=== PATIENT | male | born 1945 | race African-American/Black ===

== ENCOUNTER → 2016-09-11 | Outpatient (CLI) | payer MEDICARE ==
--- NOTE | 2016-09-11 10:04 | RADIOLOGY REPORT (SQ) ---
EXAM DESCRIPTION: CT ABD/PELVIS WITH IV ORAL COMPLETED DATE/TIME: 09/11/2016 9:39 am REASON FOR STUDY: ANEMIA AND ABDOMEN PAIN D64.9 ANEMIA, UNSPECIFIED R10.9 UNSPECIFIED ABDOMINAL PA IN COMPARISON: None. TECHNIQUE: CT scan of the abdomen and pelvis performed using helical scanning technique with dynamic intravenous contrast injection. No oral contrast. Images reviewed with lung, soft tissue, and bone windows. Reconstructed coronal and sagittal MPR images reviewed. Delayed images for evaluation of the urinary system also acquired. All images stored on PACS. All CT scanners at this facility use dose modulation, iterative reconstruction, and/or weight based d osing when appropriate to reduce radiation dose to as low as reasonably achievable (ALARA). [facility]: Dose Right [facility]: CareDose [facility]: Dose Right [facility]: Teradose 4D [facility]: [employer] CONTRAST TYPE AND DOSE: contrast/concentration: Isovue 370.00 mg/ml; Total Contrast Delivered: 79.0 ml; Total Saline Delivered: 68.0 ml RENAL FUNCTION: BUN 19 creatinine 1.04 RADIATION DOSE: Up-to-date CT equipment and radiation dose reduction techniques were employed. CTDIv ol: 5.9 - 8.1 mGy. DLP: 744 mGy-cm.. LIMITATIONS: None. FINDINGS: LOWER CHEST: No significant findings. No nodules or infiltrates. LIVER: Normal size. No masses or dilated ducts. SPLEEN: Normal size. No focal lesions. PANCREAS: No masses. No significant calcifications. No adjacent inflammation or peripancreatic fluid collections. Pancreatic duct not dilated. GALLBLADDER: No identified stones by CT criteria. No inflammatory changes to suggest cholecystitis. ADRENAL GLANDS: No significant masses or asymmetry. RIGHT KIDNEY AND URETER: No solid masses. No significant calcifications. No hydronephrosis or hyd roureter. LEFT KIDNEY AND URETER: No solid masses. Multiple her renal cysts are noted throughout the kidney th e largest which is seen in the upper pole measuring approximately 6.2 cm in greatest dimension. No s ignificant calcifications. No hydronephrosis or hydroureter. AORTA AND VESSELS: No aneurysm. No dissection. Diffuse calcific atheromatous disease involving the a lino and iliac vessels is noted. Renal arteries, SMA, celiac without stenosis. RETROPERITONEUM: No retroperitoneal adenopathy, hemorrhage or masses. BOWEL AND PERITONEAL CAVITY: No masses or inflammatory changes. No free fluid or peritoneal masses. APPENDIX: Normal. PELVIS: Mild prostatomegaly. There is thickening in the bladder wall which could be secondary to und erdistention of the bladder versus sequela of BPH. Underlying mass lesion within the bladder cannot be excluded on this study. No mass lesions identified within the pelvis. No adenopathy. ABDOMINAL WALL: No masses. No hernias. BONES: No significant or acute findings. Multilevel degenerative changes of the lumbar spine noted. OTHER: No other significant finding. IMPRESSION: 1. No acute abnormality identified in the abdomen and pelvis on this study. 2. Mild prostatomegaly. There is some thickening of the bladder wall which may be secondary to unde rdistention the bladder versus thickening of the muscle secondary to bladder outlet obstruction. Und erlying mass lesion this area cannot be excluded on this study due to incomplete opacification of the bladder. TECHNICAL DOCUMENTATION: JOB ID: [id number] Quality ID # [id number]: Final reports with documentation of one or more dose reduction techniques (e.g., Au tomated exposure control, adjustment of the mA and/or kV according to patient size, use of iterative reconstruction technique) 2010 [employer]- All Rights Reserved
== END ==
LOC: RAD 08:52
PROVIDERS: ATTEND Family Medicine
DX: R10.9 Unspecified abdominal pain (principal); D64.9 Anemia, unspecified
CPT/HCPCS: 74177

== ENCOUNTER 2016-09-18 07:56 | Day surgery (SDC) | payer MEDICARE ==
[~2016-09-18 07:56] MED LIST: DIPHENHYDRAMINE HCL 50 MG/ML VIAL ONE; EPINEPHRINE INJ 1 MG/10 ML DISP.SYRIN ONE; FENTANYL CITRATE INJ/PF 100 MCG/2 ML AMPUL ONE; FLUMAZENIL INJ 0.5 MG/5 ML VIAL IV ONE; GLUCAGON,HUMAN RECOMB 1 MG INJ ONE; MIDAZOLAM 2 MG/2 ML INJ ONE; NALOXONE HCL INJ/PF 0.4 MG/1 ML SDV ONE; ONDANSETRON HCL INJ/PF 4 MG/2 ML SDV ONE
[2016-09-18] MEDS: MIDAZOLAM 2 MG/2 ML INJ ONE ×2 (08:26→08:42)
--- NOTE | 2016-09-18 09:40 | Operative Report ---
Operative Report DATE OF SURGERY: 09/18/16 Operative Report: The risks, benefits and alternatives of the procedure including risks of bleeding, perforation requiring surgery are explained to the patient detail and informed consent was obtained. The patient was taken back to the endoscopy suite and placed in the left, lateral decubital position. Timeout was called. Conscious sedation medications were provided. A rectal examination was done which did not reveal any masses, tears or fissures. An Olympus video scope was inserted into the patient's rectum. The scope was then gradually advanced all the way to the cecum. The cecum was identified by the usual anatomical landmarks including the ileocecal valve as well as the appendiceal office. Patient has a redundant, tortuous colon. Prep is not as good. Photodocumentation is obtained. The scope was then sequentially pulled back via the rest segments of the colon including the ascending colon, hepatic flexure, transverse colon, splenic flexure, descending colon and finally to the rectosigmoid portions of the colon. Retroflexion maneuvers performed. The risks benefits and alternatives of the procedure explained to the patient in detail and informed consent is obtained. A GIF Olympus video scope was inserted into the patient's mouth and hypopharynx, the esophagus is identified intubated and insufflated, the scope was then advanced through the esophagus stomach and duodenum ,retroflexion maneuver is done, the esophagus stomach and first and second portions of the duodenum examined PREOPERATIVE DIAGNOSIS: Iron deficiency anemia rule out GI bleeding POSTOPERATIVE DIAGNOSIS: Small polyp in the sigmoid colon removed via biopsy forceps. Hiatal hernia. Gastritis status post biopsy rule out Helicobacter pylori. No masses AVMs diverticulosis noted , internal hemorrhoids OPERATION: Colonoscopy with biopsy. EGD with biopsy SURGEON: HERMES ROCKWELL ANESTHESIA: Moderate Sedation - 3 mg Versed, 25 mcg of fentanyl. Conscious sedation monitoring time 30 minutes. TISSUE REMOVED OR ALTERED: As noted above. COMPLICATIONS: None. ESTIMATED BLOOD LOSS: None. INTRAOPERATIVE FINDINGS: As described above. PROCEDURE: Patient tolerated procedure well. No immediate postprocedure complications are noted. Patient discharged in good condition. Discharge date 09/18/2016. Discharge diet: Regular. Discharge activity: Regular. 2-3 week follow-up to discuss findings. Patient is instructed to call the office or proceed to the emergency room should there be any further problems or questions. We will wait on pathology. Surveillance colonoscopy in 5 years.
[2016-09-18 10:14] VITALS: BP 173/62
== END 2016-09-18 10:20 | disposition home or self-care (01) ==
LOC: END 07:56
PROVIDERS: ATTEND Internal Medicine Gastroenterology
PROC: 0DB68ZX Excision of Stomach, Via Natural or Artificial Opening Endoscopic, Diagnostic (ICD-10-PCS; principal; 2016-09-18 08:30)
PROC: 0DBN8ZX Excision of Sigmoid Colon, Via Natural or Artificial Opening Endoscopic, Diagnostic (ICD-10-PCS; 2016-09-18 08:30)
DX: K44.9 Diaphragmatic hernia without obstruction or gangrene (principal); K29.70 Gastritis, unspecified, without bleeding; K63.5 Polyp of colon; K64.8 Other hemorrhoids; D50.0 Iron deficiency anemia secondary to blood loss (chronic); Z79.82 Long term (current) use of aspirin; Z79.84 Long term (current) use of oral hypoglycemic drugs; Z79.4 Long term (current) use of insulin; Z79.899 Other long term (current) drug therapy
CPT/HCPCS: 43239; 45380; 82962; 88342 ×2; 88305 ×2; J2250; J3010; J0171; J1200; J1610; J2310; J2405; J3490

== ENCOUNTER → 2016-10-29 | Outpatient (CLI) | payer MEDICARE ==
--- NOTE | 2016-10-29 14:41 | RADIOLOGY REPORT (SQ) ---
EXAM DESCRIPTION: VENOUS UNILATERAL LOWER COMPLETED DATE/TIME: 10/29/2016 2:31 pm REASON FOR STUDY: RLE M79.661 M79.661 PAIN IN RIGHT LOWER LEG COMPARISON: None. TECHNIQUE: Dynamic and static howard scale and color images acquired of the right leg venous system. S elected spectral images acquired with additional compression and augmentation maneuvers. The contrala teral common femoral vein and saphenofemoral junction were also imaged. Images stored on PACS. LIMITATIONS: None. FINDINGS: COMMON FEMORAL: Normal phasicity, compression and augmentation. No visualized echogenic ma terial on howard scale. No defects on color images. FEMORAL: Normal compression and augmentation. No visualized echogenic material on howard scale. No defe cts on color images. POPLITEAL: Normal compression, augmentation. No visualized echogenic material on howard scale. No defec ts on color images. CALF VESSELS: Normal compression, augmentation. No visualized echogenic material on howard scale. No de fects on color images. GSV and SSV: Normal compression, augmentation. No visualized echogenic material on howard scale. No def ects on color images. ANY DEEP VENOUS INSUFFICIENCY: Not evaluated. ANY EVIDENCE OF POPLITEAL CYST: No. OTHER: No other significant finding. CONTRALATERAL COMMON FEMORAL VEIN AND SAPHENOFEMORAL JUNCTION: Normal phasicity, compression and augmentation. No visualized echogenic material on hoawrd scale. No de fects on color images. IMPRESSION: NO EVIDENCE DVT OR SVT IN THE RIGHT LEG. COMMENT: Preliminary report was called by the technologist to the referring clinician's office at th e time of patient visit. TECHNICAL DOCUMENTATION: JOB ID: [id number] [employer]- All Rights Reserved
== END ==
LOC: SP 13:42
PROVIDERS: ATTEND Family Medicine
DX: M79.661 Pain in right lower leg (principal)
CPT/HCPCS: 93971

== ENCOUNTER → 2016-10-30 | Outpatient (CLI) | payer MEDICARE ==
--- NOTE | 2016-10-30 11:41 | RADIOLOGY REPORT (SQ) ---
EXAM DESCRIPTION: ANKLE RIGHT COMPLETE COMPLETED DATE/TIME: 10/30/2016 11:11 am REASON FOR STUDY: PAIN IN RIGHT LOWER LEG M79.661 PAIN IN RIGHT LOWER LEG COMPARISON: None. NUMBER OF VIEWS: Three views. TECHNIQUE: AP, lateral, and oblique radiographic images acquired of the right ankle. LIMITATIONS: None. FINDINGS: MINERALIZATION: Normal. BONES: No acute fracture or dislocation. No worrisome bone lesions. JOINTS: No effusions. SOFT TISSUES: Mild soft tissue swelling more prominent laterally. OTHER: No other significant finding. IMPRESSION: Soft tissue swelling with no fracture. TECHNICAL DOCUMENTATION: JOB ID: [id number] [employer]- All Rights Reserved
--- NOTE | 2016-10-30 11:45 | RADIOLOGY REPORT (SQ) ---
EXAM DESCRIPTION: FOOT RIGHT COMPLETE COMPLETED DATE/TIME: 10/30/2016 11:11 am REASON FOR STUDY: PAIN IN RIGHT LOWER LEG M79.661 PAIN IN RIGHT LOWER LEG COMPARISON: None. NUMBER OF VIEWS: Three views. TECHNIQUE: AP, lateral and oblique radiographic images acquired of the right foot. LIMITATIONS: None. FINDINGS: MINERALIZATION: Normal. BONES: No acute fracture or dislocation. No worrisome bone lesions. Hallux valgus deformity. Mild degenerative changes noted in the midfoot. JOINTS: No effusions. SOFT TISSUES: No soft tissue swelling. No foreign body. OTHER: No other significant finding. IMPRESSION: No acute fracture dislocation identified. Mild degenerate changes noted in the midfoot. Hallux valgus deformity of the 1st MTP TECHNICAL DOCUMENTATION: JOB ID: [id number] [employer]- All Rights Reserved
== END ==
LOC: OD 10:42
PROVIDERS: ATTEND Physician Assistant
DX: M79.661 Pain in right lower leg (principal)

== ENCOUNTER → 2018-02-18 | Outpatient (CLI) | payer MEDICARE ==
[2018-02-18 10:33] LABS: ANION GAP 10 (5-19); BLOOD UREA NITROGEN 32 mg/dL (7-20); CALCIUM 10.1 mg/dL (8.4-10.2); CARBON DIOXIDE 30 mmol/L (22-30); CHLORIDE 105 mmol/L (98-107); GLUCOSE 56 mg/dL (75-110); POTASSIUM 4.7 mmol/L (3.6-5.0); SODIUM 144.8 mmol/L (137-145)
== END ==
LOC: OD 08:56
PROVIDERS: ATTEND Family Medicine
DX: E87.5 Hyperkalemia (principal)
CPT/HCPCS: 36415; 80048

== ENCOUNTER → 2018-05-20 | Outpatient (CLI) | payer MEDICARE ==
--- NOTE | 2018-05-20 12:44 | RADIOLOGY REPORT (SQ) ---
EXAM DESCRIPTION: U/S RETROPERITON (RENAL/AORTA) COMPLETED DATE/TIME: 05/20/2018 12:27 pm REASON FOR STUDY: ACUTE KIDNEY FAILURE (N17.9), ABN KIDNEY FUNCTION (N28.9) N17.9 ACUTE KIDNEY FAIL URE, UNSPECIFIED COMPARISON: None. TECHNIQUE: Dynamic and static grayscale images acquired of the kidneys and bladder and recorded on P ACS. Additional selected color Doppler and spectral images recorded. LIMITATIONS: None. FINDINGS: RIGHT KIDNEY: Normal size, 9.6 cm. Normal echogenicity. No solid or suspicious masses. No hydronephrosis. No calcifications. LEFT KIDNEY: Normal size, 9.2 cm. Normal echogenicity. No solid or suspicious masses. There are 2 c ysts. The larger measures 5.4 cm. No hydronephrosis. No calcifications. BLADDER: No obvious mass. The bladder is incompletely filled. Ureteral jets are not seen. OTHER FINDINGS: No other significant finding. IMPRESSION: Left renal cysts. No acute findings. TECHNICAL DOCUMENTATION: JOB ID: [id number] [employer]- All Rights Reserved Reading location - IP/workstation name: [email or web address]
== END ==
LOC: RAD 11:19
PROVIDERS: ATTEND Physician Assistant
DX: N28.9 Disorder of kidney and ureter, unspecified (principal); R94.4 Abnormal results of kidney function studies
CPT/HCPCS: 76770

== ENCOUNTER 2018-07-04 13:05 | Inpatient (IN) | payer MEDICARE ==
--- NOTE | 2018-07-04 13:32 | ER Document Report ---
ED Medical Screen (RME) - General Chief Complaint: Altered Mental Status Stated Complaint: WEAKNESS Time Seen by Provider: 07/04/18 13:27 Primary Care Provider: SHREYA ONEAL PA [Primary Care Provider] - Follow up as needed TRAVEL OUTSIDE OF THE [place] 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 His last known normal was just after the eye surgery. He has been eating and drinking, but does have a decreased p.o. intake. Denies FERNANDES, fever, neck pain, URI, CP, SOB, Abd pain, or rash. I have treated and performed a rapid initial assessment of this patient. A comprehensive ED assessment and evaluation of the patient, analysis of test results and completion of medical decision making process will be conducted by additional ED providers. PHYSICAL EXAMINATION: GENERAL: Well-appearing, well-nourished and in no acute distress. A&Ox4. Answers questions appropriately. HEAD: Atraumatic, normocephalic. Non-tender. NECK: Normal range of motion, supple without lymphadenopathy. No rigidity/meningismus. No midline tenderness. LUNGS: Breath sounds clear to auscultation bilaterally and equal. No wheezes rales or rhonchi. HEART: Regular rate and rhythm without murmurs, rubs, gallops. ABDOMEN: Soft, nontender, nondistended abdomen. No guarding, no rebound. Normal bowel sounds present. No CVA tenderness bilaterally. Musculoskeletal: L>R sided weakness noted. Extremities: No cyanosis, clubbing, or edema b/l. Peripheral pulses 2+. Capillary refill less than 2 seconds. NEUROLOGICAL: Unable to test eyes. Pt does cannot lift left leg against gravity. He can lift his left arm. Finger to nose left arm difficulty. GCS 15. Slight droop to left lip, unknown if normal per family at this time. PSYCH: Normal mood, normal affect. SKIN: Warm, Dry, normal turgor, no rashes or lesions noted. - Related Data Allergies/Adverse Reactions: No Known Allergies Allergy (Verified 07/04/18 13:07) Past Medical History - Past Medical History Cardiac Medical History: Reports: Hx Coronary Artery Disease, Hx Hypertension Denies: Hx Heart Attack Pulmonary Medical History: Denies: Hx Asthma, Hx Bronchitis, Hx COPD, Hx Pneumonia Neurological Medical History: Reports: Hx Cerebrovascular Accident - X3, STATES NO DEFICITS. Denies: Hx Seizures Musculoskeltal Medical History: Reports Hx Arthritis - Immunizations Hx Diphtheria, Pertussis, Tetanus Vaccination: No Physical Exam - Vital signs Vitals: Temp Pulse Resp BP Pulse Ox 98.4 F 53 L 16 147/43 H 99 07/04/18 13:13 07/04/18 13:13 07/04/18 13:13 07/04/18 13:13 07/04/18 13:13 Course - Vital Signs Vital signs: Temp Pulse Resp BP Pulse Ox 98.4 F 53 L 16 151/55 H 99 07/04/18 13:13 07/04/18 13:13 07/04/18 13:13 07/04/18 13:16 07/04/18 13:13 Doctor's Discharge - Discharge Referrals: SHREYA ONEAL PA [Primary Care Provider] - Follow up as needed
--- NOTE | 2018-07-04 13:55 | RADIOLOGY REPORT (SQ) ---
EXAM DESCRIPTION: CHEST SINGLE VIEW COMPLETED DATE/TIME: 07/04/2018 1:42 pm REASON FOR STUDY: weakness COMPARISON: None. EXAM PARAMETERS: NUMBER OF VIEWS: One view. TECHNIQUE: Single frontal radiographic view of the chest acquired. RADIATION DOSE: NA LIMITATIONS: None. FINDINGS: LUNGS AND PLEURA: No opacities, masses or pneumothorax. No pleural effusion. MEDIASTINUM AND HILAR STRUCTURES: No masses. Contour normal. HEART AND VASCULAR STRUCTURES: Heart normal in size. Normal vasculature. Calcifications of the thor acic aorta. BONES: No acute findings. HARDWARE: None in the chest. OTHER: No other significant finding. IMPRESSION: NO ACUTE RADIOGRAPHIC FINDING IN THE CHEST. TECHNICAL DOCUMENTATION: JOB ID: [id number] [employer]- All Rights Reserved Reading location - IP/workstation name: [email or web address]
--- NOTE | 2018-07-04 14:00 | RADIOLOGY REPORT (SQ) ---
EXAM DESCRIPTION: CT HEAD WITHOUT COMPLETED DATE/TIME: 07/04/2018 1:50 pm REASON FOR STUDY: Left weakness, h/o CVA COMPARISON: None. TECHNIQUE: Axial images acquired through the brain without intravenous contrast. Images reviewed wi th bone, brain and subdural windows. Additional sagittal and coronal reconstructions were generated. Images stored on PACS. All CT scanners at this facility use dose modulation, iterative reconstruction, and/or weight based d osing when appropriate to reduce radiation dose to as low as reasonably achievable (ALARA). [facility]: Dose Right [facility]: CareDose [facility]: Dose Right [facility]: Teradose 4D [facility]: [employer] RADIATION DOSE: CT Rad equipment meets quality standard of care and radiation dose reduction techniq ues were employed. CTDIvol: 53.2 mGy. DLP: 1070 mGy-cm.mGy. LIMITATIONS: None. FINDINGS: VENTRICLES: Prominent. CEREBRUM: No masses. No hemorrhage. No midline shift. Areas of low density in the white matter mos t likely due to chronic micro-vascular ischemic change. No evidence for acute infarction. CEREBELLUM: No masses. No hemorrhage. No alteration of density. No evidence for acute infarction. EXTRAAXIAL SPACES: Age-related involutional change. No fluid collections. No masses. ORBITS AND GLOBE: No intra- or extraconal masses. Normal contour of globe without masses. CALVARIUM: No fracture. PARANASAL SINUSES: No fluid or mucosal thickening. SOFT TISSUES: No mass or hematoma. OTHER: No other significant finding. IMPRESSION: CHRONIC CHANGES OF ATROPHY AND MICROVASCULAR ISCHEMIA. NO ACUTE PROCESS. EVIDENCE OF ACUTE STROKE: NO. TECHNICAL DOCUMENTATION: JOB ID: [id number] Quality ID # [id number]: Final reports with documentation of one or more dose reduction techniques (e.g., Au tomated exposure control, adjustment of the mA and/or kV according to patient size, use of iterative reconstruction technique) 2010 [employer]- All Rights Reserved Reading location - IP/workstation name: [email or web address]
[2018-07-04 14:51] LABS: ABSOLUTE BASOPHILS # (AUTO) 0.1 10^3/uL (0.0-0.2); ABSOLUTE EOSINOPHILS # (AUTO) 0.1 10^3/uL (0.0-0.6); ABSOLUTE LYMPHOCYTES (AUTO) 1.3 10^3/uL (0.5-4.7); ABSOLUTE MONOCYTES (AUTO) 0.5 10^3/uL (0.1-1.4); ABSOLUTE NEUT (AUTO) 4.3 10^3/uL (1.7-8.2); EOSINOPHILS % (AUTO) 0.9 % (0-6); HEMATOCRIT 33.8 % (37.9-51.0); HEMOGLOBIN 11.4 g/dL (13.5-17.0); LYMPHOCYTES % (AUTO) 20.7 % (13-45); MEAN CORPUSCULAR HEMOGLOBIN 27.8 pg (27.0-33.4); MEAN CORPUSCULAR HGB CONC 33.6 g/dL (32.0-36.0); MEAN CORPUSCULAR VOLUME 83 fl (80-97); MONOCYTES % (AUTO) 8.7 % (3-13); PLATELET COUNT 262 10^3/uL (150-450); RED BLOOD COUNT 4.08 10^6/uL (4.35-5.55); RED CELL DISTRIBUTION WIDTH 14.4 % (11.5-14.0); SEGMENTED NEUTROPHILS % (AUTO) 68.7 % (42-78); TOTAL CELLS COUNTED % (AUTO) 100 %; WHITE BLOOD COUNT 6.2 10^3/uL (4.0-10.5)
[2018-07-04 15:29] LABS: ALANINE AMINOTRANSFERASE 21 U/L (21-72); ALBUMIN 4.3 g/dL (3.5-5.0); ALKALINE PHOSPHATASE 88 U/L (38-126); ANION GAP 6 (5-19); ASPARTATE AMINO TRANSFERASE 21 U/L (17-59); BILIRUBIN,DIRECT 0.3 mg/dL (0.0-0.4); BILIRUBIN,TOTAL 0.8 mg/dL (0.2-1.3); BLOOD UREA NITROGEN 33 mg/dL (7-20); CALCIUM 10.7 mg/dL (8.4-10.2); CARBON DIOXIDE 31 mmol/L (22-30); CHLORIDE 104 mmol/L (98-107); GLUCOSE 210 mg/dL (75-110); SODIUM 141.4 mmol/L (137-145); TOTAL PROTEIN 7.4 g/dL (6.3-8.2)
--- NOTE | 2018-07-04 16:02 | EKG REPORT ---
SEVERITY:- BORDERLINE ECG - LOW ATRIAL RHYTHM BORDERLINE T ABNORMALITIES, INFERIOR LEADS BORDERLINE ST ELEVATION, ANTERIOR LEADS : Confirmed by: Junior Martins MD 04-Jul-2018 16:01:57
--- NOTE | 2018-07-04 17:25 | ER Document Report ---
Entered by BERT MONROY SCRIBE 07/04/18 1423 Acting as scribe for:ADAN MANZO MD ED General - General Chief Complaint: Altered Mental Status Stated Complaint: WEAKNESS Time Seen by Provider: 07/04/18 13:27 Primary Care Provider: SHREYA ONEAL PA [PHYSICIAN TRAIN DISPATCHER] - Follow up as needed Mode of Arrival: Ambulatory Information source: Patient Notes: Patient is a 73 year old male with HTN, type 2 diabetes and a history of CVA x3 (left sided deficits) presents to the emergency department accompanied by family complaining of left sided weakness onset 2 days ago. Family at bedside states the patient was on his way to [facility] to have left corneal surgery when they noticed he began to have LLE weakness after the 2.5 hour car ride. They state the patient would have difficulty moving his left leg and would frequently fall to the left. Family reports the patient appeared normal the day before the car ride and the morning before. They state the patient proceeded with the surgery and his symptoms have persisted. Patient states he feels weak all over which he also noticed after the car ride. Patient's PCP is Dr. Tomlinson. The patient is not a TPA candidate. The onset of the patient's symptoms were greater than 48 hours ago. He did have corneal surgery 2 days ago. TRAVEL OUTSIDE OF THE [place] IN LAST 30 DAYS: No - Related Data Allergies/Adverse Reactions: No Known Allergies Allergy (Verified 07/04/18 13:07) Past Medical History - General Information source: Patient - Social History Smoking Status: Never Smoker Cigarette use (# per day): No Chew tobacco use (# tins/day): No Smoking Education Provided: No Frequency of alcohol use: None Drug Abuse: None Family History: Reviewed & Not Pertinent Patient has suicidal ideation: No Patient has homicidal ideation: No - Past Medical History Cardiac Medical History: Reports: Hx Coronary Artery Disease, Hx Hypertension Neurological Medical History: Reports: Hx Cerebrovascular Accident - X3, STATES NO DEFICITS Endocrine Medical History: Reports: Hx Diabetes Mellitus Type 2 Musculoskeletal Medical History: Reports Hx Arthritis Past Surgical History: Reports: Hx Genitourinary Surgery - Prostate - Immunizations Hx Diphtheria, Pertussis, Tetanus Vaccination: No Review of Systems - Review of Systems Constitutional: No symptoms reported EENT: No symptoms reported Cardiovascular: No symptoms reported Respiratory: No symptoms reported Gastrointestinal: No symptoms reported Genitourinary: No symptoms reported Male Genitourinary: No symptoms reported Musculoskeletal: See HPI Skin: No symptoms reported Hematologic/Lymphatic: No symptoms reported Neurological/Psychological: See HPI, Weakness -: Yes All other systems reviewed and negative Physical Exam - Vital signs Vitals: Temp Pulse Resp BP Pulse Ox 98.4 F 53 L 16 147/43 H 99 07/04/18 13:13 07/04/18 13:13 07/04/18 13:13 07/04/18 13:13 07/04/18 13:13 - Notes Notes: GENERAL: Alert, interacts well. No acute distress. HEAD: Normocephalic, atraumatic. No facial weakness. EYES:Right pupil equal, round, and reactive to light. Extraocular movements intact. Left eye is covered by a metal perforated patch, consistent with recent surgical history. ENT: Oral mucosa moist, tongue midline. NECK: Full range of motion. Supple. Trachea midline. Loud flow murmurs in both c arotids, L>R. LUNGS: Clear to auscultation bilaterally, no wheezes, rales, or rhonchi. No respiratory distress. HEART: Systolic murmur. No gallops or rubs. ABDOMEN: Soft, non-tender. Non-distended. Bowel sounds present in all 4 quadrants. No guarding, rigidity, or rebound. EXTREMITIES: Moves all 4 extremities spontaneously. Able to lift BUE for several seconds, normal motor function and strength. Able to lift RLE for several seconds. Able to LLE although unable to keep leg in the air for a prolonged period of time. No edema. NEUROLOGICAL: Alert and oriented x3. Normal speech. PSYCH: Normal affect, normal mood. SKIN: Warm, dry, normal turgor. No rashes or lesions noted. Course - Re-evaluation Re-evalutation: 07/04/18 15:56 The patient has a worsening in his chronic left lower extremity weakness that started just over [address] scan does not show an acute process. I had considered MRI, but he has a recent inflation valve for a prostate instrument implanted in his right thigh. The family did not bring the card with them. They are going to go home and retrieve the card and take pictures of it and then send it to a granddaughter who is remaining here at the hospital. - Vital Signs Vital signs: Temp Pulse Resp BP Pulse Ox 98.4 F 53 L 24 H 172/68 H 98 07/04/18 13:13 07/04/18 14:54 07/04/18 16:01 07/04/18 16:01 07/04/18 16:01 - Laboratory Result Diagrams: 07/04/18 14:20 07/04/18 14:20 Laboratory results interpreted by me: 07/04/18 07/04/18 14:20 14:20 RBC 4.08 L Hgb 11.4 L Hct 33.8 L RDW 14.4 H Carbon Dioxide 31 H BUN 33 H Creatinine 1.56 H Est GFR ( Amer) 53 L Est GFR (Non-Af Amer) 44 L Glucose 210 H Calcium 10.7 H - Diagnostic Test Radiology reviewed: Image reviewed, Reports reviewed - CT scan of the head shows chronic atrophy with microvascular ischemic changes. Nothing acute. Chest x-ray does not show any acute process. - EKG Interpretation by Me EKG shows normal: Sinus rhythm, [place], Intervals, QRS Complexes. abnormal: ST-T Waves - Borderline inferior T abnormalities, borderline anterior ST elevation Rate: Normal - 57 Rhythm: NSR - Consults Dr. Hdez Time consulted: 17:08 Consulted provider: will see as inpatient - [facility]MCU Discharge - Discharge Clinical Impression: Left leg weakness CVA (cerebral vascular accident) Qualifiers: CVA mechanism: unspecified Qualified Code(s): I63.9 - Cerebral infarction, unspecified Condition: Stable Disposition: ADMITTED INPATIENT Admitting Provider: Davi Hdez covering Unit Admitted: IMCU Referrals: SHREYA ONEAL PA [PHYSICIAN TRAIN DISPATCHER] - Follow up as needed Scribe Attestation: 07/04/18 15:46 I personally performed the services described in the documentation, reviewed and edited the documentation which was dictated to the scribe in my presence, and it accurately records my words and actions. I personally performed the services described in the documentation, reviewed and edited the documentation which was dictated to the scribe in my presence, and it accurately records my words and actions.
--- NOTE | 2018-07-04 19:29 | RADIOLOGY REPORT (SQ) ---
EXAM DESCRIPTION: MRI HEAD WITHOUT COMPLETED DATE/TIME: 07/04/2018 7:08 pm REASON FOR STUDY: New left lower extremity weakness COMPARISON: CT of brain 07/04/2018 TECHNIQUE: Multiplanar imaging includes non-contrasted T1, T2, FLAIR, and Diffusion with ADC map seq uences. Images stored on PACS. LIMITATIONS: None. FINDINGS: ANATOMY: No anomalies. Normal vascular flow voids. Pituitary fossa normal. CSF SPACES: Normal in size and contour. No hemorrhage. CEREBRUM: Increased T2 signal present in the right centrum semiovale as well as adjacent to the supe rior aspect of the corpus callosum extending into the right yepez radiata. Also, a few high-signal intensity lesions scattered throughout the white matter on FLAIR imaging with distribution suggesting chronic micro-vascular ischemic change. Sulci and gyri normal in size and contour. No evidence of hemorrhage, mass or extraaxial fluid collection. POSTERIOR FOSSA: No signal alteration. No hemorrhage. No edema, masses or mass effect. Internal guillermina tory canals, cerebello-pontine angles, mastoids normal. DIFFUSION: There is restricted diffusion present in the right centrum semi of bowel extending superio rly into the yepez radiata and anteromedially towards the corpus callosum. ORBITS: No masses. Globes normal. PARANASAL SINUSES: No fluid levels. Mucosa normal. OTHER: No other significant finding. IMPRESSION: 1. Acute to subacute infarction in the right centrum semiovale extending into the yepez radiata. 2. Findings consistent with chronic small vessel ischemic changes well. EVIDENCE OF ACUTE STROKE: YES. COMMENT: Pertinent findings on the imaging study reported as a CRITICAL RESULT to ADAN MANZO MD at19:22 on 07/04/2018. Category of Critical Result: 1 TECHNICAL DOCUMENTATION: JOB ID: [id number] [employer]- All Rights Reserved Reading location - IP/workstation name: [email or web address]
[2018-07-04] MEDS ORDERED: GLUCAGON,HUMAN RECOMB 1 MG INJ SUBCUT PRN (20:40)
[2018-07-04] MEDS ORDERED: DEXTROSE 50%-WATER 25 GM/50 ML DISP.SYRIN IV PRN ×4 (20:40→20:44)
[2018-07-04] MEDS ORDERED: DEXTROSE 40% GEL 15 GM TUBE PO PRN ×4 (20:40→20:44)
[2018-07-04] MEDS ORDERED: GLUCAGON,HUMAN RECOMB 1 MG INJ IM PRN (20:44)
--- NOTE | 2018-07-04 20:46 | PDOC H&P ---
History of Present Illness Admission Date/PCP: 07/04/18 17:40 EMILY BAXTER MD History of Present Illness: JYOTI POLLOCK is a 73 year old male, he has a history of hypertension, type 2 diabetes mellitus history of CVA he came to the emergency room for evaluation of left-sided weakness started 2 days ago. Family stated that patient was on his way to [facility] to have left corneal surgery when they noticed he has left sided weakness he had the surgery despite having left- sided weakness. Family stated that patient appeared normal the day before the car ride and the procedure. CAT scan of the head was done without contrast there was no acute change on the CAT scan subsequent MRI head was done, it demonstrated acute infarction in the right centrum semiovale extending into the yepez radiata Past Medical History Cardiac Medical History: Reports: Coronary Artery Disease, Hypertension Endocrine Medical History: Reports: Diabetes Mellitus Type 2 Musculoskeltal Medical History: Reports: Arthritis Hematology: Reports: Anemia Social History Smoking Status: Never Smoker - Advance Directive Resuscitation Status: Full Code Family History Family History: Reviewed & Not Pertinent Parental Family History Reviewed: Yes Children Family History Reviewed: Yes Sibling(s) Family History Reviewed.: Yes Medication/Allergy Home Medications: Aspirin [Aspirin EC] 81 mg PO BID 09/17/16 Atorvastatin Calcium [Lipitor 20 mg Tablet] 20 mg PO QHS 09/17/16 Insulin Glargine,Hum.rec.anlog [Lantus] 25 unit SQ BID 09/17/16 Lisinopril 20 mg PO DAILY 09/17/16 Prednisolone Acetate [Pred Forte] 5 ml BTH_EYE QHS 09/17/16 Amlodipine Besylate [Norvasc 5 mg Tablet] 1 tab PO BID 07/05/18 Bacitracin [Bacitracin Oph Oint 3.5 gm] 1 applic LFT_EYE QHS 07/05/18 Besifloxacin HCl [Besivance 0.6% Oph Susp 5 ml] 1 drop LFT_EYE QID 07/05/18 Bimatoprost [Lumigan 0.01% Oph Soln 2.5 ml/Bottle] 1 drop LFT_EYE QHS 07/05/18 Brimonidine Tartrate/Timolol [Combigan 0.2%-0.5% Eye Drops] 1 drop BTH_EYE QAM 07/05/18 Carboxymethylcellulos/Glycerin [Refresh Repair 0.5-0.9% Drop] 1 drop BTH_EYE QID 07/05/18 Cholecalciferol (Vitamin D3) [Vitamin D3 1000 Unit Tablet] 1 tab PO DAILY 07/05/18 Difluprednate [Durezol] 2 drp LFT_EYE BID 07/05/18 Ferrous Sulfate [Albafort] 1 tab PO DAILY 07/05/18 Loteprednol Etabonate [Lotemax] 1 drop LFT_EYE BID 07/05/18 Magnesium 1 tab PO DAILY 07/05/18 Netarsudil Mesylate [Rhopressa] 1 drop BTH_EYE ASDIR PRN 07/05/18 Allergies/Adverse Reactions: No Known Allergies Allergy (Verified 07/04/18 13:07) Review of Systems Constitutional: ABSENT: chills, fever(s), headache(s), weight gain, weight loss Eyes: ABSENT: visual disturbances Ears: ABSENT: hearing changes Cardiovascular: ABSENT: chest pain, dyspnea on exertion, edema, orthropnea, palpitations Respiratory: ABSENT: cough, hemoptysis Gastrointestinal: ABSENT: abdominal pain, constipation, diarrhea, hematemesis, hematochezia, nausea, vomiting Genitourinary: ABSENT: dysuria, hematuria Musculoskeletal: ABSENT: joint swelling Integumentary: ABSENT: rash, wounds Neurological: PRESENT: focal weakness, frequent falls Psychiatric: ABSENT: anxiety, depression, homidical ideation, suicidal ideation Endocrine: ABSENT: cold intolerance, heat intolerance, menstrual abnormalities, polydipsia, polyuria Hematologic/Lymphatic: ABSENT: easy bleeding, easy bruising, lymphadenopathy Physical Exam Vital Signs: Temp Pulse Resp BP Pulse Ox 98.4 F 53 L 14 171/66 H 98 07/04/18 13:13 07/04/18 14:54 07/04/18 18:01 07/04/18 18:01 07/04/18 18:01 Intake & Output 07/03/18 07/04/18 07/05/18 06:59 06:59 06:59 Weight 65 kg General appearance: PRESENT: no acute distress Head exam: PRESENT: atraumatic Eye exam: PRESENT: other - There is a shield on the left eye Ear exam: PRESENT: normal external ear exam Neck exam: PRESENT: full ROM Respiratory exam: PRESENT: clear to auscultation francesca Cardiovascular exam: PRESENT: RRR, +S1, +S2 GI/Abdominal exam: PRESENT: normal bowel sounds, soft Rectal exam: PRESENT: deferred Neurological exam: PRESENT: alert, motor sensory deficit - The muscle power in the left lower extremity is 2/5, the muscle power in the right lower extremity is 5/5 muscle power in the left upper extremity is 2/5 Psychiatric exam: PRESENT: appropriate affect, normal mood Skin exam: PRESENT: dry, intact, warm Results Laboratory Results: 07/04/18 14:20 07/04/18 14:20 07/04/18 07/04/18 14:20 14:20 WBC 6.2 RBC 4.08 L Hgb 11.4 L Hct 33.8 L MCV 83 MCH 27.8 MCHC 33.6 RDW 14.4 H Plt Count 262 Seg Neutrophils % 68.7 Lymphocytes % 20.7 Monocytes % 8.7 Eosinophils % 0.9 Basophils % 1.0 Absolute Neutrophils 4.3 Absolute Lymphocytes 1.3 Absolute Monocytes 0.5 Absolute Eosinophils 0.1 Absolute Basophils 0.1 Sodium 141.4 Potassium 5.0 Chloride 104 Carbon Dioxide 31 H Anion Gap 6 BUN 33 H Creatinine 1.56 H Est GFR ( Amer) 53 L Est GFR (Non-Af Amer) 44 L Glucose 210 H Calcium 10.7 H Total Bilirubin 0.8 AST 21 ALT 21 Alkaline Phosphatase 88 Total Protein 7.4 Albumin 4.3 07/04/18 14:20 Troponin I < 0.012 Impressions: Chest X-Ray 07/04/18 13:27 IMPRESSION: NO ACUTE RADIOGRAPHIC FINDING IN THE CHEST. Head CT 07/04/18 13:27 IMPRESSION: CHRONIC CHANGES OF ATROPHY AND MICROVASCULAR ISCHEMIA. NO ACUTE PROCESS. EVIDENCE OF ACUTE STROKE: NO. Head MRI 07/04/18 17:52 IMPRESSION: 1. Acute to subacute infarction in the right centrum semiovale ext ending into the yepez radiata. 2. Findings consistent with chronic small vessel ischemic changes well. EVIDENCE OF ACUTE STROKE: YES. Assessment & Plan - Diagnosis (1) Cerebral infarction Qualifiers: Cerebral infarction mechanism: embolism Precerebral and cerebral artery: anterior cerebral artery Laterality of affected vessel: right Qualified Code(s): I63.421 - Cerebral infarction due to embolism of right anterior cerebral artery Is this a current diagnosis for this admission?: Yes Plan: Patient is admitted for management according to the stroke protocol, the carotid Doppler did not demonstrate any significant hemodynamic stenosis suggesting that the intracranial cerebral vessels are involved in the etiology of the stroke (2) Hemiparesis of right dominant side Qualifiers: Hemiparesis etiology: late effect of cerebrovascular disease Cerebrovascular disease type: cerebral infarction Qualified Code(s): I69.351 - Hemiplegia and hemiparesis following cerebral infarction affecting right dominant side Is this a current diagnosis for this admission?: Yes (3) Essential (primary) hypertension Is this a current diagnosis for this admission?: Yes Plan: The blood pressure is elevated, there is no indication for pharmacotherapy of hypertension in the setting of acute ischemic stroke unless the blood pressure is more than 220/120
[2018-07-04] MEDS: INSULIN LISPRO 100 UNIT/ML 3 ML VIAL SUBCUT SCH (22:49)
[2018-07-04] MEDS: ATORVASTATIN CALCIUM 80 MG TABLET PO SCH (22:52)
[2018-07-04 23:16] LABS: INTERNATIONAL RATION (INR) 0.98; PARTIAL THROMBOPLASTIN TIME 34.2 SEC (23.5-35.8); PROTHROMBIN TIME 13.4 SEC (11.4-15.4)
[2018-07-05 03:38] LABS: ABSOLUTE BASOPHILS # (AUTO) 0.1 10^3/uL (0.0-0.2); ABSOLUTE EOSINOPHILS # (AUTO) 0.1 10^3/uL (0.0-0.6); ABSOLUTE LYMPHOCYTES (AUTO) 1.8 10^3/uL (0.5-4.7); ABSOLUTE MONOCYTES (AUTO) 0.6 10^3/uL (0.1-1.4); ABSOLUTE NEUT (AUTO) 3.7 10^3/uL (1.7-8.2); BASOPHILS % (AUTO) 1.5 % (0-2); EOSINOPHILS % (AUTO) 1.2 % (0-6); HEMATOCRIT 34.2 % (37.9-51.0); HEMOGLOBIN 11.4 g/dL (13.5-17.0); LYMPHOCYTES % (AUTO) 28.3 % (13-45); MEAN CORPUSCULAR HEMOGLOBIN 27.4 pg (27.0-33.4); MEAN CORPUSCULAR HGB CONC 33.3 g/dL (32.0-36.0); MEAN CORPUSCULAR VOLUME 83 fl (80-97); MONOCYTES % (AUTO) 9.6 % (3-13); PLATELET COUNT 217 10^3/uL (150-450); RED BLOOD COUNT 4.15 10^6/uL (4.35-5.55); SEGMENTED NEUTROPHILS % (AUTO) 59.4 % (42-78); TOTAL CELLS COUNTED % (AUTO) 100 %; WHITE BLOOD COUNT 6.2 10^3/uL (4.0-10.5)
[2018-07-05 04:00] LABS: ALANINE AMINOTRANSFERASE 15 U/L (21-72); ALBUMIN 3.9 g/dL (3.5-5.0); ALKALINE PHOSPHATASE 85 U/L (38-126); ANION GAP 7 (5-19); ASPARTATE AMINO TRANSFERASE 21 U/L (17-59); BILIRUBIN,DIRECT 0.3 mg/dL (0.0-0.4); BILIRUBIN,TOTAL 0.6 mg/dL (0.2-1.3); BLOOD UREA NITROGEN 30 mg/dL (7-20); CALCIUM 10.1 mg/dL (8.4-10.2); CARBON DIOXIDE 26 mmol/L (22-30); CHLORIDE 107 mmol/L (98-107); CHOLESTEROL 197.75 mg/dL (0-200); GLUCOSE 246 mg/dL (75-110); POTASSIUM 4.1 mmol/L (3.6-5.0); SODIUM 140.2 mmol/L (137-145); TRIGLYCERIDES 175 mg/dL (<150)
[2018-07-05 04:11] LABS: DIRECT LDL 74 mg/dL (<100)
--- NOTE | 2018-07-05 09:44 | EKG REPORT ---
SEVERITY:- ABNORMAL ECG - SINUS RHYTHM MULTIPLE ATRIAL PREMATURE COMPLEXES PROBABLE LEFT ATRIAL ABNORMALITY BORDERLINE T ABNORMALITIES, DIFFUSE LEADS MINIMAL ST ELEVATION, ANTERIOR LEADS : Confirmed by: Junior Martins MD 05-Jul-2018 09:44:03
[2018-07-05] MEDS: INSULIN LISPRO 100 UNIT/ML 3 ML VIAL SUBCUT SCH ×4 (09:56→22:29)
[2018-07-05] MEDS ORDERED: ASPIRIN 81 MG TABLET, ENT COATED PO SCH (10:00)
--- NOTE | 2018-07-05 10:34 | RADIOLOGY REPORT (SQ) ---
EXAM DESCRIPTION: CAROTID DOPPLER COMPLETED DATE/TIME: 07/05/2018 9:56 am REASON FOR STUDY: CVA COMPARISON: None. TECHNIQUE: Grayscale ultrasound, Doppler velocity and spectra, and color Doppler images acquired of the extra-cranial carotid and vertebral arteries. Images stored on PACS. LIMITATIONS: None. FINDINGS: RIGHT CAROTID CCA Velocities: Within normal limits. ICA Velocities Peak systolic 0.69 m/s. End diastolic 0.24 m/s. Proximal ICA/CCA peak systolic ratio 1.0. Spectra normal. No significant plaque. LEFT CAROTID CCA Velocities: Within normal limits. ICA Velocities Peak systolic 0.75 m/s. End diastolic 0.29 m/s. Proximal ICA/CCA peak systolic ratio 0.8. Spectra normal. No significant plaque. VERTEBRAL ARTERIES: Antegrade flow. Normal waveforms. SUBCLAVIAN ARTERIES: Not imaged. OTHER: No other significant finding. IMPRESSION: NO HEMODYNAMICALLY SIGNIFICANT STENOSIS. COMMENT: Quality ID #[id number]: Velocity criteria are extrapolated from the diameter data as defined by t he Society of Radiologists in Ultrasound Consensus Conference. Radiology 2003: 229; 340-346. TECHNICAL DOCUMENTATION: JOB ID: [id number] [employer]- All Rights Reserved Reading location - IP/workstation name: [email or web address]
[2018-07-05] MEDS ORDERED: GLYCERIN BTH_EYE SCH (11:15)
[2018-07-05] MEDS ORDERED: DIFLUPREDNATE LFT_EYE SCH (11:15)
[2018-07-05] MEDS ORDERED: CARBOXYMETHYLCELLULOSE BTH_EYE SCH (11:15)
[2018-07-05] MEDS ORDERED: (PENDING PHARMACY ID) (Loteprednol Etabonate [Lotemax] 1 DROP) LFT_EYE SCH (11:15)
[2018-07-05] MEDS ORDERED: [UNRECOGNIZED DRUG - OTHER] BTH_EYE SCH (11:15)
[2018-07-05] MEDS ORDERED: MAGNESIUM PO SCH (11:15)
--- NOTE | 2018-07-05 11:37 | PDOC PROGRESS REPORT ---
Subjective Progress Note for:: 07/05/18 Subjective:: Patient seen by the bedside, family in the room Reason For Visit: ACUTE ISCHEMIC STROKE Physical Exam Vital Signs: Temp Pulse Resp BP Pulse Ox 97.4 F 47 L 16 174/64 H 100 07/05/18 07:04 07/05/18 07:04 07/05/18 07:04 07/05/18 07:04 07/05/18 07:04 Intake & Output 07/04/18 07/05/18 07/06/18 06:59 06:59 06:59 Weight 62.9 kg General appearance: PRESENT: no acute distress Head exam: PRESENT: atraumatic, normocephalic Eye exam: PRESENT: PERRLA Ear exam: PRESENT: normal external ear exam Mouth exam: PRESENT: moist, tongue midline Neck exam: PRESENT: full ROM Respiratory exam: PRESENT: clear to auscultation francesca Cardiovascular exam: PRESENT: RRR, +S1, +S2 Vascular exam: PRESENT: normal capillary refill GI/Abdominal exam: PRESENT: normal bowel sounds, soft Rectal exam: PRESENT: deferred Neurological exam: PRESENT: alert, motor sensory deficit - Left-sided weakness Psychiatric exam: PRESENT: appropriate affect, normal mood Skin exam: PRESENT: dry, intact, warm Results Laboratory Results: 07/05/18 03:28 07/05/18 03:28 07/04/18 07/04/18 07/05/18 14:20 14:20 03:28 WBC 6.2 6.2 RBC 4.08 L 4.15 L Hgb 11.4 L 11.4 L Hct 33.8 L 34.2 L MCV 83 83 MCH 27.8 27.4 MCHC 33.6 33.3 RDW 14.4 H 14.0 Plt Count 262 217 Seg Neutrophils % 68.7 59.4 Lymphocytes % 20.7 28.3 Monocytes % 8.7 9.6 Eosinophils % 0.9 1.2 Basophils % 1.0 1.5 Absolute Neutrophils 4.3 3.7 Absolute Lymphocytes 1.3 1.8 Absolute Monocytes 0.5 0.6 Absolute Eosinophils 0.1 0.1 Absolute Basophils 0.1 0.1 Sodium 141.4 Potassium 5.0 Chloride 104 Carbon Dioxide 31 H Anion Gap 6 BUN 33 H Creatinine 1.56 H Est GFR ( Amer) 53 L Est GFR (Non-Af Amer) 44 L Glucose 210 H Calcium 10.7 H Total Bilirubin 0.8 AST 21 ALT 21 Alkaline Phosphatase 88 Total Protein 7.4 Albumin 4.3 Triglycerides Cholesterol LDL Cholesterol Direct VLDL Cholesterol HDL Cholesterol 07/05/18 03:28 WBC RBC Hgb Hct MCV MCH MCHC RDW Plt Count Seg Neutrophils % Lymphocytes % Monocytes % Eosinophils % Basophils % Absolute Neutrophils Absolute Lymphocytes Absolute Monocytes Absolute Eosinophils Absolute Basophils Sodium 140.2 Potassium 4.1 Chloride 107 Carbon Dioxide 26 Anion Gap 7 BUN 30 H Creatinine 1.35 H Est GFR ( Amer) > 60 Est GFR (Non-Af Amer) 52 L Glucose 246 H Calcium 10.1 Total Bilirubin 0.6 AST 21 ALT 15 L Alkaline Phosphatase 85 Total Protein 7.0 Albumin 3.9 Triglycerides 175 H Cholesterol 197.75 LDL Cholesterol Direct 74 VLDL Cholesterol 35.0 H HDL Cholesterol 85 07/04/18 07/04/18 07/04/18 14:20 21:22 21:22 Creatine Kinase 83 CK-MB (CK-2) 0.31 Troponin I < 0.012 07/04/18 07/05/18 07/05/18 21:22 03:28 10:02 Creatine Kinase CK-MB (CK-2) Troponin I 0.018 < 0.012 < 0.012 Impressions: Chest X-Ray 07/04/18 13:27 IMPRESSION: NO ACUTE RADIOGRAPHIC FINDING IN THE CHEST. Head CT 07/04/18 13:27 IMPRESSION: CHRONIC CHANGES OF ATROPHY AND MICROVASCULAR ISCHEMIA. NO ACUTE PROCESS. EVIDENCE OF ACUTE STROKE: NO. Head MRI 07/04/18 17:52 IMPRESSION: 1. Acute to subacute infarction in the right centrum semiovale extending into the yepez radiata. 2. Findings consistent with chronic small vessel ischemic changes well. EVIDENCE OF ACUTE STROKE: YES. Carotid Doppler Study 07/05/18 00:00 IMPRESSION: NO HEMODYNAMICALLY SIGNIFICANT STENOSIS. Assessment & Plan - Diagnosis (1) Cerebral infarction Qualifiers: Cerebral infarction mechanism: embolism Precerebral and cerebral artery: anterior cerebral artery Laterality of affected vessel: right Qualified Code(s): I63.421 - Cerebral infarction due to embolism of right anterior cerebral artery Is this a current diagnosis for this admission?: Yes Plan: Continue aspirin, atorvastatin (2) Hemiparesis of right dominant side Qualifiers: Hemiparesis etiology: late effect of cerebrovascular disease Cerebrovascular disease type: cerebral infarction Qualified Code(s): I69.351 - Hemiplegia and hemiparesis following cerebral infarction affecting right dominant side Is this a current diagnosis for this admission?: Yes Plan: PT ,OT (3) Essential (primary) hypertension Is this a current diagnosis for this admission?: Yes Plan: The blood pressure is elevated, there is no indication for pharmacotherapy of hypertension in the setting of acute ischemic stroke unless the blood pressure is more than 220/120
[2018-07-05] MEDS: ENOXAPARIN SODIUM INJ 40 MG/0.4 ML DISP.SYRIN SUBCUT SCH (13:33)
[2018-07-05] MEDS: ATORVASTATIN CALCIUM 80 MG TABLET PO SCH (22:29)
[2018-07-05 23:41] LABS: APPEARANCE,URINE CLEAR; BILIRUBIN,URINE NEGATIVE (NEGATIVE); COLOR,URINE YELLOW; GLUCOSE, URINE >=500 mg/dL (NEGATIVE); KETONES,URINE NEGATIVE (NEGATIVE); LEUKOCYTE ESTERASE,URINE NEGATIVE (NEGATIVE); NITRITE,URINE NEGATIVE (NEGATIVE); PROTEIN,URINE 100 mg/dL (NEGATIVE); URINE SPECIFIC GRAVITY 1.022
[2018-07-06] MEDS ORDERED: INSULIN GLARGINE,HUM.REC.ANLOG 1,000 UNIT/10 ML VIAL (PYX) SUBCUT PRN (02:31)
[2018-07-06] MEDS: BESIFLOXACIN HCL 0.6% OPH SUSP 5 ML BOTTLE OU SCH ×5 (02:44→22:56)
[2018-07-06] MEDS: CHOLECALCIFEROL (D3) 1,000 UNIT TABLET PO SCH ×2 (02:44→10:27)
[2018-07-06] MEDS: INSULIN GLARGINE,HUM.REC.ANLOG 1,000 UNIT/10 ML VIAL SUBCUT SCH ×3 (02:44→17:23)
[2018-07-06] MEDS ORDERED: INSULIN GLARGINE,HUM.REC.ANLOG 1,000 UNIT/10 ML VIAL SUBCUT ONE (02:45)
[2018-07-06] MEDS ORDERED: BIMATOPROST 0.01% OPH SOLN 2.5 ML/BOTTLE OU ONE (02:45)
[2018-07-06 05:55] LABS: ABSOLUTE BASOPHILS # (AUTO) 0.1 10^3/uL (0.0-0.2); ABSOLUTE EOSINOPHILS # (AUTO) 0.1 10^3/uL (0.0-0.6); ABSOLUTE LYMPHOCYTES (AUTO) 1.5 10^3/uL (0.5-4.7); ABSOLUTE MONOCYTES (AUTO) 0.7 10^3/uL (0.1-1.4); ABSOLUTE NEUT (AUTO) 4.2 10^3/uL (1.7-8.2); HEMATOCRIT 33.1 % (37.9-51.0); LYMPHOCYTES % (AUTO) 23.4 % (13-45); MEAN CORPUSCULAR HEMOGLOBIN 27.2 pg (27.0-33.4); MEAN CORPUSCULAR HGB CONC 33.2 g/dL (32.0-36.0); MEAN CORPUSCULAR VOLUME 82 fl (80-97); MONOCYTES % (AUTO) 10.2 % (3-13); PLATELET COUNT 212 10^3/uL (150-450); RED BLOOD COUNT 4.04 10^6/uL (4.35-5.55); SEGMENTED NEUTROPHILS % (AUTO) 64.4 % (42-78); TOTAL CELLS COUNTED % (AUTO) 100 %; WHITE BLOOD COUNT 6.5 10^3/uL (4.0-10.5)
[2018-07-06 06:10] LABS: ALANINE AMINOTRANSFERASE 20 U/L (21-72); ALBUMIN 3.8 g/dL (3.5-5.0); ALKALINE PHOSPHATASE 79 U/L (38-126); ANION GAP 9 (5-19); ASPARTATE AMINO TRANSFERASE 19 U/L (17-59); BILIRUBIN,DIRECT 0.3 mg/dL (0.0-0.4); BILIRUBIN,TOTAL 0.6 mg/dL (0.2-1.3); BLOOD UREA NITROGEN 26 mg/dL (7-20); CALCIUM 9.5 mg/dL (8.4-10.2); CARBON DIOXIDE 26 mmol/L (22-30); CHLORIDE 103 mmol/L (98-107); GLUCOSE 231 mg/dL (75-110); SODIUM 138.3 mmol/L (137-145); TOTAL PROTEIN 6.7 g/dL (6.3-8.2)
[2018-07-06] MEDS: INSULIN LISPRO 100 UNIT/ML 3 ML VIAL SUBCUT SCH ×4 (07:52→22:55)
[2018-07-06] MEDS ORDERED: AMLODIPINE BESYLATE 5 MG TABLET PO SCH (10:00)
[2018-07-06] MEDS: AMLODIPINE BESYLATE 2.5 MG TABLET PO SCH ×2 (10:26→22:55)
[2018-07-06] MEDS: ENOXAPARIN SODIUM INJ 40 MG/0.4 ML DISP.SYRIN SUBCUT SCH (10:27)
[2018-07-06] MEDS: MAGNESIUM OXIDE 400 MG TABLET PO SCH (10:27)
[2018-07-06] MEDS: ASPIRIN 81 MG TABLET, ENT COATED PO SCH ×2 (10:27→17:23)
--- NOTE | 2018-07-06 12:47 | PDOC PROGRESS REPORT ---
Subjective Progress Note for:: 07/06/18 Subjective:: Patient was admitting in the hospital for the left-sided weakness and MRIs confirm the stroke Patient also have a left eye surgery was done at [facility] Patient put in the CVA protocol Patient's carotid Doppler was negative Patient is denied any chest pain to than any shortness of breath Patient able to move the left upper extremities but have a little bit difficult time for the left lower extremities Reason For Visit: ACUTE ISCHEMIC STROKE Physical Exam Vital Signs: Temp Pulse Resp BP Pulse Ox 98.2 F 105 H 18 176/53 H 97 07/06/18 10:56 07/06/18 10:56 07/06/18 10:56 07/06/18 10:56 07/06/18 10:56 Intake & Output 07/05/18 07/06/18 07/07/18 06:59 06:59 06:59 Intake Total 399 Output Total 125 Balance 274 Weight 62.9 kg 61.9 kg General appearance: PRESENT: no acute distress, well-developed, well-nourished Head exam: PRESENT: atraumatic, normocephalic Eye exam: PRESENT: conjunctiva pink, EOMI, PERRLA. ABSENT: scleral icterus Ear exam: PRESENT: normal external ear exam Mouth exam: PRESENT: moist, tongue midline Neck exam: PRESENT: full ROM. ABSENT: carotid bruit, JVD, lymphadenopathy, thyromegaly Respiratory exam: PRESENT: clear to auscultation francesca Cardiovascular exam: PRESENT: RRR. ABSENT: diastolic murmur, rubs, systolic murmur Vascular exam: PRESENT: normal capillary refill GI/Abdominal exam: PRESENT: normal bowel sounds, soft. ABSENT: distended, guard ing, mass, organolmegaly, rebound, tenderness Rectal exam: PRESENT: deferred Neurological exam: PRESENT: alert, awake, oriented to person, oriented to place, oriented to time, oriented to situation. ABSENT: motor sensory deficit Additional comments: Upper extremity on the left side the strength is 4 x 5 lower extremity strength is 3 x 5 Psychiatric exam: PRESENT: appropriate affect, normal mood. ABSENT: homicidal ideation, suicidal ideation Skin exam: PRESENT: dry, intact, warm. ABSENT: cyanosis, rash Results Laboratory Results: 07/06/18 05:00 07/06/18 05:00 07/05/18 07/06/18 07/06/18 23:15 05:00 05:00 WBC 6.5 RBC 4.04 L Hgb 11.0 L Hct 33.1 L MCV 82 MCH 27.2 MCHC 33.2 RDW 14.0 Plt Count 212 Seg Neutrophils % 64.4 Lymphocytes % 23.4 Monocytes % 10.2 Eosinophils % 1.0 Basophils % 1.0 Absolute Neutrophils 4.2 Absolute Lymphocytes 1.5 Absolute Monocytes 0.7 Absolute Eosinophils 0.1 Absolute Basophils 0.1 Sodium 138.3 Potassium 4.0 Chloride 103 Carbon Dioxide 26 Anion Gap 9 BUN 26 H Creatinine 1.28 H Est GFR ( Amer) > 60 Est GFR (Non-Af Amer) 55 L Glucose 231 H Calcium 9.5 Total Bilirubin 0.6 AST 19 ALT 20 L Alkaline Phosphatase 79 Total Protein 6.7 Albumin 3.8 Urine Color YELLOW Urine Appearance CLEAR Urine pH 5.0 Ur Specific [place] 1.022 Urine Protein 100 H Urine Glucose (UA) >=500 H Urine Ketones NEGATIVE Urine Blood NEGATIVE Urine Nitrite NEGATIVE Ur Leukocyte Esterase NEGATIVE Urine WBC (Auto) 1 Urine RBC (Auto) 1 07/04/18 07/04/18 07/04/18 14:20 21:22 21:22 Creatine Kinase 83 CK-MB (CK-2) 0.31 Troponin I < 0.012 07/04/18 07/05/18 07/05/18 21:22 03:28 10:02 Creatine Kinase CK-MB (CK-2) Troponin I 0.018 < 0.012 < 0.012 Impressions: Chest X-Ray 07/04/18 13:27 IMPRESSION: NO ACUTE RADIOGRAPHIC FINDING IN THE CHEST. Head CT 07/04/18 13:27 IMPRESSION: CHRONIC CHANGES OF ATROPHY AND MICROVASCULAR ISCHEMIA. NO ACUTE PROCESS. EVIDENCE OF ACUTE STROKE: NO. Head MRI 07/04/18 17:52 IMPRESSION: 1. Acute to subacute infarction in the right centrum semiovale extending into the eypez radiata. 2. Findings consistent with chronic small vessel ischemic changes well. EVIDENCE OF ACUTE STROKE: YES. Carotid Doppler Study 07/05/18 00:00 IMPRESSION: NO HEMODYNAMICALLY SIGNIFICANT STENOSIS. Assessment & Plan - Diagnosis (1) Cerebral infarction Qualifiers: Cerebral infarction mechanism: embolism Precerebral and cerebral artery: anterior cerebral artery Laterality of affected vessel: right Qualified Co de(s): I63.421 - Cerebral infarction due to embolism of right anterior cerebral artery Is this a current diagnosis for this admission?: Yes Plan: Continue aspirin and statin (2) Essential (primary) hypertension Is this a current diagnosis for this admission?: Yes Plan: Will add the Norvasc 2.5 mg twice a day and slowly increase for the next 24 hours 5 mg twice a day keep a blood pressure is 160 range (3) Hemiparesis of right dominant side Qualifiers: Hemiparesis etiology: late effect of cerebrovascular disease Cerebrovascular disease type: cerebral infarction Qualified Code(s): I69.351 - Hemiplegia and hemiparesis following cerebral infarction affecting right dominant side Is this a current diagnosis for this admission?: Yes Plan: Physical therapy (4) Weakness of left lower extremity Is this a current diagnosis for this admission?: Yes Plan: Probably discharged to the rehab facility (5) Type 2 diabetes mellitus Qualifiers: Diabetes mellitus mcc insulin use: with intermodal dispatcher use Diabetes mellitus complication status: with unspecified complications Qualified Code(s): E11.8 - Type 2 diabetes mellitus with unspecified complications; Z79.4 - salvage determiner (current) use of insulin Is this a current diagnosis for this admission?: Yes Plan: Continue insulin sliding scale (6) Hyperlipidemia Qualifiers: Hyperlipidemia type: unspecified Qualified Code(s): E78.5 - Hyperlipidemia, unspecified Is this a current diagnosis for this admission?: Yes Plan: Continues statin - Time Time Spent with patient: 15-24 minutes Medications reviewed and adjusted accordingly: Yes Anticipated discharge: SNF, Acute Rehab Within: Other - Plan Summary Plan Summary: Will adjust the blood pressure medications Continues PT OT
--- NOTE | 2018-07-06 21:05 | XCELERA REPORT ---
[address] [address] Transthoracic Echocardiogram Report Name: JYOTI POLLOCK Age: 73 yrs Gender: Male : 1945 Patient Status: Inpatient Patient Location: [address] [place], [place] [address] Study Date: 07/06/2018 09:47 AM Height: 65 in Weight: 138 lb BSA: 1.7 m2 Procedure: A two-dimensional transthoracic echocardiogram with color flow Doppler was performed. Study Quality: Fair. Reason For Study: CVA History: CVA. Ordering Physician: DINORA SEO Performed By: Jeanette Flaherty Interpretation Summary There is no obvious cardiac source of embolus noted on this transthoracic echocardiogram. Follow-up with a [facility] is suggested if cardiac source is still suspected. CVA The left ventricle is normal in size. There is normal left ventricular wall thickness. The left ventricular ejection fraction is within normal limits. LV EF is 60% to 65% Doppler measurements suggest impaired left ventricular relaxation, which is associated with grade I/IV or mild diastolic dysfunction The left ventricular wall motion is normal. There is no thrombus. There is no ventricular septal defect visualized. The right ventricle is normal in size and function. The right atrium is normal. The left atrial size is normal. No ASD or PFO seen. There is no evidence of mitral valve prolapse. There is no vegetation seen on the mitral valve. There is no mitral valve stenosis. There is a trace amount of mitral regurgitation There is no aortic valvular vegetation. There is mild aortic stenosis There is a peak gradient of 16 mm of Hg. No hemodynamically significant valvular aortic stenosis. There is no LVOT obstruction. There is a trace to mild amount of aortic regurgitation There is no tricuspid stenosis. There is a mild amount of tricuspid regurgitation There is mild pulmonary hypertension by echo RVSP is 33 to 38 mm of Hg , with RA mean of 5 to 10. There is no pulmonic valvular stenosis. There is no pulmonic valvular regurgitation. The aortic root is normal size. The inferior vena cava appeared normal and decreased > 50% with respiration (RAP 5-10 mmHg) There is no pericardial effusion. There is no obvious cardiac source of embolus noted on this transthoracic echocardiogram. Follow-up with a [facility] is suggested if cardiac source is still suspected MMode/2D Measurements & Calculations IVSd: 0.78 cm LVIDd: 4.7 cm FS: 28.6 % Ao root diam: 2.9 cm LVIDs: 3.4 cm EDV(Teich): LVPWd: 0.89 cm 102.9 ml Ao root area: ESV(Teich): 46.2 ml6.8 cm2 EF(Teich): 55.1 % EDV(MOD-sp4): SV(MOD-sp4): 90.5 ml 34.4 ml ESV(MOD-sp4): 56.1 ml EF(MOD-sp4): 38.0 % Doppler Measurements & Calculations MV E max layla: MV dec slope: Ao V2 max: AI max layla: 60.1 cm/sec 198.1 cm/sec 314.9 cm/sec MV A max layla: 236.1 cm/sec2 Ao max PG: AI max P.7 mmHg 77.1 cm/sec MV dec time: 15.7 mmHg AI dec slope: MV E/A: 0.78 0.25 sec 194.5 cm/sec2 AI P1/2t: 474.3 msec LV V1 max PG: PA V2 max: TR max layla: 5.7 mmHg 90.9 cm/sec 266.7 cm/sec LV V1 max: PA max P.3 mmHg TR max P.9 cm/sec 28.4 mmHg Left Ventricle The left ventricle is normal in size. There is normal left ventricular wall thickness. The left ventricular ejection fraction is within normal limits. LV EF is 60% to 65%. Doppler measurements suggest impaired left ventricular relaxation, which is associated with grade I/IV or mild diastolic dysfunction. The left ventricular wall motion is normal. There is no thrombus. There is no ventricular septal defect visualized. Right Ventricle The right ventricle is normal in size and function. Atria The right atrium is normal. The left atrial size is normal. No ASD or PFO seen. Mitral Valve There is no evidence of mitral valve prolapse. There is no vegetation seen on the mitral valve. There is no mitral valve stenosis. There is a trace amount of mitral regurgitation. Aortic Valve There is no aortic valvular vegetation. There is mild aortic stenosis. There is a peak gradient of 16 mm of Hg. No hemodynamically significant valvular aortic stenosis. There is no LVOT obstruction. There is a trace to mild amount of aortic regurgitation. Tricuspid Valve There is no tricuspid stenosis. There is a mild amount of tricuspid regurgitation. There is mild pulmonary hypertension by echo. RVSP is 33 to 38 mm of Hg , with RA mean of 5 to 10. Pulmonic Valve There is no pulmonic valvular stenosis. There is no pulmonic valvular regurgitation. Great Vessels The aortic root is normal size. The inferior vena cava appeared normal and decreased > 50% with respiration (RAP 5-10 mmHg). Effusions There is no pericardial effusion. : DINORA SEO > Pat Hayward
[2018-07-06] MEDS: ATORVASTATIN CALCIUM 80 MG TABLET PO SCH (22:55)
[2018-07-06] MEDS: PREDNISOLONE ACETATE 1% OPH SUSP 5 ML OD SCH (22:57)
[2018-07-06] MEDS: BIMATOPROST 0.01% OPH SOLN 2.5 ML/BOTTLE OU SCH (22:57)
[2018-07-07 05:47] LABS: ABSOLUTE BASOPHILS # (AUTO) 0.1 10^3/uL (0.0-0.2); ABSOLUTE EOSINOPHILS # (AUTO) 0.1 10^3/uL (0.0-0.6); ABSOLUTE LYMPHOCYTES (AUTO) 1.6 10^3/uL (0.5-4.7); ABSOLUTE MONOCYTES (AUTO) 0.7 10^3/uL (0.1-1.4); ABSOLUTE NEUT (AUTO) 4.6 10^3/uL (1.7-8.2); BASOPHILS % (AUTO) 0.7 % (0-2); EOSINOPHILS % (AUTO) 1.6 % (0-6); HEMATOCRIT 33.4 % (37.9-51.0); HEMOGLOBIN 11.1 g/dL (13.5-17.0); LYMPHOCYTES % (AUTO) 22.3 % (13-45); MEAN CORPUSCULAR HEMOGLOBIN 27.2 pg (27.0-33.4); MEAN CORPUSCULAR HGB CONC 33.2 g/dL (32.0-36.0); MEAN CORPUSCULAR VOLUME 82 fl (80-97); MONOCYTES % (AUTO) 10.6 % (3-13); PLATELET COUNT 223 10^3/uL (150-450); RED BLOOD COUNT 4.06 10^6/uL (4.35-5.55); RED CELL DISTRIBUTION WIDTH 14.2 % (11.5-14.0); SEGMENTED NEUTROPHILS % (AUTO) 64.8 % (42-78); TOTAL CELLS COUNTED % (AUTO) 100 %; WHITE BLOOD COUNT 7.1 10^3/uL (4.0-10.5)
[2018-07-07 06:17] LABS: ALANINE AMINOTRANSFERASE 18 U/L (21-72); ALBUMIN 3.6 g/dL (3.5-5.0); ALKALINE PHOSPHATASE 77 U/L (38-126); ANION GAP 7 (5-19); ASPARTATE AMINO TRANSFERASE 18 U/L (17-59); BILIRUBIN,DIRECT 0.2 mg/dL (0.0-0.4); BILIRUBIN,TOTAL 0.5 mg/dL (0.2-1.3); BLOOD UREA NITROGEN 26 mg/dL (7-20); CALCIUM 9.9 mg/dL (8.4-10.2); CARBON DIOXIDE 28 mmol/L (22-30); CHLORIDE 104 mmol/L (98-107); GLUCOSE 80 mg/dL (75-110); POTASSIUM 4.1 mmol/L (3.6-5.0); SODIUM 139.1 mmol/L (137-145); TOTAL PROTEIN 6.6 g/dL (6.3-8.2)
--- NOTE | 2018-07-07 09:03 | PDOC PROGRESS REPORT ---
Subjective Progress Note for:: 07/07/18 Subjective:: Doing well denied any chest pain to than any shortness of the breath Discussed with the daughter on the bedside regarding the patient's current conditions Patient still have a difficult to lift the left lower extremity Patient left eye status post surgery currently waiting for the medical record and waiting for the local education and training coordinator to evaluate Reason For Visit: ACUTE ISCHEMIC STROKE Physical Exam Vital Signs: Temp Pulse Resp BP Pulse Ox 97.3 F 55 L 20 172/60 H 96 07/07/18 03:42 07/07/18 03:42 07/07/18 03:42 07/07/18 03:42 07/07/18 03:42 Intake & Output 07/06/18 07/07/18 07/08/18 06:59 06:59 06:59 Intake Total 399 1573 Output Total 125 Balance 274 1573 Weight 61.9 kg 63 kg General appearance: PRESENT: no acute distress, well-developed, well-nourished Head exam: PRESENT: atraumatic, normocephalic Eye exam: PRESENT: conjunctiva pink, EOMI, PERRLA. ABSENT: scleral icterus Ear exam: PRESENT: normal external ear exam Mouth exam: PRESENT: moist, tongue midline Neck exam: PRESENT: full ROM. ABSENT: carotid bruit, JVD, lymphadenopathy, thyromegaly Cardiovascular exam: PRESENT: RRR. ABSENT: diastolic murmur, rubs, systolic murmur Pulses: PRESENT: normal dorsalis pedis pul, +2 pedal pulses bilateral Vascular exam: PRESENT: normal capillary refill GI/Abdominal exam: PRESENT: normal bowel sounds, soft. ABSENT: distended, guarding, mass, organolmegaly, rebound, tenderness Rectal exam: PRESENT: deferred Neurological exam: PRESENT: alert, awake, oriented to person, oriented to place, oriented to time, oriented to situation. ABSENT: motor sensory deficit Additional comments: Left lower extremity strength is 3 x 5 patient still with difficult to lift Psychiatric exam: PRESENT: appropriate affect, normal mood. ABSENT: homicidal ideation, suicidal ideation Skin exam: PRESENT: dry, intact, warm. ABSENT: cyanosis, rash Results Laboratory Results: 07/07/18 04:21 07/07/18 04:21 07/07/18 07/07/18 04:21 04:21 WBC 7.1 RBC 4.06 L Hgb 11.1 L Hct 33.4 L MCV 82 MCH 27.2 MCHC 33.2 RDW 14.2 H Plt Count 223 Seg Neutrophils % 64.8 Lymphocytes % 22.3 Monocytes % 10.6 Eosinophils % 1.6 Basophils % 0.7 Absolute Neutrophils 4.6 Absolute Lymphocytes 1.6 Absolute Monocytes 0.7 Absolute Eosinophils 0.1 Absolute Basophils 0.1 Sodium 139.1 Potassium 4.1 Chloride 104 Carbon Dioxide 28 Anion Gap 7 BUN 26 H Creatinine 1.28 H Est GFR ( Amer) > 60 Est GFR (Non-Af Amer) 55 L Glucose 80 Calcium 9.9 Total Bilirubin 0.5 AST 18 ALT 18 L Alkaline Phosphatase 77 Total Protein 6.6 Albumin 3.6 07/04/18 07/04/18 07/04/18 14:20 21:22 21:22 Creatine Kinase 83 CK-MB (CK-2) 0.31 Troponin I < 0.012 07/04/18 07/05/18 07/05/18 21:22 03:28 10:02 Creatine Kinase CK-MB (CK-2) Troponin I 0.018 < 0.012 < 0.012 Impressions: Chest X-Ray 07/04/18 13:27 IMPRESSION: NO ACUTE RADIOGRAPHIC FINDING IN THE CHEST. Head CT 07/04/18 13:27 IMPRESSION: CHRONIC CHANGES OF ATROPHY AND MICROVASCULAR ISCHEMIA. NO ACUTE PROCESS. EVIDENCE OF ACUTE STROKE: NO. Head MRI 07/04/18 17:52 IMPRESSION: 1. Acute to subacute infarction in the right centrum semiovale extending into the yepez radiata. 2. Findings consistent with chronic small vessel ischemic changes well. EVIDENCE OF ACUTE STROKE: YES. Carotid Doppler Study 07/05/18 00:00 IMPRESSION: NO HEMODYNAMICALLY SIGNIFICANT STENOSIS. Assessment & Plan - Diagnosis (1) Cerebral infarction Qualifiers: Cerebral infarction mechanism: embolism Precerebral and cerebral artery: anterior cerebral artery Laterality of affected vessel: right Qualified Code(s): I63.421 - Cerebral infarction due to embolism of right anterior cerebral artery Is this a current diagnosis for this admission?: Yes Plan: Continue aspirin and statin (2) Essential (primary) hypertension Is this a current diagnosis for this admission?: Yes Plan: Will add the Norvasc 2.5 mg twice a day and slowly increase for the next 24 hours 5 mg twice a day keep a blood pressure is 160 range (3) Hemiparesis of right dominant side Qualifiers: Hemiparesis etiology: late effect of cerebrovascular disease Cerebrov ascular disease type: cerebral infarction Qualified Code(s): I69.351 - Hemiplegia and hemiparesis following cerebral infarction affecting right dominant side Is this a current diagnosis for this admission?: Yes Plan: Physical therapy (4) Weakness of left lower extremity Is this a current diagnosis for this admission?: Yes Plan: Probably discharged to the rehab facility (5) Type 2 diabetes mellitus 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: with nursing home use Diabetes mellitus complication status: with unspecified complications Qualified Code(s): E11.8 - Type 2 diabetes mellitus with unspecified complications; Z79.4 - long term care phlebotomist (current) use of insulin Is this a current diagnosis for this admission?: Yes Plan: Continue insulin sliding scale (6) Hyperlipidemia Qualifiers: Hyperlipidemia type: unspecified Qualified Code(s): E78.5 - Hyperlipidemia, unspecified Is this a current diagnosis for this admission?: Yes Plan: Continues statin - Time Time Spent with patient: 25-34 minutes Medications reviewed and adjusted accordingly: Yes Anticipated discharge: SNF Within: Other - Plan Summary Plan Summary: Continues to aspirin Adjust the blood pressure medications Continues to PT OT Plan to discharge the nursing facilities
[2018-07-07] MEDS: INSULIN LISPRO 100 UNIT/ML 3 ML VIAL SUBCUT SCH ×4 (09:09→21:36)
[2018-07-07] MEDS: INSULIN GLARGINE,HUM.REC.ANLOG 1,000 UNIT/10 ML VIAL SUBCUT SCH (09:19)
[2018-07-07] MEDS: ENOXAPARIN SODIUM INJ 40 MG/0.4 ML DISP.SYRIN SUBCUT SCH (09:19)
[2018-07-07] MEDS: ASPIRIN 81 MG TABLET, ENT COATED PO SCH ×2 (09:20→17:56)
[2018-07-07] MEDS: CHOLECALCIFEROL (D3) 1,000 UNIT TABLET PO SCH (09:20)
[2018-07-07] MEDS: BESIFLOXACIN HCL 0.6% OPH SUSP 5 ML BOTTLE OU SCH ×4 (09:20→21:30)
[2018-07-07] MEDS: AMLODIPINE BESYLATE 5 MG TABLET PO SCH ×2 (09:20→21:29)
[2018-07-07] MEDS: MAGNESIUM OXIDE 400 MG TABLET PO SCH (09:20)
[2018-07-07] MEDS ORDERED: AMLODIPINE BESYLATE 2.5 MG TABLET PO SCH (10:00)
[2018-07-07] MEDS ORDERED: INSULIN GLARGINE,HUM.REC.ANLOG 1,000 UNIT/10 ML VIAL (PYX) SUBCUT ONE (17:49)
[2018-07-07] MEDS ORDERED: INSULIN GLARGINE,HUM.REC.ANLOG 1,000 UNIT/10 ML VIAL SUBCUT SCH ×2 (18:00→22:00)
[2018-07-07] MEDS: POLYETHYLENE GLYCOL 3350 POWDER 17 GM/1 PACKET PO SCH (21:29)
[2018-07-07] MEDS: ATORVASTATIN CALCIUM 80 MG TABLET PO SCH (21:29)
[2018-07-07] MEDS: DOCUSATE SODIUM 100 MG CAPSULE PO SCH (21:29)
[2018-07-07] MEDS: PREDNISOLONE ACETATE 1% OPH SUSP 5 ML OD SCH (21:30)
[2018-07-07] MEDS: BIMATOPROST 0.01% OPH SOLN 2.5 ML/BOTTLE OU SCH (21:30)
[2018-07-08] MEDS: INSULIN LISPRO 100 UNIT/ML 3 ML VIAL SUBCUT SCH ×4 (07:53→21:41)
[2018-07-08] MEDS: CHOLECALCIFEROL (D3) 1,000 UNIT TABLET PO SCH (09:46)
[2018-07-08] MEDS: AMLODIPINE BESYLATE 5 MG TABLET PO SCH ×2 (09:47→21:27)
[2018-07-08] MEDS: MAGNESIUM OXIDE 400 MG TABLET PO SCH (09:47)
[2018-07-08] MEDS: POLYETHYLENE GLYCOL 3350 POWDER 17 GM/1 PACKET PO SCH (09:47)
[2018-07-08] MEDS: DOCUSATE SODIUM 100 MG CAPSULE PO SCH ×2 (09:47→17:15)
[2018-07-08] MEDS: ENOXAPARIN SODIUM INJ 40 MG/0.4 ML DISP.SYRIN SUBCUT SCH (09:47)
[2018-07-08] MEDS: BESIFLOXACIN HCL 0.6% OPH SUSP 5 ML BOTTLE OU SCH ×4 (09:50→21:24)
[2018-07-08] MEDS ORDERED: LISINOPRIL 5 MG TABLET PO SCH (10:00)
--- NOTE | 2018-07-08 10:03 | PDOC PROGRESS REPORT ---
Subjective Progress Note for:: 07/08/18 Subjective:: Patient is currently doing fair Still weakness in the left lower extremities Patient denied any chest pain to than any shortness of the breath No headache Patient's still poor mobility Patient still does not have any bowel movement Denied any abdominal pain Reason For Visit: ACUTE ISCHEMIC STROKE Physical Exam Vital Signs: Temp Pulse Resp BP Pulse Ox 99.4 F 60 16 167/60 H 97 07/08/18 07:19 07/08/18 07:19 07/08/18 07:19 07/08/18 07:19 07/08/18 07:19 Intake & Output 07/07/18 07/08/18 07/09/18 06:59 06:59 06:59 Intake Total 1573 1550 Balance 1573 1550 Weight 63 kg 63.9 kg General appearance: PRESENT: no acute distress, well-developed, well-nourished Head exam: PRESENT: atraumatic, normocephalic Eye exam: PRESENT: conjunctiva pink, EOMI, PERRLA. ABSENT: scleral icterus Ear exam: PRESENT: normal external ear exam Mouth exam: PRESENT: moist, tongue midline Neck exam: PRESENT: full ROM. ABSENT: carotid bruit, JVD, lymphadenopathy, thyromegaly Respiratory exam: PRESENT: clear to auscultation francesca Cardiovascular exam: PRESENT: RRR. ABSENT: diastolic murmur, rubs, systolic murmur Vascular exam: PRESENT: normal capillary refill GI/Abdominal exam: PRESENT: normal bowel sounds, soft. ABSENT: distended, guarding, mass, organolmegaly, rebound, tenderness Rectal exam: PRESENT: deferred Extremities exam: ABSENT: pedal edema Neurological exam: PRESENT: alert, awake, oriented to person, oriented to place, oriented to time, oriented to situation. ABSENT: motor sensory deficit Additional comments: Patients move all the upper and lower extremity except the left lower ex tremities patients have a very limited range of the motions Psychiatric exam: PRESENT: appropriate affect, normal mood. ABSENT: homicidal ideation, suicidal ideation Skin exam: PRESENT: dry, intact, warm. ABSENT: cyanosis, rash Results Laboratory Results: 07/07/18 04:21 07/07/18 04:21 07/04/18 07/04/18 07/04/18 14:20 21:22 21:22 Creatine Kinase 83 CK-MB (CK-2) 0.31 Troponin I < 0.012 07/04/18 07/05/18 07/05/18 21:22 03:28 10:02 Creatine Kinase CK-MB (CK-2) Troponin I 0.018 < 0.012 < 0.012 Impressions: Chest X-Ray 07/04/18 13:27 IMPRESSION: NO ACUTE RADIOGRAPHIC FINDING IN THE CHEST. Head MRI 07/04/18 17:52 IMPRESSION: 1. Acute to subacute infarction in the right centrum semiovale extending into the yepez radiata. 2. Findings consistent with chronic small vessel ischemic changes well. EVIDENCE OF ACUTE STROKE: YES. Carotid Doppler Study 07/05/18 00:00 IMPRESSION: NO HEMODYNAMICALLY SIGNIFICANT STENOSIS. Assessment & Plan - Diagnosis (1) Cerebral infarction Qualifiers: Cerebral infarction mechanism: embolism Precerebral and cerebral artery: anterior cerebral artery Laterality of affected vessel: right Qualified Code(s): I63.421 - Cerebral infarction due to embolism of right anterior c erebral artery Is this a current diagnosis for this admission?: Yes Plan: Will get the CT of the head Continues to aspirin at the Plavix (2) Essential (primary) hypertension Is this a current diagnosis for this admission?: Yes Plan: Slowly increase the more blood pressure medications to keep the slowly blood pressures down we will add the lisinopril 5 mg twice a day (3) Hemiparesis of right dominant side Qualifiers: Hemiparesis etiology: late effect of cerebrovascular disease Cerebrovascular disease type: cerebral infarction Qualified Code(s): I69.351 - Hemiplegia and hemiparesis following cerebral infarction affecting right dominant side Is this a current diagnosis for this admission?: Yes Plan: Physical therapy (4) Weakness of left lower extremity Is this a current diagnosis for this admission?: Yes Plan: Probably discharged to the rehab facility (5) Type 2 diabetes mellitus Qualifiers: Diabetes mellitus [facility]cf insulin use: with terminal superintendent use Diabetes mellitus complication status: with unspecified complications Qualified Code(s): E11.8 - Type 2 diabetes mellitus with unspecified complications; Z79.4 - emt intermediate (current) use of insulin Is this a current diagnosis for this admission?: Yes Plan: Will adjust the insulin (6) Hyperlipidemia Qualifiers: Hyperlipidemia type: unspecified Qualified Code(s): E78.5 - Hyperlipidemia, unspecified Is this a current diagnosis for this admission?: Yes Plan: Continues statin - Time Time Spent with patient: 25-34 minutes Medications reviewed and adjusted accordingly: Yes Anticipated discharge: SNF Within: Other - Plan Summary Plan Summary: Discussed with the family at the bedside with the patient and the multiple comorbidity Will continues aspirin at the Plavix Continue statin Tight control of the blood sugars and blood pressure slowly tight control Hopefully patient's discharge if he remains stable to the nursing facilities Use the MiraLAX and Colace
--- NOTE | 2018-07-08 10:03 | RADIOLOGY REPORT (SQ) ---
EXAM DESCRIPTION: CT HEAD WITHOUT COMPLETED DATE/TIME: 07/08/2018 9:34 am REASON FOR STUDY: CVA possible expansion COMPARISON: CT brain, 07/04/2018, MR brain, 07/04/2018 TECHNIQUE: Axial images acquired through the brain without intravenous contrast. Images reviewed wi th bone, brain and subdural windows. Additional sagittal and coronal reconstructions were generated. Images stored on PACS. All CT scanners at this facility use dose modulation, iterative reconstruction, and/or weight based d osing when appropriate to reduce radiation dose to as low as reasonably achievable (ALARA). [facility]: Dose Right [facility]: CareDose [facility]: Dose Right [facility]: Teradose 4D [facility]: Smart [employer] RADIATION DOSE: CT Rad equipment meets quality standard of care and radiation dose reduction techniq ues were employed. CTDIvol: 48.6 mGy. DLP: 929 mGy-cm. mGy. LIMITATIONS: None. FINDINGS: VENTRICLES: Normal size and contour. CEREBRUM: No masses. No hemorrhage. No midline shift. Hypodensity of the right yepez radiata and centrum semiovale in keeping with evolving infarction seen on prior MR. No new hypodensity. CEREBELLUM: No masses. No hemorrhage. No alteration of density. No evidence for acute infarction. EXTRAAXIAL SPACES: No fluid collections. No masses. ORBITS AND GLOBE: No intra- or extraconal masses. Normal contour of globe without masses. CALVARIUM: No fracture. PARANASAL SINUSES: No fluid or mucosal thickening. SOFT TISSUES: No mass or hematoma. OTHER: No other significant finding. IMPRESSION: Hypodensity of the right yepez radiata and centrum semiovale in keeping with evolving i nfarction seen on prior MR. No evidence of hemorrhagic conversion or new infarction. EVIDENCE OF ACUTE STROKE: NO. COMMENT: Quality ID # [id number]: Final reports with documentation of one or more dose reduction techniques (e.g., Automated exposure control, adjustment of the mA and/or kV according to patient size, use of iterative reconstruction technique) TECHNICAL DOCUMENTATION: JOB ID: [id number] [employer]- All Rights Reserved Reading location - IP/workstation name: [email or web address]
[2018-07-08] MEDS: ASPIRIN 325 MG TABLET PO SCH (11:08)
[2018-07-08] MEDS: INSULIN GLARGINE,HUM.REC.ANLOG 1,000 UNIT/10 ML VIAL SUBCUT SCH ×2 (12:03→21:42)
[2018-07-08] MEDS: ATORVASTATIN CALCIUM 80 MG TABLET PO SCH (21:26)
[2018-07-08] MEDS: LISINOPRIL 5 MG TABLET PO SCH (21:27)
[2018-07-08] MEDS: BIMATOPROST 0.01% OPH SOLN 2.5 ML/BOTTLE OU SCH (21:30)
[2018-07-08] MEDS: PREDNISOLONE ACETATE 1% OPH SUSP 5 ML OD SCH (21:32)
[2018-07-09 05:36] LABS: ABSOLUTE LYMPHOCYTES (AUTO) 0.7 10^3/uL (0.5-4.7); ABSOLUTE NEUT (AUTO) 8.7 10^3/uL (1.7-8.2); BASOPHILS % (AUTO) 0.4 % (0-2); HEMATOCRIT 32.3 % (37.9-51.0); HEMOGLOBIN 10.7 g/dL (13.5-17.0); LYMPHOCYTES % (AUTO) 7.1 % (13-45); MEAN CORPUSCULAR HEMOGLOBIN 27.4 pg (27.0-33.4); MEAN CORPUSCULAR HGB CONC 33.3 g/dL (32.0-36.0); MEAN CORPUSCULAR VOLUME 82 fl (80-97); MONOCYTES % (AUTO) 9.7 % (3-13); PLATELET COUNT 227 10^3/uL (150-450); RED BLOOD COUNT 3.92 10^6/uL (4.35-5.55); RED CELL DISTRIBUTION WIDTH 14.1 % (11.5-14.0); SEGMENTED NEUTROPHILS % (AUTO) 82.8 % (42-78); TOTAL CELLS COUNTED % (AUTO) 100 %; WHITE BLOOD COUNT 10.5 10^3/uL (4.0-10.5)
[2018-07-09 05:57] LABS: ANION GAP 10 (5-19); BLOOD UREA NITROGEN 32 mg/dL (7-20); CALCIUM 9.9 mg/dL (8.4-10.2); CARBON DIOXIDE 28 mmol/L (22-30); CHLORIDE 101 mmol/L (98-107); GLUCOSE 201 mg/dL (75-110); POTASSIUM 4.7 mmol/L (3.6-5.0); SODIUM 139.1 mmol/L (137-145)
[2018-07-09] MEDS: INSULIN LISPRO 100 UNIT/ML 3 ML VIAL SUBCUT SCH ×3 (08:19→17:01)
[2018-07-09] MEDS: LISINOPRIL 5 MG TABLET PO SCH (10:57)
[2018-07-09] MEDS: DOCUSATE SODIUM 100 MG CAPSULE PO SCH ×2 (10:57→17:06)
[2018-07-09] MEDS: AMLODIPINE BESYLATE 5 MG TABLET PO SCH ×2 (10:57→22:25)
[2018-07-09] MEDS: POLYETHYLENE GLYCOL 3350 POWDER 17 GM/1 PACKET PO SCH (10:58)
[2018-07-09] MEDS: ASPIRIN 325 MG TABLET PO SCH (10:58)
[2018-07-09] MEDS: ENOXAPARIN SODIUM INJ 40 MG/0.4 ML DISP.SYRIN SUBCUT SCH (10:58)
[2018-07-09] MEDS: BESIFLOXACIN HCL 0.6% OPH SUSP 5 ML BOTTLE OU SCH ×4 (10:58→22:24)
[2018-07-09] MEDS: MAGNESIUM OXIDE 400 MG TABLET PO SCH (10:58)
[2018-07-09] MEDS: CHOLECALCIFEROL (D3) 1,000 UNIT TABLET PO SCH (10:58)
[2018-07-09] MEDS: INSULIN GLARGINE,HUM.REC.ANLOG 1,000 UNIT/10 ML VIAL SUBCUT SCH ×2 (11:02→22:23)
--- NOTE | 2018-07-09 14:48 | PDOC PROGRESS REPORT ---
Subjective Progress Note for:: 07/09/18 Subjective:: Patient is still feeling weak Patient is denied any chest pain to than any shortness of the breath Patient had a positive bowel movement Patient's yesterday CT of the head was negative for any acute another stroke Patient blood pressure still high Patient's kidney function is getting more worse today Reason For Visit: ACUTE ISCHEMIC STROKE Physical Exam Vital Signs: Temp Pulse Resp BP Pulse Ox 98.2 F 67 14 187/55 H 96 07/09/18 11:06 07/09/18 11:06 07/09/18 11:06 07/09/18 11:06 07/09/18 11:06 Intake & Output 07/08/18 07/09/18 07/10/18 06:59 06:59 06:59 Intake Total 1550 1272 Balance 1550 1272 Weight 63.9 kg 62.8 kg General appearance: PRESENT: no acute distress, well-developed, well-nourished Head exam: PRESENT: atraumatic, normocephalic Eye exam: PRESENT: conjunctiva pink, EOMI, PERRLA. ABSENT: scleral icterus Ear exam: PRESENT: normal external ear exam Mouth exam: PRESENT: moist, tongue midline Neck exam: PRESENT: full ROM. ABSENT: carotid bruit, JVD, lymphadenopathy, thyromegaly Respiratory exam: PRESENT: clear to auscultation francesca Cardiovascular exam: PRESENT: RRR. ABSENT: diastolic murmur, rubs, systolic mu rmur Vascular exam: PRESENT: normal capillary refill GI/Abdominal exam: PRESENT: normal bowel sounds, soft. ABSENT: distended, guarding, mass, organolmegaly, rebound, tenderness Rectal exam: PRESENT: deferred Extremities exam: ABSENT: pedal edema Neurological exam: PRESENT: alert, awake, oriented to person, oriented to place, oriented to time, oriented to situation, reflexes normal, CN II-XII grossly intact. ABSENT: motor sensory deficit Additional comments: Left lower extremity weakness is still present Psychiatric exam: PRESENT: appropriate affect, normal mood. ABSENT: homicidal ideation, suicidal ideation Skin exam: PRESENT: dry, intact, warm. ABSENT: cyanosis, rash Results Laboratory Results: 07/09/18 04:17 07/09/18 04:17 07/09/18 07/09/18 04:17 04:17 WBC 10.5 RBC 3.92 L Hgb 10.7 L Hct 32.3 L MCV 82 MCH 27.4 MCHC 33.3 RDW 14.1 H Plt Count 227 Seg Neutrophils % 82.8 H Lymphocytes % 7.1 L Monocytes % 9.7 Eosinophils % 0.0 Basophils % 0.4 Absolute Neutrophils 8.7 H Absolute Lymphocytes 0.7 Absolute Monocytes 1.0 Absolute Eosinophils 0.0 Absolute Basophils 0.0 Sodium 139.1 Potassium 4.7 Chloride 101 Carbon Dioxide 28 Anion Gap 10 BUN 32 H Creatinine 1.45 H Est GFR ( Amer) 58 L Est GFR (Non-Af Amer) 48 L Glucose 201 H Calcium 9.9 07/04/18 07/04/18 07/04/18 14:20 21:22 21:22 Creatine Kinase 83 CK-MB (CK-2) 0.31 Troponin I < 0.012 07/04/18 07/05/18 07/05/18 21:22 03:28 10:02 Creatine Kinase CK-MB (CK-2) Troponin I 0.018 < 0.012 < 0.012 Impressions: Chest X-Ray 07/04/18 13:27 IMPRESSION: NO ACUTE RADIOGRAPHIC FINDING IN THE CHEST. Head MRI 07/04/18 17:52 IMPRESSION: 1. Acute to subacute infarction in the right centrum semiovale extending into the yepez radiata. 2. Findings consistent with chronic small vessel ischemic changes well. EVIDENCE OF ACUTE STROKE: YES. Carotid Doppler Study 07/05/18 00:00 IMPRESSION: NO HEMODYNAMICALLY SIGNIFICANT STENOSIS. Head CT 07/08/18 00:00 IMPRESSION: Hypodensity of the right yepez radiata and centrum semiovale in keeping with evolving infarction seen on prior MR. No evidence of hemorrhagic conversion or new infarction. EVIDENCE OF ACUTE STROKE: NO. Assessment & Plan - Diagnosis (1) Cerebral infarction Qualifiers: Cerebral infarction mechanism: embolism Precerebral and cerebral artery: anterior cerebral artery Laterality of affected vessel: right Qualified Code(s): I63.421 - Cerebral infarction due to embolism of right anterior cerebral artery Is this a current diagnosis for this admission?: Yes Plan: Will get the CT of the head Continues to aspirin at the Plavix (2) Essential (primary) hypertension Is this a current diagnosis for this admission?: Yes Plan: Hydralazine 10 mg p.o. daily q8 (3) Hemiparesis of right dominant side Qualifiers: Hemiparesis etiology: late effect of cerebrovascular disease Cerebrovascular disease type: cerebral infarction Qualified Code(s): I69.351 - Hemiplegia and hemiparesis following cerebral infarction affecting right dominant side Is this a current diagnosis for this admission?: Yes Plan: Physical therapy (4) Weakness of left lower extremity Is this a current diagnosis for this admission?: Yes Plan: Probably discharged to the rehab facility (5) Type 2 diabetes mellitus Qualifiers: Diabetes mellitus assisted insulin use: with oil heaterman use Diabetes mellitus complication status: with unspecified complications Qualified Code(s): E11.8 - Type 2 diabetes mellitus with unspecified complications; Z79.4 - intermediate manager (current) use of insulin Is this a current diagnosis for this admission?: Yes Plan: Will adjust the insulin (6) Hyperlipidemia Qualifiers: Hyperlipidemia type: unspecified Qualified Code(s): E78.5 - Hyperlipidemia, unspecified Is this a current diagnosis for this admission?: Yes Plan: Continues statin (7) Chronic kidney disease Qualifiers: Chronic kidney disease stage: stage 3 (moderate) Qualified Code(s): N18.3 - Chronic kidney disease, stage 3 (moderate) Is this a current diagnosis for this admission?: Yes Plan: Consult nephrology Check a UA - Time Time Spent with patient: 15-24 minutes Medications reviewed and adjusted accordingly: Yes Anticipated discharge: SNF Within: Other - Plan Summary Plan Summary: Adjust the blood pressure medications Discussed with Dr. Gross who will reevaluate the patient's blood pressure medications and check the kidneys functions Discussed with the patient's family on the bedside will continues to monitor the patient in the hospital
[2018-07-09] MEDS: HYDRALAZINE HCL 10 MG TABLET PO SCH ×2 (14:54→22:24)
[2018-07-09] MEDS ORDERED: DEXTROSE 5%-NORMAL SALINE 1,000 ML IV PRN (16:57)
[2018-07-09] MEDS: CLONIDINE HCL 0.1 MG TABLET PO SCH ×2 (17:01→22:24)
--- NOTE | 2018-07-09 17:04 | PDOC CONSULTATION ---
Consultation Consult Date: 07/09/18 Consult reason:: Severe hypertension, CKD stage III. History of Present Illness Admission Date/PCP: 07/04/18 17:40 EMILY BAXTER MD History of Present Illness: JYOTI POLLOCK is a 73 year old male with a history of type 2 diabetes mellitus, Hypertension, CKD stage III, history of CVA presented to the emergency room for evaluation of left-sided weakness.Patient is looking quite moribund and slumped on his left arm which is resting on the table by the bedside. His sister is besides the patient supporting and trying to prevent him from falling and trying to talk to him but he is very slow in his response. The history was mainly given by the sister at the bedside. Apparently the patient had a corneal transplant according to the sister last Friday at [facility]. As he was about to get into the car to go the hospital, he experienced a rather subacute onset of weakness of the left side, but the patient's bundled him into the car and took him to the hospital as he had been scheduled to have a corneal surgery. Apparently they told the about the history of his new onset weakness but the patient was put into a wheelchair and taken into the OR apparently and he underwent the surgery and was then discharged home. At home he was having difficulty in getting around as he was unable to use his left half of the body from from weakness. Finally the patient's brought him to the ER on Friday and was admitted after evaluations in the ER revealed that she had left-sided paresis. Patient is able to talk even though he is slow in his response. He talks appropriately. He denies any severe complaints of any headaches or seizures. No apparent history of any chest pain, palpitations shortness of breath. Initial evaluations in the ER included a CT of the brain which was inconclusive followed by an MRI which showed acute stroke involving t he right cerebrum with extension into the yepez radiated. Blood pressure has been high since admission. Labs and medications were reviewed.Discussions were done with the treating nurse. Patient apparently able to swallow medications. However he seems to be coughing many tries to drink liquids. Past Medical History Cardiac Medical History: Reports: Coronary Artery Disease, Hypertension-primary Denies: Myocardial Infarction Pulmonary Medical History: Denies: Asthma, Bronchitis, Chronic Obstructive Pulmonary Disease (COPD), Pneumonia Neurological Medical History: Denies: Seizures Endocrine Medical History: Reports: Diabetes Mellitus Type 2 Renal/ Medical History: Reports: Chronic Kidney Disease Stage III Musculoskeltal Medical History: Reports: Arthritis Social History Smoking Status: Never Smoker Cigarettes Packs Per Day: 2 Number of Years Smokin Last Time Smoked: 10 year ago Frequency of Alcohol Use: None Hx Recreational Drug Use: No - Advance Directive Resuscitation Status: Full Code Family History Parental Family History Reviewed: No Children Family History Reviewed: No Sibling(s) Family History Reviewed.: No Medication/Allergy Home Medications: Aspirin [Aspirin EC] 81 mg PO BID 09/17/16 Atorvastatin Calcium [Lipitor 20 mg Tablet] 20 mg PO QHS 09/17/16 Insulin Glargine,Hum.rec.anlog [Lantus] 25 unit SQ BID 09/17/16 Lisinopril 20 mg PO DAILY 09/17/16 Prednisolone Acetate [Pred Forte] 5 ml OD QHS 09/17/16 Amlodipine Besylate [Norvasc 5 mg Tablet] 1 tab PO BID 07/05/18 Bacitracin [Bacitracin Oph Oint 3.5 gm] 1 applic LFT_EYE QHS 07/05/18 Besifloxacin HCl [Besivance 0.6% Oph Susp 5 ml] 1 drop LFT_EYE QID 07/05/18 Bimatoprost [Lumigan 0.01% Oph Soln 2.5 ml/Bottle] 1 drop LFT_EYE QHS 07/05/18 Brimonidine Tartrate/Timolol [Combigan 0.2%-0.5% Eye Drops] 1 drop OD QAM 07/05/18 Carboxymethylcellulos/Glycerin [Refresh Repair 0.5-0.9% Drop] 1 drop BTH_EYE QID 07/05/18 Cholecalciferol (Vitamin D3) [Vitamin D3 1000 Unit Tablet] 1 tab PO DAILY 07/05 Difluprednate [Durezol] 2 drp LFT_EYE BID 07/05/18 Ferrous Sulfate [Albafort] 1 tab PO DAILY 07/05/18 Loteprednol Etabonate [Lotemax] 1 drop LFT_EYE BID 07/05/18 Magnesium 1 tab PO DAILY 07/05/18 Netarsudil Mesylate [Rhopressa] 1 drop OD ASDIR PRN 07/05/18 Allergies/Adverse Reactions: No Known Allergies Allergy (Verified 07/04/18 13:07) Review of Systems Constitutional: PRESENT: anorexia, fatigue, weakness. ABSENT: chills, fever(s), headache(s), night sweats Nose, Mouth, and Throat: ABSENT: sore throat Cardiovascular: ABSENT: chest pain, dyspnea on exertion, edema, orthropnea, palpitations Respiratory: ABSENT: cough, dyspnea, hemoptysis Gastrointestinal: PRESENT: nausea. ABSENT: abdominal pain, bloating, diarrhea, dysphagia, heartburn, hematemesis, hematochezia, vomiting Genitourinary: ABSENT: dysuria, hematuria Musculoskeletal: ABSENT: deformity, joint swelling Integumentary: ABSENT: lesions, pruritus, rash Neurological: PRESENT: focal weakness - Of the left half of the body. ABSENT: abnormal movements, abnormal speech, confusion, convulsions Endocrine: ABSENT: heat intolerance Hematologic/Lymphatic: ABSENT: easy bleeding, easy bruising, lymphadenopathy Physical Exam Vital Signs: Temp Pulse Resp BP Pulse Ox 98.2 F 67 14 187/55 H 96 07/09/18 11:06 07/09/18 11:06 07/09/18 11:06 07/09/18 11:06 07/09/18 11:06 Intake & Output 07/08/18 07/09/18 07/10/18 06:59 06:59 06:59 Intake Total 1550 1272 Balance 1550 1272 Weight 63.9 kg 62.8 kg General appearance: PRESENT: disheveled Exam: Looks very weak/moribund with an obvious left weakness of the body. Eye exam: PRESENT: conjunctiva pink, EOMI, PERRLA. ABSENT: scleral icterus Ear exam: PRESENT: normal external ear exam Mouth exam: PRESENT: neck supple. ABSENT: moist Neck exam: ABSENT: lymphadenopathy, meningismus, tenderness, thyromegaly, tracheal deviation Respiratory exam: PRESENT: clear to auscultation francesca, symmetrical. ABSENT: crackles Cardiovascular exam: PRESENT: +S1, +S2, systolic murmur GI/Abdominal exam: PRESENT: normal bowel sounds, soft. ABSENT: organomegaly, tenderness Extremities exam: ABSENT: pedal edema Neurological exam: PRESENT: altered, awake, oriented to person, motor sensory deficit. ABSENT: oriented to place, oriented to time Psychiatric exam: PRESENT: flat affect Skin exam: ABSENT: cyanosis, erythema, mottled, rash Results Laboratory Results: 07/09/18 04:17 07/09/18 04:17 07/09/18 07/09/18 04:17 04:17 WBC 10.5 RBC 3.92 L Hgb 10.7 L Hct 32.3 L MCV 82 MCH 27.4 MCHC 33.3 RDW 14.1 H Plt Count 227 Seg Neutrophils % 82.8 H Lymphocytes % 7.1 L Monocytes % 9.7 Eosinophils % 0.0 Basophils % 0.4 Absolute Neutrophils 8.7 H Absolute Lymphocytes 0.7 Absolute Monocytes 1.0 Absolute Eosinophils 0.0 Absolute Basophils 0.0 Sodium 139.1 Potassium 4.7 Chloride 101 Carbon Dioxide 28 Anion Gap 10 BUN 32 H Creatinine 1.45 H Est GFR ( Amer) 58 L Est GFR (Non-Af Amer) 48 L Glucose 201 H Calcium 9.9 07/04/18 07/04/18 07/04/18 14:20 21:22 21:22 Creatine Kinase 83 CK-MB (CK-2) 0.31 Troponin I < 0.012 07/04/18 07/05/18 07/05/18 21:22 03:28 10:02 Creatine Kinase CK-MB (CK-2) Troponin I 0.018 < 0.012 < 0.012 Impressions: Chest X-Ray 07/04/18 13:27 IMPRESSION: NO ACUTE RADIOGRAPHIC FINDING IN THE CHEST. Head MRI 07/04/18 17:52 IMPRESSION: 1. Acute to subacute infarction in the right centrum semiovale extending into the yepez radiata. 2. Findings consistent with chronic small vessel ischemic changes well. EVIDENCE OF ACUTE STROKE: YES. Carotid Doppler Study 07/05/18 00:00 IMPRESSION: NO HEMODYNAMICALLY SIGNIFICANT STENOSIS. Head CT 07/08/18 00:00 IMPRESSION: Hypodensity of the right yepez radiata and centrum semiovale in keeping with evolving infarction seen on prior MR. No evidence of hemorrhagic conversion or new infarction. EVIDENCE OF ACUTE STROKE: NO. Assessment & Plan - Diagnosis (1) Cerebrovascular accident (CVA) Qualifiers: CVA mechanism: unspecified Qualified Code(s): I63.9 - Cerebral infarction, unspecified Plan: He has acute onset of left hemiparesis. Hypertension is commensurate to his s troke and I would not treat his blood pressure extremely tightly for obvious reasons. Stroke treatment as per Dr. Baxter. (2) Chronic kidney disease Qualifiers: Chronic kidney disease stage: stage 3 (moderate) Qualified Code(s): N18.3 - Chronic kidney disease, stage 3 (moderate) Is this a current diagnosis for this admission?: Yes Plan: Current his sister he has chronic kidney disease. He obviously has proteinuria. He has a long-standing history of complicated diabetes and hypertension.We will continue to monitor presuming that this is his baseline renal functions. We will try to obtain his previous renal numbers as he was previously in [place] prior to him moving over here.Clinically patient looks dehydrated especially as I doubt he is able to intake much given his present status. Will order gentle hydration.Also ordered a renal ultrasound besides the Dopplers. (3) Essential (primary) hypertension Is this a current diagnosis for this admission?: Yes Plan: Presently uncontrolled in the face of acute CVA. Would keep the systolic blood pressure around 180 systolic. Have added clonidine to his current regimen. Monitor.Also get a renal Dopplers. (4) Type 2 diabetes mellitus Qualifiers: Diabetes mellitus terminal operations supervisor insulin use: with terminal operations supervisor use Diabetes mellitus complication status: with unspecified complications Qualified Code(s): E11.8 - Type 2 diabetes mellitus with unspecified complications; Z79.4 - [facility] (current) use of insulin Is this a current diagnosis for this admission?: Yes Plan: Obviously this needs to be kept under tight control. Unsure of his previous current diabetic control given the fact that he was in [place] all these years.
--- NOTE | 2018-07-09 21:37 | RADIOLOGY REPORT (SQ) ---
EXAM DESCRIPTION: XR CHEST 1 VIEW COMPLETED DATE/TME: 07/09/2018 00:00 CLINICAL HISTORY: 73 years, Male, Possible Aspiration COMPARISON: Prior study from 07/07/2018 NUMBER OF VIEWS: One TECHNIQUE: Single frontal view of the chest was obtained portably LIMITATIONS: None. FINDINGS: Cardiac and mediastinal contours are normal in appearance. Lungs are clear. No pleural effusion or pneumothorax. IMPRESSION: No acute disease. copyright 2010 [employer]- All Rights Reserved
[2018-07-09] MEDS: BIMATOPROST 0.01% OPH SOLN 2.5 ML/BOTTLE OU SCH (22:23)
[2018-07-09] MEDS: 1/2 NORMAL SALINE 1,000 ML IV PRN (22:23)
[2018-07-09] MEDS: PREDNISOLONE ACETATE 1% OPH SUSP 5 ML OD SCH (22:23)
[2018-07-09] MEDS: ATORVASTATIN CALCIUM 80 MG TABLET PO SCH (22:24)
[2018-07-10] MEDS: INSULIN LISPRO 100 UNIT/ML 3 ML VIAL SUBCUT SCH ×5 (00:20→23:44)
[2018-07-10] MEDS: CLONIDINE HCL 0.1 MG TABLET PO SCH (05:00)
[2018-07-10] MEDS: HYDRALAZINE HCL 10 MG TABLET PO SCH ×3 (05:00→21:57)
[2018-07-10 05:03] LABS: ABSOLUTE LYMPHOCYTES (AUTO) 1.5 10^3/uL (0.5-4.7); ABSOLUTE MONOCYTES (AUTO) 1.7 10^3/uL (0.1-1.4); ABSOLUTE NEUT (AUTO) 8.8 10^3/uL (1.7-8.2); BASOPHILS % (AUTO) 0.4 % (0-2); HEMATOCRIT 31.1 % (37.9-51.0); HEMOGLOBIN 10.3 g/dL (13.5-17.0); LYMPHOCYTES % (AUTO) 12.3 % (13-45); MEAN CORPUSCULAR VOLUME 82 fl (80-97); PLATELET COUNT 215 10^3/uL (150-450); RED BLOOD COUNT 3.81 10^6/uL (4.35-5.55); SEGMENTED NEUTROPHILS % (AUTO) 73.3 % (42-78); TOTAL CELLS COUNTED % (AUTO) 100 %
[2018-07-10 05:22] LABS: ANION GAP 10 (5-19); BLOOD UREA NITROGEN 48 mg/dL (7-20); CALCIUM 9.8 mg/dL (8.4-10.2); CARBON DIOXIDE 24 mmol/L (22-30); CHLORIDE 103 mmol/L (98-107); GLUCOSE 148 mg/dL (75-110); POTASSIUM 4.6 mmol/L (3.6-5.0); SODIUM 137.2 mmol/L (137-145)
[2018-07-10] MEDS: INSULIN GLARGINE,HUM.REC.ANLOG 1,000 UNIT/10 ML VIAL SUBCUT SCH ×2 (10:02→23:45)
--- NOTE | 2018-07-10 10:20 | RADIOLOGY REPORT (SQ) ---
EXAM DESCRIPTION: DUPLEX ART/ALICIA FLOW COMPLETE COMPLETED DATE/TIME: 07/10/2018 9:22 am REASON FOR STUDY: severe hypertension.doppler renal arteries, DANDRE COMPARISON: None. TECHNIQUE: Realtime and static grayscale images acquired. Selected color Doppler, velocities and spe ctral images recorded. LIMITATIONS: Study limited due to overlying bowel gas. FINDINGS: RIGHT KIDNEY: RENAL ARTERY ORIGIN VELOCITY: 197 cm/sec. Segmental artery not visualized. RENAL VEIN: Not visualized. VELOCITY RATIO: 1.6. Normal waveforms. KIDNEY: Not adequately visualized. LEFT KIDNEY: RENAL ARTERY ORIGIN VELOCITY: 185 cm/sec. Segmental artery not visualized. RENAL VEIN: Not visualized. VELOCITY RATIO: 1.5. Normal waveforms. KIDNEY: Not adequately visualized. Partially visualized is a 6 cm cyst. BLADDER: Normal. OTHER: No other significant finding. IMPRESSION: LIMITED STUDY. NO DOPPLER EVIDENCE OF HEMODYNAMICALLY SIGNIFICANT RENAL ARTERY STENOSIS . COMMENT: NORMAL RENAL ARTERY/AORTA VELOCITY RATIO IS LESS THAN OR EQUAL TO 3.5. TECHNICAL DOCUMENTATION: JOB ID: [id number] [employer]- All Rights Reserved Reading location - IP/workstation name: [email or web address]
[2018-07-10] MEDS: MAGNESIUM OXIDE 400 MG TABLET PO SCH (10:45)
[2018-07-10] MEDS: CHOLECALCIFEROL (D3) 1,000 UNIT TABLET PO SCH (10:46)
[2018-07-10] MEDS: DOCUSATE SODIUM 100 MG CAPSULE PO SCH ×2 (10:46→17:17)
[2018-07-10] MEDS: AMLODIPINE BESYLATE 5 MG TABLET PO SCH ×2 (10:46→21:34)
[2018-07-10] MEDS: CEFEPIME 1 GM/D5W RTU 1 GM/50 ML RTUPB IV SCH ×2 (10:47→21:27)
[2018-07-10] MEDS: ASPIRIN 325 MG TABLET PO SCH (10:48)
[2018-07-10] MEDS: POLYETHYLENE GLYCOL 3350 POWDER 17 GM/1 PACKET PO SCH (10:48)
[2018-07-10] MEDS: BESIFLOXACIN HCL 0.6% OPH SUSP 5 ML BOTTLE OU SCH ×4 (11:01→21:30)
[2018-07-10] MEDS: ENOXAPARIN SODIUM INJ 40 MG/0.4 ML DISP.SYRIN SUBCUT SCH (11:02)
--- NOTE | 2018-07-10 13:02 | RADIOLOGY REPORT (SQ) ---
EXAM DESCRIPTION: MRI HEAD WITHOUT COMPLETED DATE/TIME: 07/10/2018 12:24 pm REASON FOR STUDY: stroke COMPARISON: MR dated 07/04/2018. CT dated 07/08/2018 and 07/04/2018. TECHNIQUE: Multiplanar imaging includes non-contrasted T1, T2, FLAIR, and diffusion with ADC map seq uences. Images stored on PACS. LIMITATIONS: None. FINDINGS: ANATOMY: No anomalies. Normal vascular flow voids. Pituitary fossa normal. CSF SPACES: Atrophy induced prominence of ventricles and CSF spaces. CEREBRUM: High signal intensity lesions scattered throughout the white matter on FLAIR imaging with d istribution suggesting micro-vascular ischemic changes. No evidence of hemorrhage, mass, or extraaxi al fluid collection. POSTERIOR FOSSA: No signal alteration. No hemorrhage. No edema, masses or mass effect. Internal guillermina tory canals, cerebello-pontine angles, mastoids normal. DIFFUSION IMAGING: Again seen is restricted diffusion in the medial superior right frontal lobe adjac ent to the falx. Overall area of involvement has increased in size. ORBITS: No masses. Globes normal. PARANASAL SINUSES: No fluid levels. Mucosa normal. OTHER: No other significant finding. IMPRESSION: THE AREA OF RECENT INFARCT IN THE RIGHT CEREBRAL HEMISPHERE HAS PROGRESSED. OTHER STABL E FINDINGS INCLUDE CHRONIC ATROPHY AND CHRONIC MICRO-VASCULAR ISCHEMIC CHANGES. EVIDENCE OF ACUTE STROKE: YES. RIGHT CRISTHIAN. TECHNICAL DOCUMENTATION: JOB ID: [id number]- All Rights Reserved Reading location - IP/workstation name: [email or web address]
--- NOTE | 2018-07-10 13:07 | RADIOLOGY REPORT (SQ) ---
EXAM DESCRIPTION: MRA HEAD WITHOUT COMPLETED DATE/TIME: 07/10/2018 12:26 pm REASON FOR STUDY: stroke COMPARISON: None. TECHNIQUE: Axial 3-D [id number] acquisition imaging performed through the brain in the area of t he kaw of [place]. Images reformatted using 3-D MIPS. LIMITATIONS: None. FINDINGS: SOURCE IMAGES: No unexpected findings on source images. No large masses. 3-D MIP: No aneurysm. No occlusions. There are several areas of focal stenosis. There is focal monisha nosis of the proximal basilar artery at the bifurcation with the vertebral arteries. There is a foca l stenosis versus short segment occlusion of the proximal left posterior cerebral artery. The right and left cavernous carotid arteries are somewhat tortuous with probable focal stenosis of the proxima l vessels, particularly on the left. OTHER: No other significant finding. IMPRESSION: SEVERAL FOCAL AREAS OF STENOSIS DESCRIBED ABOVE. TECHNICAL DOCUMENTATION: JOB ID: [id number] [employer]- All Rights Reserved Reading location - IP/workstation name: [email or web address]
[2018-07-10 13:25] LABS: ARTERIAL BLOOD BASE EXCESS 4.7 mmol/L; ARTERIAL BLOOD FIO2 21%; ARTERIAL BLOOD H2CO3 1.25 mmol/L (1.05-1.35); ARTERIAL BLOOD HCO3 28.9 mmol/L (20-24); ARTERIAL BLOOD O2 SATURATION 96.3 % (94-98); ARTERIAL BLOOD PCO2 41.6 mmHg (35-45); ARTERIAL BLOOD PH 7.46 (7.35-7.45); ARTERIAL BLOOD PO2 79.6 mmHg (80-100); ARTERIAL BLOOD TOTAL CO2 30.2 mmol/L (23-27)
[2018-07-10] MEDS: 1/2 NORMAL SALINE 1,000 ML IV PRN (16:48)
[2018-07-10] MEDS: ATORVASTATIN CALCIUM 80 MG TABLET PO SCH (21:27)
[2018-07-10] MEDS: BIMATOPROST 0.01% OPH SOLN 2.5 ML/BOTTLE OU SCH (21:31)
[2018-07-10] MEDS: PREDNISOLONE ACETATE 1% OPH SUSP 5 ML OD SCH (21:31)
[2018-07-10] MEDS: HYDRALAZINE HCL INJ/PF 20 MG/1 ML SDV IV PRN (21:59)
[2018-07-11] MEDS: HYDRALAZINE HCL 10 MG TABLET PO SCH (06:22)
[2018-07-11 06:57] LABS: ANION GAP 9 (5-19); BLOOD UREA NITROGEN 41 mg/dL (7-20); CALCIUM 9.5 mg/dL (8.4-10.2); CARBON DIOXIDE 28 mmol/L (22-30); CHLORIDE 100 mmol/L (98-107); GLUCOSE 157 mg/dL (75-110); POTASSIUM 4.6 mmol/L (3.6-5.0); SODIUM 137.3 mmol/L (137-145)
[2018-07-11] MEDS: INSULIN LISPRO 100 UNIT/ML 3 ML VIAL SUBCUT SCH ×4 (07:45→23:53)
[2018-07-11] MEDS: 1/2 NORMAL SALINE 1,000 ML IV PRN (09:57)
[2018-07-11] MEDS: CEFEPIME 1 GM/D5W RTU 1 GM/50 ML RTUPB IV SCH ×2 (09:57→21:18)
[2018-07-11] MEDS: ASPIRIN 325 MG TABLET PO SCH (09:57)
[2018-07-11] MEDS: CLOPIDOGREL BISULFATE 75 MG TABLET PO SCH (09:57)
[2018-07-11] MEDS: POLYETHYLENE GLYCOL 3350 POWDER 17 GM/1 PACKET PO SCH (09:57)
[2018-07-11] MEDS: AMLODIPINE BESYLATE 5 MG TABLET PO SCH ×2 (09:58→21:18)
[2018-07-11] MEDS: DOCUSATE SODIUM 100 MG CAPSULE PO SCH ×2 (09:58→17:31)
[2018-07-11] MEDS: INSULIN GLARGINE,HUM.REC.ANLOG 1,000 UNIT/10 ML VIAL SUBCUT SCH ×2 (09:58→22:17)
[2018-07-11] MEDS: CHOLECALCIFEROL (D3) 1,000 UNIT TABLET PO SCH (09:58)
[2018-07-11] MEDS: BESIFLOXACIN HCL 0.6% OPH SUSP 5 ML BOTTLE OU SCH ×4 (09:58→21:27)
[2018-07-11] MEDS: MAGNESIUM OXIDE 400 MG TABLET PO SCH (09:58)
[2018-07-11] MEDS: ENOXAPARIN SODIUM INJ 40 MG/0.4 ML DISP.SYRIN SUBCUT SCH (09:59)
--- NOTE | 2018-07-11 10:24 | PDOC PROGRESS REPORT ---
Subjective Progress Note for:: 07/11/18 Subjective:: Patient is actually feeling better this morning Patient is more alert awake Patient able to move all 3 extremities except the left lower extremity Patient MRI and MRA suggest the still progressive of the right side of the strokes with the focal stenosis but no occlusion Patient still have a little cough Patient is denied any chest pain to than any shortness of the breath Patient's past the speech therapy Reason For Visit: ACUTE ISCHEMIC STROKE Physical Exam Vital Signs: Temp Pulse Resp BP Pulse Ox 98.3 F 78 18 169/54 H 95 07/11/18 07:18 07/11/18 07:18 07/11/18 07:18 07/11/18 07:18 07/11/18 07:18 Intake & Output 07/10/18 07/11/18 07/12/18 06:59 06:59 06:59 Intake Total 400 1150 1050 Balance 400 1150 1050 Weight 65.4 kg 62.4 kg General appearance: PRESENT: no acute distress, well-developed, well-nourished Head exam: PRESENT: atraumatic, normocephalic Eye exam: PRESENT: conjunctiva pink, EOMI, PERRLA. ABSENT: scleral icterus Ear exam: PRESENT: normal external ear exam Mouth exam: PRESENT: moist, tongue midline Neck exam: PRESENT: full ROM. ABSENT: carotid bruit, JVD, lymphadenopathy, thyromegaly Respiratory exam: PRESENT: clear to auscultation francesca Cardiovascular exam: PRESENT: RRR. ABSENT: diastolic murmur, rubs, systolic murmur Vascular exam: PRESENT: normal capillary refill GI/Abdominal exam: PRESENT: normal bowel sounds, soft. ABSENT: distended, guarding, mass, organolmegaly, rebound, tenderness Rectal exam: PRESENT: deferred Neurological exam: PRESENT: alert, awake, oriented to person, oriented to place, oriented to time, oriented to situation. ABSENT: motor sensory deficit Additional comments: Left lower extremities weakness is present Psychiatric exam: PRESENT: appropriate affect, normal mood. ABSENT: homicidal ideation, suicidal ideation Skin exam: PRESENT: dry, intact, warm. ABSENT: cyanosis, rash Results Laboratory Results: 07/10/18 03:40 07/11/18 05:33 07/10/18 07/11/18 13:14 05:33 Carbonic Acid 1.25 HCO3/H2CO3 Ratio 23:1 ABG pH 7.46 H ABG pCO2 41.6 ABG pO2 79.6 L ABG HCO3 28.9 H ABG O2 Saturation 96.3 ABG Base Excess 4.7 FiO2 21% Sodium 137.3 Potassium 4.6 Chloride 100 Carbon Dioxide 28 Anion Gap 9 BUN 41 H Creatinine 1.33 H Est GFR ( Amer) > 60 Est GFR (Non-Af Amer) 53 L Glucose 157 H Calcium 9.5 07/04/18 07/04/18 07/04/18 14:20 21:22 21:22 Creatine Kinase 83 CK-MB (CK-2) 0.31 Troponin I < 0.012 07/04/18 07/05/18 07/05/18 21:22 03:28 10:02 Creatine Kinase CK-MB (CK-2) Troponin I 0.018 < 0.012 < 0.012 Impressions: Carotid Doppler Study 07/05/18 00:00 IMPRESSION: NO HEMODYNAMICALLY SIGNIFICANT STENOSIS. Head CT 07/08/18 00:00 IMPRESSION: Hypodensity of the right yepez radiata and centrum semiovale in keeping with evolving infarction seen on prior MR. No evidence of hemorrhagic conversion or new infarction. EVIDENCE OF ACUTE STROKE: NO. Chest X-Ray 07/09/18 00:00 IMPRESSION: No acute disease. copyright 2011 [employer]- All Rights Reserved Brain MRI with MRA 07/10/18 00:00 IMPRESSION: SEVERAL FOCAL AREAS OF STENOSIS DESCRIBED ABOVE. Head MRI 07/10/18 00:00 IMPRESSION: THE AREA OF RECENT INFARCT IN THE RIGHT CEREBRAL HEMISPHERE HAS PROGRESSED. OTHER STABLE FINDINGS INCLUDE CHRONIC ATROPHY AND CHRONIC MICRO- VASCULAR ISCHEMIC CHANGES. EVIDENCE OF ACUTE STROKE: YES. RIGHT CRISTHIAN. Renal Artery Duplex 07/10/18 00:00 IMPRESSION: LIMITED STUDY. NO DOPPLER EVIDENCE OF HEMODYNAMICALLY SIGNIFICANT RENAL ARTERY STENOSIS. Assessment & Plan - Diagnosis (1) Cerebral infarction Qualifiers: Cerebral infarction mechanism: embolism Precerebral and cerebral artery: anterior cerebral artery Laterality of affected vessel: right Qualified Code(s): I63.421 - Cerebral infarction due to embolism of right anterior cerebral artery Is this a current diagnosis for this admission?: Yes Plan: Will get the CT of the head Continues to aspirin at the Plavix (2) Essential (primary) hypertension Is this a current diagnosis for this admission?: Yes Plan: Hydralazine 10 mg p.o. daily q8 (3) Hemiparesis of right dominant side Qualifiers: Hemiparesis etiology: late effect of cerebrovascular disease Cerebrovascular disease type: cerebral infarction Qualified Code(s): I69.351 - Hemiplegia and hemiparesis following cerebral infarction affecting right dominant side Is this a current diagnosis for this admission?: Yes Plan: Physical therapy (4) Weakness of left lower extremity Is this a current diagnosis for this admission?: Yes Plan: Probably discharged to the rehab facility (5) Type 2 diabetes mellitus Qualifiers: Diabetes mellitus care home insulin use: with care home use Diabetes mellitus complication status: with unspecified complications Qualified Code(s): E11.8 - Type 2 diabetes mellitus with unspecified complications; Z79.4 - technician terminal and repeater (current) use of insulin Is this a current diagnosis for this admission?: Yes Plan: Will adjust the insulin (6) Hyperlipidemia Qualifiers: Hyperlipidemia type: unspecified Qualified Code(s): E78.5 - Hyperlipidemia, unspecified Is this a current diagnosis for this admission?: Yes Plan: Continues statin (7) Chronic kidney disease Qualifiers: Chronic kidney disease stage: stage 3 (moderate) Qualified Code(s): N18.3 - Chronic kidney disease, stage 3 (moderate) Is this a current diagnosis for this admission?: Yes Plan: Consult nephrology Check a UA - Time Time Spent with patient: 15-24 minutes Medications reviewed and adjusted accordingly: Yes Anticipated discharge: SNF Within: Other - Plan Summary Plan Summary: Continues to aspirin Plavix and statin Continues to IV antibiotic Continues to IV fluid
--- NOTE | 2018-07-11 12:52 | RADIOLOGY REPORT (SQ) ---
EXAM DESCRIPTION: CHEST SINGLE VIEW COMPLETED DATE/TIME: 07/11/2018 12:29 pm REASON FOR STUDY: change to respiratory status COMPARISON: 07/09/2018 NUMBER OF VIEWS: One view. TECHNIQUE: Single frontal radiographic view of the chest acquired. LIMITATIONS: None. FINDINGS: LUNGS AND PLEURA: No opacities, masses or pneumothorax. No pleural effusion. MEDIASTINUM AND HILAR STRUCTURES: No masses. Contour normal. HEART AND VASCULAR STRUCTURES: Heart normal in size. Normal vasculature. BONES: No acute findings. HARDWARE: None in the chest. OTHER: No other significant finding. IMPRESSION: NO SIGNIFICANT RADIOGRAPHIC FINDING IN THE CHEST. TECHNICAL DOCUMENTATION: JOB ID: [id number] [employer]- All Rights Reserved Reading location - IP/workstation name: [email or web address]
[2018-07-11] MEDS: HYDRALAZINE HCL 25 MG TABLET PO SCH ×2 (13:34→21:17)
[2018-07-11] MEDS ORDERED: ONDANSETRON HCL INJ/PF 4 MG/2 ML SDV IV PRN (13:46)
[2018-07-11] MEDS ORDERED: HYDRALAZINE HCL 10 MG TABLET PO SCH (14:00)
[2018-07-11] MEDS: PANTOPRAZOLE SODIUM 40 MG VIAL IV SCH (17:14)
[2018-07-11] MEDS: HYDRALAZINE HCL INJ/PF 20 MG/1 ML SDV IV PRN (17:14)
[2018-07-11] MEDS: ATORVASTATIN CALCIUM 80 MG TABLET PO SCH (21:18)
[2018-07-11] MEDS: GUAIFENESIN 600 MG TABLET.SA PO PRN (21:19)
[2018-07-11] MEDS: PREDNISOLONE ACETATE 1% OPH SUSP 5 ML OD SCH (21:27)
[2018-07-11] MEDS: BIMATOPROST 0.01% OPH SOLN 2.5 ML/BOTTLE OU SCH (21:27)
[2018-07-12] MEDS: 1/2 NORMAL SALINE 1,000 ML IV PRN ×2 (01:20→21:31)
[2018-07-12] MEDS: INSULIN LISPRO 100 UNIT/ML 3 ML VIAL SUBCUT SCH ×4 (06:19→23:54)
[2018-07-12] MEDS: HYDRALAZINE HCL 25 MG TABLET PO SCH (06:21)
[2018-07-12] MEDS: INSULIN GLARGINE,HUM.REC.ANLOG 1,000 UNIT/10 ML VIAL SUBCUT SCH ×2 (09:45→22:19)
[2018-07-12] MEDS: MAGNESIUM OXIDE 400 MG TABLET PO SCH (09:46)
[2018-07-12] MEDS: CLOPIDOGREL BISULFATE 75 MG TABLET PO SCH (09:46)
[2018-07-12] MEDS: CHOLECALCIFEROL (D3) 1,000 UNIT TABLET PO SCH (09:46)
[2018-07-12] MEDS: ENOXAPARIN SODIUM INJ 40 MG/0.4 ML DISP.SYRIN SUBCUT SCH (09:46)
[2018-07-12] MEDS: ASPIRIN 325 MG TABLET PO SCH (09:46)
[2018-07-12] MEDS: AMLODIPINE BESYLATE 5 MG TABLET PO SCH ×2 (09:46→21:40)
[2018-07-12] MEDS: DOCUSATE SODIUM 100 MG CAPSULE PO SCH ×2 (09:46→17:15)
[2018-07-12] MEDS: CEFEPIME 1 GM/D5W RTU 1 GM/50 ML RTUPB IV SCH ×2 (09:47→21:33)
[2018-07-12] MEDS: POLYETHYLENE GLYCOL 3350 POWDER 17 GM/1 PACKET PO SCH (09:47)
--- NOTE | 2018-07-12 10:11 | PDOC PROGRESS REPORT ---
Subjective Progress Note for:: 07/12/18 Subjective:: Patient is feeling much better Patient cough is also improving after giving the Protonix Patient having no fever Patient's denied any chest pain to than any shortness of the breath Reason For Visit: ACUTE ISCHEMIC STROKE Physical Exam Vital Signs: Temp Pulse Resp BP Pulse Ox 98.2 F 90 18 160/45 H 96 07/12/18 07:13 07/12/18 07:13 07/12/18 07:13 07/12/18 07:13 07/12/18 07:13 Intake & Output 07/11/18 07/12/18 07/13/18 06:59 06:59 06:59 Intake Total 1150 2633 Balance 1150 2633 Weight 62.4 kg 61.8 kg General appearance: PRESENT: no acute distress, well-developed, well-nourished Head exam: PRESENT: atraumatic, normocephalic Eye exam: PRESENT: conjunctiva pink, EOMI, PERRLA. ABSENT: scleral icterus Ear exam: PRESENT: normal external ear exam Mouth exam: PRESENT: moist, tongue midline Neck exam: PRESENT: full ROM. ABSENT: carotid bruit, JVD, lymphadenopathy, thyromegaly Respiratory exam: PRESENT: clear to auscultation francesca Cardiovascular exam: PRESENT: RRR. ABSENT: diastolic murmur, rubs, systolic murmur Vascular exam: PRESENT: normal capillary refill GI/Abdominal exam: PRESENT: normal bowel sounds, soft. ABSENT: distended, guarding, mass, organolmegaly, rebound, tenderness Rectal exam: PRESENT: deferred Extremities exam: ABSENT: pedal edema Neurological exam: PRESENT: alert, awake, oriented to person, oriented to place, oriented to time, oriented to situation. ABSENT: motor sensory deficit Additional comments: Left lower extremity still weak but other 3 extremities patient's able to move it Psychiatric exam: PRESENT: appropriate affect, normal mood. ABSENT: homicidal ideation, suicidal ideation Skin exam: PRESENT: dry, intact, warm. ABSENT: cyanosis, rash Results Laboratory Results: 07/10/18 03:40 07/11/18 05:33 07/04/18 07/04/18 07/04/18 14:20 21:22 21:22 Creatine Kinase 83 CK-MB (CK-2) 0.31 Troponin I < 0.012 0407/05/18 07/05/18 21:22 03:28 10:02 Creatine Kinase CK-MB (CK-2) Troponin I 0.018 < 0.012 < 0.012 Impressions: Carotid Doppler Study 07/05/18 00:00 IMPRESSION: NO HEMODYNAMICALLY SIGNIFICANT STENOSIS. Head CT 07/08/18 00:00 IMPRESSION: Hypodensity of the right yepez radiata and centrum semiovale in keeping with evolving infarction seen on prior MR. No evidence of hemorrhagic conversion or new infarction. EVIDENCE OF ACUTE STROKE: NO. Brain MRI with MRA 07/10/18 00:00 IMPRESSION: SEVERAL FOCAL AREAS OF STENOSIS DESCRIBED ABOVE. Head MRI 07/10/18 00:00 IMPRESSION: THE AREA OF RECENT INFARCT IN THE RIGHT CEREBRAL HEMISPHERE HAS PROGRESSED. OTHER STABLE FINDINGS INCLUDE CHRONIC ATROPHY AND CHRONIC MICRO- VASCULAR ISCHEMIC CHANGES. EVIDENCE OF ACUTE STROKE: YES. RIGHT CRISTHIAN. Renal Artery Duplex 07/10/18 00:00 IMPRESSION: LIMITED STUDY. NO DOPPLER EVIDENCE OF HEMODYNAMICALLY SIGNIFICANT RENAL ARTERY STENOSIS. Chest X-Ray 07/11/18 00:00 IMPRESSION: NO SIGNIFICANT RADIOGRAPHIC FINDING IN THE CHEST. Assessment & Plan - Diagnosis (1) Cerebral infarction Qualifiers: Cerebral infarction mechanism: embolism Precerebral and cerebral artery: anterior cerebral artery Laterality of affected vessel: right Qualified Code(s): I63.421 - Cerebral infarction due to embolism of right anterior cerebral artery Is this a current diagnosis for this admission?: Yes Plan: Continues to aspirin Plavix and statin Patient is improving much better (2) Essential (primary) hypertension Is this a current diagnosis for this admission?: Yes Plan: Increase the hydralazine 50 mg p.o. every 8 (3) Hemiparesis of right dominant side Qualifiers: Hemiparesis etiology: late effect of cerebrovascular disease Cerebrovascular disease type: cerebral infarction Qualified Code(s): I69.351 - Hemiplegia and hemiparesis following cerebral infarction affecting right dominant side Is this a current diagnosis for this admission?: Yes Plan: Physical therapy (4) Weakness of left lower extremity Is this a current diagnosis for this admission?: Yes Plan: Probably discharged to the rehab facility (5) Type 2 diabetes mellitus Qualifiers: Diabetes mellitus exterminator helper termite insulin use: with nursing home use Diabetes mellitus complication status: with unspecified complications Qualified Code(s): E11.8 - Type 2 diabetes mellitus with unspecified complications; Z79.4 - snf (current) use of insulin Is this a current diagnosis for this admission?: Yes Plan: Will adjust the insulin (6) Hyperlipidemia Qualifiers: Hyperlipidemia type: unspecified Qualified Code(s): E78.5 - Hyperlipidemia, unspecified Is this a current diagnosis for this admission?: Yes Plan: Continues statin (7) Chronic kidney disease Qualifiers: Chronic kidney disease stage: stage 3 (moderate) Qualified Code(s): N18.3 - Chronic kidney disease, stage 3 (moderate) Is this a current diagnosis for this admission?: Yes Plan: Currently all improving - Time Time Spent with patient: 15-24 minutes Medications reviewed and adjusted accordingly: Yes Anticipated discharge: SNF Within: Other - Plan Summary Plan Summary: Patient is currently getting improved continues to current medications
[2018-07-12] MEDS ORDERED: HYDRALAZINE HCL 25 MG TABLET PO SCH (14:00)
[2018-07-12] MEDS: HYDRALAZINE HCL 50 MG TABLET PO SCH ×2 (14:24→21:39)
[2018-07-12] MEDS: PANTOPRAZOLE SODIUM 40 MG VIAL IV SCH (17:15)
--- NOTE | 2018-07-12 19:16 | RADIOLOGY REPORT (SQ) ---
EXAM DESCRIPTION: CT CHEST WITHOUT COMPLETED DATE/TIME: 07/12/2018 6:32 pm REASON FOR STUDY: cough COMPARISON: None. TECHNIQUE: CT scan performed of the chest without intravenous contrast. Images reviewed with lung, soft tissue and bone windows. Reconstructed coronal and sagittal MPR images reviewed. All images st ored on PACS. All CT scanners at this facility use dose modulation, iterative reconstruction, and/or weight based d osing when appropriate to reduce radiation dose to as low as reasonably achievable (ALARA). [facility]: Dose Right [facility]: CareDose [facility]: Dose Right [facility]: Teradose 4D [facility]: [employer] RADIATION DOSE: CT Rad equipment meets quality standard of care and radiation dose reduction techniq ues were employed. CTDIvol: 11.8 mGy. DLP: 430 mGy-cm. mGy. LIMITATIONS: No technical limitations. FINDINGS: LUNGS AND PLEURA: Minimal scattered parenchymal opacities. Minimal left pleural effusion. HILAR AND MEDIASTINAL STRUCTURES: No identified masses or abnormal nodes. No obvious aneurysm. HEART AND VASCULAR STRUCTURES: No aneurysm. No pericardial effusion. UPPER ABDOMEN: Marked constipation. Large renal cysts. THYROID AND OTHER SOFT TISSUES: No masses. No adenopathy. BONES: No significant finding. HARDWARE: None in the chest. OTHER: No other significant findings. IMPRESSION: Minimal scattered opacities in lungs. Minimal left pleural effusion. Marked constipation. TECHNICAL DOCUMENTATION: JOB ID: [id number] Quality ID # [id number]: Final reports with documentation of one or more dose reduction techniques (e.g., Au tomated exposure control, adjustment of the mA and/or kV according to patient size, use of iterative reconstruction technique) 2010 [employer]- All Rights Reserved Reading location - IP/workstation name: [email or web address]
[2018-07-12] MEDS: GUAIFENESIN 600 MG TABLET.SA PO PRN (19:28)
[2018-07-12] MEDS: HYDRALAZINE HCL INJ/PF 20 MG/1 ML SDV IV PRN (19:30)
[2018-07-12] MEDS: BIMATOPROST 0.01% OPH SOLN 2.5 ML/BOTTLE OU SCH (21:37)
[2018-07-12] MEDS: PREDNISOLONE ACETATE 1% OPH SUSP 5 ML OD SCH (21:37)
[2018-07-12] MEDS: ATORVASTATIN CALCIUM 80 MG TABLET PO SCH (21:39)
[2018-07-13 05:03] LABS: ABSOLUTE BASOPHILS # (AUTO) 0.1 10^3/uL (0.0-0.2); ABSOLUTE EOSINOPHILS # (AUTO) 0.1 10^3/uL (0.0-0.6); ABSOLUTE MONOCYTES (AUTO) 1.6 10^3/uL (0.1-1.4); ABSOLUTE NEUT (AUTO) 10.3 10^3/uL (1.7-8.2); BASOPHILS % (AUTO) 0.4 % (0-2); EOSINOPHILS % (AUTO) 0.6 % (0-6); HEMOGLOBIN 9.5 g/dL (13.5-17.0); LYMPHOCYTES % (AUTO) 7.5 % (13-45); MEAN CORPUSCULAR HEMOGLOBIN 26.8 pg (27.0-33.4); MEAN CORPUSCULAR HGB CONC 32.7 g/dL (32.0-36.0); MEAN CORPUSCULAR VOLUME 82 fl (80-97); MONOCYTES % (AUTO) 12.3 % (3-13); PLATELET COUNT 296 10^3/uL (150-450); RED BLOOD COUNT 3.54 10^6/uL (4.35-5.55); RED CELL DISTRIBUTION WIDTH 14.2 % (11.5-14.0); SEGMENTED NEUTROPHILS % (AUTO) 79.2 % (42-78); TOTAL CELLS COUNTED % (AUTO) 100 %
[2018-07-13] MEDS: INSULIN LISPRO 100 UNIT/ML 3 ML VIAL SUBCUT SCH ×3 (05:13→17:10)
[2018-07-13 05:28] LABS: ANION GAP 10 (5-19); BLOOD UREA NITROGEN 41 mg/dL (7-20); CALCIUM 9.9 mg/dL (8.4-10.2); CARBON DIOXIDE 24 mmol/L (22-30); CHLORIDE 106 mmol/L (98-107); POTASSIUM 4.3 mmol/L (3.6-5.0); SODIUM 140.3 mmol/L (137-145)
[2018-07-13] MEDS: HYDRALAZINE HCL 50 MG TABLET PO SCH (05:29)
[2018-07-13 05:37] LABS: GLUCOSE 54 mg/dL (75-110)
--- NOTE | 2018-07-13 09:29 | PDOC PROGRESS REPORT ---
Subjective Progress Note for:: 07/13/18 Subjective:: Patient is currently doing fair Patient's cough is improving but still have a lot of secretions Patient CT of the chest was negative for any acute pneumonia Patient denied any chest pain to than any shortness of breath Patient's kidney function is all stable Reason For Visit: ACUTE ISCHEMIC STROKE Physical Exam Vital Signs: Temp Pulse Resp BP Pulse Ox 98.3 F 85 20 155/59 H 100 07/13/18 07:27 07/13/18 07:27 07/13/18 03:23 07/13/18 07:27 07/13/18 07:27 Intake & Output 07/12/18 07/13/18 07/14/18 06:59 06:59 06:59 Intake Total 2633 1892 Balance 2633 1892 Weight 61.8 kg 62.3 kg General appearance: PRESENT: no acute distress Head exam: PRESENT: atraumatic, normocephalic Eye exam: PRESENT: conjunctiva pink, EOMI, PERRLA. ABSENT: scleral icterus Ear exam: PRESENT: normal external ear exam Mouth exam: PRESENT: moist, tongue midline Neck exam: PRESENT: full ROM. ABSENT: carotid bruit, JVD, lymphadenopathy, thyromegaly Respiratory exam: PRESENT: clear to auscultation francesca Cardiovascular exam: PRESENT: RRR. ABSENT: diastolic murmur, rubs, systolic murmur Pulses: PRESENT: normal dorsalis pedis pul, +2 pedal pulses bilateral Vascular exam: PRESENT: normal capillary refill GI/Abdominal exam: PRESENT: normal bowel sounds, soft. ABSENT: distended, g uarding, mass, organolmegaly, rebound, tenderness Rectal exam: PRESENT: deferred Extremities exam: ABSENT: pedal edema Neurological exam: PRESENT: alert, awake, oriented to person, oriented to place, oriented to time, oriented to situation. ABSENT: motor sensory deficit Additional comments: Left lower extremity weakness status post stroke Psychiatric exam: PRESENT: appropriate affect, normal mood. ABSENT: homicidal ideation, suicidal ideation Skin exam: PRESENT: dry, intact, warm. ABSENT: cyanosis, rash Results Laboratory Results: 07/13/18 04:01 07/13/18 04:01 07/13/18 07/13/18 04:01 04:01 WBC 13.0 H RBC 3.54 L Hgb 9.5 L Hct 29.0 L MCV 82 MCH 26.8 L MCHC 32.7 RDW 14.2 H Plt Count 296 Seg Neutrophils % 79.2 H Lymphocytes % 7.5 L Monocytes % 12.3 Eosinophils % 0.6 Basophils % 0.4 Absolute Neutrophils 10.3 H Absolute Lymphocytes 1.0 Absolute Monocytes 1.6 H Absolute Eosinophils 0.1 Absolute Basophils 0.1 Sodium 140.3 Potassium 4.3 Chloride 106 Carbon Dioxide 24 Anion Gap 10 BUN 41 H Creatinine 1.34 H Est GFR ( Amer) > 60 Est GFR (Non-Af Amer) 52 L Glucose 54 L Calcium 9.9 07/04/18 07/04/18 07/04/18 14:20 21:22 21:22 Creatine Kinase 83 CK-MB (CK-2) 0.31 Troponin I < 0.012 07/04/18 07/05/18 07/05/18 21:22 03:28 10:02 Creatine Kinase CK-MB (CK-2) Troponin I 0.018 < 0.012 < 0.012 Impressions: Carotid Doppler Study 07/05/18 00:00 IMPRESSION: NO HEMODYNAMICALLY SIGNIFICANT STENOSIS. Head CT 07/08/18 00:00 IMPRESSION: Hypodensity of the right yepez radiata and centrum semiovale in keeping with evolving infarction seen on prior MR. No evidence of hemorrhagic conversion or new infarction. EVIDENCE OF ACUTE STROKE: NO. Brain MRI with MRA 07/10/18 00:00 IMPRESSION: SEVERAL FOCAL AREAS OF STENOSIS DESCRIBED ABOVE. Head MRI 07/10/18 00:00 IMPRESSION: THE AREA OF RECENT INFARCT IN THE RIGHT CEREBRAL HEMISPHERE HAS PROGRESSED. OTHER STABLE FINDINGS INCLUDE CHRONIC ATROPHY AND CHRONIC MICRO- VASCULAR ISCHEMIC CHANGES. EVIDENCE OF ACUTE STROKE: YES. RIGHT CRISTHIAN. Renal Artery Duplex 07/10/18 00:00 IMPRESSION: LIMITED STUDY. NO DOPPLER EVIDENCE OF HEMODYNAMICALLY SIGNIFICANT RENAL ARTERY STENOSIS. Chest X-Ray 07/11/18 00:00 IMPRESSION: NO SIGNIFICANT RADIOGRAPHIC FINDING IN THE CHEST. Chest CT 07/12/18 00:00 IMPRESSION: Minimal scattered opacities in lungs. Minimal left pleural effusion. Marked constipation. Assessment & Plan - Diagnosis (1) Cerebral infarction Qualifiers: Cerebral infarction mechanism: embolism Precerebral and cerebral artery: anterior cerebral artery Laterality of affected vessel: right Qualified Code(s): I63.421 - Cerebral infarction due to embolism of right anterior cerebral artery Is this a current diagnosis for this admission?: Yes Plan: Continues to aspirin Plavix and statin Patient is improving much better (2) Essential (primary) hypertension Is this a current diagnosis for this admission?: Yes Plan: Increase the hydralazine 50 mg p.o. every 8 (3) Hemiparesis of right dominant side Qualifiers: Hemiparesis etiology: late effect of cerebrovascular disease Cerebrovasc ular disease type: cerebral infarction Qualified Code(s): I69.351 - Hemiplegia and hemiparesis following cerebral infarction affecting right dominant side Is this a current diagnosis for this admission?: Yes Plan: Physical therapy (4) Weakness of left lower extremity Is this a current diagnosis for this admission?: Yes Plan: Probably discharged to the rehab facility (5) Type 2 diabetes mellitus Qualifiers: Diabetes mellitus oysterman insulin use: with [facility] use Diabetes mellitus complication status: with unspecified complications Qualified Code(s): E11.8 - Type 2 diabetes mellitus with unspecified complications; Z79.4 - oysterman (current) use of insulin Is this a current diagnosis for this admission?: Yes Plan: Will adjust the insulin (6) Hyperlipidemia Qualifiers: Hyperlipidemia type: unspecified Qualified Code(s): E78.5 - Hyperlipidemia, unspecified Is this a current diagnosis for this admission?: Yes Plan: Continues statin (7) Chronic kidney disease Qualifiers: Chronic kidney disease stage: stage 3 (moderate) Qualified Code(s): N18.3 - Chronic kidney disease, stage 3 (moderate) Is this a current diagnosis for this admission?: Yes Plan: Currently all improving - Time Time Spent with patient: 15-24 minutes Medications reviewed and adjusted accordingly: Yes Anticipated discharge: SNF Within: Other - Plan Summary Plan Summary: Continues to current medications
[2018-07-13] MEDS: INSULIN GLARGINE,HUM.REC.ANLOG 1,000 UNIT/10 ML VIAL SUBCUT SCH ×2 (09:37→21:19)
[2018-07-13] MEDS: ASPIRIN 325 MG TABLET PO SCH (09:45)
[2018-07-13] MEDS: POLYETHYLENE GLYCOL 3350 POWDER 17 GM/1 PACKET PO SCH (09:45)
[2018-07-13] MEDS: AMLODIPINE BESYLATE 5 MG TABLET PO SCH ×2 (09:46→21:31)
[2018-07-13] MEDS: CEFEPIME 1 GM/D5W RTU 1 GM/50 ML RTUPB IV SCH ×2 (09:46→21:40)
[2018-07-13] MEDS: MAGNESIUM OXIDE 400 MG TABLET PO SCH (09:46)
[2018-07-13] MEDS: CLOPIDOGREL BISULFATE 75 MG TABLET PO SCH (09:46)
[2018-07-13] MEDS: CHOLECALCIFEROL (D3) 1,000 UNIT TABLET PO SCH (09:46)
[2018-07-13] MEDS: DOCUSATE SODIUM 100 MG CAPSULE PO SCH ×3 (09:47→17:19)
[2018-07-13] MEDS: ENOXAPARIN SODIUM INJ 40 MG/0.4 ML DISP.SYRIN SUBCUT SCH (09:47)
[2018-07-13] MEDS: HYDRALAZINE HCL 25 MG TABLET PO SCH ×2 (13:34→21:30)
--- NOTE | 2018-07-13 14:12 | PDOC PROGRESS REPORT ---
Subjective Progress Note for:: 07/13/18 Subjective:: Patient is somewhat lethargic and when I entered the room he barely opens his eyes for may be a minute and started suctioning himself but then fell right back to sleep with the suction in his mouth that I had to pull down for him. He coughs occasionally. Blood pressure has been ranging anywhere between 150-180s over 50s-60s for the last 24 hours. His hydralazine was just start increased to 75 mg p.o. every 8 hours today. He is unable to verbalize any complaints. Reason For Visit: ACUTE ISCHEMIC STROKE Physical Exam Vital Signs: Temp Pulse Resp BP Pulse Ox 98.2 F 86 16 157/48 H 100 07/13/18 11:23 07/13/18 11:23 07/13/18 11:23 07/13/18 11:23 07/13/18 11:23 Intake & Output 07/12/18 07/13/18 07/14/18 06:59 06:59 06:59 Intake Total 2633 1892 50 Balance 2633 1892 50 Weight 61.8 kg 62.3 kg Exam: General appearance: PRESENT: no acute distress, cooperative, well-developed, well-nourished Head exam: PRESENT: atraumatic, normocephalic Eye exam: PRESENT: conjunctiva slightly pale, PERRLA. ABSENT: scleral icterus Neck exam: ABSENT: JVD Respiratory exam: PRESENT: Diminished breath sounds. ABSENT: crackles, rales, rhonchi, unlabored, wheezes Cardiovascular exam: PRESENT: Regular rate rhythm -+S1, +S2. ABSENT: diastolic murmur, systolic murmur GI/Abdominal exam: PRESENT: normal bowel sounds, soft. ABSENT: guarding, mass, tenderness Extremities exam: ABSENT: No edema Neurological exam: PRESENT: Lethargic, currently not really answering much questions. Right arm can move that left arm is just in one position currently. Skin exam: PRESENT: dry, warm, Cardiovascular exam: PRESENT: +S1, +S2, systolic murmur GI/Abdominal exam: PRESENT: normal bowel sounds, soft. ABSENT: organomegaly, tenderness Results Laboratory Results: 07/13/18 04:01 07/13/18 04:01 07/13/18 07/13/18 04:01 04:01 WBC 13.0 H RBC 3.54 L Hgb 9.5 L Hct 29.0 L MCV 82 MCH 26.8 L MCHC 32.7 RDW 14.2 H Plt Count 296 Seg Neutrophils % 79.2 H Lymphocytes % 7.5 L Monocytes % 12.3 Eosinophils % 0.6 Basophils % 0.4 Absolute Neutrophils 10.3 H Absolute Lymphocytes 1.0 Absolute Monocytes 1.6 H Absolute Eosinophils 0.1 Absolute Basophils 0.1 Sodium 140.3 Potassium 4.3 Chloride 106 Carbon Dioxide 24 Anion Gap 10 BUN 41 H Creatinine 1.34 H Est GFR ( Amer) > 60 Est GFR (Non-Af Amer) 52 L Glucose 54 L Calcium 9.9 07/11/18 15:50 Clean Catch Midstream Urine Culture - Final NO GROWTH 2 DAYS 07/04/18 07/04/18 07/04/18 14:20 21:22 21:22 Creatine Kinase 83 CK-MB (CK-2) 0.31 Troponin I < 0.012 07/04/18 07/05/18 07/05/18 21:22 03:28 10:02 Creatine Kinase CK-MB (CK-2) Troponin I 0.018 < 0.012 < 0.012 Impressions: Carotid Doppler Study 07/05/18 00:00 IMPRESSION: NO HEMODYNAMICALLY SIGNIFICANT STENOSIS. Head CT 07/08/18 00:00 IMPRESSION: Hypodensity of the right yepez radiata and centrum semiovale in keeping with evolving infarction seen on prior MR. No evidence of hemorrhagic conversion or new infarction. EVIDENCE OF ACUTE STROKE: NO. Brain MRI with MRA 07/10/18 00:00 IMPRESSION: SEVERAL FOCAL AREAS OF STENOSIS DESCRIBED ABOVE. Head MRI 07/10/18 00:00 IMPRESSION: THE AREA OF RECENT INFARCT IN THE RIGHT CEREBRAL HEMISPHERE HAS PROGRESSED. OTHER STABLE FINDINGS INCLUDE CHRONIC ATROPHY AND CHRONIC MICRO- VASCULAR ISCHEMIC CHANGES. EVIDENCE OF ACUTE STROKE: YES. RIGHT CRISTHIAN. Renal Artery Duplex 07/10/18 00:00 IMPRESSION: LIMITED STUDY. NO DOPPLER EVIDENCE OF HEMODYNAMICALLY SIGNIFICANT RENAL ARTERY STENOSIS. Chest X-Ray 07/11/18 00:00 IMPRESSION: NO SIGNIFICANT RADIOGRAPHIC FINDING IN THE CHEST. Chest CT 07/12/18 00:00 IMPRESSION: Minimal scattered opacities in lungs. Minimal left pleural effusion. Marked constipation. Assessment & Plan - Diagnosis (1) Cerebrovascular accident (CVA) Qualifiers: CVA mechanism: unspecified Qualified Code(s): I63.9 - Cerebral infarction, unspecified Is this a current diagnosis for this admission?: Yes Plan: MRI showed right cerebral hemisphere infarct which has progressed. Patient is currently on aspirin and Lovenox. (2) Weakness of left lower extremity Is this a current diagnosis for this admission?: Yes (3) Essential (primary) hypertension Is this a current diagnosis for this admission?: Yes Plan: Duplex of renal artery showed no renal artery stenosis July 10. We could not really lowered down the patient's blood pressure too fast too soon since that might actually be detrimental to him. I recommended the patient's blood pressure be maintained around 150-160s systolic blood pressure. Patient's hydralazine was just increased today so we will see how the blood pressure is with this. (4) Chronic kidney disease, stage 3 Is this a current diagnosis for this admission?: Yes Plan: Kidney function is currently stable. (5) Type 2 diabetes mellitus Qualifiers: Diabetes mellitus fpc insulin use: with terminal gauger use Diabetes mellitus complication status: with unspecified complications Qualified Code(s): E11.8 - Type 2 diabetes mellitus with unspecified complications; Z79.4 - longterm (current) use of insulin Is this a current diagnosis for this admission?: Yes Plan: Fairly controlled. - Time Time with patient: 15-25 minutes
[2018-07-13] MEDS: PANTOPRAZOLE SODIUM 40 MG TABLET.DR PO SCH ×2 (17:15→17:19)
[2018-07-13] MEDS: 1/2 NORMAL SALINE 1,000 ML IV PRN (17:22)
[2018-07-13] MEDS: ATORVASTATIN CALCIUM 80 MG TABLET PO SCH (21:31)
[2018-07-13] MEDS: BIMATOPROST 0.01% OPH SOLN 2.5 ML/BOTTLE OU SCH (21:40)
[2018-07-13] MEDS: PREDNISOLONE ACETATE 1% OPH SUSP 5 ML OD SCH (21:40)
[2018-07-14] MEDS: INSULIN LISPRO 100 UNIT/ML 3 ML VIAL SUBCUT SCH ×5 (02:33→21:09)
[2018-07-14] MEDS: HYDRALAZINE HCL INJ/PF 20 MG/1 ML SDV IV PRN (03:27)
[2018-07-14 03:29] LABS: ANION GAP 8 (5-19); BLOOD UREA NITROGEN 43 mg/dL (7-20); CALCIUM 9.8 mg/dL (8.4-10.2); CARBON DIOXIDE 25 mmol/L (22-30); CHLORIDE 107 mmol/L (98-107); GLUCOSE 170 mg/dL (75-110); SODIUM 139.8 mmol/L (137-145)
[2018-07-14] MEDS: HYDRALAZINE HCL 25 MG TABLET PO SCH ×3 (06:04→22:55)
--- NOTE | 2018-07-14 08:56 | PDOC PROGRESS REPORT ---
Subjective Progress Note for:: 07/14/18 Subjective:: Patient is feeling better Patient's still does not have any bowel movement Patient denied any chest pain to than any shortness of the breath Patient's cough is better Patient otherwise no other symptoms still weak still unable to move the left lower extremity Patient still having some more secretions requiring suction Patient is more alert awake and more answering questions compared to yesterday Reason For Visit: ACUTE ISCHEMIC STROKE Physical Exam Vital Signs: Temp Pulse Resp BP Pulse Ox 99.3 F 90 24 H 166/71 H 99 07/14/18 07:49 07/14/18 07:49 07/14/18 07:49 07/14/18 07:49 07/14/18 07:49 Intake & Output 07/13/18 07/14/18 07/15/18 06:59 06:59 06:59 Intake Total 1892 1337 Balance 1892 1337 Weight 62.3 kg 62.6 kg General appearance: PRESENT: no acute distress Head exam: PRESENT: atraumatic, normocephalic Eye exam: PRESENT: conjunctiva pink, EOMI, PERRLA. ABSENT: scleral icterus Ear exam: PRESENT: normal external ear exam Mouth exam: PRESENT: moist, tongue midline Neck exam: PRESENT: full ROM. ABSENT: carotid bruit, JVD, lymphadenopathy, thyromegaly Respiratory exam: PRESENT: clear to auscultation francesca Cardiovascular exam: PRESENT: RRR. ABSENT: diastolic murmur, rubs, systolic murmur Vascular exam: PRESENT: normal capillary refill GI/Abdominal exam: PRESENT: normal bowel sounds, soft. ABSENT: distended, guarding, mass, organolmegaly, rebound, tenderness Rectal exam: PRESENT: deferred Neurological exam: PRESENT: alert, awake, oriented to person, oriented to place, oriented to time. ABSENT: motor sensory deficit Psychiatric exam: PRESENT: appropriate affect, normal mood. ABSENT: homicidal ideation, suicidal ideation Skin exam: PRESENT: dry, intact, warm. ABSENT: cyanosis, rash Results Laboratory Results: 07/13/18 04:01 07/14/18 02:45 07/14/18 02:45 Sodium 139.8 Potassium 5.0 Chloride 107 Carbon Dioxide 25 Anion Gap 8 BUN 43 H Creatinine 1.36 H Est GFR ( Amer) > 60 Est GFR (Non-Af Amer) 51 L Glucose 170 H Calcium 9.8 04/13/19 15:50 Clean Catch Midstream Urine Culture - Final NO GROWTH 2 DAYS 07/04/18 07/04/18 07/04/18 14:20 21:22 21:22 Creatine Kinase 83 CK-MB (CK-2) 0.31 Troponin I < 0.012 07/04/18 07/05/18 07/05/18 21:22 03:28 10:02 Creatine Kinase CK-MB (CK-2) Troponin I 0.018 < 0.012 < 0.012 Impressions: Carotid Doppler Study 07/05/18 00:00 IMPRESSION: NO HEMODYNAMICALLY SIGNIFICANT STENOSIS. Head CT 07/08/18 00:00 IMPRESSION: Hypodensity of the right yepez radiata and centrum semiovale in keeping with evolving infarction seen on prior MR. No evidence of hemorrhagic conversion or new infarction. EVIDENCE OF ACUTE STROKE: NO. Brain MRI with MRA 07/10/18 00:00 IMPRESSION: SEVERAL FOCAL AREAS OF STENOSIS DESCRIBED ABOVE. Head MRI 07/10/18 00:00 IMPRESSION: THE AREA OF RECENT INFARCT IN THE RIGHT CEREBRAL HEMISPHERE HAS PROGRESSED. OTHER STABLE FINDINGS INCLUDE CHRONIC ATROPHY AND CHRONIC MICRO- VASCULAR ISCHEMIC CHANGES. EVIDENCE OF ACUTE STROKE: YES. RIGHT CRISTHIAN. Renal Artery Duplex 07/10/18 00:00 IMPRESSION: LIMITED STUDY. NO DOPPLER EVIDENCE OF HEMODYNAMICALLY SIGNIFICANT RENAL ARTERY STENOSIS. Chest X-Ray 07/11/18 00:00 IMPRESSION: NO SIGNIFICANT RADIOGRAPHIC FINDING IN THE CHEST. Chest CT 07/12/18 00:00 IMPRESSION: Minimal scattered opacities in lungs. Minimal left pleural effusion. Marked constipation. Assessment & Plan - Diagnosis (1) Cerebral infarction Qualifiers: Cerebral infarction mechanism: embolism Precerebral and cerebral artery: anterior cerebral artery Laterality of affected vessel: right Qualified Code(s): I63.421 - Cerebral infarction due to embolism of right anterior cerebral artery Is this a current diagnosis for this admission?: Yes Plan: We consult the inpatient rehab We will waiting to patient's to get a little more stable [facility] I think patient is currently improving Continues to aspirin Plavix and statin (2) Essential (primary) hypertension Is this a current diagnosis for this admission?: Yes Plan: Continues to current medications may consider increase the hydralazine's 100 mg in the next 24 hours if her blood pressures remain above 160 (3) Hemiparesis of right dominant side Qualifiers: Hemiparesis etiology: late effect of cerebrovascular disease Cerebrovascular disease type: cerebral infarction Qualified Code(s): I69.351 - Hemiplegia and hemiparesis following cerebral infarction affecting right dominant side Is this a current diagnosis for this admission?: Yes Plan: Physical therapy (4) Weakness of left lower extremity Is this a current diagnosis for this admission?: Yes Plan: Probably discharged to the rehab facility (5) Type 2 diabetes mellitus Qualifiers: Diabetes mellitus terminal gauger insulin use: with shelter use Diabetes mellitus complication status: with unspecified complications Qualified Code(s): E11.8 - Type 2 diabetes mellitus with unspecified complications; Z79.4 - intermediate frame tender (current) use of insulin Is this a current diagnosis for this admission?: Yes Plan: Will adjust the insulin (6) Hyperlipidemia Qualifiers: Hyperlipidemia type: unspecified Qualified Code(s): E78.5 - Hyperlipidemia, unspecified Is this a current diagnosis for this admission?: Yes Plan: Continues statin (7) Chronic kidney disease Qualifiers: Chronic kidney disease stage: stage 3 (moderate) Qualified Code(s): N18.3 - Chronic kidney disease, stage 3 (moderate) Is this a current diagnosis for this admission?: Yes Plan: Currently all improving - Time Time Spent with patient: 25-34 minutes Medications reviewed and adjusted accordingly: Yes Anticipated discharge: SNF Within: Other - Plan Summary Plan Summary: Continues to current medication
[2018-07-14] MEDS: ASPIRIN 325 MG TABLET PO SCH (10:32)
[2018-07-14] MEDS: CLOPIDOGREL BISULFATE 75 MG TABLET PO SCH (10:33)
[2018-07-14] MEDS: MAGNESIUM OXIDE 400 MG TABLET PO SCH (10:33)
[2018-07-14] MEDS: POLYETHYLENE GLYCOL 3350 POWDER 17 GM/1 PACKET PO SCH (10:33)
[2018-07-14] MEDS: AMLODIPINE BESYLATE 5 MG TABLET PO SCH ×2 (10:33→22:55)
[2018-07-14] MEDS: DOCUSATE SODIUM 100 MG CAPSULE PO SCH ×2 (10:33→17:29)
[2018-07-14] MEDS: CHOLECALCIFEROL (D3) 1,000 UNIT TABLET PO SCH (10:33)
[2018-07-14] MEDS: CEFEPIME 1 GM/D5W RTU 1 GM/50 ML RTUPB IV SCH ×2 (10:34→22:55)
[2018-07-14] MEDS: INSULIN GLARGINE,HUM.REC.ANLOG 1,000 UNIT/10 ML VIAL SUBCUT SCH ×2 (10:34→21:10)
[2018-07-14] MEDS: ENOXAPARIN SODIUM INJ 40 MG/0.4 ML DISP.SYRIN SUBCUT SCH (10:35)
--- NOTE | 2018-07-14 11:59 | PDOC CONSULTATION ---
Consultation Consult Date: 07/14/18 Consult reason:: Evaluation for admission to acute inpatient rehabilitation History of Present Illness Admission Date/PCP: 07/04/18 17:40 EMILY BAXTER MD Patient complains of: Left sided weakness History of Present Illness: JYOTI POLLOCK is a 73-year-old right-handed male with past medical history of coronary artery disease, hypertension, diabetes mellitus type 2, osteoarthritis, kidney disease stage III, and anemia as well as left corneal transplant the Friday prior to admission at [facility] admitted to [facility] on 07/04/2018 after presenting with a 2-day history of left-sided weakness. CT head demonstrated chronic changes of atrophy and microvascular ischemia with no acute process. MRI of the brain demonstrated an acute to subacute infarction in the right centrum semiovale extending into the coronary radiata, and MRA of the head demonstrated multiple focal areas of stenosis: Proximal basilar artery at the bifurcation with the vertebral arteries, proximal left posterior cerebral artery, and right and left cavernous carotid arteries. Carotid duplex demonstrated no hemodynamically significant stenosis, and echocardiogram demonstrated LVEF of 60-65% with no obvious cardioembolic source. Laboratory studies demonstrated hemoglobin A1c of 7.3%, total cholesterol of 198, LDL of 74, and triglycerides of 175. The patient is now on aspirin 325 mg daily, Plavix 75 mg daily, and atorvastatin 80 mg nightly for secondary stroke prophylaxis. The patient was also found to have elevated BUN/creatinine, for which he was evaluated by nephrology and determined to have stable chronic kidney disease stage III. Physical medicine and rehabilitation consultation was requested to evaluate the patient for admission to acute inpatient rehabilitation. Today, the patient was seen and examined with his at bedside. The patient keeps his eyes closed for most of the examination, but he is awake and relatively oriented. He recognizes the weakness on his left side and reports that he has profound visual deficits. He is able to see shadows only when he is in the sunlight. His reports that he is due to have surgery on the right eye as well. Past Medical History Cardiac Medical History: Reports: Coronary Artery Disease, Hypertension Denies: Myocardial Infarction Pulmonary Medical History: Denies: Asthma, Bronchitis, Chronic Obstructive Pulmonary Disease (COPD), Pneumonia Neurological Medical History: Denies: Seizures Endocrine Medical History: Reports: Diabetes Mellitus Type 2 Musculoskeltal Medical History: Reports: Arthritis Hematology: Reports: Anemia Past Surgical History Past Surgical History: As described in HPI Social History Smoking Status: Never Smoker Cigarettes Packs Per Day: 2 Number of Years Smokin Last Time Smoked: 10 year ago Frequency of Alcohol Use: None Hx Recreational Drug Use: No Past Social History Note: Jyoti Pollock lives with his in a 1 level home with 2 steps to enter and 2 steps to the bedroom and bathroom. He does not smoke, drink alcohol, or use drugs. Prior Functional Status: Active and independent with mobility and all ADLs. Ambulates with a single-point cane. Current Functional Status: Per therapy notes, the patient currently requires moderate assistance of 1-2 people for bed mobility and maximum assistance of 2 people for transfers. He was evaluated by speech therapy and cleared for a regular solids with thin liquids diet following a bedside swallow study. - Advance Directive Resuscitation Status: Do Not Resuscitate Family History Family History: Reviewed & Not Pertinent Parental Family History Reviewed: Yes Children Family History Reviewed: Yes Sibling(s) Family History Reviewed.: Yes Medication/Allergy Home Medications: Aspirin [Aspirin EC] 81 mg PO BID 09/17/16 Atorvastatin Calcium [Lipitor 20 mg Tablet] 20 mg PO QHS 09/17/16 Insulin Glargine,Hum.rec.anlog [Lantus] 25 unit SQ BID 09/17/16 Lisinopril 20 mg PO DAILY 09/17/16 Prednisolone Acetate [Pred Forte] 5 ml OD QHS 09/17/16 Amlodipine Besylate [Norvasc 5 mg Tablet] 1 tab PO BID 07/05/18 Bacitracin [Bacitracin Oph Oint 3.5 gm] 1 applic LFT_EYE QHS 07/05/18 Besifloxacin HCl [Besivance 0.6% Oph Susp 5 ml] 1 drop LFT_EYE QID 07/05/18 Bimatoprost [Lumigan 0.01% Oph Soln 2.5 ml/Bottle] 1 drop LFT_EYE QHS 07/05/18 Brimonidine Tartrate/Timolol [Combigan 0.2%-0.5% Eye Drops] 1 drop OD QAM 07/05/18 Carboxymethylcellulos/Glycerin [Refresh Repair 0.5-0.9% Drop] 1 drop BTH_EYE QID 07/05/18 Cholecalciferol (Vitamin D3) [Vitamin D3 1000 Unit Tablet] 1 tab PO DAILY 07/05/18 Difluprednate [Durezol] 2 drp LFT_EYE BID 07/05/18 Ferrous Sulfate [Albafort] 1 tab PO DAILY 07/05/18 Loteprednol Etabonate [Lotemax] 1 drop LFT_EYE BID 07/05/18 Magnesium 1 tab PO DAILY 07/05/18 Netarsudil Mesylate [Rhopressa] 1 drop OD ASDIR PRN 07/05/18 Allergies/Adverse Reactions: No Known Allergies Allergy (Verified 07/04/18 13:07) Review of Systems Review of Systems: Constitutional: No fevers, chills, sweats, weight loss Eye: Profound visual deficits. He recently had a corneal transplant on the left. ENMT: No ear pain, nasal congestion, sore throat. His reports that he did have some difficulty with swallowing this morning while being fed by his sister. Respiratory: No shortness of breath, cough, sputum production Cardiovascular: No chest pain, palpitations, syncope Gastrointestinal: Occasional nausea and vomiting. Occasional constipation. Genitourinary: No hematuria, dysuria, flank or suprapubic pain Elie/Lymph: Negative for bruising tendency, swollen lymph glands Endocrine: Negative for excessive thirst, excessive hunger, extreme fatigue Musculoskeletal: No back pain, neck pain, joint pain, muscle pain, decreased range of motion Integumentary: No rash, pruritus, abrasions Neurologic: No headaches, numbness, speech problems. Focal weakness on the left. Psychiatric: No anxiety, depression Physical Exam Vital Signs: Temp Pulse Resp BP Pulse Ox 99.3 F 90 24 H 166/71 H 96 07/14/18 07:49 07/14/18 07:49 07/14/18 07:49 07/14/18 07:49 07/14/18 09:18 Intake & Output 07/13/18 07/14/18 07/15/18 06:59 06:59 06:59 Intake Total 1892 1337 Balance 1892 1337 Weight 62.3 kg 62.6 kg Exam: General: He is awake and in no acute distress but he keeps his eyes closed during the interview and examination. He is resting comfortably in a chair with his at bedside. Head: Normocephalic. Atraumatic. Eyes: Postsurgical changes of the left eye and what appears to be a large cataract in the right eye. Unable to test extraocular muscles or pupillary reaction. Ears: No drainage noted. Nose: Nares normal & without exudate. Oropharynx: Moist mucous membranes. Neck: Supple movements. Cardiovascular: Regular rate & rhythm. No murmurs, rubs, or gallops appreciated. Pulmonary: Lungs clear to auscultation bilaterally. No increased work of breathing. Gastrointestinal: Abdomen soft, non-tender, non-distended. Normoactive bowel sounds. Skin: Texture and turgor normal. Warm and dry. Psychiatric: Judgement and insight appear to be good. Patient is oriented to month, year, location, and situation. Affect is flat. Extremities: Arthritic changes of the hands and feet are noted. Neurological: CN III-XII grossly intact. Sensation to light touch is grossly intact. Tone is increased in the left upper extremity greater than the left lower extremity. Proprioception is normal. Speech is fluent with good content but with mild dysarthria. Muscle Strength: Strength testing is difficult due to the patient's inability to follow commands consistently. He demonstrates voluntary movement of the right upper and lower extremities and 1/5 strength of finger extensors on the left. Otherwise, he appears to have 0/5 strength of the major muscle groups of the left upper and lower extremities. Results Laboratory Results: 07/13/18 04:01 07/14/18 02:45 07/14/18 02:45 Sodium 139.8 Potassium 5.0 Chloride 107 Carbon Dioxide 25 Anion Gap 8 BUN 43 H Creatinine 1.36 H Est GFR ( Amer) > 60 Est GFR (Non-Af Amer) 51 L Glucose 170 H Calcium 9.8 07/11/18 15:50 Clean Catch Midstream Urine Culture - Final NO GROWTH 2 DAYS 07/04/18 07/04/18 07/04/18 14:20 21:22 21:22 Creatine Kinase 83 CK-MB (CK-2) 0.31 Troponin I < 0.012 07/04/18 07/05/18 07/05/18 21:22 03:28 10:02 Creatine Kinase CK-MB (CK-2) Troponin I 0.018 < 0.012 < 0.012 Impressions: Carotid Doppler Study 07/05/18 00:00 IMPRESSION: NO HEMODYNAMICALLY SIGNIFICANT STENOSIS. Head CT 07/08/18 00:00 IMPRESSION: Hypodensity of the right yepez radiata and centrum semiovale in keeping with evolving infarction seen on prior MR. No evidence of hemorrhagic conversion or new infarction. EVIDENCE OF ACUTE STROKE: NO. Brain MRI with MRA 07/10/18 00:00 IMPRESSION: SEVERAL FOCAL AREAS OF STENOSIS DESCRIBED ABOVE. Head MRI 07/10/18 00:00 IMPRESSION: THE AREA OF RECENT INFARCT IN THE RIGHT CEREBRAL HEMISPHERE HAS PROGRESSED. OTHER STABLE FINDINGS INCLUDE CHRONIC ATROPHY AND CHRONIC MICRO- VASCULAR ISCHEMIC CHANGES. EVIDENCE OF ACUTE STROKE: YES. RIGHT CRISTHIAN. Renal Artery Duplex 07/10/18 00:00 IMPRESSION: LIMITED STUDY. NO DOPPLER EVIDENCE OF HEMODYNAMICALLY SIGNIFICANT RENAL ARTERY STENOSIS. Chest X-Ray 07/11/18 00:00 IMPRESSION: NO SIGNIFICANT RADIOGRAPHIC FINDING IN THE CHEST. Chest CT 07/12/18 00:00 IMPRESSION: Minimal scattered opacities in lungs. Minimal left pleural effusion. Marked constipation. Assessment and Plan - Plan Summary Plan Summary: 73-year-old male with CVA resulting in left hemiplegia (nondominant). 1. Gait and ADL Dysfunction secondary to CVA resulting in left hemiplegia (nondominant). - Continue PT and OT to maximize mobility, safety, endurance, and self-care. 2. CVA resulting in left hemiplegia (nondominant) - Needs continued PT & OT & TV HOST to maximize functional mobility, safety and self-care as well as communication needs & swallow function. Risk Factor Modification: - Hypertension: Dietary and activity modifications, avoid hypotension and hypertension - Glycemic Control: HgBA1c = 7.3%, continue dietary and activity modifications, SSI, avoid hyperglycemia and hypoglycemia - Lipids: LDL is 74, continue dietary and activity modifications, continue statin - Smoking: The patient does not smoke - Alcohol: The patient does not drink alcohol - Antiplatelet: Continue aspirin and Plavix per hospitalist medicine. Consider decreasing aspirin dose to 81 mg daily instead of 325 mg daily, as there does not appear to be any added benefit with increased dose but there is an increased risk of GI bleed. - Cardioembolic Event: No obvious cardio embolic source on echocardiogram. - Vascular: No hemodynamically significant stenosis on carotid duplex. Dysphagia: - Bedside swallow evaluation completed. - Recommend modified barium swallow study, as the patient's reports that he had trouble swallowing with his current regular solids with thin liquids diet. - Aspiration precautions, dysphagia diet, TV HOST following. VTE Prophylaxis: - Continue SQ Lovenox Risk of Shoulder Subluxation: - Educate patient and family on positioning. - Lap tray, if needed. Risk of Spasticity: - Continue ROM, positioning. - Consider starting baclofen 10 mg nightly and increasing to baclofen 10 mg 3 times daily to address the patient's increased tone over the next 3-4 days, if the patient is able to tolerate. The main side effect would be sedation/somnolence. Risk of Contractures: - Continue ROM, positioning. - Consider ordering left lower extremity PRAFO 4 hours on/4 hours off while in bed. Risk of Constipation: - Continue dietary modifications and encourage fluid intake. - Bowel protocol. Risk of Neurogenic Bladder/UTI: - Monitor for retention, incontinence, UTI. - Have patient attempt to void every 3 hours. Encourage patient to be upright to void and to double void. Perform POST VOID residual bladder scan at least once each shift. Record amount voided and post void residual amount. Perform intermittent catheterization if more than 250 ml post void residual urine. Risk of Skin Breakdown: - Frequent turning/position changes. - Optimize nutritional status. 3. Diabetes mellitus type 2 - Continue management per hospitalist medicine 4. Hypertension - Continue management per hospitalist medicine 5. Disposition - Based on the patient's diagnosis, medical co-morbidities, and current functional status, he is not a candidate for Acute Inpatient Rehabilitation as he is unable to tolerate 3 hours/day of intensive therapies and at least 2 disciplines. The patient would benefit from a prolonged, less intensive rehabil itation course that can be provided at the subacute level. This was discussed with the patient and his , who prefers the patient remain in [place] for subacute rehabilitation. This case was discussed with the patient's acute care therapists, meeting/event planner, and nurse on the floor. Thank you for allowing us to participate in the care of this patient. Please call with any questions. A total of 65 minutes was spent on [id number] communication with the patient and coordination of care.
[2018-07-14] MEDS: 1/2 NORMAL SALINE 1,000 ML IV PRN (14:33)
[2018-07-14] MEDS ORDERED: BISACODYL 5 MG TABEC PO PRN (15:15)
[2018-07-14] MEDS: PANTOPRAZOLE SODIUM 40 MG TABLET.DR PO SCH (17:29)
[2018-07-14] MEDS: ATORVASTATIN CALCIUM 80 MG TABLET PO SCH (22:55)
[2018-07-14] MEDS: PREDNISOLONE ACETATE 1% OPH SUSP 5 ML OD SCH (22:57)
[2018-07-14] MEDS: BIMATOPROST 0.01% OPH SOLN 2.5 ML/BOTTLE OU SCH (22:57)
[2018-07-15] MEDS: 1/2 NORMAL SALINE 1,000 ML IV PRN ×2 (04:51→18:49)
[2018-07-15] MEDS: HYDRALAZINE HCL 25 MG TABLET PO SCH ×2 (06:13→13:49)
[2018-07-15 07:43] LABS: ANION GAP 10 (5-19); BLOOD UREA NITROGEN 44 mg/dL (7-20); CALCIUM 9.6 mg/dL (8.4-10.2); CARBON DIOXIDE 22 mmol/L (22-30); CHLORIDE 106 mmol/L (98-107); GLUCOSE 266 mg/dL (75-110); POTASSIUM 4.6 mmol/L (3.6-5.0); SODIUM 138.2 mmol/L (137-145)
[2018-07-15] MEDS: INSULIN LISPRO 100 UNIT/ML 3 ML VIAL SUBCUT SCH ×4 (08:03→21:59)
--- NOTE | 2018-07-15 08:48 | RADIOLOGY REPORT (SQ) ---
EXAM DESCRIPTION: KUB/ABDOMEN (SINGLE VIEW) COMPLETED DATE/TIME: 07/15/2018 8:30 am REASON FOR STUDY: constipation COMPARISON: 07/12/2018 NUMBER OF VIEWS: One view. TECHNIQUE: Supine radiographic image of the abdomen acquired. LIMITATIONS: None. FINDINGS: BOWEL GAS PATTERN: No evidence of pathologically dilated loops of bowel. There is moderat e formed stool burden throughout the visualized colon. CALCIFICATIONS: No suspicious calcifications. SOFT TISSUES: No gross mass or suggestion of organomegaly. HARDWARE: None in the abdomen. BONES: Lumbar spondylosis. No acute findings. OTHER: No other significant finding. IMPRESSION: Moderate formed stool throughout the colon. No evidence of intestinal obstruction or other acute intra-abdominal process. TECHNICAL DOCUMENTATION: JOB ID: [id number] [employer]- All Rights Reserved Reading location - IP/workstation name: [email or web address]
[2018-07-15] MEDS: ENOXAPARIN SODIUM INJ 40 MG/0.4 ML DISP.SYRIN SUBCUT SCH (09:59)
[2018-07-15] MEDS: INSULIN GLARGINE,HUM.REC.ANLOG 1,000 UNIT/10 ML VIAL SUBCUT SCH ×2 (09:59→22:02)
[2018-07-15] MEDS: CEFEPIME 1 GM/D5W RTU 1 GM/50 ML RTUPB IV SCH ×2 (09:59→21:55)
[2018-07-15] MEDS: CHOLECALCIFEROL (D3) 1,000 UNIT TABLET PO SCH (10:00)
[2018-07-15] MEDS: DOCUSATE SODIUM 100 MG CAPSULE PO SCH ×2 (10:00→17:39)
[2018-07-15] MEDS: ASPIRIN 81 MG TABLET, ENT COATED PO SCH (10:00)
[2018-07-15] MEDS: CLOPIDOGREL BISULFATE 75 MG TABLET PO SCH (10:00)
[2018-07-15] MEDS: POLYETHYLENE GLYCOL 3350 POWDER 17 GM/1 PACKET PO SCH (10:00)
[2018-07-15] MEDS: MAGNESIUM OXIDE 400 MG TABLET PO SCH (10:00)
[2018-07-15] MEDS: AMLODIPINE BESYLATE 5 MG TABLET PO SCH ×2 (10:00→22:01)
--- NOTE | 2018-07-15 10:38 | PDOC PROGRESS REPORT ---
Subjective Progress Note for:: 07/15/18 Subjective:: Patient is currently doing fair Patient is more alert awake Patient still constipated No fever no chills Patient seen by the PMR and suggest a subacute rehab Reason For Visit: ACUTE ISCHEMIC STROKE Physical Exam Vital Signs: Temp Pulse Resp BP Pulse Ox 99.3 F 85 16 172/56 H 95 07/15/18 07:42 07/15/18 07:42 07/15/18 07:42 07/15/18 07:42 07/15/18 07:42 Intake & Output 07/14/18 07/15/18 07/16/18 06:59 06:59 06:59 Intake Total 1337 2672 Balance 1337 2672 Weight 62.6 kg 67.4 kg General appearance: PRESENT: no acute distress Head exam: PRESENT: atraumatic, normocephalic Eye exam: PRESENT: conjunctiva pink, EOMI, PERRLA. ABSENT: scleral icterus Ear exam: PRESENT: normal external ear exam Mouth exam: PRESENT: moist, tongue midline Neck exam: PRESENT: full ROM. ABSENT: carotid bruit, JVD, lymphadenopathy, thyromegaly Respiratory exam: PRESENT: clear to auscultation francesca Cardiovascular exam: PRESENT: RRR. ABSENT: diastolic murmur, rubs, systolic murmur Vascular exam: PRESENT: normal capillary refill GI/Abdominal exam: PRESENT: normal bowel sounds, soft. ABSENT: distended, guarding, mass, organolmegaly, rebound, tenderness Rectal exam: PRESENT: deferred Extremities exam: ABSENT: pedal edema Neurological exam: PRESENT: alert, awake, oriented to person, oriented to place. ABSENT: motor sensory deficit Psychiatric exam: PRESENT: appropriate affect, normal mood. ABSENT: homicidal ideation, suicidal ideation Skin exam: PRESENT: dry, intact, warm. ABSENT: cyanosis, rash Results Laboratory Results: 07/15/18 06:09 07/15/18 06:09 07/15/18 07/15/18 06:09 06:09 WBC Cancelled RBC Cancelled Hgb Cancelled Hct Cancelled MCV Cancelled MCH Cancelled MCHC Cancelled RDW Cancelled Plt Count Cancelled Seg Neutrophils % Cancelled Lymphocytes % Cancelled Monocytes % Cancelled Eosinophils % Cancelled Basophils % Cancelled Absolute Neutrophils Cancelled Absolute Lymphocytes Cancelled Absolute Monocytes Cancelled Absolute Eosinophils Cancelled Absolute Basophils Cancelled Sodium 138.2 Potassium 4.6 Chloride 106 Carbon Dioxide 22 Anion Gap 10 BUN 44 H Creatinine 1.26 H Est GFR ( Amer) > 60 Est GFR (Non-Af Amer) 56 L Glucose 266 H Calcium 9.6 07/04/18 07/04/18 07/04/18 14:20 21:22 21:22 Creatine Kinase 83 CK-MB (CK-2) 0.31 Troponin I < 0.012 07/04/18 07/05/18 07/05/18 21:22 03:28 10:02 Creatine Kinase CK-MB (CK-2) Troponin I 0.018 < 0.012 < 0.012 Impressions: Carotid Doppler Study 07/05/18 00:00 IMPRESSION: NO HEMODYNAMICALLY SIGNIFICANT STENOSIS. Head CT 07/08/18 00:00 IMPRESSION: Hypodensity of the right yepez radiata and centrum semiovale in keeping with evolving infarction seen on prior MR. No evidence of hemorrhagic conversion or new infarction. EVIDENCE OF ACUTE STROKE: NO. Brain MRI with MRA 07/10/18 00:00 IMPRESSION: SEVERAL FOCAL AREAS OF STENOSIS DESCRIBED ABOVE. Head MRI 07/10/18 00:00 IMPRESSION: THE AREA OF RECENT INFARCT IN THE RIGHT CEREBRAL HEMISPHERE HAS PROGRESSED. OTHER STABLE FINDINGS INCLUDE CHRONIC ATROPHY AND CHRONIC MICRO- VASCULAR ISCHEMIC CHANGES. EVIDENCE OF ACUTE STROKE: YES. RIGHT CRISTHIAN. Renal Artery Duplex 07/10/18 00:00 IMPRESSION: LIMITED STUDY. NO DOPPLER EVIDENCE OF HEMODYNAMICALLY SIGNIFICANT RENAL ARTERY STENOSIS. Chest X-Ray 07/11/18 00:00 IMPRESSION: NO SIGNIFICANT RADIOGRAPHIC FINDING IN THE CHEST. Chest CT 07/12/18 00:00 IMPRESSION: Minimal scattered opacities in lungs. Minimal left pleural effusion. Marked constipation. KUB X-Ray 07/15/18 00:00 IMPRESSION: Moderate formed stool throughout the colon. No evidence of intestinal obstruction or other acute intra-abdominal process. Assessment & Plan - Diagnosis (1) Cerebral infarction Qualifiers: Cerebral infarction mechanism: embolism Precerebral and cerebral artery: anterior cerebral artery Laterality of affected vessel: right Qualified Code(s): I63.421 - Cerebral infarction due to embolism of right anterior cerebral artery Is this a current diagnosis for this admission?: Yes Plan: Patient is currently doing fair planning to discharge from the rehab facility tomorrow if remains stable (2) Essential (primary) hypertension Is this a current diagnosis for this admission?: Yes Plan: Continues to current medications may consider increase the hydralazine's 100 mg in the next 24 hours if her blood pressures remain above 160 (3) Hemiparesis of right dominant side Qualifiers: Hemiparesis etiology: late effect of cerebrovascular disease Cerebrovascular disease type: cerebral infarction Qualified Code(s): I69.351 - Hemiplegia and hemiparesis following cerebral infarction affecting right dominant side Is this a current diagnosis for this admission?: Yes Plan: Physical therapy (4) Weakness of left lower extremity Is this a current diagnosis for this admission?: Yes Plan: Probably discharged to the rehab facility (5) Type 2 diabetes mellitus Qualifiers: 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: with long-term use Diabetes mellitus complication status: with unspecified complications Qualified Code(s): E11.8 - Type 2 diabetes mellitus with unspecified complications; 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 Is this a current diagnosis for this admission?: Yes Plan: Will adjust the insulin (6) Hyperlipidemia Qualifiers: Hyperlipidemia type: unspecified Qualified Code(s): E78.5 - Hyperlipidemia, unspecified Is this a current diagnosis for this admission?: Yes Plan: Continues statin (7) Chronic kidney disease Qualifiers: Chronic kidney disease stage: stage 3 (moderate) Qualified Code(s): N18.3 - Chronic kidney disease, stage 3 (moderate) Is this a current diagnosis for this admission?: Yes Plan: Currently all improving - Plan Summary Plan Summary: Will get the x-ray KUB Continue some MiraLAX and Colace . Enema
[2018-07-15 11:10] LABS: ABSOLUTE BASOPHILS # (AUTO) 0.1 10^3/uL (0.0-0.2); ABSOLUTE LYMPHOCYTES (AUTO) 0.7 10^3/uL (0.5-4.7); ABSOLUTE MONOCYTES (AUTO) 1.3 10^3/uL (0.1-1.4); ABSOLUTE NEUT (AUTO) 11.1 10^3/uL (1.7-8.2); BASOPHILS % (AUTO) 0.6 % (0-2); EOSINOPHILS % (AUTO) 0.3 % (0-6); HEMATOCRIT 26.4 % (37.9-51.0); HEMOGLOBIN 8.6 g/dL (13.5-17.0); LYMPHOCYTES % (AUTO) 5.1 % (13-45); MEAN CORPUSCULAR HGB CONC 32.7 g/dL (32.0-36.0); MEAN CORPUSCULAR VOLUME 82 fl (80-97); MONOCYTES % (AUTO) 9.6 % (3-13); PLATELET COUNT 358 10^3/uL (150-450); RED CELL DISTRIBUTION WIDTH 14.2 % (11.5-14.0); SEGMENTED NEUTROPHILS % (AUTO) 84.4 % (42-78); TOTAL CELLS COUNTED % (AUTO) 100 %; WHITE BLOOD COUNT 13.1 10^3/uL (4.0-10.5)
[2018-07-15] MEDS ORDERED: MAGNESIUM CITRATE 296 ML BOTTLE PO ONE (12:30)
[2018-07-15 12:34] LABS: ABSOLUTE RETICS # 0.071 10^6/uL (0.028-0.122); RETICULOCYTE COUNT (AUTO) 2.16 % (0.66-2.85)
[2018-07-15 12:55] LABS: IRON(TIBC) 18.7 ug/dL (49-181)
--- NOTE | 2018-07-15 13:02 | PDOC CONSULTATION ---
Consultation Consult Date: 07/15/18 Attending physician:: HERMES ROCKWELL Consult reason:: anemia and constipation History of Present Illness Admission Date/PCP: 07/04/18 17:40 EMILY TOMLINSON MD History of Present Illness: JYOTI POLLOCK is a 73 year old male I have been asked to see this patient by Dr Tomlinson admitted for a CVA but is stable he was noted to be anemic previous records noted a GI work up about 2 years ago at that time patient underwent an EGD and colonoscopy the prep of the colon was not as good there was a small polyp that was noted patient was seen at that time for iron deficiency anemia patient did not appear to have a bleeding lesion noted at that time given the prep was not as good, and given the current circumstances, it may be worthwhile to have the patient undergo an outpatient colonoscopy hopefully with added recovery time , patient will be better able to comply with the prep Past Medical History Cardiac Medical History: Reports: Coronary Artery Disease, Hypertension Denies: Myocardial Infarction Pulmonary Medical History: Denies: Asthma, Bronchitis, Chronic Obstructive Pulmonary Disease (COPD), Pneumonia Neurological Medical History: Denies: Seizures Endocrine Medical History: Reports: Diabetes Mellitus Type 2 Musculoskeltal Medical History: Reports: Arthritis Hematology: Reports: Anemia Social History Smoking Status: Never Smoker Cigarettes Packs Per Day: 2 Number of Years Smokin Last Time Smoked: 10 year ago Frequency of Alcohol Use: None Hx Recreational Drug Use: No - Advance Directive Resuscitation Status: Do Not Resuscitate Family History Family History: Reviewed & Not Pertinent Parental Family History Reviewed: Yes Children Family History Reviewed: Unknown Sibling(s) Family History Reviewed.: Unknown Medication/Allergy Home Medications: Aspirin [Aspirin EC] 81 mg PO BID 09/17/16 Atorvastatin Calcium [Lipitor 20 mg Tablet] 20 mg PO QHS 09/17/16 Insulin Glargine,Hum.rec.anlog [Lantus] 25 unit SQ BID 09/17/16 Lisinopril 20 mg PO DAILY 09/17/16 Prednisolone Acetate [Pred Forte] 5 ml OD QHS 09/17/16 Amlodipine Besylate [Norvasc 5 mg Tablet] 1 tab PO BID 07/05/18 Bacitracin [Bacitracin Oph Oint 3.5 gm] 1 applic LFT_EYE QHS 07/05/18 Besifloxacin HCl [Besivance 0.6% Oph Susp 5 ml] 1 drop LFT_EYE QID 07/05/18 Bimatoprost [Lumigan 0.01% Oph Soln 2.5 ml/Bottle] 1 drop LFT_EYE QHS 07/05/18 Brimonidine Tartrate/Timolol [Combigan 0.2%-0.5% Eye Drops] 1 drop OD QAM 07/05/18 Carboxymethylcellulos/Glycerin [Refresh Repair 0.5-0.9% Drop] 1 drop BTH_EYE QID 07/05/18 Cholecalciferol (Vitamin D3) [Vitamin D3 1000 Unit Tablet] 1 tab PO DAILY 07/05/18 Difluprednate [Durezol] 2 drp LFT_EYE BID 07/05/18 Ferrous Sulfate [Albafort] 1 tab PO DAILY 07/05/18 Loteprednol Etabonate [Lotemax] 1 drop LFT_EYE BID 07/05/18 Magnesium 1 tab PO DAILY 07/05/18 Netarsudil Mesylate [Rhopressa] 1 drop OD ASDIR PRN 07/05/18 Allergies/Adverse Reactions: No Known Allergies Allergy (Verified 07/04/18 13:07) Review of Systems Constitutional: PRESENT: weakness. ABSENT: fever(s), headache(s), night sweats Eyes: ABSENT: visual disturbances Ears: ABSENT: hearing changes Nose, Mouth, and Throat: ABSENT: mouth pain Cardiovascular: ABSENT: edema, orthropnea, palpitations Respiratory: ABSENT: dyspnea, hemoptysis Gastrointestinal: ABSENT: dysphagia, hematemesis, hematochezia, melena Genitourinary: ABSENT: dysuria, hematuria Musculoskeletal: ABSENT: joint swelling Integumentary: ABSENT: pruritus Neurological: ABSENT: syncope, tingling, tremor(s), vertigo Endocrine: ABSENT: polydipsia, polyphagia, polyuria Hematologic/Lymphatic: ABSENT: easy bruising Physical Exam Vital Signs: Temp Pulse Resp BP Pulse Ox 99.3 F 85 16 172/56 H 95 07/15/18 07:42 07/15/18 07:42 07/15/18 07:42 07/15/18 07:42 07/15/18 07:42 Intake & Output 07/14/18 07/15/18 07/16/18 06:59 06:59 06:59 Intake Total 1337 2672 50 Balance 9524 4182 50 Weight 62.6 kg 67.4 kg General appearance: PRESENT: no acute distress, well-developed, well-nourished Head exam: PRESENT: atraumatic, normocephalic Eye exam: PRESENT: EOMI, PERRLA. ABSENT: scleral icterus Mouth exam: PRESENT: moist, neck supple Throat exam: ABSENT: tonsillar exudate, tonsillogmegaly Respiratory exam: PRESENT: symmetrical, unlabored. ABSENT: tachypnea, wheezes Cardiovascular exam: PRESENT: +S1, +S2 GI/Abdominal exam: PRESENT: soft. ABSENT: rebound, rigid, tenderness Extremities exam: ABSENT: joint swelling Musculoskeletal exam: PRESENT: full ROM Neurological exam: PRESENT: CN II-XII grossly intact Focused psych exam: ABSENT: restlessness Skin exam: PRESENT: normal color. ABSENT: mottled, pallor, urticaria, vesicles Results Laboratory Results: 07/15/18 10:56 07/15/18 06:09 07/15/18 07/15/18 07/15/18 06:09 06:09 10:56 WBC Cancelled 13.1 H RBC Cancelled 3.20 L Hgb Cancelled 8.6 L Hct Cancelled 26.4 L MCV Cancelled 82 MCH Cancelled 27.0 MCHC Cancelled 32.7 RDW Cancelled 14.2 H Plt Count Cancelled 358 Seg Neutrophils % Cancelled 84.4 H Lymphocytes % Cancelled 5.1 L Monocytes % Cancelled 9.6 Eosinophils % Cancelled 0.3 Basophils % Cancelled 0.6 Absolute Neutrophils Cancelled 11.1 H Absolute Lymphocytes Cancelled 0.7 Absolute Monocytes Cancelled 1.3 Absolute Eosinophils Cancelled 0.0 Absolute Basophils Cancelled 0.1 Retic Count (auto) Absolute Retic Sodium 138.2 Potassium 4.6 Chloride 106 Carbon Dioxide 22 Anion Gap 10 BUN 44 H Creatinine 1.26 H Est GFR ( Amer) > 60 Est GFR (Non-Af Amer) 56 L Glucose 266 H Calcium 9.6 07/15/18 10:56 WBC RBC Hgb Hct MCV MCH MCHC RDW Plt Count Seg Neutrophils % Lymphocytes % Monocytes % Eosinophils % Basophils % Absolute Neutrophils Absolute Lymphocytes Absolute Monocytes Absolute Eosinophils Absolute Basophils Retic Count (auto) 2.16 Absolute Retic 0.071 Sodium Potassium Chloride Carbon Dioxide Anion Gap BUN Creatinine Est GFR ( Amer) Est GFR (Non-Af Amer) Glucose Calcium 07/10/18 10:43 Blood Blood Culture - Final NO GROWTH IN 5 DAYS 07/04/18 07/04/18 07/04/18 14:20 21:22 21:22 Creatine Kinase 83 CK-MB (CK-2) 0.31 Troponin I < 0.012 07/04/18 07/05/18 07/05/18 21:22 03:28 10:02 Creatine Kinase CK-MB (CK-2) Troponin I 0.018 < 0.012 < 0.012 Impressions: Carotid Doppler Study 07/05/18 00:00 IMPRESSION: NO HEMODYNAMICALLY SIGNIFICANT STENOSIS. Head CT 07/08/18 00:00 IMPRESSION: Hypodensity of the right yepez radiata and centrum semiovale in keeping with evolving infarction seen on prior MR. No evidence of hemorrhagic conversion or new infarction. EVIDENCE OF ACUTE STROKE: NO. Brain MRI with MRA 07/10/18 00:00 IMPRESSION: SEVERAL FOCAL AREAS OF STENOSIS DESCRIBED ABOVE. Head MRI 07/10/18 00:00 IMPRESSION: THE AREA OF RECENT INFARCT IN THE RIGHT CEREBRAL HEMISPHERE HAS PROGRESSED. OTHER STABLE FINDINGS INCLUDE CHRONIC ATROPHY AND CHRONIC MICRO- VASCULAR ISCHEMIC CHANGES. EVIDENCE OF ACUTE STROKE: YES. RIGHT CRISTHIAN. Renal Artery Duplex 07/10/18 00:00 IMPRESSION: LIMITED STUDY. NO DOPPLER EVIDENCE OF HEMODYNAMICALLY SIGNIFICANT RENAL ARTERY STENOSIS. Chest X-Ray 07/11/18 00:00 IMPRESSION: NO SIGNIFICANT RADIOGRAPHIC FINDING IN THE CHEST. Chest CT 07/12/18 00:00 IMPRESSION: Minimal scattered opacities in lungs. Minimal left pleural effusion. Marked constipation. KUB X-Ray 07/15/18 00:00 IMPRESSION: Moderate formed stool throughout the colon. No evidence of intestinal obstruction or other acute intra-abdominal process. Assessment & Plan - Diagnosis (1) Anemia Plan: likely due to chronic kidney disease previous EGD and colonoscopy did not show any bleeding lesion no current GI bleeding is noted (2) Constipation Plan: previous colonoscopy was negative for prep at that time was the issue since patient may not be able to comply in his current state of debilitation, would probably be more prudent to proceed as an outpatient will also change the prep as well (3) Colon polyp Plan: surveillance colonoscopy needed as well spoke with Dr Tomlinson unless clinical signs of bleeding, can defer for outpatient work up - Time Time Spent: 50 to 70 Minutes
[2018-07-15 14:04] LABS: FOLATE 4.55 ng/mL (>2.76)
[2018-07-15] MEDS ORDERED: EPOETIN ALFA INJ 20000 UNIT/1 ML VIAL (RENAL) SUBCUT ONE (15:30)
--- NOTE | 2018-07-15 16:44 | PDOC PROGRESS REPORT ---
Subjective Progress Note for:: 07/15/18 Subjective:: Patient seems to be a little bit more awake today and answering few questions. He started eating some. His blood pressure is still remains to be a mildly elevated then ago. He otherwise does not verbalize any much complaints. Reason For Visit: ACUTE ISCHEMIC STROKE Physical Exam Vital Signs: Temp Pulse Resp BP Pulse Ox 99.3 F 85 16 172/56 H 95 07/15/18 07:42 07/15/18 07:42 07/15/18 07:42 07/15/18 07:42 07/15/18 07:42 Intake & Output 07/14/18 07/15/18 07/16/18 06:59 06:59 06:59 Intake Total 1337 2672 50 Balance 1337 2672 50 Weight 62.6 kg 67.4 kg Exam: General appearance: PRESENT: no acute distress, cooperative, well-developed, well-nourished Head exam: PRESENT: atraumatic, normocephalic Eye exam: PRESENT: conjunctiva pale, PERRLA. ABSENT: scleral icterus Neck exam: ABSENT: JVD Respiratory exam: PRESENT: Diminished breath sounds. ABSENT: crackles, rales, rhonchi, unlabored, wheezes Cardiovascular exam: PRESENT: Regular rate rhythm -+S1, +S2. ABSENT: diastolic murmur, systolic murmur GI/Abdominal exam: PRESENT: normal bowel sounds, soft. ABSENT: guarding, mass, tenderness Extremities exam: ABSENT: No edema Neurological exam: PRESENT: alert, awake, answers few questions; left-sided hemiparesis. Skin exam: PRESENT: dry, warm, Cardiovascular exam: PRESENT: +S1, +S2, systolic murmur GI/Abdominal exam: PRESENT: normal bowel sounds, soft. ABSENT: organomegaly, tenderness Results Laboratory Results: 07/15/18 10:56 07/15/18 06:09 07/15/18 07/15/18 07/15/18 06:09 06:09 10:56 WBC Cancelled 13.1 H RBC Cancelled 3.20 L Hgb Cancelled 8.6 L Hct Cancelled 26.4 L MCV Cancelled 82 MCH Cancelled 27.0 MCHC Cancelled 32.7 RDW Cancelled 14.2 H Plt Count Cancelled 358 Seg Neutrophils % Cancelled 84.4 H Lymphocytes % Cancelled 5.1 L Monocytes % Cancelled 9.6 Eosinophils % Cancelled 0.3 Basophils % Cancelled 0.6 Absolute Neutrophils Cancelled 11.1 H Absolute Lymphocytes Cancelled 0.7 Absolute Monocytes Cancelled 1.3 Absolute Eosinophils Cancelled 0.0 Absolute Basophils Cancelled 0.1 Sodium 138.2 Potassium 4.6 Chloride 106 Carbon Dioxide 22 Anion Gap 10 BUN 44 H Creatinine 1.26 H Est GFR ( Amer) > 60 Est GFR (Non-Af Amer) 56 L Glucose 266 H Calcium 9.6 07/10/18 10:43 Blood Blood Culture - Final NO GROWTH IN 5 DAYS 07/04/18 07/04/18 07/04/18 14:20 21:22 21:22 Creatine Kinase 83 CK-MB (CK-2) 0.31 Troponin I < 0.012 07/04/18 07/05/18 07/05/18 21:22 03:28 10:02 Creatine Kinase CK-MB (CK-2) Troponin I 0.018 < 0.012 < 0.012 Impressions: Carotid Doppler Study 07/05/18 00:00 IMPRESSION: NO HEMODYNAMICALLY SIGNIFICANT STENOSIS. Head CT 07/08/18 00:00 IMPRESSION: Hypodensity of the right yepez radiata and centrum semiovale in keeping with evolving infarction seen on prior MR. No evidence of hemorrhagic conversion or new infarction. EVIDENCE OF ACUTE STROKE: NO. Brain MRI with MRA 07/10/18 00:00 IMPRESSION: SEVERAL FOCAL AREAS OF STENOSIS DESCRIBED ABOVE. Head MRI 07/10/18 00:00 IMPRESSION: THE AREA OF RECENT INFARCT IN THE RIGHT CEREBRAL HEMISPHERE HAS PROGRESSED. OTHER STABLE FINDINGS INCLUDE CHRONIC ATROPHY AND CHRONIC MICRO- VASCULAR ISCHEMIC CHANGES. EVIDENCE OF ACUTE STROKE: YES. RIGHT CRISTHIAN. Renal Artery Duplex 07/10/18 00:00 IMPRESSION: LIMITED STUDY. NO DOPPLER EVIDENCE OF HEMODYNAMICALLY SIGNIFICANT RENAL ARTERY STENOSIS. Chest X-Ray 07/11/18 00:00 IMPRESSION: NO SIGNIFICANT RADIOGRAPHIC FINDING IN THE CHEST. Chest CT 07/12/18 00:00 IMPRESSION: Minimal scattered opacities in lungs. Minimal left pleural effusion. Marked constipation. KUB X-Ray 07/15/18 00:00 IMPRESSION: Moderate formed stool throughout the colon. No evidence of intestinal obstruction or other acute intra-abdominal process. Assessment & Plan - Diagnosis (1) Cerebrovascular accident (CVA) Qualifiers: CVA mechanism: unspecified Qualified Code(s): I63.9 - Cerebral infarction, unspecified Is this a current diagnosis for this admission?: Yes Plan: MRI showed right cerebral hemisphere infarct which has progressed. Patient is currently on aspirin and Lovenox. He needs physical therapy and rehabilitation. (2) Weakness of left lower extremity Is this a current diagnosis for this admission?: Yes (3) Essential (primary) hypertension Is this a current diagnosis for this admission?: Yes Plan: Is still uncontrolled. Increase hydralazine 100 mg every 8 hours. (4) Chronic kidney disease, stage 3 Is this a current diagnosis for this admission?: Yes Plan: Kidney function is currently stable. (5) Iron deficiency anemia Is this a current diagnosis for this admission?: Yes Plan: His iron level and TSAT are low. Needs to be corrected before Procrit can be effective. I will give him a dose of IV Injectafer today. (6) Anemia in chronic kidney disease (CKD) Is this a current diagnosis for this admission?: Yes Plan: Will probably benefit on Procrit after iron correction. (7) Type 2 diabetes mellitus Qualifiers: Diabetes mellitus custodial insulin use: with ad terminal makeup operator use Diabetes mellitus complication status: with unspecified complications Qualified Code(s): E11.8 - Type 2 diabetes mellitus with unspecified complications; Z79.4 - correction (current) use of insulin Is this a current diagnosis for this admission?: Yes Plan: Fairly controlled. - Time Time with patient: 15-25 minutes
[2018-07-15] MEDS ORDERED: FERRIC CARBOXYMALTOSE INJ 750 MG/15 ML VIAL IV ONE (16:45)
[2018-07-15] MEDS: PANTOPRAZOLE SODIUM 40 MG TABLET.DR PO SCH (17:40)
[2018-07-15] MEDS: HYDRALAZINE HCL 50 MG TABLET PO SCH (22:00)
[2018-07-15] MEDS ORDERED: FERRIC CARBOXYMALTOSE 750 MG in NORMAL SALINE 250 ML IV ONE (22:00)
[2018-07-15] MEDS ORDERED: HYDRALAZINE HCL 25 MG TABLET PO SCH (22:00)
[2018-07-15] MEDS: ATORVASTATIN CALCIUM 80 MG TABLET PO SCH (22:01)
[2018-07-15] MEDS: BIMATOPROST 0.01% OPH SOLN 2.5 ML/BOTTLE OU SCH (22:01)
[2018-07-15] MEDS: PREDNISOLONE ACETATE 1% OPH SUSP 5 ML OD SCH (22:01)
[2018-07-15] MEDS: HYDRALAZINE HCL INJ/PF 20 MG/1 ML SDV IV PRN (22:23)
[2018-07-16] MEDS: HYDRALAZINE HCL INJ/PF 20 MG/1 ML SDV IV PRN (06:02)
[2018-07-16] MEDS: HYDRALAZINE HCL 50 MG TABLET PO SCH ×2 (06:03→13:14)
--- NOTE | 2018-07-16 09:07 | PDOC TRANSFER SUMMARY ---
General - Admit/Disc Date/PCP Admission Date/Primary Care Provider: 07/04/18 17:40 EMILY BAXTER MD Discharge Date: 07/16/18 - Discharge Diagnosis (1) Cerebral infarction Is this a current diagnosis for this admission?: Yes Summary: Continues aspirin Plavix and a statin Need intense physical therapy (2) Essential (primary) hypertension Is this a current diagnosis for this admission?: Yes Summary: Continues to current medications with Keep a blood pressure around 150 range Slowly increase and adjust the blood pressure medication in the next couple of weeks (3) Hemiparesis of right dominant side Is this a current diagnosis for this admission?: Yes Summary: pt (4) Weakness of left lower extremity Is this a current diagnosis for this admission?: Yes Summary: It was a intense physical therapy (5) Type 2 diabetes mellitus Is this a current diagnosis for this admission?: Yes Summary: Continues on Lantus and sliding scale Adjust insulin depends on the patient's p.o. intake Watch for hypoglycemia (6) Hyperlipidemia Is this a current diagnosis for this admission?: Yes Summary: Continues high-dose statin (7) Chronic kidney disease Is this a current diagnosis for this admission?: Yes Summary: Follow with the Dr. Gross (8) Anemia in chronic kidney disease (CKD) Is this a current diagnosis for this admission?: Yes Summary: Follow with the Dr. Gross follow outpatients Dr. Solis for surveillance colonoscopy - Additional Information Resuscitation Status: Do Not Resuscitate Discharge Diet: Diabetic Prescriptions: Atorvastatin Calcium [Lipitor 80 mg Tablet] 80 mg PO QHS #30 tablet Bisacodyl [Dulcolax 5 mg Tablet] 10 mg PO DAILYP PRN #30 tabec PRN Reason: Clopidogrel Bisulfate [Plavix 75 mg Tablet] 75 mg PO DAILY #30 tablet Docusate Sodium [Colace 100 mg Capsule] 100 mg PO BID #60 capsule Guaifenesin [Mucinex Sr 600 mg Tablet.sa] 600 mg PO Q12HP PRN #60 tablet.sa PRN Reason: Hydralazine HCl [Apresoline 50 mg Tablet] 100 mg PO Q8 #90 tablet Insulin Lispro [Humalog Insulin (Lispro) 100 unit/mL] 0 - 12 unit SUBCUT ACHS #1 unit Pantoprazole Sodium [Protonix [address] Tablet] 40 mg PO QPM #30 tablet.dr Home Medications: Aspirin [Aspirin EC] 81 mg PO BID 09/17/16 Insulin Glargine,Hum.rec.anlog [Lantus] 25 unit SQ BID 09/17/16 Prednisolone Acetate [Pred Forte] 5 ml OD QHS 09/17/16 Amlodipine Besylate [Norvasc 5 mg Tablet] 1 tab PO BID 07/05/18 Besifloxacin HCl [Besivance 0.6% Oph Susp 5 ml] 1 drop LFT_EYE QID 07/05/18 Bimatoprost [Lumigan 0.01% Oph Soln 2.5 ml/Bottle] 1 drop LFT_EYE QHS 07/05/18 Brimonidine Tartrate/Timolol [Combigan 0.2%-0.5% Eye Drops] 1 drop OD QAM 07/05/18 Carboxymethylcellulos/Glycerin [Refresh Repair 0.5-0.9% Drop] 1 drop BTH_EYE QID 07/05/18 Cholecalciferol (Vitamin D3) [Vitamin D3 1000 Unit Tablet] 1 tab PO DAILY 10/16 Difluprednate [Durezol] 2 drp LFT_EYE BID 07/05/18 Loteprednol Etabonate [Lotemax] 1 drop LFT_EYE BID 07/05/18 Magnesium 1 tab PO DAILY 07/05/18 Netarsudil Mesylate [Rhopressa] 1 drop OD ASDIR PRN 07/05/18 Atorvastatin Calcium [Lipitor 80 mg Tablet] 80 mg PO QHS #30 tablet 07/16/18 Bisacodyl [Dulcolax 5 mg Tablet] 10 mg PO DAILYP PRN #30 tabec 07/16/18 Clopidogrel Bisulfate [Plavix 75 mg Tablet] 75 mg PO DAILY #30 tablet 07/16/18 Docusate Sodium [Colace 100 mg Capsule] 100 mg PO BID #60 capsule 07/16/18 Guaifenesin [Mucinex Sr 600 mg Tablet.sa] 600 mg PO Q12HP PRN #60 tablet.sa 0 07/16/18 Hydralazine HCl [Apresoline 50 mg Tablet] 100 mg PO Q8 #90 tablet 07/16/18 Insulin Lispro [Humalog Insulin (Lispro) 100 unit/mL] 0 - 12 unit SUBCUT ACHS #1 unit 07/16/18 Pantoprazole Sodium [Protonix [address] Tablet] 40 mg PO QPM #30 tablet. 07/16/18 History of Present Illness Admission Date/PCP: 07/04/18 17:40 EMILY BAXTER MD History of Present Illness: JYOTI POLLOCK is a 73 year old male That for the right-sided hemiparesis stroke on the left lower extremity weakness Patient has recently a corneal transplant surgery done on the left side Patient was admitted with the multiple other issues from the strokes Hospital Course Hospital Course: This is a 73-year-old male legally blind with recently a left corneal transplant surgery with a history of the type 2 diabetes and insulin-dependent history of the hypertension's hyperlipidemia history of the chronic kidney disease and multiple medical problems came to the emergency department with a left-sided weakness and diagnosed with a right hemispheric strokes Patient initial MRI was done and the patient was put on stroke protocol with aspirin Patients also have a evolving strokes which causing the more weakness and patient's at this point at the Plavix and patient was put on a high-dose statin Patient also develop a more secretions cough and respirations treated with the IV antibiotics chest CT was done was all negative The patient also underwent for the renal failure from chronic kidney disease and Dr. Gross was consulted and currently all stable Patient also have a anemic give her IV iron per nephrology GI is also consulted no sign of any acute bleeding Patient was also given MiraLAX Colace and constipation is resolved Patient seen by the PMR physicians and suggest that continues to aspirin Plavix and a high-dose statin and intense physical therapy Patient's otherwise is still weak still unable to move the left lower extremity much Patient at this point very intense hospitalizations workup is done get the maximum benefit what the patients can get it patients may be get a benefit from the rehab Very extensive discussion with the patient's family including the sister and the son regarding the patient's current conditions with the poor prognosis with the multiple comorbidity Patient is currently expressed the DNR/DNI Discussed with the family and agree with that Patient seen by the kosher dietary service supervisor and suggest the continues to current eyedrops Patient is otherwise doing well overall Patient is more alert awake oriented Discharge to the rehab facility Discussed with the myself today regarding the all the plan and prognosis Physical Exam Vital Signs: Temp Pulse Resp BP Pulse Ox 98.1 F 74 20 180/36 H 99 07/16/18 08:00 07/16/18 08:00 07/16/18 08:00 07/16/18 08:00 07/16/18 08:00 Intake & Output 07/15/18 07/16/18 07/17/18 06:59 06:59 06:59 Intake Total 3482 9588 Balance 2672 2288 Weight 67.4 kg 66.1 kg General appearance: PRESENT: no acute distress Head exam: PRESENT: atraumatic, normocephalic Eye exam: PRESENT: conjunctiva pink, EOMI, PERRLA. ABSENT: scleral icterus Ear exam: PRESENT: normal external ear exam Mouth exam: PRESENT: moist, tongue midline Neck exam: ABSENT: carotid bruit, JVD, lymphadenopathy, thyromegaly Respiratory exam: PRESENT: clear to auscultation francesca. ABSENT: rales, rhonchi, wheezes Cardiovascular exam: PRESENT: RRR. ABSENT: diastolic murmur, rubs, systolic murmur Pulses: PRESENT: normal dorsalis pedis pul Vascular exam: PRESENT: normal capillary refill GI/Abdominal exam: PRESENT: normal bowel sounds, soft. ABSENT: distended, guarding, mass, organolmegaly, rebound, tenderness Rectal exam: PRESENT: deferred Extremities exam: PRESENT: full ROM. ABSENT: calf tenderness, clubbing, pedal edema Neurological exam: PRESENT: alert, awake, oriented to person, oriented to place, oriented to time, oriented to situation. ABSENT: motor sensory deficit Psychiatric exam: PRESENT: appropriate affect, normal mood. ABSENT: homicidal ideation, suicidal ideation Skin exam: PRESENT: dry, intact, warm. ABSENT: cyanosis, rash Results Laboratory Results: 07/15/18 10:56 07/15/18 06:09 07/15/18 07/15/18 07/15/18 10:56 10:56 10:56 WBC 13.1 H RBC 3.20 L Hgb 8.6 L Hct 26.4 L MCV 82 MCH 27.0 MCHC 32.7 RDW 14.2 H Plt Count 358 Seg Neutrophils % 84.4 H Lymphocytes % 5.1 L Monocytes % 9.6 Eosinophils % 0.3 Basophils % 0.6 Absolute Neutrophils 11.1 H Absolute Lymphocytes 0.7 Absolute Monocytes 1.3 Absolute Eosinophils 0.0 Absolute Basophils 0.1 Retic Count (auto) 2.16 Absolute Retic 0.071 Iron 18.7 L TIBC 188 L % Saturation 10 Ferritin 639.00 H Vitamin B12 469.0 Folate 4.55 07/10/18 12:55 Blood Blood Culture - Final NO GROWTH IN 5 DAYS 07/10/18 10:43 Blood Blood Culture - Final NO GROWTH IN 5 DAYS 07/04/18 07/04/18 07/04/18 14:20 21:22 21:22 Creatine Kinase 83 CK-MB (CK-2) 0.31 Troponin I < 0.012 07/04/18 07/05/18 07/05/18 21:22 03:28 10:02 Creatine Kinase CK-MB (CK-2) Troponin I 0.018 < 0.012 < 0.012 Impressions: Carotid Doppler Study 07/05/18 00:00 IMPRESSION: NO HEMODYNAMICALLY SIGNIFICANT STENOSIS. Head CT 07/08/18 00:00 IMPRESSION: Hypodensity of the right yepez radiata and centrum semiovale in keeping with evolving infarction seen on prior MR. No evidence of hemorrhagic conversion or new infarction. EVIDENCE OF ACUTE STROKE: NO. Brain MRI with MRA 07/10/18 00:00 IMPRESSION: SEVERAL FOCAL AREAS OF STENOSIS DESCRIBED ABOVE. Head MRI 07/10/18 00:00 IMPRESSION: THE AREA OF RECENT INFARCT IN THE RIGHT CEREBRAL HEMISPHERE HAS PROGRESSED. OTHER STABLE FINDINGS INCLUDE CHRONIC ATROPHY AND CHRONIC MICRO- VASCULAR ISCHEMIC CHANGES. EVIDENCE OF ACUTE STROKE: YES. RIGHT CRISTHIAN. Renal Artery Duplex 07/10/18 00:00 IMPRESSION: LIMITED STUDY. NO DOPPLER EVIDENCE OF HEMODYNAMICALLY SIGNIFICANT RENAL ARTERY STENOSIS. Chest X-Ray 07/11/18 00:00 IMPRESSION: NO SIGNIFICANT RADIOGRAPHIC FINDING IN THE CHEST. Chest CT 07/12/18 00:00 IMPRESSION: Minimal scattered opacities in lungs. Minimal left pleural effusion. Marked constipation. KUB X-Ray 07/15/18 00:00 IMPRESSION: Moderate formed stool throughout the colon. No evidence of intestinal obstruction or other acute intra-abdominal process. Transfer Plan - Time Spent with Patient Time spent with patient: Greater than 30 Minutes Qualifiers - * PATIENT BEING DISCHARGED WITH ANY OF THE FOLLOWING DIAGNOSIS: Stroke VTE patient discharged on overlapping Therapy?: Yes Stroke Pt being discharged on Anti-thrombolytic therapy?: Yes Stroke Pt being discharged on Anti-coagulation therapy?: No Reason(s) for not prescribing Anti-coagulation therapy:: Not indicated Stroke Pt being discharged on Statins?: Yes [place] Pt being discharged on Aspirin therapy?: Yes Plan Time Spent: Greater than 30 Minutes - Fall precautions Check a CBC and Chem-7 in 3 days Follow-up with the outpatients Dr. Gross Follow outpatients neurology make appointment to see a local neurology
[2018-07-16] MEDS: INSULIN LISPRO 100 UNIT/ML 3 ML VIAL SUBCUT SCH ×2 (09:21→12:16)
[2018-07-16] MEDS: DOCUSATE SODIUM 100 MG CAPSULE PO SCH (09:44)
[2018-07-16] MEDS: CEFEPIME 1 GM/D5W RTU 1 GM/50 ML RTUPB IV SCH (09:44)
[2018-07-16] MEDS: ENOXAPARIN SODIUM INJ 40 MG/0.4 ML DISP.SYRIN SUBCUT SCH (09:44)
[2018-07-16] MEDS: CHOLECALCIFEROL (D3) 1,000 UNIT TABLET PO SCH (09:44)
[2018-07-16] MEDS: CLOPIDOGREL BISULFATE 75 MG TABLET PO SCH (09:44)
[2018-07-16] MEDS: AMLODIPINE BESYLATE 5 MG TABLET PO SCH (09:44)
[2018-07-16] MEDS: POLYETHYLENE GLYCOL 3350 POWDER 17 GM/1 PACKET PO SCH (09:44)
[2018-07-16] MEDS: MAGNESIUM OXIDE 400 MG TABLET PO SCH (09:44)
[2018-07-16] MEDS: INSULIN GLARGINE,HUM.REC.ANLOG 1,000 UNIT/10 ML VIAL SUBCUT SCH (09:44)
[2018-07-16] MEDS: ASPIRIN 81 MG TABLET, ENT COATED PO SCH (09:44)
[2018-07-16 15:11] VITALS: BP 197/61
== END 2018-07-16 15:45 | DRG 65 ==
LOC: ER 13:05 → EH 17:40 → 3N 19:55
PROVIDERS: ADMIT Family Medicine; ATTEND Family Medicine
DX: I63.421 Cerebral infarction due to embolism of right anterior cerebral artery (principal); I69.351 Hemiplegia and hemiparesis following cerebral infarction affecting right dominant side; G81.94 Hemiplegia, unspecified affecting left nondominant side; I12.9 Hypertensive chronic kidney disease with stage 1 through stage 4 chronic kidney disease, or unspecified chronic kidney disease; E11.22 Type 2 diabetes mellitus with diabetic chronic kidney disease; D63.1 Anemia in chronic kidney disease; D50.9 Iron deficiency anemia, unspecified; N18.3 Chronic kidney disease, stage 3 (moderate); I25.10 Atherosclerotic heart disease of native coronary artery without angina pectoris; E78.5 Hyperlipidemia, unspecified; Z66 Do not resuscitate; Z79.82 Long term (current) use of aspirin; Z79.899 Other long term (current) drug therapy
CPT/HCPCS: 36415; 36600; 70450; 70544; 70551; 71045; 71250; 74018; 80048; 80053; 80061; 81001; 82550; 82553; 82607; 82728; 82746; 82803; 82962; 83036; 83540; 83550; 84484; 85025; 85045; 85610; 85730; 87040; 87086; 93005; 93010; 93306; 93880; 93975; 94668; 99285; J0360; J0692; J1439; J1650; J1815; J2405; J3490; J7050; Q4081; S0164

== ENCOUNTER 2018-11-01 21:58 | Inpatient (IN) | payer MEDICARE, OTHER ==
[2018-11-02] MEDS ORDERED: ACETAMINOPHEN 325 MG TABLET PO ONE (00:33)
--- NOTE | 2018-11-02 00:37 | ER Document Report ---
ED Medical Screen (RME) - General Chief Complaint: Fall Injury Stated Complaint: FALL Time Seen by Provider: 11/02/18 00:23 Primary Care Provider: EMILY BAXTER MD [Primary Care Provider] - Follow up as needed Notes: Patient is a 73-year-old male presents to the emergency department with a chief complaint of fall. 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 Patient states around 2 PM this afternoon he was using his walker in the bathroom when the walker slipped out from underneath him causing him to fall on his left side striking the bathtub. Patient states he did not hit his head or lose consciousness. Patient denies blood thinners but does report taking baby aspirin per day. Patient denies headache, neck pain or new back pain. Patient is complaining of left rib pain that is worse with cough, deep breathing and movement. Patient is also complaining of left hip pain. Per the family patient has been using his walker since the fall. TRAVEL OUTSIDE OF THE [place] IN LAST 30 DAYS: No - Related Data Allergies/Adverse Reactions: No Known Allergies Allergy (Verified 11/02/18 00:19) Past Medical History - Social History Frequency of alcohol use: None Drug Abuse: None - Past Medical History Cardiac Medical History: Reports: Hx Coronary Artery Disease, Hx Hypertension Denies: Hx Heart Attack Pulmonary Medical History: Denies: Hx Asthma, Hx Bronchitis, Hx COPD, Hx Pneumonia Neurological Medical History: Reports: Hx Cerebrovascular Accident - X3, STATES NO DEFICITS. Denies: Hx Seizures Endocrine Medical History: Reports: Hx Diabetes Mellitus Type 2 Renal/ Medical History: Denies: Hx Peritoneal Dialysis Musculoskeltal Medical History: Reports Hx Arthritis Past Surgical History: Reports: Hx Genitourinary Surgery - Prostate - Immunizations Hx Diphtheria, Pertussis, Tetanus Vaccination: No Physical Exam - Vital signs Vitals: Temp Pulse Resp BP Pulse Ox 97.9 F 62 16 152/53 H 97 11/01/18 22:25 11/01/18 22:25 11/01/18 22:25 11/01/18 22:25 11/01/18 22:25 - Respiratory Respiratory status: No respiratory distress Chest status: Tender - Tenderness to left lateral rib cage, very small amount of bruising noted. No laceratin or abrasion. Breath sounds: Normal Chest palpation: Normal Course - Re-evaluation Re-evalutation: 11/02/18 00:36 I have greeted and performed a rapid initial assessment of this patient. A comprehensive ED assessment and evaluation of the patient, analysis of test results and completion of the medical decision making process will be conducted by additional ED providers. - Vital Signs Vital signs: Temp Pulse Resp BP Pulse Ox 97.9 F 62 16 152/53 H 97 11/01/18 22:25 11/01/18 22:25 11/01/18 22:25 11/01/18 22:25 11/01/18 22:25 Doctor's Discharge - Discharge Referrals: EMILY BAXTER MD [Primary Care Provider] - Follow up as needed
--- NOTE | 2018-11-02 01:23 | RADIOLOGY REPORT (SQ) ---
EXAM DESCRIPTION: [facility]: XR RIBS UNILATERAL WITH CHEST Views: 3, AP chest and 2 views of the left ribs CLINICAL HISTORY: 73 years Male, fell onto left side striking bath tub COMPARISON: 07/11/2018 FINDINGS: Chest single view: Interstitial infiltrate/atelectasis in the left lower lobe, with mild lateral pleural thickening, likely subpleural hemorrhage associated with rib fractures. No pneumothorax. Mediastinum is within normal limits for this positioning. Ribs: There are acute displaced fractures of the posterior portions of the left 5th and 6th ribs, anterolateral left 6th rib, and probable nondisplaced fracture of the anterolateral portion of the left 5th rib. IMPRESSION: 1. Multiple acute left 5th and 6th rib displaced fractures, with associated left lateral subpleural hemorrhage. 2. Left lower lobe infiltrate is likely pulmonary contusion. 3. No pneumothorax.
--- NOTE | 2018-11-02 01:27 | RADIOLOGY REPORT (SQ) ---
EXAM DESCRIPTION: [facility]: XR HIP 2 OR MORE VIEWS Views: AP pelvis and additional view of left hip CLINICAL HISTORY: 73 years Male, fell onto left side striking bath tub COMPARISON: None. FINDINGS: Negative for acute fracture, dislocation, or radiopaque foreign body. Degenerative changes are partially visualized in the lower lumbar spine. Helical alignment is anatomic. IMPRESSION: 1. No acute fracture of the pelvis or left hip
[2018-11-02] MEDS ORDERED: MORPHINE SULFATE 10 MG/ML INJ IV ONE (03:05)
[2018-11-02 04:30] LABS: ABSOLUTE BASOPHILS # (AUTO) 0.1 10^3/uL (0.0-0.2); ABSOLUTE EOSINOPHILS # (AUTO) 0.1 10^3/uL (0.0-0.6); ABSOLUTE LYMPHOCYTES (AUTO) 1.2 10^3/uL (0.5-4.7); ABSOLUTE MONOCYTES (AUTO) 0.7 10^3/uL (0.1-1.4); ABSOLUTE NEUT (AUTO) 5.4 10^3/uL (1.7-8.2); EOSINOPHILS % (AUTO) 0.8 % (0-6); HEMATOCRIT 30.6 % (37.9-51.0); HEMOGLOBIN 9.8 g/dL (13.5-17.0); LYMPHOCYTES % (AUTO) 15.8 % (13-45); MEAN CORPUSCULAR HEMOGLOBIN 26.8 pg (27.0-33.4); MEAN CORPUSCULAR HGB CONC 32.2 g/dL (32.0-36.0); MEAN CORPUSCULAR VOLUME 83 fl (80-97); MONOCYTES % (AUTO) 8.9 % (3-13); PLATELET COUNT 219 10^3/uL (150-450); RED BLOOD COUNT 3.67 10^6/uL (4.35-5.55); RED CELL DISTRIBUTION WIDTH 14.4 % (11.5-14.0); SEGMENTED NEUTROPHILS % (AUTO) 73.5 % (42-78); TOTAL CELLS COUNTED % (AUTO) 100 %; WHITE BLOOD COUNT 7.4 10^3/uL (4.0-10.5)
[2018-11-02 04:35] LABS: INTERNATIONAL RATION (INR) 1.06; PROTHROMBIN TIME 13.8 SEC (11.4-15.4)
[2018-11-02 04:36] LABS: PARTIAL THROMBOPLASTIN TIME 31.6 SEC (23.5-35.8)
[2018-11-02 04:51] LABS: ANION GAP 11 (5-19); BLOOD UREA NITROGEN 40 mg/dL (7-20); CALCIUM 9.9 mg/dL (8.4-10.2); CARBON DIOXIDE 28 mmol/L (22-30); CHLORIDE 100 mmol/L (98-107); POTASSIUM 4.6 mmol/L (3.6-5.0)
--- NOTE | 2018-11-02 04:58 | ER Document Report ---
ED General - General Chief Complaint: Fall Injury Stated Complaint: FALL Time Seen by Provider: 11/02/18 00:23 Primary Care Provider: EMILY BAXTER MD [Primary Care Provider] - Follow up as needed Notes: Patient is a very pleasant 73-year-old male who presents with complaints of pain over the left ribs. Patient had fallen getting out of bathtub. He has paralysis of left side from previous stroke. His pain over left ribs and some pain into the left hip. No pain into the abdomen. Patient says he does not have true difficulty breathing but does have pain with taking deep breath. No fevers. Denies any his head. No neck or back pain. No other complaints at this time. Patient takes aspirin but no other blood thinners. TRAVEL OUTSIDE OF THE [place] IN LAST 30 DAYS: No - Related Data Allergies/Adverse Reactions: No Known Allergies Allergy (Verified 11/02/18 00:19) Past Medical History - Social History Smoking Status: Former Smoker Frequency of alcohol use: None Drug Abuse: None Family History: Reviewed & Not Pertinent Patient has suicidal ideation: No Patient has homicidal ideation: No - Past Medical History Cardiac Medical History: Reports: Hx Coronary Artery Disease, Hx Hypertension Denies: Hx Heart Attack Pulmonary Medical History: Denies: Hx Asthma, Hx Bronchitis, Hx COPD, Hx Pneumonia Neurological Medical History: Reports: Hx Cerebrovascular Accident - X3, STATES NO DEFICITS. Denies: Hx Seizures Endocrine Medical History: Reports: Hx Diabetes Mellitus Type 2 Renal/ Medical History: Denies: Hx Peritoneal Dialysis Musculoskeletal Medical History: Reports Hx Arthritis Past Surgical History: Reports: Hx Genitourinary Surgery - Prostate - Immunizations Hx Diphtheria, Pertussis, Tetanus Vaccination: No Review of Systems - Review of Systems Notes: My Normal Review Basic REVIEW OF SYSTEMS: CONSTITUTIONAL : Denies fever, chills, or sweats. Denies recent illness. EENT: Denies eye, ear, throat, or mouth pain or symptoms. Denies nasal or sinus congestion. RESPIRATORY: Denies cough, cold, or chest congestion. Denies shortness of breath, difficulty breathing, or wheezing. GASTROINTESTINAL: Denies abdominal pain. Denies nausea, vomiting, or diarrhea. MUSCULOSKELETAL: Left-sided rib pain. Left hip pain. SKIN: Denies rash or skin lesions. HEMATOLOGIC : Denies easy bruising or bleeding. NEUROLOGICAL: Denies altered mental status or loss of consciousness. Denies headache. Denies weakness or paralysis or loss of use of either side. Denies problems with gait or speech. Denies sensory or motor loss. ALL OTHER SYSTEMS REVIEWED AND NEGATIVE. Physical Exam - Vital signs Vitals: Temp Pulse Resp BP Pulse Ox 97.9 F 62 16 152/53 H 97 11/01/18 22:25 11/01/18 22:25 11/01/18 22:25 11/01/18 22:25 11/01/18 22:25 - Notes Notes: General Appearance: Well nourished, alert, cooperative, no acute distress, moderate obvious discomfort. Vitals: reviewed, See vital signs table. Head: no swelling or tenderness to the head Eyes: PERRL, EOMI, Conjuctiva clear Mouth: No decreasd moisture Neck: Supple, no neck tenderness, no step-offs or deformities. Chest wall: Patient has pain to palpation over the left ribs especially ribs 4 through 7. Exquisitely tender. No significant swelling or bruising. Lungs: No wheezing, No rales, No rhonci, No accessory muscle use, good air ex change bilaterally. Heart: Normal rate, Regular rythm, No murmur, no rub Abdomen: Normal BS, soft, No rigidity, No abdominal tenderness, No guarding, no rebound, no abdominal masses, no organomegaly Extremities: Patient has chronic weakness in the left side extremities due to previous stroke. Right-sided extremities have good strength., good pulses in all extremities, no swelling or tenderness in the extremities with exception of some pain with flexion of the left hip. Pelvis is stable., no edema. Skin: warm, dry, appropriate color, no rash Neuro: speech clear, oriented x 3, normal affect, responds appropriately to questions. Cranial nerves II through XII are intact. Distal sensation intact. Patient moves all extremities without difficulty. Course - Re-evaluation Re-evalutation: 11/02/18 05:18 Patient's chemistry panel is finally back and his kidney function is appropriate for medial scan him with IV contrast to further investigate the trauma to the chest. I also added a scan to the abdomen pelvis being that the fracture is through the lower ribs as well to make sure there is no injury to the spleen. I did discuss this with the and she is agreeable with it. She is going home this would be likely the patient will be admitted with his multiple rib fractures. Phone number to contact her ,which is actually her son cell phone number, is [phone]. 11/02/18 07:[address] Morel, general surgeon on-call, who says that they will be agreeable to manage the patient's pulmonary toilet and rib fractures and hemothorax. Dr. Carroll, general surgeon, who will come down to evaluate the patient. I am waiting to hear back from Dr. Baxter, patient's primary care physician, about admission. 11/02/18 07:[address] Baxter, patient's primary care physician, who agrees to admit the patient. He requests admission to the [facility]. Dictation of this chart was performed using voice recognition software; therefore, there may be some unintended grammatical errors. - Vital Signs Vital signs: Temp Pulse Resp BP Pulse Ox 97.9 F 62 12 163/76 H 96 11/01/18 22:25 11/01/18 22:25 11/02/18 07:01 11/02/18 07:01 11/02/18 07:01 - Laboratory Result Diagrams: 11/02/18 04:17 11/02/18 04:17 Laboratory results interpreted by me: 11/02/18 11/02/18 04:17 04:17 RBC 3.67 L Hgb 9.8 L Hct 30.6 L MCH 26.8 L RDW 14.4 H BUN 40 H Creatinine 1.31 H Est GFR (Non-Af Amer) 53 L Glucose 412 H* Discharge - Discharge Clinical Impression: Hemothorax on left, Hyperglycemia Rib fractures Qualifiers: Encounter type: initial encounter Rib fracture type: multiple ribs Fracture type: closed Laterality: left Qualified Code(s): S22.42XA - Multiple fractures of ribs, left side, initial encounter for closed fracture Condition: Stable Disposition: ADMITTED OBSERVATION Admitting Provider: Davi Referrals: EMILY BAXTER MD [Primary Care Provider] - Follow up as needed
[2018-11-02 05:01] LABS: GLUCOSE 412 mg/dL (75-110)
[2018-11-02] MEDS ORDERED: NORMAL SALINE 1000 ML 1,000 ML IV ONE (05:14)
[2018-11-02] MEDS ORDERED: INSULIN REG, HUMAN 100 UNIT/ML 3 ML VIAL (PYX) SUBCUT ONE (05:14)
--- NOTE | 2018-11-02 06:38 | RADIOLOGY REPORT (SQ) ---
EXAM DESCRIPTION: CT CHEST WITH IV CONTRAST, CT ABDOMEN PELVIS WITH IV CONTRAST COMPLETED DATE/TME: 11/02/2018 05:14 CLINICAL HISTORY: 73 years, Male, trauma COMPARISON: 07/12/2018 TECHNIQUE: Axial CT images of the abdomen and pelvis were obtained after the injection of IV contrast. Sagittal and coronal reformats were performed. DLP 805 Images stored on PACS. All CT scanners at this facility use dose modulation, iterative reconstruction, and/or weight based dosing when appropriate to reduce radiation dose to as low as reasonably achievable (ALARA). [facility]: Dose Right [facility]: CareDose [facility]: Dose Right [facility]: Teradose 4D [facility]: [employer] LIMITATIONS: None. FINDINGS: --Chest-- Thoracic aorta: Atherosclerotic calcifications Heart: Unremarkable. Mediastinum: No pathologic sized middle mediastinal lymphadenopathy. Tracheobronchial tree: Unremarkable. Lungs: Lobar consolidation: There are some groundglass opacities along the inferior aspect of the left upper lobe and left lower lobe.. Pleural effusion: Small left pleural effusion/hemothorax Pneumothorax: Negative. Other: Negative. Bones: There are mildly displaced fractures involving the left posterior fifth through seventh ribs. There is also a mildly displaced fracture involving the anterior aspect of the left sixth rib --Abdomen-- Solid abdominal viscera: Liver: Unremarkable. Gallbladder: Unremarkable. Pancreas: Unremarkable. Spleen: Unremarkable. Adrenal glands: Unremarkable. Right kidney: No hydronephrosis. Left kidney: No hydronephrosis. Contains cysts that measure up to 6 cm in size Urinary bladder: Unremarkable. Abdominal aorta: Atherosclerotic calcifications Peritoneal: Free fluid: None. Free air: None. Other: No pathologic sized lymph nodes in the upper abdomen. Bowel: Stomach: Unremarkable. Small bowel: Unremarkable. Appendix: Not uniquely identified. Colon: Contains a large amount of stool Rectum: Unremarkable. Bones: Unremarkable. IMPRESSION: Only displaced left-sided rib fractures with a small left hemothorax/pleural effusion. Groundglass opacities along the inferior aspect of the left upper and lower lobes may represent atelectasis or a pulmonary contusion. No pneumothorax. No evidence of acute traumatic injury to the abdomen or pelvis. TECHNICAL DOCUMENTATION: Quality ID # 436: Final reports with documentation of one or more dose reduction techniques (e.g., Automated exposure control, adjustment of the mA and/or kV according to patient size, use of iterative reconstruction technique) copyright 2011 [employer]- All Rights Reserved
--- NOTE | 2018-11-02 08:05 | PDOC CONSULTATION ---
Consultation Consult Date: 11/02/18 Attending physician:: EMILY BAXTER Provider Consulted: REEMA SOLIS Consult reason:: rib fractures History of Present Illness Admission Date/PCP: EMILY BAXTER MD History of Present Illness: JYOTI POLLOCK is a 73 year old male who presents with complaints of pain over the left ribs. Patient had fallen getting out of bathtub. He has paralysis of left side from previous stroke. he is wheelchair bound and was trying to get to the toilet.fell against the bathtub.No loc. His pain over left ribs and some pain into the left hip. No pain into the abdomen. Patient says he does not have true difficulty breathing but does have pain with taking deep breath. No fevers. Denies any his head. No neck or back pain. No other complaints at this time. Patient takes aspirin but no other blood thinners Past Medical History Cardiac Medical History: Reports: Coronary Artery Disease, Hypertension Denies: Myocardial Infarction Pulmonary Medical History: Denies: Asthma, Bronchitis, Chronic Obstructive Pulmonary Disease (COPD), Pneumonia Neurological Medical History: Denies: Seizures Endocrine Medical History: Reports: Diabetes Mellitus Type 2 Musculoskeltal Medical History: Reports: Arthritis Hematology: Reports: Anemia Social History Smoking Status: Former Smoker Frequency of Alcohol Use: None Hx Recreational Drug Use: No Family History Family History: Reviewed & Not Pertinent Parental Family History Reviewed: No Children Family History Reviewed: NA Sibling(s) Family History Reviewed.: NA Medication/Allergy Allergies/Adverse Reactions: No Known Allergies Allergy (Verified 11/02/18 00:19) Review of Systems Constitutional: ABSENT: chills, fever(s), headache(s), weight gain, weight loss Eyes: ABSENT: visual disturbances Ears: ABSENT: hearing changes Nose, Mouth, and Throat: ABSENT: as per HPI, headache(s), mouth pain, sore throat, vertigo, other Breasts: ABSENT: as per HPI, other Cardiovascular: ABSENT: as per HPI, chest pain, dyspnea on exertion, edema, orthropnea, palpitations, other Respiratory: PRESENT: other - pain over left chest, no sob Gastrointestinal: ABSENT: abdominal pain, constipation, diarrhea, hematemesis, hematochezia, nausea, vomiting Integumentary: ABSENT: rash, wounds Neurological: PRESENT: numbness, weakness - left sided paresis secondary to cva Psychiatric: ABSENT: anxiety, depression, homidical ideation, suicidal ideation Endocrine: ABSENT: cold intolerance, heat intolerance, polydipsia, polyuria Hematologic/Lymphatic: ABSENT: easy bleeding, easy bruising Allergic/Immunologic: ABSENT: as per HPI, seasonal rhinorrhea, other Physical Exam Vital Signs: Temp Pulse Resp BP Pulse Ox 97.9 F 62 12 163/76 H 96 11/01/18 22:25 11/01/18 22:25 11/02/18 07:01 11/02/18 07:01 11/02/18 07:01 Intake & Output 11/01/18 11/02/18 11/03/18 06:59 06:59 06:59 Intake Total 1000 Balance 1000 Weight 62.5 kg General appearance: PRESENT: no acute distress Head exam: PRESENT: normocephalic Eye exam: PRESENT: EOMI Ear exam: PRESENT: normal external ear exam Mouth exam: PRESENT: moist Neck exam: PRESENT: full ROM Respiratory exam: PRESENT: clear to auscultation francesca Cardiovascular exam: PRESENT: RRR Pulses: PRESENT: normal radial pulses, normal femoral pulses, +2 pedal pulses bilateral - left lower extremity GI/Abdominal exam: PRESENT: soft Rectal exam: PRESENT: deferred Extremities exam: PRESENT: full ROM Musculoskeletal exam: PRESENT: full ROM Neurological exam: PRESENT: alert, awake, oriented to person Psychiatric exam: PRESENT: appropriate affect Skin exam: PRESENT: dry Results Laboratory Results: 11/02/18 04:17 11/02/18 04:17 11/02/18 11/02/18 04:17 04:17 WBC 7.4 RBC 3.67 L Hgb 9.8 L Hct 30.6 L MCV 83 MCH 26.8 L MCHC 32.2 RDW 14.4 H Plt Count 219 Seg Neutrophils % 73.5 Lymphocytes % 15.8 Monocytes % 8.9 Eosinophils % 0.8 Basophils % 1.0 Absolute Neutrophils 5.4 Absolute Lymphocytes 1.2 Absolute Monocytes 0.7 Absolute Eosinophils 0.1 Absolute Basophils 0.1 Sodium 138.9 Potassium 4.6 Chloride 100 Carbon Dioxide 28 Anion Gap 11 BUN 40 H Creatinine 1.31 H Est GFR ( Amer) > 60 Est GFR (Non-Af Amer) 53 L Glucose 412 H* Calcium 9.9 Impressions: Hip X-Ray 11/02/18 00:34 IMPRESSION: 1. No acute fracture of the pelvis or left hip Ribs w/Chest X-Ray 11/02/18 00:34 IMPRESSION: 1. Multiple acute left 5th and 6th rib displaced fractures, with associated left lateral subpleural hemorrhage. 2. Left lower lobe infiltrate is likely pulmonary contusion. 3. No pneumothorax. Abdomen/Pelvis CT 11/02/18 05:14 IMPRESSION: Only displaced left-sided rib fractures with a small left hemothorax/pleural effusion. Groundglass opacities along the inferior aspect of the left upper and lower lobes may represent atelectasis or a pulmonary contusion. No pneumothorax. No evidence of acute traumatic injury to the abdomen or pelvis. TECHNICAL DOCUMENTATION: Quality ID # 436: Final reports with documentation of one or more dose reduction techniques (e.g., Automated exposure control, adjustment of the mA and/or kV according to patient size, use of iterative reconstruction technique) copyright 2010 [employer]- All Rights Reserved Chest CT 11/02/18 05:14 IMPRESSION: Only displaced left-sided rib fractures with a small left hemothorax/pleural effusion. Groundglass opacities along the inferior aspect of the left upper and lower lobes may represent atelectasis or a pulmonary contusion. No pneumothorax. No evidence of acute traumatic injury to the abdomen or pelvis. TECHNICAL DOCUMENTATION: Quality ID # 436: Final reports with documentation of one or more dose reduction techniques (e.g., Automated exposure control, adjustment of the mA and/or kV according to patient size, use of iterative reconstruction technique) copyright 2010 [employer]- All Rights Reserved Assessment & Plan - Diagnosis (2) Rib fractures Qualifiers: Encounter type: initial encounter Rib fracture type: multiple ribs Fracture type: closed Laterality: left Qualified Code(s): S22.42XA - Multiple fractures of ribs, left side, initial encounter for closed fracture - Plan Summary Plan Summary: s/p fall with left sided multiple rib fxs. min hemothorax plan admit to medicine for observation repeat cxr later today pulm toilet pain management
[2018-11-02] MEDS ORDERED: IPRATROPIUM/ALBUTEROL 0.5-2.5 MG/3 ML AMPUL NEB PRN (08:09)
[2018-11-02] MEDS ORDERED: ACETAMINOPHEN 325 MG TABLET PO PRN (08:09)
[2018-11-02] MEDS ORDERED: GLUCAGON,HUMAN RECOMB 1 MG INJ IM PRN (08:12)
[2018-11-02] MEDS ORDERED: DEXTROSE 50%-WATER 25 GM/50 ML DISP.SYRIN IV PRN ×2 (08:12)
[2018-11-02] MEDS ORDERED: DEXTROSE 40% GEL 15 GM TUBE PO PRN ×2 (08:12)
[2018-11-02] MEDS ORDERED: HYPROMELLOSE OU SCH (10:00)
[2018-11-02] MEDS ORDERED: DEXTRAN OU SCH (10:00)
[2018-11-02] MEDS ORDERED: [UNRECOGNIZED DRUG - OTHER] OU SCH (10:00)
[2018-11-02] MEDS ORDERED: (PENDING PHARMACY ID) (Magnesium Oxide [Magnesium Oxide] 400 MG) PO SCH (10:00)
[2018-11-02] MEDS ORDERED: (PENDING PHARMACY ID) (Loteprednol Etabonate [Lotemax 0.5% Ophth Susp] 1 DROP) OS SCH (10:00)
--- NOTE | 2018-11-02 11:43 | PDOC H&P ---
History of Present Illness Admission Date/PCP: 11/02/18 08:55 EMILY BAXTER MD Patient complains of: Fall History of Present Illness: JYOTI POLLOCK is a 73 year old male This is a 73-year-old male with this type 2 diabetes hypertension's history of the cerebrovascular accident recently with a left-sided weakness was coming out of the bathtub and patient's fell and complaining of left-sided rib pain and hip pain In the emergency departments patient with multiple rib fracture and some chest contusions and patient seen by the general surgery and suggest to monitor for next 24 hours pain control and repeat the chest x-ray Patient's when I saw in the emergency department doing fair denied any other new symptoms Past Medical History Cardiac Medical History: Reports: Coronary Artery Disease, Hypertension Denies: Myocardial Infarction Pulmonary Medical History: Denies: Asthma, Bronchitis, Chronic Obstructive Pulmonary Disease (COPD), Pneumonia Neurological Medical History: Reports: Ischemic CVA Denies: Seizures Endocrine Medical History: Reports: Diabetes Mellitus Type 2 Renal/ Medical History: Reports: Chronic Kidney Disease GI Medical History: Reports: Gastroesophageal Reflux Disease Musculoskeltal Medical History: Reports: Arthritis Hematology: Reports: Anemia Past Surgical History Past Surgical History: Reports: Other Social History Information Source: Patient, Parent Smoking Status: Former Smoker Frequency of Alcohol Use: None Hx Recreational Drug Use: No Hx Prescription Drug Abuse: No - Advance Directive Resuscitation Status: Full Code Family History Family History: Reviewed & Not Pertinent Parental Family History Reviewed: Yes Children Family History Reviewed: Yes Sibling(s) Family History Reviewed.: Yes Medication/Allergy Home Medications: Amlodipine Besylate [Norvasc 5 mg Tablet] 5 mg PO Q12 11/02/18 Aspirin [Adult Low Dose Aspirin EC] 81 mg PO DAILY 11/02/18 Atorvastatin Calcium [Lipitor 40 mg Tablet] 40 mg PO DAILY 11/02/18 Bacitracin Zinc [Bacitracin Oint 15 gm] 1 applic OU BID 11/02/18 Besifloxacin HCl [Besivance 0.6% Oph Susp 5 ml] 1 drop OS BID 11/02/18 Bimatoprost [Lumigan 0.01% Oph Soln 2.5 ml/Bottle] 1 drop OS QHS 11/02/18 Brimonidine Tartrate/Timolol [Combigan 0.2%-0.5% Eye Drops] 1 drop OD BID 11/02 Clopidogrel Bisulfate [Plavix 75 mg Tablet] 75 mg PO DAILY 11/02/18 Dextran 70/Hypromellose/Pf [Genteal Tears 0.1%-0.3% Drop] 1 drop OU BID 11/02/18 Ferrous Sulfate [Feosol] 325 mg PO DAILY 11/02/18 Hydralazine HCl [Apresoline 25 mg Tablet] 25 mg PO Q8 11/02/18 Insulin Glargine,Hum.rec.anlog [Lantus Insulin 100 Unit/mL Insulin Pen] 14 unit SUBCUT Q12 11/02/18 Loteprednol Etabonate [Lotemax 0.5% Ophth Susp] 1 drop OS DAILY 11/02/18 Magnesium Oxide 400 mg PO DAILY 11/02/18 Allergies/Adverse Reactions: No Known Allergies Allergy (Verified 11/02/18 00:19) Review of Systems All systems: reviewed and no additional remarkable complaints except as stated Constitutional: ABSENT: chills, fever(s), headache(s), weight gain, weight loss Eyes: ABSENT: visual disturbances Ears: ABSENT: hearing changes Cardiovascular: PRESENT: chest pain. ABSENT: dyspnea on exertion, edema, orthropnea, palpitations Respiratory: ABSENT: cough, hemoptysis Gastrointestinal: ABSENT: abdominal pain, constipation, diarrhea, hematemesis, hematochezia, nausea, vomiting Genitourinary: ABSENT: dysuria, hematuria Musculoskeletal: ABSENT: joint swelling Integumentary: ABSENT: rash, wounds Neurological: ABSENT: abnormal gait, abnormal speech, confusion, dizziness, focal weakness, syncope Psychiatric: ABSENT: anxiety, depression, homidical ideation, suicidal ideation Endocrine: ABSENT: cold intolerance, heat intolerance, menstrual abnormalities, polydipsia, polyuria Hematologic/Lymphatic: ABSENT: easy bleeding, easy bruising, lymphadenopathy Physical Exam Vital Signs: Temp Pulse Resp BP Pulse Ox 97.9 F 62 13 153/63 H 96 11/01/18 22:25 11/01/18 22:25 11/02/18 11:01 11/02/18 11:01 11/02/18 11:01 Intake & Output 11/01/18 11/02/18 11/03/18 06:59 06:59 06:59 Intake Total 1000 Balance 1000 Weight 62.5 kg General appearance: PRESENT: no acute distress, well-developed, well-nourished Head exam: PRESENT: atraumatic, normocephalic Eye exam: PRESENT: conjunctiva pink, EOMI, PERRLA. ABSENT: scleral icterus Ear exam: PRESENT: normal external ear exam Mouth exam: PRESENT: moist, tongue midline Neck exam: PRESENT: full ROM. ABSENT: carotid bruit, JVD, lymphadenopathy, thyromegaly Respiratory exam: PRESENT: clear to auscultation francesca Additional comments: Left side of the rib tenderness present Cardiovascular exam: PRESENT: RRR. ABSENT: diastolic murmur, rubs, systolic murmur Pulses: PRESENT: normal dorsalis pedis pul, +2 pedal pulses bilateral Vascular exam: PRESENT: normal capillary refill GI/Abdominal exam: PRESENT: normal bowel sounds, soft. ABSENT: distended, guarding, mass, organolmegaly, rebound, tenderness Rectal exam: PRESENT: deferred Extremities exam: ABSENT: pedal edema Neurological exam: PRESENT: alert, awake, oriented to person, oriented to place, oriented to time, oriented to situation. ABSENT: motor sensory deficit Psychiatric exam: PRESENT: appropriate affect, normal mood. ABSENT: homicidal ideation, suicidal ideation Skin exam: PRESENT: dry, intact, warm. ABSENT: cyanosis, rash Results Laboratory Results: 11/02/18 04:17 11/02/18 04:17 11/02/18 11/02/18 04:17 04:17 WBC 7.4 RBC 3.67 L Hgb 9.8 L Hct 30.6 L MCV 83 MCH 26.8 L MCHC 32.2 RDW 14.4 H Plt Count 219 Seg Neutrophils % 73.5 Lymphocytes % 15.8 Monocytes % 8.9 Eosinophils % 0.8 Basophils % 1.0 Absolute Neutrophils 5.4 Absolute Lymphocytes 1.2 Absolute Monocytes 0.7 Absolute Eosinophils 0.1 Absolute Basophils 0.1 Sodium 138.9 Potassium 4.6 Chloride 100 Carbon Dioxide 28 Anion Gap 11 BUN 40 H Creatinine 1.31 H Est GFR ( Amer) > 60 Est GFR (Non-Af Amer) 53 L Glucose 412 H* Calcium 9.9 Impressions: Hip X-Ray 11/02/18 00:34 IMPRESSION: 1. No acute fracture of the pelvis or left hip Ribs w/Chest X-Ray 11/02/18 00:34 IMPRESSION: 1. Multiple acute left 5th and 6th rib displaced fractures, with associated left lateral subpleural hemorrhage. 2. Left lower lobe infiltrate is likely pulmonary contusion. 3. No pneumothorax. Abdomen/Pelvis CT 11/02/18 05:14 IMPRESSION: Only displaced left-sided rib fractures with a small left hemothorax/pleural effusion. Groundglass opacities along the inferior aspect of the left upper and lower lobes may represent atelectasis or a pulmonary contusion. No pneumothorax. No evidence of acute traumatic injury to the abdomen or pelvis. TECHNICAL DOCUMENTATION: Quality ID # 436: Final reports with documentation of one or more dose reduction techniques (e.g., Automated exposure control, adjustment of the mA and/or kV according to patient size, use of iterative reconstruction technique) copyright 2010 [employer]- All Rights Reserved Chest CT 11/02/18 05:14 IMPRESSION: Only displaced left-sided rib fractures with a small left hemothorax/pleural effusion. Groundglass opacities along the inferior aspect of the left upper and lower lobes may represent atelectasis or a pulmonary contusion. No pneumothorax. No evidence of acute traumatic injury to the abdomen or pelvis. TECHNICAL DOCUMENTATION: Quality ID # 436: Final reports with documentation of one or more dose reduction techniques (e.g., Automated exposure control, adjustment of the mA and/or kV according to patient size, use of iterative reconstruction technique) copyright 2010 [employer]- All Rights Reserved Assessment & Plan - Diagnosis (1) Contusion of chest Qualifiers: Encounter type: initial encounter Laterality: unspecified laterality Qualified Code(s): S20.219A - Contusion of unspecified front wall of thorax, initial encounter Is this a current diagnosis for this admission?: Yes Plan: Currently CT scan is stable we will continues to monitor with the surgery (2) Hemothorax on left Is this a current diagnosis for this admission?: Yes Plan: Repeat the chest x-ray per surgery in the morning currently hold the Plavix (3) Rib fractures Qualifiers: Encounter type: initial encounter Rib fracture type: multiple ribs Fracture type: closed Laterality: left Qualified Code(s): S22.42XA - Multiple fractures of ribs, left side, initial encounter for closed fracture Is this a current diagnosis for this admission?: Yes Plan: Pain control and also pulmonary toilet (4) Anemia Qualifiers: Anemia type: iron deficiency Is this a current diagnosis for this admission?: Yes (5) Cerebrovascular accident (CVA) Qualifiers: CVA mechanism: unspecified Qualified Code(s): I63.9 - Cerebral infarction, unspecified Is this a current diagnosis for this admission?: No Plan: Continue physical therapy (6) Hyperlipidemia Qualifiers: Hyperlipidemia type: unspecified Qualified Code(s): E78.5 - Hyperlipidemia, unspecified Is this a current diagnosis for this admission?: Yes Plan: Continue statin (7) Type 2 diabetes mellitus 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 use Diabetes mellitus complication status: with unspecified complications Is this a current diagnosis for this admission?: Yes Plan: Continues to current medications sliding scale - Time Time Spent: 30 to 50 Minutes Medications reviewed and adjusted accordingly: Yes Anticipated discharge: Home Within: Other - Inpatient Certification Based on my medical assessment, after consideration of the patient's comorbidities, presenting symptoms, or acuity I expect that the services needed warrant INPATIENT care.: Yes I certify that my determination is in accordance with my understanding of Medicare's requirements for reasonable and necessary INPATIENT services [42 CFR 412.3e].: Yes Medical Necessity: Significant Comorbidiites Make Outpatient Treatment Too Risky, Need Close Monitoring Due to Risk of Patient Decompensation, Need for Nebulizer Therapy and Monitoring of Response 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
[2018-11-02] MEDS: BESIFLOXACIN HCL 0.6% OPH SUSP 5 ML BOTTLE OS SCH ×2 (13:34→23:08)
[2018-11-02] MEDS: BRIMONIDINE TARTRATE 0.2% OPH SOLN 5 ML OD SCH ×2 (13:34→23:08)
[2018-11-02] MEDS: DOCUSATE SODIUM 100 MG CAPSULE PO SCH ×2 (13:35→18:12)
[2018-11-02] MEDS: ASPIRIN 81 MG TABLET, ENT COATED PO SCH (13:35)
[2018-11-02] MEDS: AMLODIPINE BESYLATE 5 MG TABLET PO SCH ×2 (13:36→23:09)
[2018-11-02] MEDS: TIMOLOL MALEATE 0.5% OPH SOLN 5 ML OD SCH ×2 (13:36→23:09)
[2018-11-02] MEDS: MAGNESIUM OXIDE 400 MG TABLET PO SCH (13:37)
[2018-11-02] MEDS: FERROUS SULFATE 325 MG TABLET PO SCH (13:37)
[2018-11-02] MEDS ORDERED: INSULIN GLARGINE,HUM.REC.ANLOG 1,000 UNIT/10 ML VIAL (PYX) SUBCUT ONE (14:00)
[2018-11-02] MEDS: INSULIN LISPRO 100 UNIT/ML 3 ML VIAL SUBCUT SCH ×3 (14:07→23:08)
[2018-11-02] MEDS: INSULIN GLARGINE,HUM.REC.ANLOG 1,000 UNIT/10 ML VIAL SUBCUT SCH ×2 (15:47→23:09)
[2018-11-02] MEDS: BACITRACIN ZINC OINTMENT 15 GM EXT SCH ×2 (15:52→18:15)
[2018-11-02] MEDS: HYDRALAZINE HCL 25 MG TABLET PO SCH ×2 (15:52→23:08)
[2018-11-02] MEDS ORDERED: (PENDING PHARMACY ID) (Bimatoprost [Lumigan 0.01% Oph Soln 2.5 Ml/Bottle] 1 DROP) OS SCH (22:00)
[2018-11-02] MEDS: OXYCODONE-ACETAMINOPHEN 5-325 MG TABLET PO PRN (23:07)
[2018-11-02] MEDS: ATORVASTATIN CALCIUM 40 MG TABLET PO SCH (23:08)
[2018-11-02] MEDS: LATANOPROST 0.005% OPH SOLN 2.5 ML OS SCH (23:09)
[2018-11-02] MEDS ORDERED: HYDRALAZINE HCL 50 MG TABLET ONE (23:55)
[2018-11-03] MEDS ORDERED: HYDRALAZINE HCL 50 MG TABLET PO ONE (00:30)
[2018-11-03 05:14] LABS: ABSOLUTE BASOPHILS # (AUTO) 0.1 10^3/uL (0.0-0.2); ABSOLUTE EOSINOPHILS # (AUTO) 0.2 10^3/uL (0.0-0.6); ABSOLUTE LYMPHOCYTES (AUTO) 1.4 10^3/uL (0.5-4.7); ABSOLUTE MONOCYTES (AUTO) 0.7 10^3/uL (0.1-1.4); ABSOLUTE NEUT (AUTO) 4.6 10^3/uL (1.7-8.2); EOSINOPHILS % (AUTO) 3.5 % (0-6); HEMATOCRIT 28.5 % (37.9-51.0); HEMOGLOBIN 9.4 g/dL (13.5-17.0); MEAN CORPUSCULAR HEMOGLOBIN 27.2 pg (27.0-33.4); MEAN CORPUSCULAR VOLUME 82 fl (80-97); MONOCYTES % (AUTO) 10.5 % (3-13); PLATELET COUNT 191 10^3/uL (150-450); RED BLOOD COUNT 3.46 10^6/uL (4.35-5.55); RED CELL DISTRIBUTION WIDTH 14.5 % (11.5-14.0); TOTAL CELLS COUNTED % (AUTO) 100 %; WHITE BLOOD COUNT 7.1 10^3/uL (4.0-10.5)
[2018-11-03 05:26] LABS: ANION GAP 7 (5-19); BLOOD UREA NITROGEN 26 mg/dL (7-20); CALCIUM 9.7 mg/dL (8.4-10.2); CARBON DIOXIDE 28 mmol/L (22-30); CHLORIDE 106 mmol/L (98-107); GLUCOSE 139 mg/dL (75-110); POTASSIUM 3.8 mmol/L (3.6-5.0)
[2018-11-03] MEDS: HYDRALAZINE HCL 25 MG TABLET PO SCH ×3 (05:30→21:14)
[2018-11-03] MEDS: INSULIN LISPRO 100 UNIT/ML 3 ML VIAL SUBCUT SCH ×4 (08:41→22:03)
[2018-11-03] MEDS: AMLODIPINE BESYLATE 5 MG TABLET PO SCH ×2 (09:15→21:15)
[2018-11-03] MEDS: MAGNESIUM OXIDE 400 MG TABLET PO SCH (09:16)
[2018-11-03] MEDS: FERROUS SULFATE 325 MG TABLET PO SCH (09:16)
[2018-11-03] MEDS: ASPIRIN 81 MG TABLET, ENT COATED PO SCH (09:16)
[2018-11-03] MEDS: BESIFLOXACIN HCL 0.6% OPH SUSP 5 ML BOTTLE OS SCH ×2 (09:16→21:15)
[2018-11-03] MEDS: DOCUSATE SODIUM 100 MG CAPSULE PO SCH ×2 (09:16→17:26)
[2018-11-03] MEDS: INSULIN GLARGINE,HUM.REC.ANLOG 1,000 UNIT/10 ML VIAL SUBCUT SCH ×2 (09:17→22:04)
[2018-11-03] MEDS: BRIMONIDINE TARTRATE 0.2% OPH SOLN 5 ML OD SCH ×2 (09:17→21:15)
[2018-11-03] MEDS: BACITRACIN ZINC OINTMENT 15 GM EXT SCH ×2 (09:17→17:26)
--- NOTE | 2018-11-03 09:37 | PDOC PROGRESS REPORT ---
Subjective Progress Note for:: 11/03/18 Subjective:: Patient is currently doing fair Pain on the rib fracture site is under control Denies any short of breath Chest x-ray is pending Blood pressure was elevated overnight adjust the medications Reason For Visit: CHEST CONTUSION/FALL Physical Exam Vital Signs: Temp Pulse Resp BP Pulse Ox 97.5 F 59 L 10 L 153/57 H 97 11/03/18 07:20 11/03/18 07:20 11/03/18 07:20 11/03/18 07:20 11/03/18 07:20 Intake & Output 11/02/18 11/03/18 11/04/18 06:59 06:59 06:59 Intake Total 1880 Balance 1880 Weight 62.5 kg 62.3 kg General appearance: PRESENT: no acute distress, well-developed, well-nourished Head exam: PRESENT: atraumatic, normocephalic Eye exam: PRESENT: conjunctiva pink, EOMI, PERRLA. ABSENT: scleral icterus Ear exam: PRESENT: normal external ear exam Mouth exam: PRESENT: moist, tongue midline Neck exam: PRESENT: full ROM. ABSENT: carotid bruit, JVD, lymphadenopathy, thyromegaly Respiratory exam: PRESENT: clear to auscultation francesca Cardiovascular exam: PRESENT: RRR. ABSENT: diastolic murmur, rubs, systolic murmur Pulses: PRESENT: normal dorsalis pedis pul, +2 pedal pulses bilateral Vascular exam: PRESENT: normal capillary refill GI/Abdominal exam: PRESENT: normal bowel sounds, soft. ABSENT: distended, guarding, mass, organolmegaly, rebound, tenderness Rectal exam: PRESENT: deferred Neurological exam: PRESENT: alert, awake, oriented to person, oriented to place. ABSENT: motor sensory deficit Psychiatric exam: PRESENT: appropriate affect, normal mood. ABSENT: homicidal ideation, suicidal ideation Skin exam: PRESENT: dry, intact, warm. ABSENT: cyanosis, rash Results Laboratory Results: 11/03/18 04:55 11/03/18 04:55 11/03/18 11/03/18 04:55 04:55 WBC 7.1 RBC 3.46 L Hgb 9.4 L Hct 28.5 L MCV 82 MCH 27.2 MCHC 33.0 RDW 14.5 H Plt Count 191 Seg Neutrophils % 65.0 Lymphocytes % 20.0 Monocytes % 10.5 Eosinophils % 3.5 Basophils % 1.0 Absolute Neutrophils 4.6 Absolute Lymphocytes 1.4 Absolute Monocytes 0.7 Absolute Eosinophils 0.2 Absolute Basophils 0.1 Sodium 140.6 Potassium 3.8 Chloride 106 Carbon Dioxide 28 Anion Gap 7 BUN 26 H Creatinine 1.20 Est GFR ( Amer) > 60 Est GFR (Non-Af Amer) 59 L Glucose 139 H Calcium 9.7 Impressions: Hip X-Ray 11/02/18 00:34 IMPRESSION: 1. No acute fracture of the pelvis or left hip Ribs w/Chest X-Ray 11/02/18 00:34 IMPRESSION: 1. Multiple acute left 5th and 6th rib displaced fractures, with associated left lateral subpleural hemorrhage. 2. Left lower lobe infiltrate is likely pulmonary contusion. 3. No pneumothorax. Abdomen/Pelvis CT 11/02/18 05:14 IMPRESSION: Only displaced left-sided rib fractures with a small left hemothorax/pleural effusion. Groundglass opacities along the inferior aspect of the left upper and lower lobes may represent atelectasis or a pulmonary contusion. No pneumothorax. No evidence of acute traumatic injury to the abdomen or pelvis. TECHNICAL DOCUMENTATION: Quality ID # 436: Final reports with documentation of one or more dose reduction techniques (e.g., Automated exposure control, adjustment of the mA and/or kV according to patient size, use of iterative reconstruction technique) copyright 2010 [employer]- All Rights Reserved Chest CT 11/02/18 05:14 IMPRESSION: Only displaced left-sided rib fractures with a small left hemothorax/pleural effusion. Groundglass opacities along the inferior aspect of the left upper and lower lobes may represent atelectasis or a pulmonary contusion. No pneumothorax. No evidence of acute traumatic injury to the abdomen or pelvis. TECHNICAL DOCUMENTATION: Quality ID # 436: Final reports with documentation of one or more dose reduction techniques (e.g., Automated exposure control, adjustment of the mA and/or kV according to patient size, use of iterative reconstruction technique) copyright 2010 [employer]- All Rights Reserved Assessment & Plan - Diagnosis (1) Contusion of chest Qualifiers: Encounter type: initial encounter Laterality: unspecified laterality Qualified Code(s): S20.219A - Contusion of unspecified front wall of thorax, initial encounter Is this a current diagnosis for this admission?: Yes Plan: Currently all stable repeat the chest x-ray today follow with the surgery (2) Hemothorax on left Is this a current diagnosis for this admission?: Yes Plan: Currently all stable (3) Rib fractures Qualifiers: Encounter type: initial encounter Rib fracture type: multiple ribs Fracture type: closed Laterality: left Qualified Code(s): S22.42XA - Multiple fractures of ribs, left side, initial encounter for closed fracture Is this a current diagnosis for this admission?: Yes Plan: Pain control and also pulmonary toilet (4) Anemia Qualifiers: Anemia type: iron deficiency Is this a current diagnosis for this admission?: Yes (5) Cerebrovascular accident (CVA) Qualifiers: CVA mechanism: unspecified Qualified Code(s): I63.9 - Cerebral infarction, unspecified Is this a current diagnosis for this admission?: No Plan: Continue physical therapy (6) Hyperlipidemia Qualifiers: Hyperlipidemia type: unspecified Qualified Code(s): E78.5 - Hyperlipidemia, unspecified Is this a current diagnosis for this admission?: Yes Plan: Continue statin (7) Type 2 diabetes mellitus Qualifiers: Diabetes mellitus fpc insulin use: with fpc use Diabetes mellitus complication status: with unspecified complications Is this a current diagnosis for this admission?: Yes Plan: Continues to current medications sliding scale - Time Time Spent with patient: 15-24 minutes Medications reviewed and adjusted accordingly: Yes Anticipated discharge: Home with Homehealth Within: Other - Plan Summary Plan Summary: Will await the chest x-ray report follow with the surgery Increase the hydralazine 50 mg p.o. every 8 Physical therapy evaluations
[2018-11-03] MEDS: TIMOLOL MALEATE 0.5% OPH SOLN 5 ML OD SCH ×2 (10:15→21:16)
--- NOTE | 2018-11-03 10:44 | RADIOLOGY REPORT (SQ) ---
EXAM DESCRIPTION: CHEST 2 VIEWS COMPLETED DATE/TIME: 11/03/2018 9:43 am REASON FOR STUDY: chest contusion COMPARISON: CT chest 11/02/2018 AP chest 07/11/2014 EXAM PARAMETERS: NUMBER OF VIEWS: two views TECHNIQUE: Digital Frontal and Lateral radiographic views of the chest acquired. RADIATION DOSE: NA LIMITATIONS: none FINDINGS: LUNGS AND PLEURA: Left basilar atelectasis is now present. Pneumonia could not be exclude d. Trace left pleural fluid along the lateral costophrenic sulcus. No left-sided pneumothorax. Right hemithorax unremarkable. MEDIASTINUM AND HILAR STRUCTURES: No masses or contour abnormalities. HEART AND VASCULAR STRUCTURES: Heart normal size. No evidence for failure. BONES: Left lower lateral rib fractures are present. HARDWARE: None in the chest. OTHER: No other significant finding. IMPRESSION: Left basilar consolidation atelectasis versus pneumonia. Trace left pleural fluid. No pneumothorax. Left lower lateral rib fractures TECHNICAL DOCUMENTATION: JOB ID: [id number] [employer]- All Rights Reserved Reading location - IP/workstation name: [email or web address]
[2018-11-03] MEDS ORDERED: CEFEPIME 1 GM/D5W RTU 1 GM/50 ML RTUPB IV SCH (11:30)
[2018-11-03] MEDS: OXYCODONE-ACETAMINOPHEN 5-325 MG TABLET PO PRN ×2 (11:49→19:54)
[2018-11-03] MEDS: CEFEPIME HCL 1 GM in DEXTROSE 5%-WATER 50 ML IV SCH ×2 (11:53→21:16)
--- NOTE | 2018-11-03 19:49 | PDOC PROGRESS REPORT ---
Subjective Progress Note for:: 11/03/18 Subjective:: This is a 73-year-old male status post fall. He has left-sided rib fractures. Patient reports pain in his chest wall, however he appears to be breathing without difficulty. He denies significant shortness of breath. He denies headache, nausea, vomiting, fatigue, malaise, blurry vision, dizziness, melena, hematemesis, hematochezia, abdominal distention, sore throat. The patient reports that his oral pain medications are working well. Reason For Visit: CHEST CONTUSION/FALL Physical Exam Vital Signs: Temp Pulse Resp BP Pulse Ox 97.3 F 62 12 163/60 H 97 11/03/18 15:53 11/03/18 15:53 11/03/18 15:53 11/03/18 15:53 11/03/18 15:53 Intake & Output 11/02/18 11/03/18 11/04/18 06:59 06:59 06:59 Intake Total 1880 605 Balance 1880 605 Weight 62.5 kg 62.3 kg General appearance: PRESENT: no acute distress, cooperative Head exam: PRESENT: atraumatic, normocephalic Eye exam: PRESENT: EOMI, PERRLA. ABSENT: scleral icterus Mouth exam: PRESENT: moist, neck supple Neck exam: ABSENT: meningismus, tenderness, thyromegaly, tracheal deviation Respiratory exam: PRESENT: chest wall tenderness Cardiovascular exam: PRESENT: RRR Vascular exam: ABSENT: pallor GI/Abdominal exam: PRESENT: soft. ABSENT: distended, firm, guarding, rigid, tenderness Rectal exam: PRESENT: deferred Gentrourinary exam: ABSENT: erythema Extremities exam: ABSENT: clubbing Musculoskeletal exam: ABSENT: deformity Neurological exam: PRESENT: alert, awake, oriented to person, oriented to place Psychiatric exam: ABSENT: agitated, anxious, depressed Focused psych exam: ABSENT: delusional Skin exam: ABSENT: cyanosis, erythema, jaundice Results Laboratory Results: 11/03/18 04:55 11/03/18 04:55 11/03/18 11/03/18 04:55 04:55 WBC 7.1 RBC 3.46 L Hgb 9.4 L Hct 28.5 L MCV 82 MCH 27.2 MCHC 33.0 RDW 14.5 H Plt Count 191 Seg Neutrophils % 65.0 Lymphocytes % 20.0 Monocytes % 10.5 Eosinophils % 3.5 Basophils % 1.0 Absolute Neutrophils 4.6 Absolute Lymphocytes 1.4 Absolute Monocytes 0.7 Absolute Eosinophils 0.2 Absolute Basophils 0.1 Sodium 140.6 Potassium 3.8 Chloride 106 Carbon Dioxide 28 Anion Gap 7 BUN 26 H Creatinine 1.20 Est GFR ( Amer) > 60 Est GFR (Non-Af Amer) 59 L Glucose 139 H Calcium 9.7 Impressions: Hip X-Ray 11/02/18 00:34 IMPRESSION: 1. No acute fracture of the pelvis or left hip Ribs w/Chest X-Ray 11/02/18 00:34 IMPRESSION: 1. Multiple acute left 5th and 6th rib displaced fractures, with associated left lateral subpleural hemorrhage. 2. Left lower lobe infiltrate is likely pulmonary contusion. 3. No pneumothorax. Abdomen/Pelvis CT 11/02/18 05:14 IMPRESSION: Only displaced left-sided rib fractures with a small left hemothorax/pleural effusion. Groundglass opacities along the inferior aspect of the left upper and lower lobes may represent atelectasis or a pulmonary contusion. No pneumothorax. No evidence of acute traumatic injury to the abdomen or pelvis. TECHNICAL DOCUMENTATION: Quality ID # 436: Final reports with documentation of one or more dose reduction techniques (e.g., Automated exposure control, adjustment of the mA and/or kV according to patient size, use of iterative reconstruction technique) copyright 2010 [employer]- All Rights Reserved Chest CT 11/02/18 05:14 IMPRESSION: Only displaced left-sided rib fractures with a small left hemothorax/pleural effusion. Groundglass opacities along the inferior aspect of the left upper and lower lobes may represent atelectasis or a pulmonary contusion. No pneumothorax. No evidence of acute traumatic injury to the abdomen or pelvis. TECHNICAL DOCUMENTATION: Quality ID # 436: Final reports with documentation of one or more dose reduction techniques (e.g., Automated exposure control, adjustment of the mA and/or kV according to patient size, use of iterative reconstruction technique) copyright 2010 [employer]- All Rights Reserved Chest X-Ray 11/03/18 06:00 IMPRESSION: Left basilar consolidation atelectasis versus pneumonia. Trace left pleural fluid. No pneumothorax. Left lower lateral rib fractures Assessment & Plan - Diagnosis (1) Rib fractures Qualifiers: Encounter type: initial encounter Rib fracture type: multiple ribs Fracture type: closed Laterality: left Qualified Code(s): S22.42XA - Multiple fractures of ribs, left side, initial encounter for closed fracture Is this a current diagnosis for this admission?: Yes - Plan Summary Plan Summary: This is a 73-year-old male with left-sided rib fractures. The patient appears comfortable today. He can achieve greater than 1250 on his incentive spirometer. He reports that the Percocet is working well for his pain. I recommend continuation of the Percocet at discharge. The patient would also benefit from ibuprofen 800 mg p.o. 3 times daily with meals, if okay with Dr. Tomlinson. The patient has no sign of hemothorax or pneumothorax on chest x-ray today. Surgery will sign off at this time. The patient should continue with breathing exercises, and pain medications. Follow-up with [facility] in 2 weeks. Please renotify with any questions or concerns.
[2018-11-03] MEDS: ATORVASTATIN CALCIUM 40 MG TABLET PO SCH (21:14)
[2018-11-03] MEDS: LATANOPROST 0.005% OPH SOLN 2.5 ML OS SCH (21:19)
[2018-11-04 04:50] LABS: ABSOLUTE BASOPHILS # (AUTO) 0.1 10^3/uL (0.0-0.2); ABSOLUTE EOSINOPHILS # (AUTO) 0.3 10^3/uL (0.0-0.6); ABSOLUTE LYMPHOCYTES (AUTO) 1.3 10^3/uL (0.5-4.7); ABSOLUTE MONOCYTES (AUTO) 0.7 10^3/uL (0.1-1.4); ABSOLUTE NEUT (AUTO) 4.5 10^3/uL (1.7-8.2); BASOPHILS % (AUTO) 1.2 % (0-2); HEMATOCRIT 29.3 % (37.9-51.0); HEMOGLOBIN 9.7 g/dL (13.5-17.0); LYMPHOCYTES % (AUTO) 19.4 % (13-45); MEAN CORPUSCULAR HEMOGLOBIN 27.3 pg (27.0-33.4); MEAN CORPUSCULAR VOLUME 83 fl (80-97); MONOCYTES % (AUTO) 10.3 % (3-13); PLATELET COUNT 196 10^3/uL (150-450); RED BLOOD COUNT 3.54 10^6/uL (4.35-5.55); RED CELL DISTRIBUTION WIDTH 14.3 % (11.5-14.0); SEGMENTED NEUTROPHILS % (AUTO) 65.1 % (42-78); TOTAL CELLS COUNTED % (AUTO) 100 %; WHITE BLOOD COUNT 6.9 10^3/uL (4.0-10.5)
[2018-11-04] MEDS: HYDRALAZINE HCL 25 MG TABLET PO SCH ×3 (05:00→22:07)
[2018-11-04 05:11] LABS: ANION GAP 8 (5-19); BLOOD UREA NITROGEN 29 mg/dL (7-20); CALCIUM 9.7 mg/dL (8.4-10.2); CARBON DIOXIDE 28 mmol/L (22-30); CHLORIDE 106 mmol/L (98-107); GLUCOSE 79 mg/dL (75-110); POTASSIUM 4.1 mmol/L (3.6-5.0)
[2018-11-04] MEDS: INSULIN LISPRO 100 UNIT/ML 3 ML VIAL SUBCUT SCH ×4 (09:00→22:07)
--- NOTE | 2018-11-04 10:09 | PDOC TRANSFER SUMMARY ---
General - Admit/Disc Date/PCP Admission Date/Primary Care Provider: 11/02/18 08:55 EMILY BAXTER MD Discharge Date: 11/04/18 - Discharge Diagnosis (1) Contusion of chest Is this a current diagnosis for this admission?: Yes Summary: Currently all stable per surgery follow in 1 weekTo surgical clinic (2) Hemothorax on left Is this a current diagnosis for this admission?: Yes Summary: Currently all stable repeat the chest x-ray in 3 days (3) Rib fractures Is this a current diagnosis for this admission?: Yes Summary: Continues incentive spirometry and as needed pain medications (4) Anemia Is this a current diagnosis for this admission?: Yes Summary: Currently all stable (5) Cerebrovascular accident (CVA) Is this a current diagnosis for this admission?: No Summary: Continues to aspirin Plavix and statin get the physical therapy (6) Hyperlipidemia Is this a current diagnosis for this admission?: Yes Summary: Continues to statin (7) Type 2 diabetes mellitus Is this a current diagnosis for this admission?: Yes Summary: Currently all stable (8) Pneumonia Is this a current diagnosis for this admission?: Yes Summary: Start the patient on the Levaquin 500 mg p.o. daily most likely due to the recent chest contusions we will continue to monitor in the rehab facilities to repeat the chest x-ray in 3 days - Additional Information Resuscitation Status: Full Code Discharge Diet: Diabetic Discharge Activity: Activity As Tolerated Prescriptions: Hydralazine HCl [Apresoline 25 mg Tablet] 50 mg PO Q8 #90 tablet Levofloxacin [Levaquin 500 mg Tablet] 500 mg PO DAILY #7 tablet Oxycodone HCl/Acetaminophen [Percocet 5-325 mg Tablet] 1 tab PO Q6HP PRN #30 tablet PRN Reason: Home Medications: Amlodipine Besylate [Norvasc 5 mg Tablet] 5 mg PO Q12 11/02/18 Aspirin [Adult Low Dose Aspirin EC] 81 mg PO DAILY 11/02/18 Atorvastatin Calcium [Lipitor 40 mg Tablet] 40 mg PO DAILY 11/02/18 Bacitracin Zinc [Bacitracin Oint 15 gm] 1 applic OU BID 11/02/18 Besifloxacin HCl [Besivance 0.6% Oph Susp 5 ml] 1 drop OS BID 11/02/18 Bimatoprost [Lumigan 0.01% Oph Soln 2.5 ml/Bottle] 1 drop OS QHS 11/02/18 Brimonidine Tartrate/Timolol [Combigan 0.2%-0.5% Eye Drops] 1 drop OD BID 11/02/18 Clopidogrel Bisulfate [Plavix 75 mg Tablet] 75 mg PO DAILY 11/02/18 Dextran 70/Hypromellose/Pf [Genteal Tears 0.1%-0.3% Drop] 1 drop OU BID 11/02/18 Ferrous Sulfate [Feosol] 325 mg PO DAILY 11/02/18 Insulin Glargine,Hum.rec.anlog [Lantus Insulin 100 Unit/mL Insulin Pen] 14 unit SUBCUT Q12 11/02/18 Loteprednol Etabonate [Lotemax 0.5% Ophth Susp] 1 drop OS DAILY 11/02/18 Magnesium Oxide 400 mg PO DAILY 11/02/18 Hydralazine HCl [Apresoline 25 mg Tablet] 50 mg PO Q8 #90 tablet 11/04/18 Levofloxacin [Levaquin 500 mg Tablet] 500 mg PO DAILY #7 tablet 11/04/18 Oxycodone HCl/Acetaminophen [Percocet 5-325 mg Tablet] 1 tab PO Q6HP PRN #30 tablet 11/04/18 History of Present Illness Admission Date/PCP: 11/02/18 08:55 EMILY BAXTER MD History of Present Illness: JYOTI POLLOCK is a 73 year old male This is a 73-year-old male with this type 2 diabetes hypertension's history of the cerebrovascular accident recently with a left-sided weakness was coming out of the bathtub and patient's fell and complaining of left-sided rib pain and hip pain In the emergency departments patient with multiple rib fracture and some chest contusions and patient seen by the general surgery and suggest to monitor for next 24 hours pain control and repeat the chest x-ray Patient's when I saw in the emergency department doing fair denied any other new symptoms Hospital Course Hospital Course: This is a 73-year-old male presented the emergency department because of the fall and the chest contusions patient had a all the chest CTs x-rays done all stable seen by the general surgery and clear from the surgical standpoint Patient is currently doing much better patient's repeat chest x-ray shows questionable pneumonia because of the patient's pretty much not able to move we will put the patient on antibiotics Discussed with the patient's family at this point with ongoing problem with weakness with the recent stroke we will send the patient in the nursing facilities in the rehab Other medical problem is all stable Patient's otherwise denied any complaint on the discharge Continues to nebulizer and also use the incentive spirometry Repeat the CBC and Chem-7 in 3 days and repeat the chest x-ray in 3 days Follow with the surgical clinic in 2 weeks Physical Exam Vital Signs: Temp Pulse Resp BP Pulse Ox 98.2 F 69 16 153/55 H 90 L 11/04/18 03:24 11/04/18 03:24 11/04/18 03:24 11/04/18 03:24 11/04/18 03:24 Intake & Output 11/03/18 11/04/18 11/05/18 06:59 06:59 06:59 Intake Total 1880 755 Balance 1880 755 Weight 62.3 kg 63.9 kg General appearance: PRESENT: no acute distress Head exam: PRESENT: atraumatic, normocephalic Eye exam: PRESENT: conjunctiva pink, EOMI, PERRLA. ABSENT: scleral icterus Ear exam: PRESENT: normal external ear exam Mouth exam: PRESENT: moist, tongue midline Neck exam: ABSENT: carotid bruit, JVD, lymphadenopathy, thyromegaly Respiratory exam: PRESENT: clear to auscultation francesca. ABSENT: rales, rhonchi, wheezes Cardiovascular exam: PRESENT: RRR. ABSENT: diastolic murmur, rubs, systolic murmur Pulses: PRESENT: normal dorsalis pedis pul Vascular exam: PRESENT: normal capillary refill GI/Abdominal exam: PRESENT: normal bowel sounds, soft. ABSENT: distended, guarding, mass, organolmegaly, rebound, tenderness Rectal exam: PRESENT: deferred Extremities exam: PRESENT: full ROM. ABSENT: calf tenderness, clubbing, pedal edema Neurological exam: PRESENT: alert, awake, oriented to person, oriented to place, oriented to time, oriented to situation, CN II-XII grossly intact. ABSENT: motor sensory deficit Psychiatric exam: PRESENT: appropriate affect, normal mood. ABSENT: homicidal ideation, suicidal ideation Skin exam: PRESENT: dry, intact, warm. ABSENT: cyanosis, rash Additional comments: General weakness in the left lower extremities with the old strokes Results Laboratory Results: 11/04/18 04:17 11/04/18 04:17 11/04/18 11/04/18 04:17 04:17 WBC 6.9 RBC 3.54 L Hgb 9.7 L Hct 29.3 L MCV 83 MCH 27.3 MCHC 33.0 RDW 14.3 H Plt Count 196 Seg Neutrophils % 65.1 Lymphocytes % 19.4 Monocytes % 10.3 Eosinophils % 4.0 Basophils % 1.2 Absolute Neutrophils 4.5 Absolute Lymphocytes 1.3 Absolute Monocytes 0.7 Absolute Eosinophils 0.3 Absolute Basophils 0.1 Sodium 142.3 Potassium 4.1 Chloride 106 Carbon Dioxide 28 Anion Gap 8 BUN 29 H Creatinine 1.29 H Est GFR ( Amer) > 60 Est GFR (Non-Af Amer) 54 L Glucose 79 Calcium 9.7 Impressions: Hip X-Ray 11/02/18 00:34 IMPRESSION: 1. No acute fracture of the pelvis or left hip Ribs w/Chest X-Ray 11/02/18 00:34 IMPRESSION: 1. Multiple acute left 5th and 6th rib displaced fractures, with associated left lateral subpleural hemorrhage. 2. Left lower lobe infiltrate is likely pulmonary contusion. 3. No pneumothorax. Abdomen/Pelvis CT 11/02/18 05:14 IMPRESSION: Only displaced left-sided rib fractures with a small left hemothorax/pleural effusion. Groundglass opacities along the inferior aspect of the left upper and lower lobes may represent atelectasis or a pulmonary contusion. No pneumothorax. No evidence of acute traumatic injury to the abdomen or pelvis. TECHNICAL DOCUMENTATION: Quality ID # 436: Final reports with documentation of one or more dose reduction techniques (e.g., Automated exposure control, adjustment of the mA and/or kV according to patient size, use of iterative reconstruction technique) copyright 2011 [employer]- All Rights Reserved Chest CT 11/02/18 05:14 IMPRESSION: Only displaced left-sided rib fractures with a small left hemothorax/pleural effusion. Groundglass opacities along the inferior aspect of the left upper and lower lobes may represent atelectasis or a pulmonary contusion. No pneumothorax. No evidence of acute traumatic injury to the abdomen or pelvis. TECHNICAL DOCUMENTATION: Quality ID # 436: Final reports with documentation of one or more dose reduction techniques (e.g., Automated exposure control, adjustment of the mA and/or kV according to patient size, use of iterative reconstruction technique) copyright 2011 [employer]- All Rights Reserved Chest X-Ray 11/03/18 06:00 IMPRESSION: Left basilar consolidation atelectasis versus pneumonia. Trace left pleural fluid. No pneumothorax. Left lower lateral rib fractures Transfer Plan - Time Spent with Patient Time spent with patient: Greater than 30 Minutes Qualifiers - * PATIENT BEING DISCHARGED WITH ANY OF THE FOLLOWING DIAGNOSIS: No VTE patient discharged on overlapping Therapy?: Yes Acute Heart Failure - Is this a Heart Failure Patient?: No Plan Time Spent: Greater than 30 Minutes - Discharge to the nursing facilities Repeat the chest x-ray in 3 days Physical therapy Fall precautions Check a CBC and Chem-7 in 1 week Follow with the surgical clinic in the 1 to 2 weeks
[2018-11-04] MEDS: BESIFLOXACIN HCL 0.6% OPH SUSP 5 ML BOTTLE OS SCH ×2 (11:00→22:08)
[2018-11-04] MEDS: CEFEPIME HCL 1 GM in DEXTROSE 5%-WATER 50 ML IV SCH ×2 (11:00→22:06)
[2018-11-04] MEDS: ASPIRIN 81 MG TABLET, ENT COATED PO SCH (11:00)
[2018-11-04] MEDS: TIMOLOL MALEATE 0.5% OPH SOLN 5 ML OD SCH ×2 (11:00→22:08)
[2018-11-04] MEDS: INSULIN GLARGINE,HUM.REC.ANLOG 1,000 UNIT/10 ML VIAL SUBCUT SCH ×2 (11:00→22:06)
[2018-11-04] MEDS: MAGNESIUM OXIDE 400 MG TABLET PO SCH (11:00)
[2018-11-04] MEDS: DOCUSATE SODIUM 100 MG CAPSULE PO SCH ×2 (11:00→18:20)
[2018-11-04] MEDS: BRIMONIDINE TARTRATE 0.2% OPH SOLN 5 ML OD SCH ×2 (11:00→22:07)
[2018-11-04] MEDS: BACITRACIN ZINC OINTMENT 15 GM EXT SCH ×2 (11:00→18:20)
[2018-11-04] MEDS: AMLODIPINE BESYLATE 5 MG TABLET PO SCH ×2 (11:00→22:07)
[2018-11-04] MEDS: FERROUS SULFATE 325 MG TABLET PO SCH (11:15)
[2018-11-04] MEDS: OXYCODONE-ACETAMINOPHEN 5-325 MG TABLET PO PRN (14:35)
[2018-11-04] MEDS: ATORVASTATIN CALCIUM 40 MG TABLET PO SCH (22:07)
[2018-11-04] MEDS: LATANOPROST 0.005% OPH SOLN 2.5 ML OS SCH (22:52)
[2018-11-05] MEDS ORDERED: HYDRALAZINE HCL INJ/PF 20 MG/1 ML SDV IV ONE (05:00)
[2018-11-05] MEDS: HYDRALAZINE HCL 25 MG TABLET PO SCH ×2 (05:27→14:29)
[2018-11-05 06:00] LABS: ABSOLUTE BASOPHILS # (AUTO) 0.1 10^3/uL (0.0-0.2); ABSOLUTE EOSINOPHILS # (AUTO) 0.2 10^3/uL (0.0-0.6); ABSOLUTE LYMPHOCYTES (AUTO) 1.3 10^3/uL (0.5-4.7); ABSOLUTE MONOCYTES (AUTO) 0.9 10^3/uL (0.1-1.4); ABSOLUTE NEUT (AUTO) 5.1 10^3/uL (1.7-8.2); BASOPHILS % (AUTO) 1.3 % (0-2); EOSINOPHILS % (AUTO) 2.4 % (0-6); HEMATOCRIT 32.3 % (37.9-51.0); HEMOGLOBIN 10.5 g/dL (13.5-17.0); LYMPHOCYTES % (AUTO) 16.8 % (13-45); MEAN CORPUSCULAR HEMOGLOBIN 26.5 pg (27.0-33.4); MEAN CORPUSCULAR HGB CONC 32.3 g/dL (32.0-36.0); MEAN CORPUSCULAR VOLUME 82 fl (80-97); MONOCYTES % (AUTO) 11.9 % (3-13); PLATELET COUNT 225 10^3/uL (150-450); RED BLOOD COUNT 3.95 10^6/uL (4.35-5.55); SEGMENTED NEUTROPHILS % (AUTO) 67.6 % (42-78); TOTAL CELLS COUNTED % (AUTO) 100 %; WHITE BLOOD COUNT 7.5 10^3/uL (4.0-10.5)
[2018-11-05 06:12] LABS: ANION GAP 11 (5-19); BLOOD UREA NITROGEN 26 mg/dL (7-20); CALCIUM 9.9 mg/dL (8.4-10.2); CARBON DIOXIDE 26 mmol/L (22-30); CHLORIDE 105 mmol/L (98-107); GLUCOSE 177 mg/dL (75-110); POTASSIUM 4.1 mmol/L (3.6-5.0)
[2018-11-05] MEDS: INSULIN LISPRO 100 UNIT/ML 3 ML VIAL SUBCUT SCH ×3 (08:15→17:18)
[2018-11-05] MEDS: OXYCODONE-ACETAMINOPHEN 5-325 MG TABLET PO PRN ×2 (08:30→14:30)
[2018-11-05] MEDS: CEFEPIME HCL 1 GM in DEXTROSE 5%-WATER 50 ML IV SCH (09:53)
[2018-11-05] MEDS: ASPIRIN 81 MG TABLET, ENT COATED PO SCH (09:54)
[2018-11-05] MEDS: FERROUS SULFATE 325 MG TABLET PO SCH (09:54)
[2018-11-05] MEDS: MAGNESIUM OXIDE 400 MG TABLET PO SCH (09:55)
[2018-11-05] MEDS: DOCUSATE SODIUM 100 MG CAPSULE PO SCH ×2 (09:55→17:20)
[2018-11-05] MEDS: AMLODIPINE BESYLATE 5 MG TABLET PO SCH (09:55)
[2018-11-05] MEDS: INSULIN GLARGINE,HUM.REC.ANLOG 1,000 UNIT/10 ML VIAL SUBCUT SCH (10:09)
[2018-11-05] MEDS: TIMOLOL MALEATE 0.5% OPH SOLN 5 ML OD SCH (10:09)
[2018-11-05] MEDS: BRIMONIDINE TARTRATE 0.2% OPH SOLN 5 ML OD SCH (10:10)
[2018-11-05] MEDS: BESIFLOXACIN HCL 0.6% OPH SUSP 5 ML BOTTLE OS SCH (10:10)
[2018-11-05] MEDS: BACITRACIN ZINC OINTMENT 15 GM EXT SCH ×2 (10:10→17:31)
[2018-11-05 14:28] VITALS: BP 148/55
== END 2018-11-05 17:43 | DRG 183 ==
LOC: ER 21:58 → EH 11-02 08:55 → 3S 11-02 11:22
PROVIDERS: ADMIT Family Medicine; ATTEND Family Medicine
DX: S22.42XA Multiple fractures of ribs, left side, initial encounter for closed fracture (principal); S27.1XXA Traumatic hemothorax, initial encounter; J18.9 Pneumonia, unspecified organism; I69.354 Hemiplegia and hemiparesis following cerebral infarction affecting left non-dominant side; S20.219A Contusion of unspecified front wall of thorax, initial encounter; M25.552 Pain in left hip; I25.10 Atherosclerotic heart disease of native coronary artery without angina pectoris; I10 Essential (primary) hypertension; D50.9 Iron deficiency anemia, unspecified; E78.5 Hyperlipidemia, unspecified; E11.8 Type 2 diabetes mellitus with unspecified complications; M19.90 Unspecified osteoarthritis, unspecified site; W18.2XXA Fall in (into) shower or empty bathtub, initial encounter; Y93.89 Activity, other specified; Y92.091 Bathroom in other non-institutional residence as the place of occurrence of the external cause; Z79.01 Long term (current) use of anticoagulants; Z79.82 Long term (current) use of aspirin; Z79.4 Long term (current) use of insulin; Z79.899 Other long term (current) drug therapy
CPT/HCPCS: 36415; 71046; 71260; 74177; 80048; 82962; 85025; 85610; 85730; 96361; 96374; 99285; J0360; J0692; J1815; J2270; J3490; J7030; J7060

== ENCOUNTER 2020-03-10 19:59 | Inpatient (IN) | payer MEDICARE, OTHER ==
--- NOTE | 2020-03-10 21:14 | ER Document Report ---
ED Medical Screen (RME) - General Chief Complaint: Fall Injury Stated Complaint: FALL, LEFT HIP PAIN Time Seen by Provider: 03/10/20 21:06 Primary Care Provider: CHARITY BAIN MD [Primary Care Provider] - Follow up as needed Mode of Arrival: Wheelchair Information source: Patient Notes: 75-year-old male presented to ED for complaint of pain to the left hip. He is blind. He states he was coming out of the bathroom reaching for his walker when he fell down. He states his head was hurting but that does not hurt now but his left hip is very painful. He has not stepped on this foot since he fell down. His left foot is turned outward. His son states that the patient has a wheelchair in his house they were able to get him into the wheelchair at home getting into the car and then bring him into the emergency room in a wheelchair. He states that his foot is always turned out since his stroke. He states he did hit his head he has tenderness to palpation to the left side of his head. I have greeted and performed a rapid initial assessment of this patient. A comprehensive ED assessment and evaluation of the patient, analysis of test results and completion of medical decision making process will be conducted by an additional ED providers. TRAVEL OUTSIDE OF THE [place] IN LAST 30 DAYS: No - Related Data Allergies/Adverse Reactions: No Known Allergies Allergy (Verified 11/02/18 00:19) Past Medical History - General Information source: Patient - Social History Cigarette use (# per day): No - Former Frequency of alcohol use: None Drug Abuse: None Lives with: Family Family history: Reviewed & Not Pertinent - Past Medical History Cardiac Medical History: Reports: Hx Coronary Artery Disease, Hx Hypercholesterolemia, Hx Hypertension Pulmonary Medical History: Reports: None EENT Medical History: Reports: None Neurological Medical History: Reports: Hx Cerebrovascular Accident - X3, STATES NO DEFICITS. Denies: Hx Seizures Endocrine Medical History: Reports: Hx Diabetes Mellitus Type 2 Renal/ Medical History: Reports: None Malignancy Medical History: Reports Hx Prostate Cancer GI Medical History: Reports: Hx Gastroesophageal Reflux Disease Musculoskeltal Medical History: Reports Hx Arthritis, Reports Hx Musculoskeletal Trauma Skin Medical History: Reports None Psychiatric Medical History: Reports: None Traumatic Medical History: Reports: Hx Fractures - Ribs Infectious Medical History: Reports: None Past Surgical History: Reports: Hx Genitourinary Surgery - Prostate, Other - Immunizations Immunizations up to date: Yes Hx Diphtheria, Pertussis, Tetanus Vaccination: Yes - 2019 History of Pneumococcal Vaccine: No History of Influenza Vaccine for 12/2018 - 05/2019 Season: No Physical Exam - Vital signs Vitals: Temp Pulse Resp BP Pulse Ox 98.8 F 74 18 159/51 H 97 03/10/20 20:55 03/10/20 20:55 03/10/20 20:55 03/10/20 20:55 03/10/20 20:55 Course - Vital Signs Vital signs: Temp Pulse Resp BP Pulse Ox 98.8 F 74 18 159/51 H 97 03/10/20 20:55 03/10/20 20:55 03/10/20 20:55 03/10/20 20:55 03/10/20 20:55 Doctor's Discharge - Discharge Referrals: CHARITY BAIN MD [Primary Care Provider] - Follow up as needed
[2020-03-10] MEDS ORDERED: OXYCODONE-ACETAMINOPHEN 5-325 MG TABLET PO ONE (21:15)
--- NOTE | 2020-03-10 21:55 | RADIOLOGY REPORT (SQ) ---
EXAM DESCRIPTION: CT HEAD WITHOUT IV CONTRAST COMPLETED DATE/TME: 03/10/2020 21:25 CLINICAL HISTORY: 75 years, Male, Fall head injury with pain COMPARISON: July 08, 2018 CT and July 10, 2018 MRI TECHNIQUE: Noncontrast images of the brain were obtained. Images stored on PACS. All CT scanners at this facility use dose modulation, iterative reconstruction, and/or weight based dosing when appropriate to reduce radiation dose to as low as reasonably achievable (ALARA). [facility]: Dose Right [facility]: CareDose [facility]: Dose Right [facility]: Teradose 4D [facility]: [employer] LIMITATIONS: None. FINDINGS: Generalized atrophy, sequelae of chronic small vessel ischemic disease within the deep white matter and deep howard matter, and old right CRISTHIAN infarct are noted. There is no acute intracranial hemorrhage, abnormal mass effect, or definite acute or evolving major vascular territorial infarction. There is no hydrocephalus. The calvarium is intact. The visualized portions of the paranasal sinuses and mastoid air cells are clear. IMPRESSION: Chronic ischemic changes as above. No definite acute intracranial abnormality is seen. TECHNICAL DOCUMENTATION: Quality ID # 436: Final reports with documentation of one or more dose reduction techniques (e.g., Automated exposure control, adjustment of the mA and/or kV according to patient size, use of iterative reconstruction technique) copyright 2011 [employer]- All Rights Reserved
--- NOTE | 2020-03-10 22:02 | RADIOLOGY REPORT (SQ) ---
EXAM DESCRIPTION: XR HIP 2 OR MORE VIEWS COMPLETED DATE/TME: 03/10/2020 21:42 CLINICAL HISTORY: 75 years, Male, Fall with hip injury COMPARISON: 11/02/2018 pelvis NUMBER OF VIEWS: AP pelvis single view left hip TECHNIQUE: AP pelvis single view left hip LIMITATIONS: None. FINDINGS: Osteopenia. Displaced intertrochanteric fracture of the left femur. No dislocation. The lesser trochanter fracture fragment is displaced medially by approximately 8 mm. IMPRESSION: Left intertrochanteric fracture deformity as above copyright 2010 [employer]- All Rights Reserved
[2020-03-10 22:45] LABS: ABSOLUTE LYMPHOCYTES (AUTO) 0.6 10^3/uL (0.5-4.7); ABSOLUTE MONOCYTES (AUTO) 0.4 10^3/uL (0.1-1.4); ABSOLUTE NEUT (AUTO) 7.2 10^3/uL (1.7-8.2); BASOPHILS % (AUTO) 0.2 % (0-2); HEMATOCRIT 30.4 % (37.9-51.0); HEMOGLOBIN 9.8 g/dL (13.5-17.0); LYMPHOCYTES % (AUTO) 7.4 % (13-45); MEAN CORPUSCULAR HEMOGLOBIN 27.1 pg (27.0-33.4); MEAN CORPUSCULAR HGB CONC 32.1 g/dL (32.0-36.0); MEAN CORPUSCULAR VOLUME 84 fl (80-97); MONOCYTES % (AUTO) 5.3 % (3-13); PLATELET COUNT 181 10^3/uL (150-450); RED CELL DISTRIBUTION WIDTH 14.4 % (11.5-14.0); SEGMENTED NEUTROPHILS % (AUTO) 87.1 % (42-78); TOTAL CELLS COUNTED % (AUTO) 100 %; WHITE BLOOD COUNT 8.3 10^3/uL (4.0-10.5)
[2020-03-10 22:52] LABS: ALBUMIN 3.8 g/dL (3.5-5.0); ALKALINE PHOSPHATASE 137 U/L (38-126); ANION GAP 9 (5-19); ASPARTATE AMINO TRANSFERASE 45 U/L (17-59); BILIRUBIN,DIRECT 0.2 mg/dL (0.0-0.4); BILIRUBIN,TOTAL 0.4 mg/dL (0.2-1.3); BLOOD UREA NITROGEN 39 mg/dL (7-20); CARBON DIOXIDE 25 mmol/L (22-30); CHLORIDE 97 mmol/L (98-107); POTASSIUM 5.7 mmol/L (3.6-5.0); TOTAL PROTEIN 6.7 g/dL (6.3-8.2)
[2020-03-10 23:01] LABS: GLUCOSE 581 mg/dL (75-110)
[2020-03-10] MEDS ORDERED: NORMAL SALINE 1000 ML 1,000 ML IV ONE (23:19)
[2020-03-10] MEDS ORDERED: INSULIN REG, HUMAN 100 UNIT/ML 3 ML VIAL (PYX) SUBCUT ONE (23:29)
--- NOTE | 2020-03-10 23:48 | ER Document Report ---
ED Fall - General Chief Complaint: Fall Injury Stated Complaint: FALL, LEFT HIP PAIN Time Seen by Provider: 03/10/20 21:06 Mode of Arrival: Wheelchair Information source: Patient TRAVEL OUTSIDE OF THE [place] IN LAST 30 DAYS: No - HPI Notes: Patient is a 75-year-old male with a past medical history of previous CVA with residual left-sided deficits and diabetes who presents after a fall. Patient states he was going from the bathroom to his wheelchair and he fell. He denies syncope. He thinks that he hit his head. He denies any neck pain. Patient has pain in his left hip. He states that his left leg is always rotated outward from the stroke. He was not ambulatory after the event. He is here with his son. Patient denies any chest pain or shortness of breath. No abdominal pain. He states he has some pain to his left shoulder but that is not new. - Related data Allergies/Adverse Reactions: No Known Allergies Allergy (Verified 11/02/18 00:19) Past Medical History - General Information source: Patient, Relative - Social History Smoking Status: Former Smoker Cigarette use (# per day): No - Former Chew tobacco use (# tins/day): No Frequency of alcohol use: None Drug Abuse: None Lives with: Family Family History: Reviewed & Not Pertinent - Past Medical History Cardiac Medical History: Reports: Hx Coronary Artery Disease, Hx Hypercholesterolemia, Hx Hypertension Pulmonary Medical History: Reports: None EENT Medical History: Reports: None Neurological Medical History: Reports: Hx Cerebrovascular Accident - X3, S TATES NO DEFICITS. Denies: Hx Seizures Endocrine Medical History: Reports: Hx Diabetes Mellitus Type 2 Renal/ Medical History: Reports: None Malignancy Medical History: Reports Hx Prostate Cancer GI Medical History: Reports: Hx Gastroesophageal Reflux Disease Musculoskeletal Medical History: Reports Hx Arthritis, Reports Hx Musculoskeletal Trauma Skin Medical History: Reports None Psychiatric Medical History: Reports: None Traumatic Medical History: Reports: Hx Fractures - Ribs Infectious Medical History: Reports: None Past Surgical History: Reports: Hx Genitourinary Surgery - Prostate, Other - Immunizations Immunizations up to date: Yes Hx Diphtheria, Pertussis, Tetanus Vaccination: Yes - 2020 History of Pneumococcal Vaccine: No Review of Systems - Review of Systems Notes: CONSTITUTIONAL: No fever, fatigue or weight loss. SKIN: No rash. CARDIOVASCULAR: No chest pain or edema. RESPIRATORY: No cough, shortness of breath, congestion, or wheezing. GASTROINTESTINAL: No abdominal pain, nausea, vomiting, bloody stools or diarrhea. GENITOURINARY: No dysuria. MUSCULOSKELETAL: Pain to left hip. Left leg is shortened and rotated externally. No neck pain. Positive for left shoulder pain. LYMPHATIC: No swollen glands. NEUROLOGIC: No seizures. No headache, focal weakness or sensory changes. HEMATOLOGIC: No unusual bruising or bleeding. PSYCHIATRIC: No depression or anxiety. Physical Exam - Vital signs Vitals: Temp Pulse Resp BP Pulse Ox 98.8 F 74 18 159/51 H 97 03/10/20 20:55 03/10/20 20:55 03/10/20 20:55 03/10/20 20:55 03/10/20 20:55 - General In distress: None Notes: VITAL SIGNS: Within normal limits. GENERAL: No acute distress, non-toxic appearance. HEAD: Normal with no signs of head trauma. EYES: Conjunctiva normal, no discharge. EARS: Hearing grossly intact. NOSE: Normal. NECK: Normal range of motion, no tenderness, supple, no lymphadenopathy, No adenopathy, no JVD. No posterior cervical tenderness. CHEST: Clear breath sounds bilaterally. No wheezes, rales, or rhonchi. CARDIAC: Regular rate and rhythm. S1 and S2. VASCULAR: Chronic edema to left lower extremity per son after his CVA. ABDOMEN: Normal and soft with no tenderness LYMPATHTIC: No lymphadenopathy noted. MUSCULOSKELETAL: Range of motion of left hip limited due to fracture. Range of motion of lower extremity is intact. Capillary refill is normal. NEUROLOGICAL: Alert and oriented x 3. Residual left-sided weakness from previous stroke. PSYCHIATRIC: Normal Affect, judgement and mood. SKIN: Normal appearance with no rashes or lesions. Course - Re-evaluation Re-evalutation: 03/10/20 23:46 Patient has a left hip fracture. He is not on any blood thinners. I discussed with Dr. Herrera from orthopedics. He states he will likely do the operation on Friday. He also requested that I obtain femur x-rays. Patient was noted to have a high blood sugar. His son states he did not get his second dose of insulin today. Patient also has lab work notable for a mild hyperkalemia. He will be given fluids and this will be rechecked. Recheck of his potassium was normal. His blood sugar is improving. I discussed with Dr. Walker for admission. 03/11/20 02:36 - Vital Signs Vital signs: Temp Pulse Resp BP Pulse Ox 98.8 F 74 17 180/60 H 97 03/10/20 20:55 03/10/20 20:55 03/11/20 02:01 03/11/20 02:01 03/11/20 02:01 - Laboratory Results Result Diagrams: 03/10/20 21:42 03/11/20 01:40 Laboratory Results Interpreted: 03/10/20 03/10/20 21:42 21:42 RBC 3.60 L Hgb 9.8 L Hct 30.4 L RDW 14.4 H Lymph % (Auto) 7.4 L Seg Neutrophils % 87.1 H Sodium 130.8 L Potassium 5.7 H Chloride 97 L BUN 39 H Creatinine 1.64 H Est GFR ( Amer) 50 L Est GFR (MDRD) Non-Af 41 L Glucose 581 H* Alkaline Phosphatase 137 H Critical Laboratory Results Reviewed: Yes Attending or Supervising Physician who Reviewed Labs: TAWNYA JOHNSON - high blood sugar, treated - Radiology Results Critical Radiology Results Reviewed: No Critical Results - EKG Interpretation by Me EKG shows normal: Sinus rhythm Rate: Normal Rhythm: NSR When compared to previous EKG there are: No significant change Additional EKG results interpreted by me: 03/10/20 23:50 Sinus rhythm at a rate of 74. No acute ST changes. QTc 426. EKG is similar to previous. Discharge - Discharge Clinical Impression: Hyperglycemia Fall Qualifiers: Encounter type: initial encounter Qualified Code(s): W19.XXXA - Unspecified fall, initial encounter Intertrochanteric fracture of left hip Qualifiers: Encounter type: initial encounter Fracture type: closed Fracture alignment: displaced Qualified Code(s): S72.142A - Displaced intertrochanteric fracture of left femur, initial encounter for closed fracture Condition: Stable Disposition: ADMITTED INPATIENT Admitting Provider: Denise Unit Admitted: Surgical Floor
--- NOTE | 2020-03-11 00:27 | RADIOLOGY REPORT (SQ) ---
EXAM DESCRIPTION: XR FEMUR 2 VIEWS COMPLETED DATE/TME: 03/11/2020 00:03 CLINICAL HISTORY: 75 years, Male, hip fracture,eval other injuries COMPARISON: Left hip x-ray 03/10/2020 NUMBER OF VIEWS: 3 TECHNIQUE: 3 view left femur LIMITATIONS: None. FINDINGS: Intertrochanteric fracture of the femur. Osteopenia. Catheter projects over the pelvis. No distal femur fracture. No dislocation IMPRESSION: Intertrochanteric fracture of the proximal femur. No distal fracture copyright 2010 [email or web address]- All Rights Reserved
--- NOTE | 2020-03-11 00:27 | RADIOLOGY REPORT (SQ) ---
EXAM DESCRIPTION: Site: CHEST SINGLE VIEW RP: XR CHEST 1 VIEW CLINICAL HISTORY: 75 years Male; pre op; COMPARISON: 11/02/2018 FINDINGS: Lungs: Lungs are clear, with no focal infiltrate, pneumothorax, or pleural effusion. Mediastinum: Mediastinum is within normal limits for this positioning. Bones: Bony structures are unremarkable. IMPRESSION: 1. No acute pulmonary findings.
[2020-03-11] MEDS ORDERED: MORPHINE SULFATE 10 MG/ML INJ IV ONE (01:30)
[2020-03-11] MEDS ORDERED: DEXTROSE 40% GEL 15 GM TUBE X 2 PO PRN (05:00)
[2020-03-11] MEDS ORDERED: DEXTROSE 50%-WATER SYRINGE 25 GM/50 ML DOSE IV PRN (05:00)
[2020-03-11] MEDS ORDERED: DEXTROSE 40% GEL 15 GM TUBE PO PRN (05:00)
[2020-03-11] MEDS ORDERED: DEXTROSE 50%-WATER SYRINGE 12.5 GM/25 ML DOSE IV PRN (05:00)
[2020-03-11] MEDS ORDERED: GLUCAGON,HUMAN RECOMB 1 MG INJ IM PRN (05:00)
[2020-03-11] MEDS: MORPHINE SULFATE 10 MG/ML INJ IV PRN (05:51)
[2020-03-11] MEDS: INSULIN LISPRO 100 UNIT/ML 3 ML VIAL SUBCUT SCH ×4 (11:06→21:38)
--- NOTE | 2020-03-11 12:33 | PDOC H&P ---
History of Present Illness Admission Date/PCP: 03/11/20 02:40 YAMINI BAXTER MD Patient complains of: Fall at home; Left hip pain History of Present Illness: JYOTI POLLOCK is a 75 year old male patient of Dr. Yamini Baxter who presented to the ED following a fall at home following attempt in transfer from commode to his wheelchair with subsequent development of left hip pain. Patient has history of CVA with left residual deficit. He denied any associated chest pain, palpitation, shortness of breath, or loss of consciousness. Patient reported possibly hitting his head but denied any neck injury. He did not ambulate since the incident of fall at home due to pain in his left hip. His initial ED evaluation was significant for left intertrochanteric fracture. He was advised hospitalization for further evaluation and management. 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 His morbidities are as listed below. Past Medical History Cardiac Medical History: Reports: Coronary Artery Disease, Hyperlipidema, Hypertension Pulmonary Medical History: Reports: None EENT Medical History: Reports: None Neurological Medical History: Denies: Seizures Endocrine Medical History: Reports: Diabetes Mellitus Type 2 Renal/ Medical History: Reports: None GI Medical History: Reports: Gastroesophageal Reflux Disease Musculoskeltal Medical History: Reports: Arthritis Skin Medical History: Reports: None Psychiatric Medical History: Reports: None Denies: Depression Hematology: Reports: Anemia Infectious Medical History: Reports: None Past Surgical History Past Surgical History: Reports: Other Social History Lives with: Family Smoking Status: Former Smoker Electronic Cigarette use?: No Frequency of Alcohol Use: None Hx Recreational Drug Use: No Drugs: None Hx Prescription Drug Abuse: No - Advance Directive Resuscitation Status: Full Code Family History Family History: Reviewed & Not Pertinent Parental Family History Reviewed: Yes Children Family History Reviewed: Yes Sibling(s) Family History Reviewed.: Yes Medication/Allergy Home Medications: Amlodipine Besylate [Norvasc 5 mg Tablet] 5 mg PO Q12 11/02/18 Aspirin [Adult Low Dose Aspirin EC] 81 mg PO DAILY 11/02/18 Atorvastatin Calcium [Lipitor 40 mg Tablet] 40 mg PO DAILY 11/02/18 Dextran 70/Hypromellose/Pf [Genteal Tears 0.1%-0.3% Drop] 1 drop OU BID 11/02/18 Ferrous Sulfate [Feosol] 325 mg PO DAILY 11/02/18 Brimonidine Tartrate [Alphagan P] 1 drop OP BID 03/11/20 Calcium Carb/D3/Magnesium/Zinc [Derick Mag Zinc + D Tablet] 1 tab PO DAILY 03/11/20 Cholecalciferol (Vitamin D3) [Vitamin D3 1000 Unit Tablet] 1,000 unit PO DAILY 03/11/20 Hydralazine HCl [Apresoline 25 mg Tablet] 25 mg PO TID 03/11/20 Insulin Aspart [Novolog] 16 - 18 unit SQ QHS 03/11/20 Insulin Aspart [Novolog] 20 unit SQ QAM 03/11/20 Latanoprost [Xalatan] 1 drop OP QHS 03/11/20 Lisinopril [Prinivil] 20 mg PO DAILY 03/11/20 Neomycin/Polymyxin B/Dexametha [Maxitrol Eye Ointment] 1 applic OP QHS 03/11/20 Prednisolone Acetate [Pred Mild] 1 drop OP BID 03/11/20 Timolol Maleate 1 drop OP BID 03/11/20 Allergies/Adverse Reactions: No Known Allergies Allergy (Verified 11/02/18 00:19) Review of Systems Constitutional: PRESENT: weight loss. ABSENT: chills, fever(s), headache(s) Cardiovascular: ABSENT: chest pain, dyspnea on exertion, edema, orthropnea, palpitations Respiratory: ABSENT: cough, hemoptysis Gastrointestinal: ABSENT: abdominal pain, constipation, diarrhea, hematemesis, hematochezia, nausea, vomiting Genitourinary: ABSENT: dysuria, hematuria Musculoskeletal: ABSENT: joint swelling Integumentary: ABSENT: rash, wounds Neurological: PRESENT: focal weakness - long standing left hemiparesis. ABSENT: abnormal gait, abnormal speech, confusion, dizziness, syncope Psychiatric: ABSENT: anxiety, depression, homidical ideation, suicidal ideation Endocrine: ABSENT: cold intolerance, heat intolerance, polydipsia, polyuria Hematologic/Lymphatic: ABSENT: easy bleeding, easy bruising, lymphadenopathy Allergic/Immunologic: ABSENT: seasonal rhinorrhea Physical Exam Vital Signs: Temp Pulse Resp BP Pulse Ox 98.4 F 79 20 190/80 H 93 03/11/20 09:04 03/11/20 07:27 03/11/20 07:27 03/11/20 07:52 03/11/20 07:27 Intake & Output 03/10/20 03/11/20 03/12/20 06:59 06:59 06:59 Intake Total 1000 Output Total 1200 Balance -200 Weight 65.2 kg General appearance: PRESENT: no acute distress Head exam: PRESENT: atraumatic, normocephalic Eye exam: PRESENT: conjunctiva pink, EOMI, PERRLA. ABSENT: scleral icterus Ear exam: PRESENT: normal external ear exam Mouth exam: PRESENT: moist, tongue midline Neck exam: PRESENT: full ROM. ABSENT: carotid bruit, JVD, lymphadenopathy, thyromegaly Respiratory exam: PRESENT: clear to auscultation francesca Cardiovascular exam: PRESENT: RRR, +S1, +S2. ABSENT: diastolic murmur, rubs, systolic murmur Vascular exam: PRESENT: normal capillary refill. ABSENT: pallor GI/Abdominal exam: PRESENT: normal bowel sounds, soft. ABSENT: distended, guarding, mass, organolmegaly, rebound, tenderness Rectal exam: PRESENT: deferred Gentrourinary exam: PRESENT: indwelling catheter Extremities exam: ABSENT: pedal edema Musculoskeletal exam: PRESENT: deformity - left leg external rotation, tenderness - left hip region with motion Neurological exam: PRESENT: alert, awake, oriented to person, oriented to place, oriented to time, oriented to situation, CN II-XII grossly intact. ABSENT: motor sensory deficit Psychiatric exam: PRESENT: appropriate affect, normal mood. ABSENT: homicidal ideation, suicidal ideation Skin exam: PRESENT: dry, intact, warm. ABSENT: cyanosis, rash Results Laboratory Results: 03/10/20 21:42 03/11/20 01:40 03/10/20 03/10/20 03/10/20 21:42 21:42 23:27 WBC 8.3 RBC 3.60 L Hgb 9.8 L Hct 30.4 L MCV 84 MCH 27.1 MCHC 32.1 RDW 14.4 H Plt Count 181 Seg Neutrophils % 87.1 H Sodium 130.8 L Potassium 5.7 H Chloride 97 L Carbon Dioxide 25 Anion Gap 9 BUN 39 H Creatinine 1.64 H Est GFR ( Amer) 50 L Glucose 581 H* Calcium 9.0 Total Bilirubin 0.4 AST 45 Alkaline Phosphatase 137 H Total Protein 6.7 Albumin 3.8 Blood Type O NEGATIVE Antibody Screen NEGATIVE 03/11/20 01:40 WBC RBC Hgb Hct MCV MCH MCHC RDW Plt Count Seg Neutrophils % Sodium Potassium 4.7 D Chloride Carbon Dioxide Anion Gap BUN Creatinine Est GFR ( Amer) Glucose Calcium Total Bilirubin AST Alkaline Phosphatase Total Protein Albumin Blood Type Antibody Screen 03/10/20 21:42 Troponin I < 0.012 Impressions: Head CT 03/10/20 21:15 IMPRESSION: Chronic ischemic changes as above. No definite acute intracranial abnormality is seen. TECHNICAL DOCUMENTATION: Quality ID # [id number]: Final reports with documentation of one or more dose reduction techniques (e.g., Automated exposure control, adjustment of the mA and/or kV according to patient size, use of iterative reconstruction technique) copyright 2010 [employer]- All Rights Reserved Hip X-Ray 03/10/20 21:15 IMPRESSION: Left intertrochanteric fracture deformity as above copyright 2010 [employer]- All Rights Reserved Chest X-Ray 03/10/20 22:39 IMPRESSION: 1. No acute pulmonary findings. Femur X-Ray 03/10/20 23:41 IMPRESSION: Intertrochanteric fracture of the proximal femur. No distal fracture copyright 2010 [employer]- All Rights Reserved Assessment & Plan - Diagnosis (1) Fall Qualifiers: Encounter type: initial encounter Qualified Code(s): W19.XXXA - Unspecified fall, initial encounter Is this a current diagnosis for this admission?: Yes Plan: See covering admitting attending physician orders for details about care plan. (2) Intertrochanteric fracture of left hip Qualifiers: Encounter type: initial encounter Fracture type: closed Fracture alignment: displaced Qualified Code(s): S72.142A - Displaced intertrochanteric fracture of left femur, initial encounter for closed fracture Is this a current diagnosis for this admission?: Yes Plan: See covering admitting attending physician orders for details about care plan. (3) History of cerebrovascular accident (CVA) with residual deficit Is this a current diagnosis for this admission?: Yes Plan: See covering admitting attending physician orders for details about care plan. 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 (5) Essential (primary) hypertension Is this a current diagnosis for this admission?: Yes Plan: See covering admitting attending physician orders for details about care plan. (6) Hyperlipidemia Qualifiers: Hyperlipidemia type: unspecified Qualified Code(s): E78.5 - Hyperlipidemia, unspecified Is this a current diagnosis for this admission?: Yes Plan: See covering admitting attending physician orders for details about care plan. - Time Time Spent: 50 to 70 Minutes Medications reviewed and adjusted accordingly: Yes Anticipated Discharge Disposition: Long Term Facility - for short term rehabilitation upon discharge Anticipated Discharge Timeframe: within 72 hours - Inpatient Certification Based on my medical assessment, after consideration of the patient's comorbidities, presenting symptoms, or acuity I expect that the services needed warrant INPATIENT care.: Yes I certify that my determination is in accordance with my understanding of Medicare's requirements for reasonable and necessary INPATIENT services [42 CFR 412.3e].: Yes Medical Necessity: Significant Comorbidiites Make Outpatient Treatment Too Risky, Need Close Monitoring Due to Risk of Patient Decompensation, Need For IV Fluids, Need For Continuous Telemetry Monitoring, Need for Pain Control, Need for Surgery, Risk of Complication if Not Cared For in Hospital, Risk of Diagnosis Which Will Require Inpatient Eval/Care/Monitoring Post Hospital Care: D/C or Transfer Summary - Plan Summary Plan Summary: See covering admitting attending physician orders for details about care plan.
[2020-03-11] MEDS: HYDRALAZINE HCL 25 MG TABLET PO SCH ×2 (14:14→21:37)
--- NOTE | 2020-03-11 14:56 | EKG REPORT ---
SEVERITY:- NORMAL ECG - SINUS RHYTHM : Confirmed by: Shena Gentile 11-Mar-2020 14:56:23
[2020-03-11] MEDS: AZITHROMYCIN 500 MG in DEXTROSE 5%-WATER 250 ML IV SCH (15:03)
--- NOTE | 2020-03-11 16:00 | PDOC CONSULTATION ---
Consultation Consult Date: 03/11/20 Attending physician:: HOWARD SANTOS Provider Consulted: PATI XAVIER Consult reason:: 1. left hip pain. 2. left hip displaced intertrochanteric fracture History of Present Illness Admission Date/PCP: 03/11/20 02:40 EMILY BAXTER MD Patient complains of: Left hip pain History of Present Illness: JYOTI POLLOCK is a 75 year old male with hypertension, coronary artery disease, history of CVA with residual left-sided weakness, and history of prostate cancer. He sustained a low-energy fall last evening when transferring from the commode to his wheelchair. He immediately experienced pain in his left hip and was unable to bear weight. He presented to the emergency room. Radiographs demonstrated a displaced intertrochanteric fracture of the left hip. Serology was obtained for the operative procedure and the patient tested positive for COVID-19. Past Medical History Cardiac Medical History: Reports: Coronary Artery Disease, Hyperlipidema, Hypertension Pulmonary Medical History: Reports: None EENT Medical History: Reports: None Neurological Medical History: Reports: Ischemic CVA Denies: Seizures Endocrine Medical History: Reports: Diabetes Mellitus Type 2 Renal/ Medical History: Reports: None Malignancy Medical History: Reports: Other - Prostate cancer GI Medical History: Reports: Gastroesophageal Reflux Disease Musculoskeltal Medical History: Reports: Arthritis Skin Medical History: Reports: None Psychiatric Medical History: Reports: None Denies: Depression Hematology: Reports: Anemia Infectious Medical History: Reports: Other Past Surgical History Past Surgical History: Reports: Other - Prostatectomy Social History Lives with: Family Smoking Status: Former Smoker Electronic Cigarette use?: No Frequency of Alcohol Use: None Hx Recreational Drug Use: No Drugs: None Hx Prescription Drug Abuse: No - Advance Directive Resuscitation Status: Full Code Family History Family History: Reviewed & Not Pertinent Parental Family History Reviewed: No Children Family History Reviewed: No Sibling(s) Family History Reviewed.: No Medication/Allergy Home Medications: Amlodipine Besylate [Norvasc 5 mg Tablet] 5 mg PO Q12 11/02/18 Aspirin [Adult Low Dose Aspirin EC] 81 mg PO DAILY 11/02/18 Atorvastatin Calcium [Lipitor 40 mg Tablet] 40 mg PO DAILY 11/02/18 Dextran 70/Hypromellose/Pf [Genteal Tears 0.1%-0.3% Drop] 1 drop OU BID 11/02/18 Ferrous Sulfate [Feosol] 325 mg PO DAILY 11/02/18 Brimonidine Tartrate [Alphagan P] 1 drop OP BID 03/11/20 Calcium Carb/D3/Magnesium/Zinc [Derick Mag Zinc + D Tablet] 1 tab PO DAILY 03/11/20 Cholecalciferol (Vitamin D3) [Vitamin D3 1000 Unit Tablet] 1,000 unit PO DAILY 03/11/20 Hydralazine HCl [Apresoline 25 mg Tablet] 25 mg PO TID 03/11/20 Insulin Aspart [Novolog] 16 - 18 unit SQ QHS 03/11/20 Insulin Aspart [Novolog] 20 unit SQ QAM 03/11/20 Latanoprost [Xalatan] 1 drop OP QHS 03/11/20 Lisinopril [Prinivil] 20 mg PO DAILY 03/11/20 Neomycin/Polymyxin B/Dexametha [Maxitrol Eye Ointment] 1 applic OP QHS 03/11/20 Prednisolone Acetate [Pred Mild] 1 drop OP BID 03/11/20 Timolol Maleate 1 drop OP BID 03/11/20 Allergies/Adverse Reactions: No Known Allergies Allergy (Verified 11/02/18 00:19) Review of Systems ROS unobtainable: Other - As per HPI. The patient denies shortness of breath, fever, or cough. Patient also denies new gastrointestinal symptoms. The patient has no symptoms consistent with COVID-19. Physical Exam Vital Signs: Temp Pulse Resp BP Pulse Ox 98.8 F 77 16 164/56 H 95 03/11/20 12:05 03/11/20 12:05 03/11/20 12:05 03/11/20 12:05 03/11/20 12:05 Intake & Output 03/10/20 03/11/20 03/12/20 06:59 06:59 06:59 Intake Total 1000 Output Total 1200 Balance -200 Weight 65.2 kg General appearance: PRESENT: no acute distress Head exam: PRESENT: atraumatic, normocephalic Mouth exam: PRESENT: moist, tongue midline Neck exam: PRESENT: full ROM Respiratory exam: PRESENT: clear to auscultation francesca. ABSENT: rales, rhonchi, wheezes Cardiovascular exam: PRESENT: RRR. ABSENT: diastolic murmur, rubs, systolic murmur Pulses: PRESENT: +1 pedal pulses bilateral Rectal exam: PRESENT: deferred Musculoskeletal exam: PRESENT: other - The left lower extremity is shortened and externally rotated. The patient is able to dorsiflex and plantarflex his ankle. Sensation is intact to touch. Neurological exam: PRESENT: alert, oriented to person, oriented to place, oriented to time, oriented to situation Psychiatric exam: PRESENT: appropriate affect, normal mood. ABSENT: homicidal ideation, suicidal ideation Results Laboratory Results: 03/10/20 21:42 03/11/20 01:40 03/10/20 03/10/20 03/10/20 21:42 21:42 23:27 WBC 8.3 RBC 3.60 L Hgb 9.8 L Hct 30.4 L MCV 84 MCH 27.1 MCHC 32.1 RDW 14.4 H Plt Count 181 Seg Neutrophils % 87.1 H Sodium 130.8 L Potassium 5.7 H Chloride 97 L Carbon Dioxide 25 Anion Gap 9 BUN 39 H Creatinine 1.64 H Est GFR ( Amer) 50 L Glucose 581 H* Calcium 9.0 Total Bilirubin 0.4 AST 45 Alkaline Phosphatase 137 H Total Protein 6.7 Albumin 3.8 Blood Type O NEGATIVE Antibody Screen NEGATIVE 03/11/20 01:40 WBC RBC Hgb Hct MCV MCH MCHC RDW Plt Count Seg Neutrophils % Sodium Potassium 4.7 D Chloride Carbon Dioxide Anion Gap BUN Creatinine Est GFR ( Amer) Glucose Calcium Total Bilirubin AST Alkaline Phosphatase Total Protein Albumin Blood Type Antibody Screen 03/10/20 21:42 Troponin I < 0.012 Impressions: Head CT 03/10/20 21:15 IMPRESSION: Chronic ischemic changes as above. No definite acute intracranial abnormality is seen. TECHNICAL DOCUMENTATION: Quality ID # [id number]: Final reports with documentation of one or more dose reduction techniques (e.g., Automated exposure control, adjustment of the mA and/or kV according to patient size, use of iterative reconstruction technique) copyright 2010 [employer]- All Rights Reserved Hip X-Ray 03/10/20 21:15 IMPRESSION: Left intertrochanteric fracture deformity as above copyright 2010 [employer]- All Rights Reserved Chest X-Ray 03/10/20 22:39 IMPRESSION: 1. No acute pulmonary findings. Femur X-Ray 03/10/20 23:41 IMPRESSION: Intertrochanteric fracture of the proximal femur. No distal fracture copyright 2010 [employer]- All Rights Reserved Status: Image reviewed by me - Radiographs of the left femur dated 03/10/2020 demonstrate some slight scalloping of the cortex concerning for possible pathologic process. Assessment & Plan - Diagnosis (1) Left hip pain Is this a current diagnosis for this admission?: Yes (2) Lab test positive for detection of COVID-19 virus Is this a current diagnosis for this admission?: Yes (3) Fall Qualifiers: Encounter type: initial encounter Qualified Code(s): W19.XXXA - Unspecified fall, initial encounter Is this a current diagnosis for this admission?: Yes (4) History of cerebrovascular accident (CVA) with residual deficit Is this a current diagnosis for this admission?: Yes (5) Intertrochanteric fracture of left hip Qualifiers: Encounter type: initial encounter Fracture type: closed Fracture alignment: displaced Qualified Code(s): S72.142A - Displaced intertrochanteric fracture of left femur, initial encounter for closed fracture Is this a current diagnosis for this admission?: Yes (6) Anemia Qualifiers: Anemia type: iron deficiency - Time Time Spent: 30 to 50 Minutes Anticipated discharge: SNF Anticipated DC Timeframe: Other - Plan Summary Plan Summary: Patient is a pleasant 75-year-old man who sustained a low-energy fall resulting in a displaced left hip intertrochanteric fracture. Serology is positive for COVID-19. Radiographs of the left femur demonstrate scalloping of the femoral cortex concerning for possible malignancy. I have recommended long cephalomedullary nail placement for fracture fixation as well as to bridge any possible pathologic process. I will also send reamings for pathology. Risk, be nefits, and alternatives were discussed with the patient as well as his family. Risks include the risk of with anesthesia, the risk of infection, the risk of injury to nerves and vessels, the risk of fracture, the risk of nonunion and malunion, and the possible need for additional surgical procedures. The patient and family expressed understanding and wish to proceed.
[2020-03-11] MEDS: ASCORBIC ACID 500 MG TABLET PO SCH (17:21)
[2020-03-11] MEDS: PREDNISOLONE ACETATE 1% OPH SUSP 5 ML OU SCH (17:22)
[2020-03-11] MEDS: TIMOLOL MALEATE 0.5% OPH SOLN 5 ML OU SCH (17:22)
[2020-03-11] MEDS ORDERED: PREDNISOLONE ACETATE OP SCH (18:00)
[2020-03-11] MEDS ORDERED: DEXTRAN OU SCH (18:00)
[2020-03-11] MEDS ORDERED: TIMOLOL MALEATE OP SCH (18:00)
[2020-03-11] MEDS ORDERED: HYPROMELLOSE OU SCH (18:00)
[2020-03-11] MEDS ORDERED: BRIMONIDINE TARTRATE OU SCH (18:00)
[2020-03-11] MEDS ORDERED: [UNRECOGNIZED DRUG - OTHER] OU SCH (18:00)
[2020-03-11 19:04] LABS: APPEARANCE,URINE SLIGHTLY-CLOUDY; BILIRUBIN,URINE NEGATIVE (NEGATIVE); COLOR,URINE YELLOW; GLUCOSE, URINE 150 mg/dL (NEGATIVE); KETONES,URINE TRACE mg/dL (NEGATIVE); PROTEIN,URINE >=500 mg/dL (NEGATIVE); URINE SPECIFIC GRAVITY 1.017; UROBILINOGEN,URINE NEGATIVE mg/dL (<2.0)
[2020-03-11] MEDS: LATANOPROST 0.005% OPH SOLN 2.5 ML OP SCH (21:36)
[2020-03-11] MEDS: AMLODIPINE BESYLATE 5 MG TABLET PO SCH (21:38)
[2020-03-11] MEDS: NEO/POLYMYX B SULF/DEXAMETH OPH OINTMENT 3.5 GM OP SCH (21:39)
[2020-03-11] MEDS: ATORVASTATIN CALCIUM 40 MG TABLET PO SCH (21:39)
[2020-03-12] MEDS: MORPHINE SULFATE 10 MG/ML INJ IV PRN ×3 (00:42→15:01)
[2020-03-12] MEDS ORDERED: CEFAZOLIN 2 GM/D5W RTU 2 GM/50 ML RTUPB IV PRN (05:00)
[2020-03-12] MEDS ORDERED: TRANEXAMIC ACID INJ/PF 1,000 MG/10 ML SDV IV PRN (05:00)
[2020-03-12] MEDS: HYDRALAZINE HCL 25 MG TABLET PO SCH ×3 (05:33→23:09)
[2020-03-12] MEDS: INSULIN LISPRO 100 UNIT/ML 3 ML VIAL SUBCUT SCH ×4 (08:32→23:09)
[2020-03-12] MEDS ORDERED: ZINC PO SCH (10:00)
[2020-03-12] MEDS ORDERED: D3 PO SCH (10:00)
[2020-03-12] MEDS ORDERED: MAGNESIUM PO SCH (10:00)
[2020-03-12] MEDS ORDERED: (PENDING PHARMACY ID) (Lisinopril [Prinivil] 20 MG Tablet) PO SCH (10:00)
[2020-03-12] MEDS ORDERED: [UNRECOGNIZED DRUG - OTHER] PO SCH (10:00)
[2020-03-12] MEDS ORDERED: CALCIUM CARB PO SCH (10:00)
[2020-03-12] MEDS: LISINOPRIL 10 MG TABLET PO SCH (10:33)
[2020-03-12] MEDS: ASPIRIN 81 MG TABLET, ENT COATED PO SCH (10:33)
[2020-03-12] MEDS: ZINC SULFATE 220 MG CAPSULE PO SCH (10:34)
[2020-03-12] MEDS: ASCORBIC ACID 500 MG TABLET PO SCH ×2 (10:34→17:05)
[2020-03-12] MEDS: AMLODIPINE BESYLATE 5 MG TABLET PO SCH ×2 (10:34→23:09)
[2020-03-12] MEDS: CHOLECALCIFEROL (D3) 1,000 UNIT (25 MCG) TABLET PO SCH (10:34)
[2020-03-12] MEDS: FERROUS SULFATE 325 MG TABLET PO SCH (10:34)
[2020-03-12] MEDS: TIMOLOL MALEATE 0.5% OPH SOLN 5 ML OU SCH ×2 (10:35→17:48)
[2020-03-12] MEDS: PREDNISOLONE ACETATE 1% OPH SUSP 5 ML OU SCH ×2 (10:35→17:48)
[2020-03-12] MEDS: AZITHROMYCIN 500 MG in DEXTROSE 5%-WATER 250 ML IV SCH (10:37)
--- NOTE | 2020-03-12 16:29 | PDOC PROGRESS REPORT ---
Subjective Date:: 03/12/20 Subjective:: Orthopod input appreciated. He is schedule for possible intervention tomorrow. N o reported fever or chills. No chest pain or difficulty with breathing. Reason For Visit: FAKK AT HOME, LEFT FEMUR FRACTURE, CVA WITH LEFT Physical Exam Vital Signs: Temp Pulse Resp BP Pulse Ox 98.8 F 83 16 157/52 H 97 03/12/20 11:23 03/12/20 11:23 03/12/20 11:23 03/12/20 11:23 03/12/20 11:23 Intake & Output 03/11/20 03/12/20 03/13/20 06:59 06:59 06:59 Intake Total 1000 770 250 Output Total 1200 1150 Balance -200 -380 250 Weight 65.2 kg 64.2 kg General appearance: PRESENT: mild distress - due to pain from femor fracture Eye exam: PRESENT: conjunctiva pink. ABSENT: scleral icterus Respiratory exam: PRESENT: clear to auscultation francesca Cardiovascular exam: PRESENT: RRR, +S1, +S2. ABSENT: diastolic murmur, systolic murmur Vascular exam: ABSENT: pallor GI/Abdominal exam: PRESENT: normal bowel sounds, soft. ABSENT: tenderness Extremities exam: ABSENT: pedal edema Musculoskeletal exam: PRESENT: deformity - left lower extremity outward rotation due to femor fracture. Neurological exam: PRESENT: alert, awake Skin exam: PRESENT: dry, warm Results Laboratory Results: 03/10/20 21:42 03/11/20 01:40 03/11/20 18:15 Urine Color YELLOW Urine Appearance SLIGHTLY-CLOUDY Urine pH 5.0 Ur Specific Foster 1.017 Urine Protein >=500 H Urine Glucose (UA) 150 H Urine Ketones TRACE H Urine Blood SMALL H Urine RBC (Auto) 25 03/10/20 21:42 Troponin I < 0.012 Impressions: Head CT 03/10/20 21:15 IMPRESSION: Chronic ischemic changes as above. No definite acute intracranial abnormality is seen. TECHNICAL DOCUMENTATION: Quality ID # 436: Final reports with documentation of one or more dose reduction techniques (e.g., Automated exposure control, adjustment of the mA and/or kV according to patient size, use of iterative reconstruction technique) copyright 2011 [employer]- All Rights Reserved Hip X-Ray 03/10/20 21:15 IMPRESSION: Left intertrochanteric fracture deformity as above copyright 2010 [employer]- All Rights Reserved Chest X-Ray 03/10/20 22:39 IMPRESSION: 1. No acute pulmonary findings. Femur X-Ray 03/10/20 23:41 IMPRESSION: Intertrochanteric fracture of the proximal femur. No distal fracture copyright 2010 [employer]- All Rights Reserved Assessment & Plan - Diagnosis (1) Fall Qualifiers: Encounter type: initial encounter Qualified Code(s): W19.XXXA - Unspecified fall, initial encounter Is this a current diagnosis for this admission?: Yes (2) Intertrochanteric fracture of left hip Qualifiers: Encounter type: initial encounter Fracture type: closed Fracture alignment: displaced Qualified Code(s): S72.142A - Displaced intertrochanteric fracture of left femur, initial encounter for closed fracture Is this a current diagnosis for this admission?: Yes (3) History of cerebrovascular accident (CVA) with residual deficit Is this a current diagnosis for this admission?: Yes (4) Type 2 diabetes mellitus Qualifiers: Diabetes mellitus care home 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 Diabetes melli tus complication status: with unspecified complications Is this a current diagnosis for this admission?: Yes (5) Essential (primary) hypertension Is this a current diagnosis for this admission?: Yes (6) Hyperlipidemia Qualifiers: Hyperlipidemia type: unspecified Qualified Code(s): E78.5 - Hyperlipidemia, unspecified Is this a current diagnosis for this admission?: Yes - Time Time Spent with patient: 25-34 minutes Level of Care: IMCU Medications reviewed and adjusted accordingly: Yes Anticipated discharge: Home with Homehealth, SNF Anticipated DC Timeframe: within 72 hours - Inpatient Certification Based on my medical assessment, after consideration of the patient's comorbidities, presenting symptoms, or acuity I expect that the services needed warrant INPATIENT care.: Yes I certify that my determination is in accordance with my understanding of Medicare's requirements for reasonable and necessary INPATIENT services [42 CFR 412.3e].: Yes Medical Necessity: Failure to Improve With Outpatient Therapy, Need Close Monitoring Due to Risk of Patient Decompensation, Need For IV Fluids, Need For Continuous Telemetry Monitoring, Need for Pain Control, Need for IV Antibiotics, Risk of Complication if Not Cared For in Hospital, Risk of Diagnosis Which Will Require Inpatient Eval/Care/Monitoring Post Hospital Care: D/C First Front Ventilator Documentation, D/C or Transfer Summary - Plan Summary Plan Summary: See covering attending physician orders for details about care plan.
[2020-03-12] MEDS ORDERED: INSULIN LISPRO 100 UNIT/ML 3 ML VIAL SUBCUT ONE (19:00)
[2020-03-12] MEDS: ATORVASTATIN CALCIUM 40 MG TABLET PO SCH (23:09)
[2020-03-12] MEDS: LATANOPROST 0.005% OPH SOLN 2.5 ML OP SCH (23:10)
[2020-03-12] MEDS: NEO/POLYMYX B SULF/DEXAMETH OPH OINTMENT 3.5 GM OP SCH (23:11)
[2020-03-13] MEDS ORDERED: ACETAMINOPHEN 650 MG SUPP.RECT PR ONE (04:30)
[2020-03-13] MEDS ORDERED: TRANEXAMIC ACID 1,000 MG in DEXTROSE 5%-WATER 50 ML IV PRN (04:31)
[2020-03-13] MEDS ORDERED: CEFAZOLIN 2 GM/D5W RTU 2 GM/50 ML RTUPB IV PRN (04:31)
[2020-03-13] MEDS: CEFEPIME 1 GM/D5W RTU 1 GM/50 ML RTUPB IV SCH ×2 (05:25→18:08)
[2020-03-13] MEDS: HYDRALAZINE HCL 25 MG TABLET PO SCH (05:26)
[2020-03-13 06:02] LABS: HEMATOCRIT 26.3 % (37.9-51.0); HEMOGLOBIN 8.5 g/dL (13.5-17.0); MEAN CORPUSCULAR HEMOGLOBIN 26.4 pg (27.0-33.4); MEAN CORPUSCULAR HGB CONC 32.1 g/dL (32.0-36.0); MEAN CORPUSCULAR VOLUME 82 fl (80-97); PLATELET COUNT 165 10^3/uL (150-450); RED CELL DISTRIBUTION WIDTH 13.8 % (11.5-14.0); WHITE BLOOD COUNT 7.9 10^3/uL (4.0-10.5)
[2020-03-13] MEDS: MORPHINE SULFATE 10 MG/ML INJ IV PRN (06:27)
[2020-03-13 06:34] LABS: ANION GAP 13 (5-19); BLOOD UREA NITROGEN 29 mg/dL (7-20); CALCIUM 8.5 mg/dL (8.4-10.2); CARBON DIOXIDE 19 mmol/L (22-30); CHLORIDE 105 mmol/L (98-107); GLUCOSE 358 mg/dL (75-110); POTASSIUM 4.5 mmol/L (3.6-5.0)
--- NOTE | 2020-03-13 07:50 | EKG REPORT ---
SEVERITY:- NORMAL ECG - SINUS RHYTHM : Confirmed by: Shena Gentile 13-Mar-2020 07:49:45
[2020-03-13] MEDS: FERROUS SULFATE 325 MG TABLET PO SCH (09:22)
[2020-03-13] MEDS: CHOLECALCIFEROL (D3) 1,000 UNIT (25 MCG) TABLET PO SCH (09:22)
[2020-03-13] MEDS: LISINOPRIL 10 MG TABLET PO SCH (09:22)
[2020-03-13] MEDS: ASCORBIC ACID 500 MG TABLET PO SCH ×2 (09:22→17:50)
[2020-03-13] MEDS: AMLODIPINE BESYLATE 5 MG TABLET PO SCH ×2 (09:22→21:36)
[2020-03-13] MEDS: ASPIRIN 81 MG TABLET, ENT COATED PO SCH (09:22)
[2020-03-13] MEDS: ZINC SULFATE 220 MG CAPSULE PO SCH (09:22)
[2020-03-13] MEDS: PREDNISOLONE ACETATE 1% OPH SUSP 5 ML OU SCH ×2 (09:33→17:49)
[2020-03-13] MEDS: INSULIN LISPRO 100 UNIT/ML 3 ML VIAL SUBCUT SCH ×5 (09:33→22:17)
[2020-03-13] MEDS: TIMOLOL MALEATE 0.5% OPH SOLN 5 ML OU SCH ×2 (09:34→17:49)
--- NOTE | 2020-03-13 10:19 | PDOC PROGRESS REPORT ---
Subjective Date:: 03/13/20 Subjective:: Patient had two episodes of elevated temperature yesterday and his blood pressure as well as blood glucose remain elevated. No chest pain or difficulty with breathing. Reason For Visit: FAKK AT HOME, LEFT FEMUR FRACTURE, CVA WITH LEFT Physical Exam Vital Signs: Temp Pulse Resp BP Pulse Ox 99.7 F 83 18 164/50 H 95 03/13/20 08:35 03/13/20 07:00 03/13/20 03:55 03/13/20 03:55 03/13/20 03:55 Intake & Output 03/12/20 03/13/20 03/14/20 06:59 06:59 06:59 Intake Total 770 1110 Output Total 1150 1375 Balance -380 -265 Weight 64.2 kg 64.7 kg Physical Exam: General appearance: PRESENT: mild distress - due to pain from femur fracture Eye exam: PRESENT: conjunctiva pink. ABSENT: pallor, sclera icterus Respiratory exam: PRESENT: clear to auscultation francesca Cardiovascular exam: PRESENT: RRR, +S1, +S2. ABSENT: diastolic murmur, systolic murmur GI/Abdominal exam: PRESENT: normal bowel sounds, soft. ABSENT: tenderness Extremities exam: ABSENT: pedal edema Musculoskeletal exam: PRESENT: deformity - left lower extremity outward rotation due to femur fracture. Neurological exam: PRESENT: alert, awake Skin exam: PRESENT: dry, warm Results Laboratory Results: 03/13/20 04:41 03/13/20 04:41 03/13/20 03/13/20 04:41 04:41 WBC 7.9 RBC 3.20 L Hgb 8.5 L Hct 26.3 L MCV 82 MCH 26.4 L MCHC 32.1 RDW 13.8 Plt Count 165 Sodium 137.1 Potassium 4.5 Chloride 105 Carbon Dioxide 19 L Anion Gap 13 BUN 29 H Creatinine 1.68 H Est GFR ( Amer) 48 L Glucose 358 H Calcium 8.5 03/10/20 21:42 Troponin I < 0.012 Impressions: Head CT 03/10/20 21:15 IMPRESSION: Chronic ischemic changes as above. No definite acute intracranial abnormality is seen. TECHNICAL DOCUMENTATION: Quality ID # 436: Final reports with documentation of one or more dose reduction techniques (e.g., Automated exposure control, adjustment of the mA and/or kV according to patient size, use of iterative reconstruction technique) copyright 2010 [employer]- All Rights Reserved Hip X-Ray 03/10/20 21:15 IMPRESSION: Left intertrochanteric fracture deformity as above copyright 2010 [employer]- All Rights Reserved Chest X-Ray 03/10/20 22:39 IMPRESSION: 1. No acute pulmonary findings. Femur X-Ray 03/10/20 23:41 IMPRESSION: Intertrochanteric fracture of the proximal femur. No distal fracture copyright 2010 [employer]- All Rights Reserved Assessment & Plan - Diagnosis (1) Fall Qualifiers: Encounter type: initial encounter Qualified Code(s): W19.XXXA - Unspecified fall, initial encounter Is this a current diagnosis for this admission?: Yes (2) Intertrochanteric fracture of left hip Qualifiers: Encounter type: initial encounter Fracture type: closed Fracture alignment: displaced Qualified Code(s): S72.142A - Displaced intertrochanteric fracture of left femur, initial encounter for closed fracture Is this a current diagnosis for this admission?: Yes (3) History of cerebrovascular accident (CVA) with residual deficit Is this a current diagnosis for this admission?: Yes (4) Type 2 diabetes mellitus Qualifiers: Diabetes mellitus fdc insulin use: with fdc use Diabetes mellitus complication status: with unspecified complications Is this a current diagnosis for this admission?: Yes Plan: Restart on his preadmission basal insulin therapy at reduced dose. (5) Essential (primary) hypertension Is this a current diagnosis for this admission?: Yes Plan: Increase Hydralazine to 50 mg p.o q 8 hours. (6) Hyperlipidemia Qualifiers: Hyperlipidemia type: unspecified Qualified Code(s): E78.5 - Hyperlipidemia, unspecified Is this a current diagnosis for this admission?: Yes - Time Time Spent with patient: 25-34 minutes Level of Care: IMCU Medications reviewed and adjusted accordingly: Yes Anticipated discharge: SNF Anticipated DC Timeframe: within 72 hours - Inpatient Certification Based on my medical assessment, after consideration of the patient's comorbidities, presenting symptoms, or acuity I expect that the services needed warrant INPATIENT care.: Yes I certify that my determination is in accordance with my understanding of Medicare's requirements for reasonable and necessary INPATIENT services [42 CFR 412.3e].: Yes Medical Necessity: Significant Comorbidiites Make Outpatient Treatment Too Risky, Need Close Monitoring Due to Risk of Patient Decompensation, Need For IV Fluids, Need For Continuous Telemetry Monitoring, Need for IV Antibiotics, Need for Surgery, Risk of Complication if Not Cared For in Hospital, Risk of Diagnosis Which Will Require Inpatient Eval/Care/Monitoring Post Hospital Care: D/C or Transfer Summary - Plan Summary Plan Summary: See covering attending physician orders for details about care plan. On schedule for surgical intervention today for his left femur fracture.
[2020-03-13] MEDS ORDERED: INSULIN LISPRO 100 UNIT/ML 3 ML VIAL SUBCUT ONE ×2 (10:30→12:15)
[2020-03-13] MEDS: AZITHROMYCIN 500 MG in DEXTROSE 5%-WATER 250 ML IV SCH (10:51)
[2020-03-13] MEDS ORDERED: LIDOCAINE 2% INJ-PF (20 MG/ML) 10 ML AMPUL ONE (12:34)
[2020-03-13] MEDS ORDERED: FENTANYL CITRATE INJ/PF 100 MCG/2 ML AMPUL ONE (12:34)
[2020-03-13] MEDS ORDERED: ONDANSETRON HCL INJ/PF 4 MG/2 ML SDV ONE (12:35)
[2020-03-13] MEDS ORDERED: PROPOFOL INJ 200 MG/20 ML VIAL IV ONE (12:35)
[2020-03-13] MEDS ORDERED: MIDAZOLAM 2 MG/2 ML INJ ONE (12:35)
[2020-03-13] MEDS: HYDRALAZINE HCL 50 MG TABLET PO SCH ×2 (13:11→21:36)
[2020-03-13] MEDS ORDERED: CEFAZOLIN INJ 1 GM VIAL ONE (13:30)
[2020-03-13] MEDS ORDERED: EPHEDRINE SULFATE INJ 50 MG/1 ML AMPULE ONE (13:39)
[2020-03-13] MEDS ORDERED: OXYCODONE-ACETAMINOPHEN 5-325 MG TABLET PO PRN (13:43)
[2020-03-13] MEDS ORDERED: PROMETHAZINE HCL INJ 25 MG/1 ML VIAL IV PRN ×2 (13:43)
[2020-03-13] MEDS ORDERED: FENTANYL CITRATE INJ/PF 100 MCG/2 ML AMPUL IV PRN ×3 (13:43)
[2020-03-13] MEDS ORDERED: DIPHENHYDRAMINE HCL 50 MG/ML VIAL IV PRN (13:43)
[2020-03-13] MEDS ORDERED: MEPERIDINE HCL/PF INJ 25 MG/1 ML DISP.SYRIN IV PRN (13:43)
[2020-03-13] MEDS ORDERED: ONDANSETRON HCL INJ/PF 4 MG/2 ML SDV IV PRN (13:43)
--- NOTE | 2020-03-13 14:34 | Operative Report ---
Operative Report DATE OF SURGERY: 03/13/20 PREOPERATIVE DIAGNOSIS: Left hip displaced intertrochanteric fracture POSTOPERATIVE DIAGNOSIS: Left hip displaced intertrochanteric fracture OPERATION: Left hip cephalomedullary gamma nail SURGEON: PATI XAVIER ANESTHESIA: Spinal COMPLICATIONS: None ESTIMATED BLOOD LOSS: 50 cc INTRAOPERATIVE FINDINGS: Same PROCEDURE: Indications for procedure: Patient is a 75-year-old man with a history of CVA and residual weakness who sustained a low-energy fall resulting in a displaced intertrochanteric fracture of the left hip. Description of procedure: Following the induction of a spinal anesthetic and administration of 2 g of Ancef, the patient was positioned on the fracture table. Traction was placed on the left leg to restore alignment of the fracture. Intensification demonstrated anatomic alignment. The left lower extremity was sterilely prepped ChloraPrep and draped in standard fashion. An incision was made proximal to the greater trochanter. Sharp vision was performed through skin with Bovie electrocautery to fascia. A small fascial opening was then made. Guidewire was placed at the correct starting point at the tip of the greater trochanter. It was driven down the shaft. Physician was checked on biplanar image intensification. Starting reamer was then used. Long ball-tipped guidewire was then placed centrally within the femoral canal and measured. Sequential reaming from a size 9 to size 12 was performed. 11 mm gamma nail was placed. Through the guide with the gamma nail a guidewire was placed centrally within the femoral neck and head. It was then measured and overreamed. A compression screw was placed centrally within the head. Compression was then applied. The screw was locked proximally in dynamic mode. Both wounds were copiously irrigated with normal saline. The fascia was reapproximated side to side with 2-0 Vicryl suture. The subcutaneous tissue was then closed with 2-O barbed suture. The skin was reapproximated with a 3-0 Monocryl suture. Wound was then over closed with a tape and surgical glue construct. Patient tolerated well without complication was brought recovery in stable condition.
--- NOTE | 2020-03-13 14:57 | RADIOLOGY REPORT (SQ) ---
EXAM DESCRIPTION: NO CHG FLUORO; HIP LEFT AP/LATERAL IMAGES COMPLETED DATE/TIME: 03/13/2020 2:35 pm REASON FOR STUDY: IM NAIL OF LEFT HIP COMPARISON: None. FLUOROSCOPY TIME: 0.9 minutes 4 Images saved to PACS LIMITATIONS: None. PROCEDURE: Left hip nailing FINDINGS: Images from fluoro document placement of a medullary parth in the left femur and a long love ulated screw through the femoral neck. IMPRESSION: ORIF left hip. Refer to operative note for further information. COMMENT: PQRS 6045F: Fluoroscopy time of the procedure is documented in the report. TECHNICAL DOCUMENTATION: JOB ID: [id number] 2010 [employer]- All Rights Reserved Reading location - IP/workstation name: [email or web address]
--- NOTE | 2020-03-13 14:57 | RADIOLOGY REPORT (SQ) ---
EXAM DESCRIPTION: NO CHG FLUORO; HIP LEFT AP/LATERAL IMAGES COMPLETED DATE/TIME: 03/13/2020 2:35 pm REASON FOR STUDY: IM NAIL OF LEFT HIP COMPARISON: None. FLUOROSCOPY TIME: 0.9 minutes 4 Images saved to PACS LIMITATIONS: None. PROCEDURE: Left hip nailing FINDINGS: Images from fluoro document placement of a medullary parth in the left femur and a long love ulated screw through the femoral neck. IMPRESSION: ORIF left hip. Refer to operative note for further information. COMMENT: PQRS 6045F: Fluoroscopy time of the procedure is documented in the report. TECHNICAL DOCUMENTATION: JOB ID: [id number] 2010 [employer]- All Rights Reserved Reading location - IP/workstation name: [email or web address]
[2020-03-13] MEDS ORDERED: INSULIN LISPRO 100 UNIT/ML 3 ML VIAL ONE (15:22)
[2020-03-13] MEDS ORDERED: ENALAPRILAT DIHYDRATE INJ/PF 2.5 MG/2 ML SDV IV ONE (18:00)
[2020-03-13] MEDS: NORMAL SALINE 1000 ML 1,000 ML IV PRN (18:08)
[2020-03-13] MEDS ORDERED: INSULIN, REGULAR 100 UNIT/100 ML NORMAL SALINE IV PRN ×2 (18:30)
[2020-03-13] MEDS: ATORVASTATIN CALCIUM 40 MG TABLET PO SCH (21:36)
[2020-03-13] MEDS: LATANOPROST 0.005% OPH SOLN 2.5 ML OP SCH (21:38)
[2020-03-13] MEDS: NEO/POLYMYX B SULF/DEXAMETH OPH OINTMENT 3.5 GM OP SCH (21:38)
[2020-03-13] MEDS ORDERED: (PENDING PHARMACY ID) (Insulin Aspart [Novolog] 100 UNIT/ML Vial) SQ SCH (22:00)
[2020-03-14] MEDS ORDERED: CEFAZOLIN 2 GM/D5W RTU 2 GM/50 ML RTUPB IV SCH (01:00)
[2020-03-14] MEDS ORDERED: CEFAZOLIN 1 GM/D5W RTU 0 GM/0 ML RTUPB IV ONE (01:12)
[2020-03-14] MEDS ORDERED: CEFAZOLIN INJ 1 GM VIAL ONE (01:13)
[2020-03-14 05:51] LABS: ABSOLUTE LYMPHOCYTES (AUTO) 0.4 10^3/uL (0.5-4.7); ABSOLUTE MONOCYTES (AUTO) 0.5 10^3/uL (0.1-1.4); ABSOLUTE NEUT (AUTO) 5.9 10^3/uL (1.7-8.2); BASOPHILS % (AUTO) 0.1 % (0-2); HEMATOCRIT 26.5 % (37.9-51.0); HEMOGLOBIN 8.7 g/dL (13.5-17.0); LYMPHOCYTES % (AUTO) 6.6 % (13-45); MEAN CORPUSCULAR HEMOGLOBIN 26.4 pg (27.0-33.4); MEAN CORPUSCULAR HGB CONC 32.7 g/dL (32.0-36.0); MEAN CORPUSCULAR VOLUME 81 fl (80-97); MONOCYTES % (AUTO) 7.2 % (3-13); PLATELET COUNT 212 10^3/uL (150-450); RED BLOOD COUNT 3.29 10^6/uL (4.35-5.55); RED CELL DISTRIBUTION WIDTH 13.7 % (11.5-14.0); SEGMENTED NEUTROPHILS % (AUTO) 86.1 % (42-78); TOTAL CELLS COUNTED % (AUTO) 100 %; WHITE BLOOD COUNT 6.8 10^3/uL (4.0-10.5)
[2020-03-14] MEDS: HYDRALAZINE HCL 50 MG TABLET PO SCH ×3 (06:05→23:04)
[2020-03-14] MEDS: CEFEPIME 1 GM/D5W RTU 1 GM/50 ML RTUPB IV SCH ×2 (06:06→17:41)
[2020-03-14] MEDS: MORPHINE SULFATE 10 MG/ML INJ IV PRN ×2 (06:06→13:36)
[2020-03-14 06:22] LABS: ANION GAP 11 (5-19); BLOOD UREA NITROGEN 35 mg/dL (7-20); CARBON DIOXIDE 25 mmol/L (22-30); CHLORIDE 109 mmol/L (98-107); GLUCOSE 225 mg/dL (75-110); POTASSIUM 4.5 mmol/L (3.6-5.0)
[2020-03-14] MEDS ORDERED: (PENDING PHARMACY ID) (Insulin Aspart [Novolog] 100 UNIT/ML Vial) SQ SCH (08:00)
[2020-03-14] MEDS ORDERED: INSULIN LISPRO 100 UNIT/ML 3 ML VIAL SUBCUT SCH (08:00)
--- NOTE | 2020-03-14 08:51 | CDI QUERY ---
CDI Query CDI Review: Dear Provider, Please clarify and document in progress notes and D/C summary: LEFT HEMIPARESIS? LEFT HEMIPLEGIA? LEFT WEAKNESS only COVID 19 ? SARS infection insignificant lab finding? Clinical data: HX left residual effect s/p CVA wheelchair SARS (+) Thanks, Milly Norton, CDI [phone]
[2020-03-14] MEDS: INSULIN LISPRO 100 UNIT/ML 3 ML VIAL SUBCUT SCH ×3 (08:59→17:40)
[2020-03-14] MEDS ORDERED: CEFAZOLIN SODIUM 2 GM in DEXTROSE 5%-WATER 100 ML IV ONE (09:30)
[2020-03-14] MEDS ORDERED: INSULIN GLARGINE,HUM.REC.ANLOG 1,000 UNIT/10 ML VIAL (PYX) SUBCUT ONE (09:45)
[2020-03-14] MEDS ORDERED: ENOXAPARIN SODIUM INJ 40 MG/0.4 ML DISP.SYRIN SUBCUT SCH (10:00)
[2020-03-14] MEDS: LISINOPRIL 10 MG TABLET PO SCH (10:12)
[2020-03-14] MEDS: ASCORBIC ACID 500 MG TABLET PO SCH ×2 (10:12→17:40)
[2020-03-14] MEDS: FERROUS SULFATE 325 MG TABLET PO SCH (10:12)
[2020-03-14] MEDS: ACETAMINOPHEN 325 MG TABLET PO PRN (10:12)
[2020-03-14] MEDS: ZINC SULFATE 220 MG CAPSULE PO SCH (10:12)
[2020-03-14] MEDS: ASPIRIN 81 MG TABLET, ENT COATED PO SCH (10:12)
[2020-03-14] MEDS: CHOLECALCIFEROL (D3) 1,000 UNIT (25 MCG) TABLET PO SCH (10:13)
[2020-03-14] MEDS: AMLODIPINE BESYLATE 5 MG TABLET PO SCH ×2 (10:13→23:04)
[2020-03-14] MEDS: TIMOLOL MALEATE 0.5% OPH SOLN 5 ML OU SCH ×2 (10:14→17:56)
[2020-03-14] MEDS: PREDNISOLONE ACETATE 1% OPH SUSP 5 ML OU SCH ×2 (10:14→17:56)
[2020-03-14] MEDS: AZITHROMYCIN 500 MG in DEXTROSE 5%-WATER 250 ML IV SCH (13:26)
--- NOTE | 2020-03-14 16:37 | PDOC PROGRESS REPORT ---
Subjective Date:: 03/14/20 Subjective:: Patient with moderate postoperative discomfort in left leg. Reason For Visit: FAKK AT HOME, LEFT FEMUR FRACTURE, CVA WITH LEFT Left hip displaced intertrochanteric fracture Physical Exam Vital Signs: Temp Pulse Resp BP Pulse Ox 99.1 F 81 20 176/51 H 100 03/14/20 11:00 03/14/20 14:00 03/14/20 03:03 03/14/20 03:03 03/14/20 03:03 Intake & Output 03/13/20 03/14/20 03/15/20 06:59 06:59 06:59 Intake Total 1110 1653 48 Output Total 1375 1425 Balance -265 228 48 Weight 64.7 kg 67 kg General appearance: PRESENT: no acute distress Musculoskeletal exam: PRESENT: other - The surgical incisions are intact. There is minimal drainage and no signs of infection. Patient is able to DF and PF the foot. Psychiatric exam: PRESENT: appropriate affect, normal mood. ABSENT: homicidal ideation, suicidal ideation Results Laboratory Results: 03/14/20 05:20 03/14/20 05:20 03/14/20 03/14/20 05:20 05:20 WBC 6.8 RBC 3.29 L Hgb 8.7 L Hct 26.5 L MCV 81 MCH 26.4 L MCHC 32.7 RDW 13.7 Plt Count 212 Seg Neutrophils % 86.1 H Sodium 145.3 H Potassium 4.5 Chloride 109 H Carbon Dioxide 25 Anion Gap 11 BUN 35 H Creatinine 2.03 H Est GFR ( Amer) 39 L Glucose 225 H Calcium 9.0 03/10/20 21:42 Troponin I < 0.012 Impressions: Head CT 03/10/20 21:15 IMPRESSION: Chronic ischemic changes as above. No definite acute intracranial abnormality is seen. TECHNICAL DOCUMENTATION: Quality ID # 436: Final reports with documentation of one or more dose reduction techniques (e.g., Automated exposure control, adjustment of the mA and/or kV according to patient size, use of iterative reconstruction technique) copyright 2010 [employer]- All Rights Reserved Chest X-Ray 03/10/20 22:39 IMPRESSION: 1. No acute pulmonary findings. Femur X-Ray 03/10/20 23:41 IMPRESSION: Intertrochanteric fracture of the proximal femur. No distal fracture copyright 2010 [employer]- All Rights Reserved Fluoroscopy 03/13/20 00:00 IMPRESSION: ORIF left hip. Refer to operative note for further information. Hip X-Ray 03/13/20 00:00 IMPRESSION: ORIF left hip. Refer to operative note for further information. Assessment & Plan - Diagnosis (1) Left hip pain Is this a current diagnosis for this admission?: Yes (2) Lab test positive for detection of COVID-19 virus Is this a current diagnosis for this admission?: Yes (3) Fall Qualifiers: Encounter type: initial encounter Qualified Code(s): W19.XXXA - Unspecified fall, initial encounter Is this a current diagnosis for this admission?: Yes (4) History of cerebrovascular accident (CVA) with residual deficit Is this a current diagnosis for this admission?: Yes (5) Intertrochanteric fracture of left hip Qualifiers: Encounter type: initial encounter Fracture type: closed Fracture alignment: displaced Qualified Code(s): S72.142A - Displaced intertrochanteric fracture of left femur, initial encounter for closed fracture Is this a current diagnosis for this admission?: Yes (6) Anemia Qualifiers: Anemia type: iron deficiency - Time Anticipated Discharge Disposition: [facility] Facility Anticipated Discharge Timeframe: when bed available - Patient is Covid 19 positive Critical Time spent with patient: Less than 15 minutes - Plan Summary Plan Summary: POD # 1 s/p cephalomedullary Gamma nail for left hip intertrochanteric fracture 1. complete 24 hour perioperative antibiotics 2. Lovenox for DVT prophylaxis: hip fracture and Covid put patient at high risk for DVT. 3. Physical therapy WBAT 4. Surgical incision was closed with a barbed suture, mesh and surgical glue construct. Patient does not need to follow up for regular wound check post discharge. Patient may shower when clinically appropriate. Patient should f/u within 6 weeks for radiographs.
[2020-03-14] MEDS ORDERED: DEXTROSE 40% GEL 15 GM TUBE PO PRN ×2 (21:13)
[2020-03-14] MEDS ORDERED: GLUCAGON,HUMAN RECOMB 1 MG INJ IM PRN (21:13)
[2020-03-14] MEDS ORDERED: DEXTROSE 50%-WATER 25 GM/50 ML DISP.SYRIN IV PRN ×2 (21:13)
--- NOTE | 2020-03-14 21:20 | PDOC PROGRESS REPORT ---
Subjective Date:: 03/14/20 Subjective:: Patient seen by the bedside the blood sugar is poorly uncontrolled he was admitt ed because he sustained fracture of the hip joint status post ORIF, also positive for SARS-CoV-2 infection but he has no pneumonia, earlier this morning the insulin drip was discontinued but blood sugar remains uncontrolled this be restarted Reason For Visit: FAKK AT HOME, LEFT FEMUR FRACTURE, CVA WITH LEFT Physical Exam Vital Signs: Temp Pulse Resp BP Pulse Ox 99.1 F 81 20 176/51 H 100 03/14/20 11:00 03/14/20 14:00 03/14/20 03:03 03/14/20 03:03 03/14/20 03:03 Intake & Output 03/13/20 03/14/20 03/15/20 06:59 06:59 06:59 Intake Total 1110 1653 348 Output Total 1375 1425 575 Balance -265 228 -227 Weight 64.7 kg 67 kg General appearance: PRESENT: no acute distress Eye exam: PRESENT: PERRLA Respiratory exam: PRESENT: clear to auscultation francesca Cardiovascular exam: PRESENT: +S1, +S2 GI/Abdominal exam: PRESENT: soft Neurological exam: PRESENT: alert Results Laboratory Results: 03/14/20 05:20 03/14/20 05:20 03/14/20 03/14/20 05:20 05:20 WBC 6.8 RBC 3.29 L Hgb 8.7 L Hct 26.5 L MCV 81 MCH 26.4 L MCHC 32.7 RDW 13.7 Plt Count 212 Seg Neutrophils % 86.1 H Sodium 145.3 H Potassium 4.5 Chloride 109 H Carbon Dioxide 25 Anion Gap 11 BUN 35 H Creatinine 2.03 H Est GFR ( Amer) 39 L Glucose 225 H Calcium 9.0 03/10/20 21:42 Troponin I < 0.012 Impressions: Head CT 03/10/20 21:15 IMPRESSION: Chronic ischemic changes as above. No definite acute intracranial abnormality is seen. TECHNICAL DOCUMENTATION: Quality ID # 436: Final reports with documentation of one or more dose reduction techniques (e.g., Automated exposure control, adjustment of the mA and/or kV according to patient size, use of iterative reconstruction technique) copyright 2011 [employer]- All Rights Reserved Chest X-Ray 03/10/20 22:39 IMPRESSION: 1. No acute pulmonary findings. Femur X-Ray 03/10/20 23:41 IMPRESSION: Intertrochanteric fracture of the proximal femur. No distal fracture copyright 2011 [employer]- All Rights Reserved Fluoroscopy 03/13/20 00:00 IMPRESSION: ORIF left hip. Refer to operative note for further information. Hip X-Ray 03/13/20 00:00 IMPRESSION: ORIF left hip. Refer to operative note for further information. 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: Diabetes mellitus intermediate card tender insulin use: with intermediate card tender use Diabetes mellitus complication status: with neurologic complications Diabetes mellitus complication detail: with polyneuropathy Qualified Code(s): E11.42 - Type 2 diabetes mellitus with diabetic polyneuropathy; Z79.4 - intermediate card tender (current) use of insulin Is this a current diagnosis for this admission?: Yes Plan: Start insulin drip (3) Intertrochanteric fracture of left hip Qualifiers: Encounter type: initial encounter Fracture type: closed Fracture alignment: displaced Qualified Code(s): S72.142A - Displaced intertrochanteric fracture of left femur, initial encounter for closed fracture Is this a current diagnosis for this admission?: Yes - Time Time Spent with patient: 35 or more minutes Level of Care: IMCU Medications reviewed and adjusted accordingly: Yes Anticipated discharge: Home Anticipated DC Timeframe: Other
[2020-03-14 22:40] LABS: UR PRO/CREAT RATIO RESULT 2.2 mg/mg (0.0-0.2); URINE CREATININE 87.7 mg/dL (22-328); URINE PROTEIN 191.2 mg/dL (<12)
[2020-03-14 22:56] LABS: ANION GAP 10 (5-19); BLOOD UREA NITROGEN 41 mg/dL (7-20); CALCIUM 8.9 mg/dL (8.4-10.2); CARBON DIOXIDE 23 mmol/L (22-30); CHLORIDE 107 mmol/L (98-107); GLUCOSE 346 mg/dL (75-110); POTASSIUM 4.9 mmol/L (3.6-5.0)
[2020-03-14] MEDS: ATORVASTATIN CALCIUM 40 MG TABLET PO SCH (23:04)
[2020-03-14] MEDS: LATANOPROST 0.005% OPH SOLN 2.5 ML OP SCH (23:04)
[2020-03-14] MEDS: NEO/POLYMYX B SULF/DEXAMETH OPH OINTMENT 3.5 GM OP SCH (23:05)
[2020-03-14] MEDS ORDERED: INSULIN REG, HUMAN 100 UNIT/ML 3 ML VIAL (PYX) ONE (23:25)
[2020-03-14] MEDS: NORMAL SALINE 100 ML with INSULIN REGULAR, HUMAN 100 UNIT IV PRN ×2 (23:30)
[2020-03-15] MEDS: INSULIN LISPRO 100 UNIT/ML 3 ML VIAL SUBCUT SCH ×3 (00:29→23:15)
[2020-03-15 01:41] LABS: ANION GAP 13 (5-19); BLOOD UREA NITROGEN 44 mg/dL (7-20); CALCIUM 8.8 mg/dL (8.4-10.2); CARBON DIOXIDE 23 mmol/L (22-30); CHLORIDE 109 mmol/L (98-107); GLUCOSE 382 mg/dL (75-110); POTASSIUM 4.7 mmol/L (3.6-5.0)
[2020-03-15] MEDS: CEFEPIME 1 GM/D5W RTU 1 GM/50 ML RTUPB IV SCH ×2 (05:59→17:26)
[2020-03-15] MEDS: HYDRALAZINE HCL 50 MG TABLET PO SCH ×3 (05:59→23:14)
[2020-03-15 08:00] LABS: ANION GAP 10 (5-19); BLOOD UREA NITROGEN 45 mg/dL (7-20); CALCIUM 9.1 mg/dL (8.4-10.2); CARBON DIOXIDE 26 mmol/L (22-30); CHLORIDE 110 mmol/L (98-107); GLUCOSE 292 mg/dL (75-110); POTASSIUM 4.5 mmol/L (3.6-5.0)
--- NOTE | 2020-03-15 08:59 | RADIOLOGY REPORT (SQ) ---
EXAM DESCRIPTION: CHEST SINGLE VIEW IMAGES COMPLETED DATE/TIME: 03/15/2020 8:49 am REASON FOR STUDY: possible aspiration COMPARISON: AP view of the chest from 03/10/2020. EXAM PARAMETERS: NUMBER OF VIEWS: One view. TECHNIQUE: An AP view of the chest was obtained. RADIATION DOSE: NA LIMITATIONS: None. FINDINGS: LUNGS AND PLEURA: No consolidation, pleural effusion or pneumothorax. MEDIASTINUM AND HILAR STRUCTURES: No mediastinal or hilar contour abnormality. HEART AND VASCULAR STRUCTURES: The cardiac silhouette and pulmonary vasculature are within normal bello its. BONES: Chronic deformities of several left-sided ribs. HARDWARE: None in the chest. OTHER: No other finding. IMPRESSION: No acute cardiopulmonary process. TECHNICAL DOCUMENTATION: JOB ID: [id number] 2010 [employer]- All Rights Reserved Reading location - IP/workstation name: [email or web address]
[2020-03-15 09:36] LABS: ABSOLUTE LYMPHOCYTES (AUTO) 0.6 10^3/uL (0.5-4.7); ABSOLUTE MONOCYTES (AUTO) 0.8 10^3/uL (0.1-1.4); ABSOLUTE NEUT (AUTO) 9.2 10^3/uL (1.7-8.2); BASOPHILS % (AUTO) 0.3 % (0-2); HEMATOCRIT 22.1 % (37.9-51.0); LYMPHOCYTES % (AUTO) 5.3 % (13-45); MEAN CORPUSCULAR HEMOGLOBIN 26.7 pg (27.0-33.4); MEAN CORPUSCULAR HGB CONC 32.6 g/dL (32.0-36.0); MEAN CORPUSCULAR VOLUME 82 fl (80-97); MONOCYTES % (AUTO) 7.3 % (3-13); PLATELET COUNT 247 10^3/uL (150-450); SEGMENTED NEUTROPHILS % (AUTO) 87.1 % (42-78); TOTAL CELLS COUNTED % (AUTO) 100 %; WHITE BLOOD COUNT 10.5 10^3/uL (4.0-10.5)
[2020-03-15] MEDS: CHOLECALCIFEROL (D3) 1,000 UNIT (25 MCG) TABLET PO SCH (09:38)
[2020-03-15] MEDS: ASPIRIN 81 MG TABLET, ENT COATED PO SCH (09:38)
[2020-03-15] MEDS: ASCORBIC ACID 500 MG TABLET PO SCH ×2 (09:38→17:17)
[2020-03-15] MEDS: AMLODIPINE BESYLATE 5 MG TABLET PO SCH ×2 (09:38→23:14)
[2020-03-15] MEDS: LISINOPRIL 10 MG TABLET PO SCH (09:38)
[2020-03-15] MEDS: ZINC SULFATE 220 MG CAPSULE PO SCH ×2 (09:38→10:07)
[2020-03-15] MEDS: FERROUS SULFATE 325 MG TABLET PO SCH ×2 (09:39→10:06)
[2020-03-15] MEDS: AZITHROMYCIN 500 MG in DEXTROSE 5%-WATER 250 ML IV SCH (09:39)
[2020-03-15] MEDS: MORPHINE SULFATE 10 MG/ML INJ IV PRN ×2 (09:40→17:26)
[2020-03-15] MEDS: TIMOLOL MALEATE 0.5% OPH SOLN 5 ML OU SCH ×2 (09:40→17:27)
[2020-03-15] MEDS: PREDNISOLONE ACETATE 1% OPH SUSP 5 ML OU SCH ×2 (09:40→17:27)
[2020-03-15] MEDS: ENOXAPARIN SODIUM INJ 30 MG/0.3 ML DISP.SYRIN SUBCUT SCH (09:41)
[2020-03-15] MEDS: NORMAL SALINE 100 ML with INSULIN REGULAR, HUMAN 100 UNIT IV PRN ×2 (09:44)
--- NOTE | 2020-03-15 09:57 | RADIOLOGY REPORT (SQ) ---
EXAM DESCRIPTION: CT HEAD WITHOUT IMAGES COMPLETED DATE/TIME: 03/15/2020 9:32 am REASON FOR STUDY: ams COMPARISON: CT of the head without contrast from March 10 trend TECHNIQUE: Axial images acquired through the brain without intravenous contrast. Images reviewed wi th bone, brain and subdural windows. Additional sagittal and coronal reconstructions were generated. Images stored on PACS. All CT scanners at this facility use dose modulation, iterative reconstruction, and/or weight based d osing when appropriate to reduce radiation dose to as low as reasonably achievable (ALARA). [facility]: Dose Right [facility]: CareDose [facility]: Dose Right [facility]: Teradose 4D [facility]: Smart Event[employer]neaker RADIATION DOSE: CT Rad equipment meets quality standard of care and radiation dose reduction techniq ues were employed. CTDIvol: 48.9 - 50.0 mGy. DLP: 1791 mGy-cm. LIMITATIONS: None. FINDINGS: There is diffuse age-appropriate cerebral and cerebellar volume loss. The caliber of the ventricles is concordant with the degree of sulcation. The geographic area of low attenuation in the right yepez radiata is unchanged. The other areas of the low attenuation scattered throughout the supratentorial periventricular and subcortical white matter are also unchanged. There is no acute in tracranial hemorrhage, vascular territorial infarct, extra-axial fluid collection, mass effect or mid line shift. The howard-white matter differentiation is preserved. There is no effacement of the basal subarachnoid cisterns. The globes are aphakic. The orbits are intact. The paranasal sinuses and the mastoid air cells are clear. There is no fracture of the calvarium. IMPRESSION: No acute intracranial abnormality. EVIDENCE OF ACUTE STROKE: NO. COMMENT: Quality ID # 436: Final reports with documentation of one or more dose reduction techniques (e.g., Automated exposure control, adjustment of the mA and/or kV according to patient size, use of iterative reconstruction technique) TECHNICAL DOCUMENTATION: JOB ID: [id number] 2010 [employer]- All Rights Reserved Reading location - IP/workstation name: [email or web address]
[2020-03-15] MEDS ORDERED: INSULIN GLARGINE,HUM.REC.ANLOG 1,000 UNIT/10 ML VIAL SUBCUT SCH ×2 (10:00→22:00)
[2020-03-15 10:01] LABS: HEMOGLOBIN 7.2 g/dL (13.5-17.0)
[2020-03-15 12:37] LABS: ANION GAP 7 (5-19); BLOOD UREA NITROGEN 48 mg/dL (7-20); CALCIUM 8.5 mg/dL (8.4-10.2); CARBON DIOXIDE 25 mmol/L (22-30); CHLORIDE 110 mmol/L (98-107); GLUCOSE 271 mg/dL (75-110); POTASSIUM 4.7 mmol/L (3.6-5.0)
--- NOTE | 2020-03-15 14:21 | PDOC PROGRESS REPORT ---
Subjective Date:: 03/15/20 Subjective:: Patient was admitted for the left hip fracture status post ORIF Patient also diagnosed with the Covid without pneumonia Patient blood sugar was uncontrolled put on the insulin drips currently getting better Patient currently alert awake as usual state nursing staff have a concern about some aspirations Patient have history of the significant CVA in the past repeat CT of the head was negative chest x-ray was all stable we will get the speech therapy evaluations Patient hemoglobin is 7.2 we will transfuse 1 unit of blood due to the recent surgery Reason For Visit: FAKK AT HOME, LEFT FEMUR FRACTURE, CVA WITH LEFT Physical Exam Vital Signs: Temp Pulse Resp BP Pulse Ox 98.4 F 80 18 137/48 H 91 L 03/15/20 11:28 03/15/20 11:28 03/15/20 11:28 03/15/20 11:28 03/15/20 11:28 Intake & Output 03/14/20 03/15/20 03/16/20 06:59 06:59 06:59 Intake Total 1653 407 46 Output Total 1425 975 Balance 228 -568 46 Weight 67 kg 75.5 kg General appearance: PRESENT: no acute distress Eye exam: PRESENT: PERRLA Mouth exam: PRESENT: neck supple Respiratory exam: PRESENT: decreased breath sounds Cardiovascular exam: PRESENT: +S1, +S2 Neurological exam: PRESENT: alert, awake Results Laboratory Results: 03/15/20 07:17 03/15/20 11:39 03/14/20 03/15/20 03/15/20 22:12 01:19 06:23 WBC RBC Hgb Hct MCV MCH MCHC RDW Plt Count Seg Neutrophils % Sodium 140.4 144.8 146.1 H Potassium 4.9 4.7 4.5 Chloride 107 109 H 110 H Carbon Dioxide 23 23 26 Anion Gap 10 13 10 BUN 41 H 44 H 45 H Creatinine 2.11 H 2.29 H 2.52 H Est GFR ( Amer) 37 L 34 L 30 L Glucose 346 H 382 H 292 H Calcium 8.9 8.8 9.1 Blood Type Antibody Screen 03/15/20 03/15/20 03/15/20 07:17 11:39 11:39 WBC 10.5 RBC 2.70 L Hgb 7.2 L Hct 22.1 L MCV 82 MCH 26.7 L MCHC 32.6 RDW 14.0 Plt Count 247 Seg Neutrophils % 87.1 H Sodium 142.3 Potassium 4.7 Chloride 110 H Carbon Dioxide 25 Anion Gap 7 BUN 48 H Creatinine 2.32 H Est GFR ( Amer) 33 L Glucose 271 H Calcium 8.5 Blood Type O NEGATIVE Antibody Screen NEGATIVE 03/10/20 21:42 Troponin I < 0.012 Impressions: Femur X-Ray 03/10/20 23:41 IMPRESSION: Intertrochanteric fracture of the proximal femur. No distal fracture copyright 2011 [employer]- All Rights Reserved Fluoroscopy 03/13/20 00:00 IMPRESSION: ORIF left hip. Refer to operative note for further information. Hip X-Ray 03/13/20 00:00 IMPRESSION: ORIF left hip. Refer to operative note for further information. Chest X-Ray 03/15/20 00:00 IMPRESSION: No acute cardiopulmonary process. Head CT 03/15/20 00:00 IMPRESSION: No acute intracranial abnormality. EVIDENCE OF ACUTE STROKE: NO. Assessment & Plan - Diagnosis (1) COVID-19 Is this a current diagnosis for this admission?: Yes (2) Fall Qualifiers: Encounter type: initial encounter Qualified Code(s): W19.XXXA - Unspecified fall, initial encounter Is this a current diagnosis for this admission?: Yes (3) History of cerebrovascular accident (CVA) with residual deficit Is this a current diagnosis for this admission?: Yes (4) Hyperglycemia Is this a current diagnosis for this admission?: Yes (5) Intertrochanteric fracture of left hip Qualifiers: Encounter type: initial encounter Fracture type: closed Fracture alignment: displaced Qualified Code(s): S72.142A - Displaced intertrochanteric fracture of left femur, initial encounter for closed fracture Is this a current diagnosis for this admission?: Yes (6) Anemia Qualifiers: Anemia type: iron deficiency Is this a current diagnosis for this admission?: Yes (7) Anemia in chronic kidney disease (CKD) Qualifiers: Chronic kidney disease stage: stage 3 (moderate) Chronic kidney disease stage 3 subtype: stage 3b (GFR 30-44) Qualified Code(s): N18.32 - Chronic kidney disease, stage 3b; D63.1 - Anemia in chronic kidney disease Is this a current diagnosis for this admission?: Yes (8) Chronic kidney disease, stage 3 Qualifiers: Chronic kidney disease stage 3 subtype: stage 3b (GFR 30-44) Qualified Code(s): N18.32 - Chronic kidney disease, stage 3b Is this a current diagnosis for this admission?: Yes (9) Hemiparesis of right dominant side Qualifiers: Hemiparesis etiology: late effect of cerebrovascular disease Cerebrovascular disease type: cerebral infarction Qualified Code(s): I69.351 - Hemiplegia and hemiparesis following cerebral infarction affecting right dominant side Is this a current diagnosis for this admission?: Yes (10) Type 2 diabetes mellitus Qualifiers: Diabetes mellitus usp insulin use: with usp use Diabetes mellitus complication status: with neurologic complications Diabetes mellitus complication detail: with polyneuropathy Qualified Code(s): E11.42 - Type 2 diabetes mellitus with diabetic polyneuropathy; Z79.4 - [facility] (current) use of insulin Is this a current diagnosis for this admission?: Yes Plan: Start insulin drip - Time Time Spent with patient: 15-24 minutes Level of Care: IMCU Medications reviewed and adjusted accordingly: Yes Anticipated discharge: Home with Homehealth Anticipated DC Timeframe: Other - Plan Summary Plan Summary: Transfuse the 1 unit of blood continues the IV antibiotic speech therapy evaluations
[2020-03-15] MEDS ORDERED: DEXTROSE 50%-WATER SYRINGE 25 GM/50 ML DOSE IV PRN (16:30)
[2020-03-15] MEDS ORDERED: DEXTROSE 50%-WATER SYRINGE 12.5 GM/25 ML DOSE IV PRN (16:30)
[2020-03-15] MEDS ORDERED: DEXTROSE 40% GEL 15 GM TUBE PO PRN (16:30)
[2020-03-15] MEDS ORDERED: DEXTROSE 40% GEL 15 GM TUBE X 2 PO PRN (16:30)
[2020-03-15] MEDS ORDERED: GLUCAGON,HUMAN RECOMB 1 MG INJ IM PRN (16:30)
[2020-03-15 22:05] LABS: HEMATOCRIT 25.7 % (37.9-51.0); HEMOGLOBIN 8.3 g/dL (13.5-17.0); MEAN CORPUSCULAR HEMOGLOBIN 27.7 pg (27.0-33.4); MEAN CORPUSCULAR HGB CONC 32.4 g/dL (32.0-36.0); MEAN CORPUSCULAR VOLUME 85 fl (80-97); PLATELET COUNT 254 10^3/uL (150-450); RED BLOOD COUNT 3.01 10^6/uL (4.35-5.55); RED CELL DISTRIBUTION WIDTH 14.9 % (11.5-14.0); WHITE BLOOD COUNT 10.8 10^3/uL (4.0-10.5)
[2020-03-15 22:19] LABS: ANION GAP 14 (5-19); BLOOD UREA NITROGEN 55 mg/dL (7-20); CALCIUM 8.8 mg/dL (8.4-10.2); CARBON DIOXIDE 18 mmol/L (22-30); CHLORIDE 110 mmol/L (98-107); GLUCOSE 364 mg/dL (75-110); POTASSIUM 5.5 mmol/L (3.6-5.0)
[2020-03-15 22:28] LABS: ABSOLUTE LYMPHOCYTES# (MANUAL) 0.6 10^3/uL (0.5-4.7); ABSOLUTE MONOCYTES # (MANUAL) 0.2 10^3/uL (0.1-1.4); BASOPHILS % (MANUAL) 0 % (0-2); EOSINOPHILS % (MANUAL) 0 % (0-6); LYMPHOCYTES % (MANUAL) 6 % (13-45); MONOCYTES % (MANUAL) 2 % (3-13); SEGMENTED NEUTROPHILS % (MAN) 92 % (42-78); TOTAL CELLS COUNTED 100
[2020-03-15 22:29] LABS: ANISOCYTOSIS SLIGHT; PLATELET COMMENT ADEQUATE
[2020-03-15] MEDS: ATORVASTATIN CALCIUM 40 MG TABLET PO SCH (23:14)
[2020-03-15] MEDS: LATANOPROST 0.005% OPH SOLN 2.5 ML OP SCH (23:16)
[2020-03-15] MEDS: NEO/POLYMYX B SULF/DEXAMETH OPH OINTMENT 3.5 GM OP SCH (23:16)
[2020-03-16] MEDS: MORPHINE SULFATE 10 MG/ML INJ IV PRN ×3 (03:07→15:41)
[2020-03-16] MEDS: CEFEPIME 1 GM/D5W RTU 1 GM/50 ML RTUPB IV SCH ×2 (05:40→17:03)
[2020-03-16] MEDS: HYDRALAZINE HCL 50 MG TABLET PO SCH ×3 (05:41→22:52)
[2020-03-16 05:57] LABS: ABSOLUTE LYMPHOCYTES (AUTO) 0.8 10^3/uL (0.5-4.7); ABSOLUTE MONOCYTES (AUTO) 0.9 10^3/uL (0.1-1.4); ABSOLUTE NEUT (AUTO) 8.8 10^3/uL (1.7-8.2); BASOPHILS % (AUTO) 0.2 % (0-2); EOSINOPHILS % (AUTO) 0.1 % (0-6); HEMATOCRIT 28.5 % (37.9-51.0); HEMOGLOBIN 9.3 g/dL (13.5-17.0); LYMPHOCYTES % (AUTO) 7.4 % (13-45); MEAN CORPUSCULAR HEMOGLOBIN 27.7 pg (27.0-33.4); MEAN CORPUSCULAR HGB CONC 32.5 g/dL (32.0-36.0); MEAN CORPUSCULAR VOLUME 85 fl (80-97); MONOCYTES % (AUTO) 8.9 % (3-13); PLATELET COUNT 290 10^3/uL (150-450); RED BLOOD COUNT 3.34 10^6/uL (4.35-5.55); RED CELL DISTRIBUTION WIDTH 15.1 % (11.5-14.0); SEGMENTED NEUTROPHILS % (AUTO) 83.4 % (42-78); TOTAL CELLS COUNTED % (AUTO) 100 %; WHITE BLOOD COUNT 10.5 10^3/uL (4.0-10.5)
[2020-03-16 06:23] LABS: ANION GAP 14 (5-19); BLOOD UREA NITROGEN 61 mg/dL (7-20); CALCIUM 9.4 mg/dL (8.4-10.2); CARBON DIOXIDE 20 mmol/L (22-30); CHLORIDE 114 mmol/L (98-107); GLUCOSE 328 mg/dL (75-110); POTASSIUM 5.4 mmol/L (3.6-5.0)
[2020-03-16] MEDS: INSULIN LISPRO 100 UNIT/ML 3 ML VIAL SUBCUT SCH ×4 (08:45→22:51)
[2020-03-16] MEDS: CHOLECALCIFEROL (D3) 1,000 UNIT (25 MCG) TABLET PO SCH (09:07)
[2020-03-16] MEDS: FERROUS SULFATE 325 MG TABLET PO SCH (09:07)
[2020-03-16] MEDS: LISINOPRIL 10 MG TABLET PO SCH (09:07)
[2020-03-16] MEDS: ASCORBIC ACID 500 MG TABLET PO SCH ×2 (09:07→17:03)
[2020-03-16] MEDS: ZINC SULFATE 220 MG CAPSULE PO SCH (09:07)
[2020-03-16] MEDS: ASPIRIN 81 MG TABLET, ENT COATED PO SCH (09:07)
[2020-03-16] MEDS: AMLODIPINE BESYLATE 5 MG TABLET PO SCH ×2 (09:07→22:53)
[2020-03-16] MEDS: PREDNISOLONE ACETATE 1% OPH SUSP 5 ML OU SCH ×2 (09:08→17:04)
[2020-03-16] MEDS: ENOXAPARIN SODIUM INJ 30 MG/0.3 ML DISP.SYRIN SUBCUT SCH (09:08)
[2020-03-16] MEDS: POLYVINYL ALCOHOL 1.4% OPH SOLN 15 ML OU SCH ×2 (09:08→17:03)
[2020-03-16] MEDS: TIMOLOL MALEATE 0.5% OPH SOLN 5 ML OU SCH ×2 (09:09→17:04)
[2020-03-16] MEDS: AZITHROMYCIN 500 MG in DEXTROSE 5%-WATER 250 ML IV SCH (10:28)
--- NOTE | 2020-03-16 11:40 | PDOC PROGRESS REPORT ---
Subjective Date:: 03/16/20 Subjective:: Patient is currently doing same Patient still complaining of pain at the surgical site Patient's appetite is still poor Patient is potassium is elevated No fever no chills Reason For Visit: FAKK AT HOME, LEFT FEMUR FRACTURE, CVA WITH LEFT Physical Exam Vital Signs: Temp Pulse Resp BP Pulse Ox 98.1 F 99 19 147/68 H 91 L 03/16/20 09:48 03/16/20 08:08 03/16/20 08:08 03/16/20 08:08 03/16/20 08:08 Intake & Output 03/15/20 03/16/20 03/17/20 06:59 06:59 06:59 Intake Total 407 724 Output Total 975 500 Balance -568 224 Weight 75.5 kg 79 kg General appearance: PRESENT: no acute distress Eye exam: PRESENT: PERRLA Mouth exam: PRESENT: neck supple Respiratory exam: PRESENT: clear to auscultation francesca Cardiovascular exam: PRESENT: +S1, +S2 GI/Abdominal exam: PRESENT: normal bowel sounds, soft Neurological exam: PRESENT: alert, awake, oriented to person Results Laboratory Results: 03/16/20 05:27 03/16/20 05:27 03/15/20 03/15/20 03/15/20 11:39 11:39 21:53 WBC 10.8 H RBC 3.01 L Hgb 8.3 L Hct 25.7 L MCV 85 MCH 27.7 MCHC 32.4 RDW 14.9 H Plt Count 254 Seg Neutrophils % Not Reportable Sodium 142.3 Potassium 4.7 Chloride 110 H Carbon Dioxide 25 Anion Gap 7 BUN 48 H Creatinine 2.32 H Est GFR ( Amer) 33 L Glucose 271 H Calcium 8.5 Blood Type O NEGATIVE Antibody Screen NEGATIVE 03/15/20 03/16/20 03/16/20 21:53 05:27 05:27 WBC 10.5 RBC 3.34 L Hgb 9.3 L Hct 28.5 L MCV 85 MCH 27.7 MCHC 32.5 RDW 15.1 H Plt Count 290 Seg Neutrophils % 83.4 H Sodium 141.6 148.3 H Potassium 5.5 H 5.4 H Chloride 110 H 114 H Carbon Dioxide 18 L 20 L Anion Gap 14 14 BUN 55 H 61 H Creatinine 2.52 H 2.58 H Est GFR ( Amer) 30 L 29 L Glucose 364 H 328 H Calcium 8.8 9.4 Blood Type Antibody Screen 03/10/20 21:42 Troponin I < 0.012 Impressions: Femur X-Ray 03/10/20 23:41 IMPRESSION: Intertrochanteric fracture of the proximal femur. No distal fracture copyright 2010 [employer]- All Rights Reserved Fluoroscopy 03/13/20 00:00 IMPRESSION: ORIF left hip. Refer to operative note for further information. Hip X-Ray 03/13/20 00:00 IMPRESSION: ORIF left hip. Refer to operative note for further information. Chest X-Ray 03/15/20 00:00 IMPRESSION: No acute cardiopulmonary process. Head CT 03/15/20 00:00 IMPRESSION: No acute intracranial abnormality. EVIDENCE OF ACUTE STROKE: NO. Assessment & Plan - Diagnosis (1) COVID-19 Is this a current diagnosis for this admission?: Yes Plan: Continues to current medications (2) Fall Qualifiers: Encounter type: initial encounter Qualified Code(s): W19.XXXA - Unspecified fall, initial encounter Is this a current diagnosis for this admission?: Yes (3) History of cerebrovascular accident (CVA) with residual deficit Is this a current diagnosis for this admission?: Yes (4) Hyperglycemia Is this a current diagnosis for this admission?: Yes Plan: Adjust the insulin continues the IV fluid (5) Intertrochanteric fracture of left hip Qualifiers: Encounter type: initial encounter Fracture type: closed Fracture alignment: displaced Qualified Code(s): S72.142A - Displaced intertrochanteric fracture of left femur, initial encounter for closed fracture Is this a current diagnosis for this admission?: Yes Plan: Discussed with the Nursing staff to get the physical therapy evaluation as per surgical recommendations (6) Anemia Qualifiers: Anemia type: iron deficiency Is this a current diagnosis for this admission?: Yes (7) Anemia in chronic kidney disease (CKD) Qualifiers: Chronic kidney disease stage: stage 3 (moderate) Chronic kidney disease stage 3 subtype: stage 3b (GFR 30-44) Qualified Code(s): N18.32 - Chronic kidney disease, stage 3b; D63.1 - Anemia in chronic kidney disease Is this a current diagnosis for this admission?: Yes Plan: We will get the iron study hopefully get a Procrit injections (8) Chronic kidney disease, stage 3 Qualifiers: Chronic kidney disease stage 3 subtype: stage 3b (GFR 30-44) Qualified Code(s): N18.32 - Chronic kidney disease, stage 3b Is this a current diagnosis for this admission?: Yes Plan: With the worsening the kidney functions patient seen nephrology as outpatient Dr. Gross will consult the nephrology continues the IV fluid we will discon tinues the lisinopril increase the hydralazine 75 mg p.o. every 8 (9) Hemiparesis of right dominant side Qualifiers: Hemiparesis etiology: late effect of cerebrovascular disease Cerebrovascular disease type: cerebral infarction Qualified Code(s): I69.351 - Hemiplegia and hemiparesis following cerebral infarction affecting right dominant side Is this a current diagnosis for this admission?: Yes (10) Type 2 diabetes mellitus Qualifiers: Diabetes mellitus residential insulin use: with buttermaker helper use Diabetes caitlyn solis complication status: with neurologic complications Diabetes mellitus complication detail: with polyneuropathy Qualified Code(s): E11.42 - Type 2 diabetes mellitus with diabetic polyneuropathy; Z79.4 - group home (current) use of insulin Is this a current diagnosis for this admission?: Yes - Time Time Spent with patient: 15-24 minutes Level of Care: IMCU Medications reviewed and adjusted accordingly: Yes Anticipated discharge: Home with Homehealth Anticipated DC Timeframe: Other - Plan Summary Plan Summary: Continues IV fluid discontinues the lisinopril increase the hydralazine continues IV antibiotic consult the nephrology Discussed with the patient's regarding the patient's current conditions
--- NOTE | 2020-03-16 18:04 | PDOC CONSULTATION ---
Consultation Consult Date: 03/16/20 Provider Consulted: Young POTTER Consult reason:: DANDRE on CKD 3 History of Present Illness Admission Date/PCP: 03/11/20 02:40 EMILY BAXTER MD History of Present Illness: JYOTI POLLOCK is a 75 year old male with a past history of diabetes mellitus, hypertension, CKD stage III with base creatinine of 1.3-1.5, history of old CVA was admitted with history of fall and discovered to have a left intertrochanteric hip fracture. He has undergone surgery. He was also found to be Covid positive. He has got altered mental status/delirium. Is rather drowsy and when you touch his legs he seems to be crying out in pain. Physical therapist was in the room and is unable to really cooperate with her . Labs and medications were reviewed. His potassium is slightly on the high side. His intake is poor. Discussions were done with the treating nurse. Past Medical History Cardiac Medical History: Reports: Coronary Artery Disease, Hyperlipidemia, Hypertension-primary Pulmonary Medical History: Reports: None EENT Medical History: Reports: None Neurological Medical History: Reports: Ischemic CVA Denies: Seizures Endocrine Medical History: Reports: Diabetes Mellitus Type 2 Complications of Diabetes: Reports: Other Renal/ Medical History: Reports: None, Chronic Kidney Disease Stage III Denies: Hematuria Malignancy Medical History: Reports: Other - Prostate cancer GI Medical History: Reports: Gastroesophageal Reflux Disease Musculoskeltal Medical History: Reports: Arthritis Skin Medical History: Reports: None Psychiatric Medical History: Reports: None Denies: Depression Infectious Medical History: Reports: None, Other Past Surgical History Past Surgical History: Reports: Other - Prostatectomy Social History Lives with: Family Smoking Status: Former Smoker Electronic Cigarette use?: No Frequency of Alcohol Use: None Hx Recreational Drug Use: No Drugs: None Hx Prescription Drug Abuse: No - Advance Directive Resuscitation Status: Full Code Family History Parental Family History Reviewed: No - Unable to contribute secondary to mental status. Children Family History Reviewed: No Sibling(s) Family History Reviewed.: No Medication/Allergy Home Medications: Amlodipine Besylate [Norvasc 5 mg Tablet] 5 mg PO Q12 11/02/18 Aspirin [Adult Low Dose Aspirin EC] 81 mg PO DAILY 11/02/18 Atorvastatin Calcium [Lipitor 40 mg Tablet] 40 mg PO DAILY 11/02/18 Dextran 70/Hypromellose/Pf [Genteal Tears 0.1%-0.3% Drop] 1 drop OU BID 11/02/18 Ferrous Sulfate [Feosol] 325 mg PO DAILY 11/02/18 Brimonidine Tartrate [Alphagan P] 1 drop OP BID 03/11/20 Calcium Carb/D3/Magnesium/Zinc [Derick Mag Zinc + D Tablet] 1 tab PO DAILY 03/11/20 Cholecalciferol (Vitamin D3) [Vitamin D3 1000 Unit Tablet] 1,000 unit PO DAILY 03/11/20 Hydralazine HCl [Apresoline 25 mg Tablet] 25 mg PO TID 03/11/20 Insulin Aspart [Novolog] 16 - 18 unit SQ QHS 03/11/20 Insulin Aspart [Novolog] 20 unit SQ QAM 03/11/20 Latanoprost [Xalatan] 1 drop OP QHS 03/11/20 Lisinopril [Prinivil] 20 mg PO DAILY 03/11/20 Neomycin/Polymyxin B/Dexametha [Maxitrol Eye Ointment] 1 applic OP QHS 03/11/20 Prednisolone Acetate [Pred Mild] 1 drop OP BID 03/11/20 Timolol Maleate 1 drop OP BID 03/11/20 Allergies/Adverse Reactions: No Known Allergies Allergy (Verified 11/02/18 00:19) Review of Systems ROS unobtainable: Due to mental status - Patient is rather drowsy and when you touch his legs he seems to be crying out in pain. He is unable to contribute any meaningful history. Physical Exam Vital Signs: Temp Pulse Resp BP Pulse Ox 98.3 F 88 18 170/73 H 94 03/16/20 15:24 03/16/20 15:24 03/16/20 15:24 03/16/20 15:24 03/16/20 15:24 Intake & Output 03/15/20 03/16/20 03/17/20 06:59 06:59 06:59 Intake Total 407 724 250 Output Total 975 500 600 Balance -568 224 -350 Weight 75.5 kg 79 kg General appearance: PRESENT: no acute distress Eye exam: PRESENT: EOMI, PERRLA. ABSENT: scleral icterus Ear exam: PRESENT: normal external ear exam Mouth exam: ABSENT: moist, neck supple Neck exam: ABSENT: meningismus, tenderness, thyromegaly, tracheal deviation Respiratory exam: PRESENT: clear to auscultation francesca, decreased breath sounds. ABSENT: crackles Cardiovascular exam: PRESENT: +S1, +S2 GI/Abdominal exam: PRESENT: normal bowel sounds, soft. ABSENT: organomegaly, tenderness Extremities exam: ABSENT: pedal edema Neurological exam: PRESENT: altered Skin exam: PRESENT: dry. ABSENT: erythema, mottled, rash Results Laboratory Results: 03/16/20 05:27 03/16/20 05:27 03/15/20 03/15/20 03/16/20 21:53 21:53 05:27 WBC 10.8 H 10.5 RBC 3.01 L 3.34 L Hgb 8.3 L 9.3 L Hct 25.7 L 28.5 L MCV 85 85 MCH 27.7 27.7 MCHC 32.4 32.5 RDW 14.9 H 15.1 H Plt Count 254 290 Seg Neutrophils % Not Reportable 83.4 H Sodium 141.6 Potassium 5.5 H Chloride 110 H Carbon Dioxide 18 L Anion Gap 14 BUN 55 H Creatinine 2.52 H Est GFR ( Amer) 30 L Glucose 364 H Calcium 8.8 03/16/20 05:27 WBC RBC Hgb Hct MCV MCH MCHC RDW Plt Count Seg Neutrophils % Sodium 148.3 H Potassium 5.4 H Chloride 114 H Carbon Dioxide 20 L Anion Gap 14 BUN 61 H Creatinine 2.58 H Est GFR ( Amer) 29 L Glucose 328 H Calcium 9.4 03/10/20 21:42 Troponin I < 0.012 Impressions: Femur X-Ray 03/10/20 23:41 IMPRESSION: Intertrochanteric fracture of the proximal femur. No distal fracture copyright 2011 [employer]- All Rights Reserved Fluoroscopy 03/13/20 00:00 IMPRESSION: ORIF left hip. Refer to operative note for further information. Hip X-Ray 03/13/20 00:00 IMPRESSION: ORIF left hip. Refer to operative note for further information. Chest X-Ray 03/15/20 00:00 IMPRESSION: No acute cardiopulmonary process. Head CT 03/15/20 00:00 IMPRESSION: No acute intracranial abnormality. EVIDENCE OF ACUTE STROKE: NO. Assessment & Plan - Diagnosis (1) DANDRE (acute kidney injury) Plan: Acute on chronic kidney disease. Currently nonoliguric. Patient clinically dry. Get baseline labs. Get renal ultrasound exclude possible obstructive uropathy. Start IV fluids. Monitor. No indications for renal replacements. (2) COVID-19 Is this a current diagnosis for this admission?: Yes Plan: As per . PCP. (3) History of cerebrovascular accident (CVA) with residual deficit Is this a current diagnosis for this admission?: Yes Plan: Status quo with residual deficits. Currently with altered mental status/delirium. (4) Intertrochanteric fracture of left hip Qualifiers: Encounter type: initial encounter Fracture type: closed Fracture alignment: displaced Qualified Code(s): S72.142A - Displaced intertrochanteric fracture of left femur, initial encounter for closed fracture Is this a current diagnosis for this admission?: Yes Plan: Status post surgery. (5) Chronic kidney disease, stage 3 Qualifiers: Chronic kidney disease stage 3 subtype: stage 3b (GFR 30-44) Qualified Code(s): N18.32 - Chronic kidney disease, stage 3b Is this a current diagnosis for this admission?: Yes Plan: Baseline creatinine 1.3-1.5 secondary to diabetic nephropathy with proteinuria. (6) Type 2 diabetes mellitus Qualifiers: Diabetes mellitus intermediate project manager insulin use: with intermediate project manager use Diabetes mellitus complication status: with neurologic complications Diabetes mellitus complication detail: with polyneuropathy Qualified Code(s): E11.42 - Type 2 diabetes mellitus with diabetic polyneuropathy; Z79.4 - [facility] (current) use of insulin Is this a current diagnosis for this admission?: Yes Plan: As per primary care. (7) Hyperkalemia Plan: See response to fluids. Start Veltassa. (8) Hyperchloremic acidosis Plan: Will monitor. (9) Anemia Qualifiers: Anemia type: iron deficiency Is this a current diagnosis for this admission?: Yes Plan: Initiate work-up. No indications blood transfusions at the moment.
[2020-03-16] MEDS: PATIROMER 8.4 GM SUSP PACKET PO SCH (20:59)
[2020-03-16] MEDS ORDERED: INSULIN GLARGINE,HUM.REC.ANLOG 1,000 UNIT/10 ML VIAL SUBCUT SCH (22:00)
[2020-03-16] MEDS: LATANOPROST 0.005% OPH SOLN 2.5 ML OP SCH (22:53)
[2020-03-16] MEDS: ATORVASTATIN CALCIUM 40 MG TABLET PO SCH (22:53)
[2020-03-16] MEDS: NEO/POLYMYX B SULF/DEXAMETH OPH OINTMENT 3.5 GM OP SCH (22:55)
[2020-03-17] MEDS: MORPHINE SULFATE 10 MG/ML INJ IV PRN (02:58)
[2020-03-17] MEDS: NORMAL SALINE 1000 ML 1,000 ML IV PRN (03:43)
[2020-03-17] MEDS: CEFEPIME 1 GM/D5W RTU 1 GM/50 ML RTUPB IV SCH (05:07)
[2020-03-17] MEDS: HYDRALAZINE HCL 50 MG TABLET PO SCH ×2 (05:09→13:01)
[2020-03-17 05:33] LABS: ABSOLUTE LYMPHOCYTES (AUTO) 0.6 10^3/uL (0.5-4.7); ABSOLUTE MONOCYTES (AUTO) 0.9 10^3/uL (0.1-1.4); ABSOLUTE NEUT (AUTO) 7.9 10^3/uL (1.7-8.2); ABSOLUTE RETICS # 0.054 10^6/uL (0.028-0.122); BASOPHILS % (AUTO) 0.2 % (0-2); EOSINOPHILS % (AUTO) 0.2 % (0-6); HEMATOCRIT 26.6 % (37.9-51.0); HEMOGLOBIN 8.5 g/dL (13.5-17.0); LYMPHOCYTES % (AUTO) 6.2 % (13-45); MEAN CORPUSCULAR HEMOGLOBIN 27.3 pg (27.0-33.4); MEAN CORPUSCULAR HGB CONC 31.8 g/dL (32.0-36.0); MEAN CORPUSCULAR VOLUME 86 fl (80-97); PLATELET COUNT 343 10^3/uL (150-450); RED CELL DISTRIBUTION WIDTH 15.5 % (11.5-14.0); RETICULOCYTE COUNT (AUTO) 1.74 % (0.66-2.85); SEGMENTED NEUTROPHILS % (AUTO) 83.4 % (42-78); TOTAL CELLS COUNTED % (AUTO) 100 %; WHITE BLOOD COUNT 9.5 10^3/uL (4.0-10.5)
[2020-03-17 05:51] LABS: ANION GAP 14 (5-19); BLOOD UREA NITROGEN 57 mg/dL (7-20); CALCIUM 9.3 mg/dL (8.4-10.2); CARBON DIOXIDE 21 mmol/L (22-30); CHLORIDE 119 mmol/L (98-107); GLUCOSE 372 mg/dL (75-110); IRON(TIBC) 15.6 ug/dL (49-181); POTASSIUM 5.6 mmol/L (3.6-5.0)
[2020-03-17 07:26] LABS: FOLATE 6.95 ng/mL (>2.76)
[2020-03-17] MEDS: INSULIN LISPRO 100 UNIT/ML 3 ML VIAL SUBCUT SCH ×3 (07:46→17:47)
--- NOTE | 2020-03-17 09:01 | RADIOLOGY REPORT (SQ) ---
EXAM DESCRIPTION: U/S RETROPERITON LTD IMAGES COMPLETED DATE/TIME: 03/16/2020 6:47 pm REASON FOR STUDY: marty COMPARISON: None. TECHNIQUE: Dynamic and static grayscale images acquired of the kidneys and bladder and recorded on P ACS. Additional selected color Doppler and spectral images recorded. LIMITATIONS: Limited exam secondary to patient positioning and body habitus FINDINGS: RIGHT KIDNEY: Normal size measuring 9.1 cm. Increased cortical echogenicity. No solid or suspicious masses. No hydronephrosis. No calcifications. LEFT KIDNEY: Asymmetrically small measuring 7.8 cm. Increased cortical echogenicity. Partially ev aluated hypoechoic area measuring up to 3.8 cm along the upper pole, likely cyst and corresponding to prior CT finding. No definitive solid masses. No hydronephrosis. No calcifications. BLADDER: Limited evaluation. Catheter within the gallbladder lumen. OTHER FINDINGS: Incidentally noted irregular dependent material within the gallbladder lumen, likely sludge with thickened gallbladder wall measure up to 5 mm. IMPRESSION: 1. No hydronephrosis. Left upper pole cyst measuring up to 3.8 cm. 2. Incidentally noted distended gallbladder with dependent sludge and wall thickening suggestive of cholecystitis. Recommend correlation with patient symptoms. TECHNICAL DOCUMENTATION: JOB ID: [id number] 2010 [employer]- All Rights Reserved Reading location - IP/workstation name: [email or web address]
[2020-03-17] MEDS: ENOXAPARIN SODIUM INJ 30 MG/0.3 ML DISP.SYRIN SUBCUT SCH (10:04)
[2020-03-17] MEDS: INSULIN GLARGINE,HUM.REC.ANLOG 1,000 UNIT/10 ML VIAL SUBCUT SCH (10:05)
[2020-03-17] MEDS: AZITHROMYCIN 500 MG in DEXTROSE 5%-WATER 250 ML IV SCH (10:05)
[2020-03-17] MEDS: ASCORBIC ACID 500 MG TABLET PO SCH ×2 (10:16→18:27)
[2020-03-17] MEDS: POLYVINYL ALCOHOL 1.4% OPH SOLN 15 ML OU SCH ×2 (10:16→17:48)
[2020-03-17] MEDS: ASPIRIN 81 MG TABLET, ENT COATED PO SCH (10:16)
[2020-03-17] MEDS: AMLODIPINE BESYLATE 5 MG TABLET PO SCH (10:16)
[2020-03-17] MEDS: TIMOLOL MALEATE 0.5% OPH SOLN 5 ML OU SCH ×2 (10:16→17:47)
[2020-03-17] MEDS: PREDNISOLONE ACETATE 1% OPH SUSP 5 ML OU SCH ×2 (10:16→17:47)
[2020-03-17] MEDS: FERROUS SULFATE 325 MG TABLET PO SCH (10:16)
[2020-03-17] MEDS: CHOLECALCIFEROL (D3) 1,000 UNIT (25 MCG) TABLET PO SCH (10:17)
[2020-03-17] MEDS: ZINC SULFATE 220 MG CAPSULE PO SCH (10:17)
--- NOTE | 2020-03-17 10:53 | PDOC PROGRESS REPORT ---
Subjective Date:: 03/17/20 Reason For Visit: Patient seen today. Still remains rather confused. Denies chest pain or sh ortness of breath. Labs and medications were reviewed.Renal numbers improving.However his sodium is also getting higher. Physical Exam Vital Signs: Temp Pulse Resp BP Pulse Ox 98.8 F 98 19 168/62 H 90 L 03/17/20 08:04 03/17/20 07:33 03/17/20 07:33 03/17/20 07:33 03/17/20 03:49 Intake & Output 03/16/20 03/17/20 03/18/20 06:59 06:59 06:59 Intake Total 724 1520 Output Total 500 2400 Balance 224 -880 Weight 79 kg 79 kg General appearance: PRESENT: no acute distress. ABSENT: cooperative Respiratory exam: PRESENT: clear to auscultation francesca, decreased breath sounds. ABSENT: crackles Cardiovascular exam: PRESENT: +S1, +S2 GI/Abdominal exam: PRESENT: normal bowel sounds, soft. ABSENT: organomegaly, tenderness Extremities exam: ABSENT: pedal edema Neurological exam: PRESENT: altered, awake Results Laboratory Results: 03/17/20 05:18 03/17/20 05:18 03/17/20 03/17/20 05:18 05:18 WBC 9.5 RBC 3.10 L Hgb 8.5 L Hct 26.6 L MCV 86 MCH 27.3 MCHC 31.8 L RDW 15.5 H Plt Count 343 Seg Neutrophils % 83.4 H Retic Count (auto) 1.74 Sodium 153.9 H Potassium 5.6 H Chloride 119 H Carbon Dioxide 21 L Anion Gap 14 BUN 57 H Creatinine 2.16 H Est GFR ( Amer) 36 L Glucose 372 H Calcium 9.3 Iron 15.6 L TIBC 164 L % Saturation 10 Ferritin 1660.00 H Vitamin B12 884.0 Folate 6.95 03/10/20 21:42 Troponin I < 0.012 Impressions: Femur X-Ray 03/10/20 23:41 IMPRESSION: Intertrochanteric fracture of the proximal femur. No distal fracture copyright 2011 [employer]- All Rights Reserved Fluoroscopy 03/13/20 00:00 IMPRESSION: ORIF left hip. Refer to operative note for further information. Hip X-Ray 03/13/20 00:00 IMPRESSION: ORIF left hip. Refer to operative note for further information. Chest X-Ray 03/15/20 00:00 IMPRESSION: No acute cardiopulmonary process. Head CT 03/15/20 00:00 IMPRESSION: No acute intracranial abnormality. EVIDENCE OF ACUTE STROKE: NO. Renal Ultrasound 03/16/20 00:00 IMPRESSION: 1. No hydronephrosis. Left upper pole cyst measuring up to 3.8 cm. 2. Incidentally noted distended gallbladder with dependent sludge and wall thickening suggestive of cholecystitis. Recommend correlation with patient symptoms. Assessment & Plan - Diagnosis (1) DANDRE (acute kidney injury) Plan: Acute on chronic kidney disease. Currently nonoliguric. Patient clinically dry. Get baseline labs. The renal ultrasound shows asymmetric kidneys with a small left kidney but no features to indicate obstructive uropathy. We will switch normal to half-normal saline and monitor. No indications for renal replacements. (2) COVID-19 Is this a current diagnosis for this admission?: Yes Plan: As per . PCP. (3) History of cerebrovascular accident (CVA) with residual deficit Is this a current diagnosis for this admission?: Yes Plan: Status quo with residual deficits. Currently with altered mental status/deliriu m. (4) Intertrochanteric fracture of left hip Qualifiers: Encounter type: initial encounter Fracture type: closed Fracture alignment: displaced Qualified Code(s): S72.142A - Displaced intertrochanteric fracture of left femur, initial encounter for closed fracture Is this a current diagnosis for this admission?: Yes Plan: Status post surgery. (5) Chronic kidney disease, stage 3 Qualifiers: Chronic kidney disease stage 3 subtype: stage 3b (GFR 30-44) Qualified Code(s): N18.32 - Chronic kidney disease, stage 3b Is this a current diagnosis for this admission?: Yes Plan: Baseline creatinine 1.3-1.5 secondary to diabetic nephropathy with proteinuria. (6) Type 2 diabetes mellitus Qualifiers: Diabetes mellitus manager terminal insulin use: with manager terminal use Diabetes mellitus complication status: with neurologic complications Diabetes mellitus complication detail: with polyneuropathy Qualified Code(s): E11.42 - Type 2 diabetes mellitus with diabetic polyneuropathy; Z79.4 - long term care social worker (current) use of insulin Is this a current diagnosis for this admission?: Yes Plan: As per primary care. (7) Hyperkalemia Plan: See response to fluids. Start Veltassa. (8) Hyperchloremic acidosis Plan: Will monitor. (9) Anemia Qualifiers: Anemia type: iron deficiency Is this a current diagnosis for this admission?: Yes Plan: Initiate work-up. No indications blood transfusions at the moment.
[2020-03-17] MEDS: 1/2 NORMAL SALINE 1,000 ML IV PRN (12:10)
--- NOTE | 2020-03-17 12:31 | PDOC PROGRESS REPORT ---
Subjective Date:: 03/17/20 Subjective:: Patient is currently doing same Patient's sodium is 153 His p.o. intake is very poor Patient's blood sugar is still elevated Reason For Visit: FAKK AT HOME, LEFT FEMUR FRACTURE, CVA WITH LEFT Physical Exam Vital Signs: Temp Pulse Resp BP Pulse Ox 98.2 F 97 18 135/75 H 90 L 03/17/20 11:53 03/17/20 11:53 03/17/20 11:53 03/17/20 11:53 03/17/20 11:53 Intake & Output 03/16/20 03/17/20 03/18/20 06:59 06:59 06:59 Intake Total 724 1520 1250 Output Total 500 2400 Balance 224 -880 1250 Weight 79 kg 79 kg General appearance: PRESENT: no acute distress Eye exam: PRESENT: PERRLA Mouth exam: PRESENT: neck supple Respiratory exam: PRESENT: clear to auscultation francesca Cardiovascular exam: PRESENT: +S1, +S2 Neurological exam: PRESENT: alert, awake Results Laboratory Results: 03/17/20 05:18 03/17/20 05:18 03/17/20 03/17/20 05:18 05:18 WBC 9.5 RBC 3.10 L Hgb 8.5 L Hct 26.6 L MCV 86 MCH 27.3 MCHC 31.8 L RDW 15.5 H Plt Count 343 Seg Neutrophils % 83.4 H Retic Count (auto) 1.74 Sodium 153.9 H Potassium 5.6 H Chloride 119 H Carbon Dioxide 21 L Anion Gap 14 BUN 57 H Creatinine 2.16 H Est GFR ( Amer) 36 L Glucose 372 H Calcium 9.3 Iron 15.6 L TIBC 164 L % Saturation 10 Ferritin 1660.00 H Vitamin B12 884.0 Folate 6.95 03/10/20 21:42 Troponin I < 0.012 Impressions: Femur X-Ray 03/10/20 23:41 IMPRESSION: Intertrochanteric fracture of the proximal femur. No distal fracture copyright 2011 [employer]- All Rights Reserved Fluoroscopy 03/13/20 00:00 IMPRESSION: ORIF left hip. Refer to operative note for further information. Hip X-Ray 03/13/20 00:00 IMPRESSION: ORIF left hip. Refer to operative note for further information. Chest X-Ray 03/15/20 00:00 IMPRESSION: No acute cardiopulmonary process. Head CT 03/15/20 00:00 IMPRESSION: No acute intracranial abnormality. EVIDENCE OF ACUTE STROKE: NO. Renal Ultrasound 03/16/20 00:00 IMPRESSION: 1. No hydronephrosis. Left upper pole cyst measuring up to 3.8 cm. 2. Incidentally noted distended gallbladder with dependent sludge and wall thic kening suggestive of cholecystitis. Recommend correlation with patient symptoms. Assessment & Plan - Diagnosis (1) COVID-19 Is this a current diagnosis for this admission?: Yes (2) Fall Qualifiers: Encounter type: initial encounter Qualified Code(s): W19.XXXA - Unspecified fall, initial encounter Is this a current diagnosis for this admission?: Yes (3) History of cerebrovascular accident (CVA) with residual deficit Is this a current diagnosis for this admission?: Yes (4) Hyperglycemia Is this a current diagnosis for this admission?: Yes (5) Intertrochanteric fracture of left hip Qualifiers: Encounter type: initial encounter Fracture type: closed Fracture alignment: displaced Qualified Code(s): S72.142A - Displaced intertrochanteric fracture of left femur, initial encounter for closed fracture Is this a current diagnosis for this admission?: Yes (6) Anemia Qualifiers: Anemia type: iron deficiency Is this a current diagnosis for this admission?: Yes (7) Anemia in chronic kidney disease (CKD) Qualifiers: Chronic kidney disease stage: stage 3 (moderate) Chronic kidney disease stage 3 subtype: stage 3b (GFR 30-44) Qualified Code(s): N18.32 - Chronic kidney disease, stage 3b; D63.1 - Anemia in chronic kidney disease Is this a current diagnosis for this admission?: Yes (8) Chronic kidney disease, stage 3 Qualifiers: Chronic kidney disease stage 3 subtype: stage 3b (GFR 30-44) Qualified Code(s): N18.32 - Chronic kidney disease, stage 3b Is this a current diagnosis for this admission?: Yes (9) Hemiparesis of right dominant side Qualifiers: Hemiparesis etiology: late effect of cerebrovascular disease Cerebrovascular disease type: cerebral infarction Qualified Code(s): 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 Is this a current diagnosis for this admission?: Yes (10) Type 2 diabetes mellitus Qualifiers: Diabetes mellitus intermediate card tender insulin use: with intermediate card tender use Diabetes mellitus complication status: with neurologic complications Diabetes mellitus complication detail: with polyneuropathy Qualified Code(s): E11.42 - Type 2 diabetes mellitus with diabetic polyneuropathy; Z79.4 - extermination inspector (current) use of insulin Is this a current diagnosis for this admission?: Yes - Time Time Spent with patient: 15-24 minutes Level of Care: IMCU Medications reviewed and adjusted accordingly: Yes Anticipated discharge: SNF Anticipated DC Timeframe: Other - Plan Summary Plan Summary: Discussed with Dr. Gross about adjusting the fluids continues the current medications discussed with the regarding the patient's current conditions
[2020-03-17] MEDS: PATIROMER 8.4 GM SUSP PACKET PO SCH (16:38)
[2020-03-17] MEDS ORDERED: INSULIN GLARGINE,HUM.REC.ANLOG 1,000 UNIT/10 ML VIAL SUBCUT SCH (22:00)
[2020-03-18] MEDS: HYDRALAZINE HCL 50 MG TABLET PO SCH ×5 (00:24→23:27)
[2020-03-18] MEDS: AMLODIPINE BESYLATE 5 MG TABLET PO SCH ×4 (00:26→23:30)
[2020-03-18] MEDS: ATORVASTATIN CALCIUM 40 MG TABLET PO SCH ×3 (00:26→23:29)
[2020-03-18] MEDS: INSULIN LISPRO 100 UNIT/ML 3 ML VIAL SUBCUT SCH ×5 (00:26→23:28)
[2020-03-18] MEDS: LATANOPROST 0.005% OPH SOLN 2.5 ML OP SCH ×3 (00:27→23:30)
[2020-03-18] MEDS: INSULIN GLARGINE,HUM.REC.ANLOG 1,000 UNIT/10 ML VIAL SUBCUT SCH ×4 (00:27→23:28)
[2020-03-18] MEDS: NEO/POLYMYX B SULF/DEXAMETH OPH OINTMENT 3.5 GM OP SCH (00:28)
[2020-03-18] MEDS: 1/2 NORMAL SALINE 1,000 ML IV PRN (03:14)
[2020-03-18 05:29] LABS: HEMATOCRIT 25.7 % (37.9-51.0); HEMOGLOBIN 8.4 g/dL (13.5-17.0); MEAN CORPUSCULAR HEMOGLOBIN 27.5 pg (27.0-33.4); MEAN CORPUSCULAR HGB CONC 32.5 g/dL (32.0-36.0); MEAN CORPUSCULAR VOLUME 85 fl (80-97); PLATELET COUNT 367 10^3/uL (150-450); RED BLOOD COUNT 3.03 10^6/uL (4.35-5.55); RED CELL DISTRIBUTION WIDTH 15.3 % (11.5-14.0); WHITE BLOOD COUNT 9.9 10^3/uL (4.0-10.5)
[2020-03-18 05:31] LABS: ANION GAP 15 (5-19); BLOOD UREA NITROGEN 46 mg/dL (7-20); CALCIUM 9.3 mg/dL (8.4-10.2); CARBON DIOXIDE 20 mmol/L (22-30); CHLORIDE 121 mmol/L (98-107); GLUCOSE 319 mg/dL (75-110); POTASSIUM 5.1 mmol/L (3.6-5.0)
[2020-03-18 06:14] LABS: ABSOLUTE LYMPHOCYTES# (MANUAL) 0.9 10^3/uL (0.5-4.7); ABSOLUTE MONOCYTES # (MANUAL) 1.2 10^3/uL (0.1-1.4); BAND NEUTROPHILS % (MANUAL) 6 % (3-5); BASOPHILS % (MANUAL) 0 % (0-2); EOSINOPHILS % (MANUAL) 0 % (0-6); LYMPHOCYTES % (MANUAL) 9 % (13-45); MONOCYTES % (MANUAL) 12 % (3-13); SEGMENTED NEUTROPHILS % (MAN) 73 % (42-78); TOTAL CELLS COUNTED 100
[2020-03-18 06:15] LABS: ANISOCYTOSIS 1+; PLATELET COMMENT ADEQUATE; POLYCHROMASIA 1+
[2020-03-18] MEDS: CEFEPIME 1 GM/D5W RTU 1 GM/50 ML RTUPB IV SCH (06:54)
[2020-03-18] MEDS: TIMOLOL MALEATE 0.5% OPH SOLN 5 ML OU SCH ×2 (10:20→17:16)
[2020-03-18] MEDS: ASCORBIC ACID 500 MG TABLET PO SCH ×2 (10:20→17:12)
[2020-03-18] MEDS: ENOXAPARIN SODIUM INJ 30 MG/0.3 ML DISP.SYRIN SUBCUT SCH (10:20)
[2020-03-18] MEDS: CHOLECALCIFEROL (D3) 1,000 UNIT (25 MCG) TABLET PO SCH (10:21)
[2020-03-18] MEDS: AZITHROMYCIN 500 MG in DEXTROSE 5%-WATER 250 ML IV SCH (10:21)
[2020-03-18] MEDS: ZINC SULFATE 220 MG CAPSULE PO SCH (10:21)
[2020-03-18] MEDS: FERROUS SULFATE 325 MG TABLET PO SCH (10:22)
[2020-03-18] MEDS: ASPIRIN 81 MG TABLET, ENT COATED PO SCH (10:22)
[2020-03-18] MEDS: PREDNISOLONE ACETATE 1% OPH SUSP 5 ML OU SCH ×2 (10:22→17:16)
[2020-03-18] MEDS: POLYVINYL ALCOHOL 1.4% OPH SOLN 15 ML OU SCH ×2 (10:23→17:16)
[2020-03-18] MEDS: PATIROMER 8.4 GM SUSP PACKET PO SCH (17:11)
--- NOTE | 2020-03-18 19:56 | PDOC PROGRESS REPORT ---
Subjective Date:: 03/18/20 Subjective:: Patient seen by the bedside, the biggest challenge is the poor intake with assoc iated hyperglycemia, the blood sugar is uncontrolled there is hesitancy to cover patient With insulin because he is not eating ,concerned about creating hypoglycemia Reason For Visit: FAKK AT HOME, LEFT FEMUR FRACTURE, CVA WITH LEFT Physical Exam Vital Signs: Temp Pulse Resp BP Pulse Ox 98.6 F 84 20 197/58 H 98 03/18/20 15:55 03/18/20 15:55 03/18/20 15:55 03/18/20 15:55 03/18/20 15:55 Intake & Output 03/17/20 03/18/20 03/19/20 06:59 06:59 06:59 Intake Total 1520 2250 300 Output Total 2400 1650 2200 Balance -880 600 -1900 Weight 79 kg 80.1 kg General appearance: PRESENT: no acute distress Eye exam: PRESENT: PERRLA Respiratory exam: PRESENT: clear to auscultation francesca Cardiovascular exam: PRESENT: +S1, +S2 GI/Abdominal exam: PRESENT: soft Results Laboratory Results: 03/18/20 04:18 03/18/20 04:18 03/18/20 03/18/20 04:18 04:18 WBC 9.9 RBC 3.03 L Hgb 8.4 L Hct 25.7 L MCV 85 MCH 27.5 MCHC 32.5 RDW 15.3 H Plt Count 367 Seg Neutrophils % Not Reportable Sodium 155.7 H Potassium 5.1 H Chloride 121 H Carbon Dioxide 20 L Anion Gap 15 BUN 46 H Creatinine 1.96 H Est GFR ( Amer) 40 L Glucose 319 H Calcium 9.3 03/13/20 04:41 Blood Blood Culture - Final NO GROWTH IN 5 DAYS 03/13/20 06:35 Blood Blood Culture - Final NO GROWTH IN 5 DAYS 03/10/20 21:42 Troponin I < 0.012 Impressions: Femur X-Ray 03/10/20 23:41 IMPRESSION: Intertrochanteric fracture of the proximal femur. No distal fracture copyright 2011 [employer]- All Rights Reserved Fluoroscopy 03/13/20 00:00 IMPRESSION: ORIF left hip. Refer to operative note for further information. Hip X-Ray 03/13/20 00:00 IMPRESSION: ORIF left hip. Refer to operative note for further information. Chest X-Ray 03/15/20 00:00 IMPRESSION: No acute cardiopulmonary process. Head CT 03/15/20 00:00 IMPRESSION: No acute intracranial abnormality. EVIDENCE OF ACUTE STROKE: NO. Renal Ultrasound 03/16/20 00:00 IMPRESSION: 1. No hydronephrosis. Left upper pole cyst measuring up to 3.8 cm. 2. Incidentally noted distended gallbladder with dependent sludge and wall thickening suggestive of cholecystitis. Recommend correlation with patient symptoms. 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: Diabetes mellitus assisted insulin use: with assisted use Diabetes mellitus complication status: with neurologic complications Diabetes mellitus complication detail: with polyneuropathy Qualified Code(s): E11.42 - Type 2 diabetes mellitus with diabetic polyneuropathy; Z79.4 - prison (current) use of insulin Is this a current diagnosis for this admission?: Yes (3) Intertrochanteric fracture of left hip Qualifiers: Encounter type: initial encounter Fracture type: closed Fracture alignment: displaced Qualified Code(s): S72.142A - Displaced intertrochanteric fracture of left femur, initial encounter for closed fracture Is this a current diagnosis for this admission?: Yes - Time Time Spent with patient: Less than 15 minutes Level of Care: MEDICAL - Plan Summary Plan Summary: May have to consider alternative nutrition
[2020-03-19] MEDS: 1/2 NORMAL SALINE 1,000 ML IV PRN ×2 (01:49→20:25)
[2020-03-19] MEDS: HYDRALAZINE HCL 50 MG TABLET PO SCH ×3 (06:11→21:21)
[2020-03-19] MEDS: CEFEPIME 1 GM/D5W RTU 1 GM/50 ML RTUPB IV SCH (06:16)
[2020-03-19] MEDS: PREDNISOLONE ACETATE 1% OPH SUSP 5 ML OU SCH ×2 (10:29→18:38)
[2020-03-19] MEDS: POLYVINYL ALCOHOL 1.4% OPH SOLN 15 ML OU SCH ×2 (10:29→18:38)
[2020-03-19] MEDS: ASPIRIN 81 MG TABLET, ENT COATED PO SCH (10:29)
[2020-03-19] MEDS: FERROUS SULFATE 325 MG TABLET PO SCH (10:29)
[2020-03-19] MEDS: ENOXAPARIN SODIUM INJ 30 MG/0.3 ML DISP.SYRIN SUBCUT SCH (10:31)
[2020-03-19] MEDS: INSULIN GLARGINE,HUM.REC.ANLOG 1,000 UNIT/10 ML VIAL SUBCUT SCH ×2 (10:31→21:26)
[2020-03-19] MEDS: ASCORBIC ACID 500 MG TABLET PO SCH ×2 (10:32→17:16)
[2020-03-19] MEDS: AMLODIPINE BESYLATE 5 MG TABLET PO SCH ×2 (10:32→21:22)
[2020-03-19] MEDS: CHOLECALCIFEROL (D3) 1,000 UNIT (25 MCG) TABLET PO SCH (10:32)
[2020-03-19] MEDS: TIMOLOL MALEATE 0.5% OPH SOLN 5 ML OU SCH ×2 (10:32→18:38)
[2020-03-19] MEDS: ZINC SULFATE 220 MG CAPSULE PO SCH (10:33)
[2020-03-19] MEDS: INSULIN LISPRO 100 UNIT/ML 3 ML VIAL SUBCUT SCH ×4 (10:36→21:25)
[2020-03-19] MEDS ORDERED: HYDRALAZINE HCL INJ/PF 20 MG/1 ML SDV IV PRN (14:35)
[2020-03-19] MEDS: PATIROMER 8.4 GM SUSP PACKET PO SCH (17:15)
--- NOTE | 2020-03-19 19:04 | PDOC PROGRESS REPORT ---
Subjective Date:: 03/19/20 Subjective:: Patient seen by the bedside no new complaints Reason For Visit: FAKK AT HOME, LEFT FEMUR FRACTURE, CVA WITH LEFT Physical Exam Vital Signs: Temp Pulse Resp BP Pulse Ox 97.4 F 89 18 181/62 H 97 03/19/20 16:45 03/19/20 16:45 03/19/20 16:45 03/19/20 16:45 03/19/20 16:45 Intake & Output 03/18/20 03/19/20 03/20/20 06:59 06:59 06:59 Intake Total 2250 1300 50 Output Total 1650 2775 900 Balance 647 -1075 -005 Weight 80.1 kg 77.5 kg General appearance: PRESENT: no acute distress Eye exam: PRESENT: PERRLA Respiratory exam: PRESENT: clear to auscultation francesca Cardiovascular exam: PRESENT: +S1, +S2 GI/Abdominal exam: PRESENT: soft Neurological exam: PRESENT: alert Results Laboratory Results: 03/18/20 04:18 03/18/20 04:18 03/10/20 21:42 Troponin I < 0.012 Impressions: Femur X-Ray 03/10/20 23:41 IMPRESSION: Intertrochanteric fracture of the proximal femur. No distal fracture copyright 2011 [employer]- All Rights Reserved Fluoroscopy 03/13/20 00:00 IMPRESSION: ORIF left hip. Refer to operative note for further information. Hip X-Ray 03/13/20 00:00 IMPRESSION: ORIF left hip. Refer to operative note for further information. Chest X-Ray 03/15/20 00:00 IMPRESSION: No acute cardiopulmonary process. Head CT 03/15/20 00:00 IMPRESSION: No acute intracranial abnormality. EVIDENCE OF ACUTE STROKE: NO. Renal Ultrasound 03/16/20 00:00 IMPRESSION: 1. No hydronephrosis. Left upper pole cyst measuring up to 3.8 cm. 2. Incidentally noted distended gallbladder with dependent sludge and wall thickening suggestive of cholecystitis. Recommend correlation with patient symptoms. 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: Diabetes mellitus long term care social worker insulin use: with long term care social worker use Diabetes mellitus complication status: with neurologic complications Diabetes mellitus complication detail: with polyneuropathy Qualified Code(s): E11.42 - Type 2 diabetes mellitus with diabetic polyneuropathy; Z79.4 - intermediate teacher (current) use of insulin Is this a current diagnosis for this admission?: Yes (3) Intertrochanteric fracture of left hip Qualifiers: Encounter type: initial encounter Fracture type: closed Fracture alignment: displaced Qualified Code(s): S72.142A - Displaced intertrochanteric fracture of left femur, initial encounter for closed fracture Is this a current diagnosis for this admission?: Yes - Time Time Spent with patient: 15-24 minutes Level of Care: IMCU Medications reviewed and adjusted accordingly: Yes Anticipated discharge: Home
[2020-03-19] MEDS: ATORVASTATIN CALCIUM 40 MG TABLET PO SCH (21:22)
[2020-03-19] MEDS: LATANOPROST 0.005% OPH SOLN 2.5 ML OP SCH (21:26)
[2020-03-20] MEDS: HYDRALAZINE HCL 50 MG TABLET PO SCH ×5 (01:09→21:45)
[2020-03-20] MEDS: CEFEPIME 1 GM/D5W RTU 1 GM/50 ML RTUPB IV SCH (06:18)
[2020-03-20] MEDS: ENOXAPARIN SODIUM INJ 30 MG/0.3 ML DISP.SYRIN SUBCUT SCH (09:28)
[2020-03-20] MEDS: INSULIN LISPRO 100 UNIT/ML 3 ML VIAL SUBCUT SCH ×4 (09:28→21:45)
[2020-03-20] MEDS: PREDNISOLONE ACETATE 1% OPH SUSP 5 ML OU SCH ×2 (09:29→18:33)
[2020-03-20] MEDS: POLYVINYL ALCOHOL 1.4% OPH SOLN 15 ML OU SCH ×2 (09:29→18:33)
[2020-03-20] MEDS: TIMOLOL MALEATE 0.5% OPH SOLN 5 ML OU SCH ×2 (09:30→18:32)
[2020-03-20] MEDS: CHOLECALCIFEROL (D3) 1,000 UNIT (25 MCG) TABLET PO SCH (09:38)
[2020-03-20] MEDS: AMLODIPINE BESYLATE 5 MG TABLET PO SCH ×2 (09:38→21:46)
[2020-03-20] MEDS: ASCORBIC ACID 500 MG TABLET PO SCH ×2 (09:38→18:37)
[2020-03-20] MEDS: FERROUS SULFATE 325 MG TABLET PO SCH (09:38)
[2020-03-20] MEDS: ASPIRIN 81 MG TABLET, ENT COATED PO SCH (09:38)
[2020-03-20] MEDS: ZINC SULFATE 220 MG CAPSULE PO SCH (09:38)
[2020-03-20 11:19] LABS: HEMATOCRIT 30.4 % (37.9-51.0); HEMOGLOBIN 9.7 g/dL (13.5-17.0); MEAN CORPUSCULAR HEMOGLOBIN 26.9 pg (27.0-33.4); MEAN CORPUSCULAR HGB CONC 31.9 g/dL (32.0-36.0); MEAN CORPUSCULAR VOLUME 84 fl (80-97); PLATELET COUNT 493 10^3/uL (150-450); RED CELL DISTRIBUTION WIDTH 16.2 % (11.5-14.0); WHITE BLOOD COUNT 11.1 10^3/uL (4.0-10.5)
[2020-03-20 11:46] LABS: ANION GAP 12 (5-19); BLOOD UREA NITROGEN 41 mg/dL (7-20); CALCIUM 9.7 mg/dL (8.4-10.2); CARBON DIOXIDE 26 mmol/L (22-30); CHLORIDE 123 mmol/L (98-107); GLUCOSE 201 mg/dL (75-110); POTASSIUM 3.9 mmol/L (3.6-5.0)
[2020-03-20 11:48] LABS: ABSOLUTE LYMPHOCYTES# (MANUAL) 1.1 10^3/uL (0.5-4.7); ABSOLUTE MONOCYTES # (MANUAL) 0.8 10^3/uL (0.1-1.4); ANISOCYTOSIS 1+; BASOPHILS % (MANUAL) 0 % (0-2); EOSINOPHILS % (MANUAL) 1 % (0-6); LYMPHOCYTES % (MANUAL) 8 % (13-45); METAMYELOCYTES % (MANUAL) 1 % (0-1); MONOCYTES % (MANUAL) 7 % (3-13); PLATELET COMMENT INCREASED; SEGMENTED NEUTROPHILS % (MAN) 80 % (42-78); TOTAL CELLS COUNTED 100
[2020-03-20 11:49] LABS: PROMYELOCYTES % (MANUAL) 1 % (0)
[2020-03-20] MEDS: INSULIN GLARGINE,HUM.REC.ANLOG 1,000 UNIT/10 ML VIAL SUBCUT SCH ×2 (12:32→21:46)
[2020-03-20] MEDS: DEXTROSE 5%-WATER 1000 ML 1,000 ML IV PRN (15:22)
[2020-03-20] MEDS: PATIROMER 8.4 GM SUSP PACKET PO SCH (18:33)
--- NOTE | 2020-03-20 21:41 | PDOC PROGRESS REPORT ---
Subjective Date:: 03/20/20 Subjective:: Patient is alert , he is actually more responsive and interactive today Reason For Visit: FAKK AT HOME, LEFT FEMUR FRACTURE, CVA WITH LEFT Physical Exam Vital Signs: Temp Pulse Resp BP Pulse Ox 98.2 F 108 H 17 154/65 H 98 03/20/20 19:28 03/20/20 19:28 03/20/20 19:28 03/20/20 19:28 03/20/20 19:28 Intake & Output 03/19/20 03/20/20 03/21/20 06:59 06:59 06:59 Intake Total 1300 1100 1200 Output Total 2775 1675 Balance -1475 -575 1200 Weight 77.5 kg 77.6 kg 77.6 kg General appearance: PRESENT: no acute distress Eye exam: PRESENT: PERRLA Respiratory exam: PRESENT: clear to auscultation francesca Cardiovascular exam: PRESENT: +S1, +S2 GI/Abdominal exam: PRESENT: soft Results Laboratory Results: 03/20/20 11:00 03/20/20 11:00 03/20/20 03/20/20 11:00 11:00 WBC 11.1 H RBC 3.60 L Hgb 9.7 L Hct 30.4 L MCV 84 MCH 26.9 L MCHC 31.9 L RDW 16.2 H Plt Count 493 H Seg Neutrophils % Not Reportable Sodium 160.7 H Potassium 3.9 Chloride 123 H Carbon Dioxide 26 Anion Gap 12 BUN 41 H Creatinine 1.57 H Est GFR ( Amer) 52 L Glucose 201 H Calcium 9.7 03/10/20 21:42 Troponin I < 0.012 Impressions: Femur X-Ray 03/10/20 23:41 IMPRESSION: Intertrochanteric fracture of the proximal femur. No distal fracture copyright 2011 [facility]- All Rights Reserved Fluoroscopy 03/13/20 00:00 IMPRESSION: ORIF left hip. Refer to operative note for further information. Hip X-Ray 03/13/20 00:00 IMPRESSION: ORIF left hip. Refer to operative note for further information. Chest X-Ray 03/15/20 00:00 IMPRESSION: No acute cardiopulmonary process. Head CT 03/15/20 00:00 IMPRESSION: No acute intracranial abnormality. EVIDENCE OF ACUTE STROKE: NO. Renal Ultrasound 03/16/20 00:00 IMPRESSION: 1. No hydronephrosis. Left upper pole cyst measuring up to 3.8 cm. 2. Incidentally noted distended gallbladder with dependent sludge and wall thickening suggestive of cholecystitis. Recommend correlation with patient symptoms. 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: Diabetes mellitus intermodal owner operator truck driver insulin use: with intermodal owner operator truck driver use Diabetes mellitus complication status: with neurologic complications Diabetes mellitus complication detail: with polyneuropathy Qualified Code(s): E11.42 - Type 2 diabetes mellitus with diabetic polyneuropathy; Z79.4 - roasterman (current) use of insulin Is this a current diagnosis for this admission?: Yes (3) Intertrochanteric fracture of left hip Qualifiers: Encounter type: initial encounter Fracture type: closed Fracture alignment: displaced Qualified Code(s): S72.142A - Displaced intertrochanteric fracture of left femur, initial encounter for closed fracture Is this a current diagnosis for this admission?: Yes - Time Time Spent with patient: 15-24 minutes Level of Care: IMCU Medications reviewed and adjusted accordingly: Yes Anticipated discharge: Home Anticipated DC Timeframe: within 72 hours
[2020-03-20] MEDS: LATANOPROST 0.005% OPH SOLN 2.5 ML OP SCH (21:46)
[2020-03-20] MEDS: ATORVASTATIN CALCIUM 40 MG TABLET PO SCH (21:46)
[2020-03-21] MEDS: HYDRALAZINE HCL 50 MG TABLET PO SCH ×2 (05:15→13:58)
[2020-03-21] MEDS: CEFEPIME 1 GM/D5W RTU 1 GM/50 ML RTUPB IV SCH (05:15)
[2020-03-21] MEDS: DEXTROSE 5%-WATER 1000 ML 1,000 ML IV PRN (06:26)
[2020-03-21] MEDS: INSULIN LISPRO 100 UNIT/ML 3 ML VIAL SUBCUT SCH ×3 (10:00→17:27)
[2020-03-21] MEDS: INSULIN GLARGINE,HUM.REC.ANLOG 1,000 UNIT/10 ML VIAL SUBCUT SCH (10:02)
[2020-03-21] MEDS: ENOXAPARIN SODIUM INJ 30 MG/0.3 ML DISP.SYRIN SUBCUT SCH (10:05)
[2020-03-21] MEDS: POLYVINYL ALCOHOL 1.4% OPH SOLN 15 ML OU SCH ×2 (10:17→17:27)
[2020-03-21] MEDS: TIMOLOL MALEATE 0.5% OPH SOLN 5 ML OU SCH ×2 (10:18→17:28)
[2020-03-21] MEDS: PREDNISOLONE ACETATE 1% OPH SUSP 5 ML OU SCH ×2 (10:18→17:28)
[2020-03-21] MEDS: ZINC SULFATE 220 MG CAPSULE PO SCH (10:19)
[2020-03-21] MEDS: ASCORBIC ACID 500 MG TABLET PO SCH ×2 (10:19→17:27)
[2020-03-21] MEDS: FERROUS SULFATE 325 MG TABLET PO SCH (10:19)
[2020-03-21] MEDS: AMLODIPINE BESYLATE 5 MG TABLET PO SCH (10:19)
[2020-03-21] MEDS: CHOLECALCIFEROL (D3) 1,000 UNIT (25 MCG) TABLET PO SCH (10:19)
[2020-03-21] MEDS: ASPIRIN 81 MG TABLET, ENT COATED PO SCH (10:19)
[2020-03-21 11:18] LABS: PATH REVIEW PATHOLOGIST REVIEWED
[2020-03-21 12:37] LABS: A/G RATIO 0.7 (0.7-1.7); ALBUMIN 2 2.7 g/dL (2.9-4.4); ALPHA-2-GLOBULIN 2 1.4 g/dL (0.4-1.0); GAMMA GLOBULIN 0.8 g/dL (0.4-1.8); GLOBULIN TOTAL 3.9 g/dL (2.2-3.9); MONOCLONAL SPIKE Not Observed g/dL (Not Observ); PROTEIN TOTAL SERUM 6.6 g/dL (6.0-8.5)
[2020-03-21 13:38] LABS: ANION GAP 7 (5-19); BLOOD UREA NITROGEN 47 mg/dL (7-20); CALCIUM 9.2 mg/dL (8.4-10.2); CARBON DIOXIDE 30 mmol/L (22-30); CHLORIDE 120 mmol/L (98-107); GLUCOSE 220 mg/dL (75-110); POTASSIUM 3.8 mmol/L (3.6-5.0)
[2020-03-21] MEDS: PATIROMER 8.4 GM SUSP PACKET PO SCH (17:27)
--- NOTE | 2020-03-21 21:02 | PDOC PROGRESS REPORT ---
Subjective Date:: 03/21/20 Subjective:: Patient seen by the bedside improving some Reason For Visit: FAKK AT HOME, LEFT FEMUR FRACTURE, CVA WITH LEFT Physical Exam Vital Signs: Temp Pulse Resp BP Pulse Ox 98.2 F 70 19 173/63 H 100 03/21/20 16:56 03/21/20 16:56 03/21/20 16:56 03/21/20 16:56 03/21/20 12:31 Intake & Output 03/20/20 03/21/20 03/22/20 06:59 06:59 06:59 Intake Total 1100 2500 0 Output Total 1675 700 150 Balance -575 1800 -150 Weight 77.6 kg 77.6 kg General appearance: PRESENT: no acute distress Eye exam: PRESENT: PERRLA Respiratory exam: PRESENT: clear to auscultation francesca Cardiovascular exam: PRESENT: +S1, +S2 GI/Abdominal exam: PRESENT: soft Neurological exam: PRESENT: alert Results Laboratory Results: 03/20/20 11:00 03/21/20 12:56 03/17/20 03/21/20 05:18 12:56 Sodium 157.0 H Potassium 3.8 Chloride 120 H Carbon Dioxide 30 Anion Gap 7 BUN 47 H Creatinine 1.92 H Est GFR ( Amer) 41 L Glucose 220 H Calcium 9.2 Total Protein 6.6 Albumin 2.7 L 03/10/20 21:42 Troponin I < 0.012 Impressions: Femur X-Ray 03/10/20 23:41 IMPRESSION: Intertrochanteric fracture of the proximal femur. No distal fracture copyright 2011 [employer]- All Rights Reserved Fluoroscopy 03/13/20 00:00 IMPRESSION: ORIF left hip. Refer to operative note for further information. Hip X-Ray 03/13/20 00:00 IMPRESSION: ORIF left hip. Refer to operative note for further information. Chest X-Ray 03/15/20 00:00 IMPRESSION: No acute cardiopulmonary process. Head CT 03/15/20 00:00 IMPRESSION: No acute intracranial abnormality. EVIDENCE OF ACUTE STROKE: NO. Renal Ultrasound 03/16/20 00:00 IMPRESSION: 1. No hydronephrosis. Left upper pole cyst measuring up to 3.8 cm. 2. Incidentally noted distended gallbladder with dependent sludge and wall thickening suggestive of cholecystitis. Recommend correlation with patient symptoms. 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: Diabetes mellitus lobsterman insulin use: with long-term use Diabetes mellitus complication status: with neurologic complications Diabetes mellitus complication detail: with polyneuropathy Qualified Code(s): E11.42 - Type 2 diabetes mellitus with diabetic polyneuropathy; Z79.4 - terminal carman (current) use of insulin Is this a current diagnosis for this admission?: Yes (3) Intertrochanteric fracture of left hip Qualifiers: Encounter type: initial encounter Fracture type: closed Fracture alignment: displaced Qualified Code(s): S72.142A - Displaced intertrochanteric fracture of left femur, initial encounter for closed fracture Is this a current diagnosis for this admission?: Yes - Time Time Spent with patient: 15-24 minutes Level of Care: IMCU - Inpatient Certification Based on my medical assessment, after consideration of the patient's comorbidities, presenting symptoms, or acuity I expect that the services needed warrant INPATIENT care.: Yes I certify that my determination is in accordance with my understanding of Medicare's requirements for reasonable and necessary INPATIENT services [42 CFR 412.3e].: Yes
[2020-03-21] MEDS ORDERED: DEXTROSE 5%-WATER 1000 ML 1,000 ML IV PRN (22:51)
[2020-03-22] MEDS: INSULIN GLARGINE,HUM.REC.ANLOG 1,000 UNIT/10 ML VIAL SUBCUT SCH ×3 (00:05→22:04)
[2020-03-22] MEDS: ATORVASTATIN CALCIUM 40 MG TABLET PO SCH ×2 (00:05→22:04)
[2020-03-22] MEDS: HYDRALAZINE HCL 50 MG TABLET PO SCH ×4 (00:05→22:05)
[2020-03-22] MEDS: AMLODIPINE BESYLATE 5 MG TABLET PO SCH ×3 (00:05→22:04)
[2020-03-22] MEDS: LATANOPROST 0.005% OPH SOLN 2.5 ML OP SCH ×2 (00:06→22:04)
[2020-03-22] MEDS: INSULIN LISPRO 100 UNIT/ML 3 ML VIAL SUBCUT SCH ×5 (00:06→22:08)
[2020-03-22] MEDS: CEFEPIME 1 GM/D5W RTU 1 GM/50 ML RTUPB IV SCH (05:35)
[2020-03-22 05:46] LABS: ANION GAP 10 (5-19); BLOOD UREA NITROGEN 40 mg/dL (7-20); CALCIUM 9.6 mg/dL (8.4-10.2); CARBON DIOXIDE 25 mmol/L (22-30); CHLORIDE 118 mmol/L (98-107); GLUCOSE 164 mg/dL (75-110); POTASSIUM 3.8 mmol/L (3.6-5.0)
[2020-03-22] MEDS: FERROUS SULFATE 325 MG TABLET PO SCH (09:29)
[2020-03-22] MEDS: ZINC SULFATE 220 MG CAPSULE PO SCH (09:29)
[2020-03-22] MEDS: ASPIRIN 81 MG TABLET, ENT COATED PO SCH (09:30)
[2020-03-22] MEDS: CHOLECALCIFEROL (D3) 1,000 UNIT (25 MCG) TABLET PO SCH (09:30)
[2020-03-22] MEDS: ASCORBIC ACID 500 MG TABLET PO SCH ×2 (09:31→17:28)
[2020-03-22] MEDS: POLYVINYL ALCOHOL 1.4% OPH SOLN 15 ML OU SCH ×2 (09:31→17:28)
[2020-03-22] MEDS: PREDNISOLONE ACETATE 1% OPH SUSP 5 ML OU SCH ×2 (09:32→17:30)
[2020-03-22] MEDS: TIMOLOL MALEATE 0.5% OPH SOLN 5 ML OU SCH ×2 (09:32→17:28)
[2020-03-22] MEDS: ENOXAPARIN SODIUM INJ 30 MG/0.3 ML DISP.SYRIN SUBCUT SCH (09:35)
[2020-03-22] MEDS: DEXTROSE 5%-WATER 1000 ML 1,000 ML IV PRN (17:28)
--- NOTE | 2020-03-22 20:11 | PDOC PROGRESS REPORT ---
Subjective Date:: 03/22/20 Subjective:: Patient seen by the bedside, the discharge planning is making arrangements for p lacement, clearly this patient cannot take care of himself without assistance Reason For Visit: FAKK AT HOME, LEFT FEMUR FRACTURE, CVA WITH LEFT Physical Exam Vital Signs: Temp Pulse Resp BP Pulse Ox 99.2 F 85 19 190/57 H 100 03/22/20 17:19 03/22/20 17:19 03/22/20 17:19 03/22/20 17:19 03/22/20 17:19 Intake & Output 03/21/20 03/22/20 03/23/20 06:59 06:59 06:59 Intake Total 2500 310 2360 Output Total 700 600 Balance 1800 -290 2360 Weight 77.6 kg 76.5 kg 76.5 kg General appearance: PRESENT: no acute distress Eye exam: PRESENT: PERRLA Respiratory exam: PRESENT: clear to auscultation francesca Cardiovascular exam: PRESENT: +S1, +S2 Neurological exam: PRESENT: alert Results Laboratory Results: 03/20/20 11:00 03/22/20 04:46 03/22/20 04:46 Sodium 153.1 H Potassium 3.8 Chloride 118 H Carbon Dioxide 25 Anion Gap 10 BUN 40 H Creatinine 1.69 H Est GFR ( Amer) 48 L Glucose 164 H Calcium 9.6 03/10/20 21:42 Troponin I < 0.012 Impressions: Femur X-Ray 03/10/20 23:41 IMPRESSION: Intertrochanteric fracture of the proximal femur. No distal fracture copyright 2011 [employer]- All Rights Reserved Fluoroscopy 03/13/20 00:00 IMPRESSION: ORIF left hip. Refer to operative note for further information. Hip X-Ray 03/13/20 00:00 IMPRESSION: ORIF left hip. Refer to operative note for further information. Chest X-Ray 03/15/20 00:00 IMPRESSION: No acute cardiopulmonary process. Head CT 03/15/20 00:00 IMPRESSION: No acute intracranial abnormality. EVIDENCE OF ACUTE STROKE: NO. Renal Ultrasound 03/16/20 00:00 IMPRESSION: 1. No hydronephrosis. Left upper pole cyst measuring up to 3.8 cm. 2. Incidentally noted distended gallbladder with dependent sludge and wall thickening suggestive of cholecystitis. Recommend correlation with patient symptoms. 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 operator intermodal yard use Diabetes mellitus complication status: with neurologic complications Diabetes mellitus complication detail: with polyneuropathy Qualified Code(s): E11.42 - Type 2 diabetes mellitus with diabetic polyneuropathy; Z79.4 - snf (current) use of insulin Is this a current diagnosis for this admission?: Yes (3) Intertrochanteric fracture of left hip Qualifiers: Encounter type: initial encounter Fracture type: closed Fracture alignment: displaced Qualified Code(s): S72.142A - Displaced intertrochanteric fracture of left femur, initial encounter for closed fracture Is this a current diagnosis for this admission?: Yes (4) Hypernatremia Is this a current diagnosis for this admission?: Yes Plan: Patient on 5% dextrose - Time Time Spent with patient: 25-34 minutes Level of Care: IMCU Medications reviewed and adjusted accordingly: Yes Anticipated discharge: SNF Anticipated DC Timeframe: Other
--- NOTE | 2020-03-22 23:55 | PDOC PROGRESS REPORT ---
Subjective Date:: 03/22/20 Subjective:: Patient is comfortable lying down in bed and has no complaints. He states that he is feeling fine. His speech is sometimes difficult to understand. He is making adequate amount of urine. Reason For Visit: FAKK AT HOME, LEFT FEMUR FRACTURE, CVA WITH LEFT Physical Exam Vital Signs: Temp Pulse Resp BP Pulse Ox 99.2 F 85 19 190/57 H 100 03/22/20 17:19 03/22/20 17:19 03/22/20 17:19 03/22/20 17:19 03/22/20 17:19 Intake & Output 03/21/20 03/22/20 03/23/20 06:59 06:59 06:59 Intake Total 2500 310 2000 Output Total 700 600 Balance 1800 -290 2000 Weight 77.6 kg 76.5 kg 76.5 kg Exam: General appearance: PRESENT: no acute distress, cooperative, well-developed, well-nourished Head exam: PRESENT: atraumatic, normocephalic Eye exam: PRESENT: conjunctiva mildly pale, PERRLA. ABSENT: scleral icterus Neck exam: ABSENT: JVD Respiratory exam: PRESENT: Diminished breath sounds. ABSENT: crackles, rales, rhonchi, unlabored, wheezes Cardiovascular exam: PRESENT: Regular rate rhythm -+S1, +S2. ABSENT: diastolic murmur, systolic murmur GI/Abdominal exam: PRESENT: normal bowel sounds, soft. ABSENT: guarding, mass, tenderness Extremities exam: ABSENT: No edema Neurological exam: PRESENT: alert, awake Skin exam: PRESENT: dry, warm, Cardiovascular exam: PRESENT: +S1, +S2 GI/Abdominal exam: PRESENT: normal bowel sounds, soft. ABSENT: organomegaly, tenderness Results Laboratory Results: 03/20/20 11:00 03/22/20 04:46 03/22/20 04:46 Sodium 153.1 H Potassium 3.8 Chloride 118 H Carbon Dioxide 25 Anion Gap 10 BUN 40 H Creatinine 1.69 H Est GFR ( Amer) 48 L Glucose 164 H Calcium 9.6 03/10/20 21:42 Troponin I < 0.012 Impressions: Femur X-Ray 03/10/20 23:41 IMPRESSION: Intertrochanteric fracture of the proximal femur. No distal fracture copyright 2011 [id number]- All Rights Reserved Fluoroscopy 03/13/20 00:00 IMPRESSION: ORIF left hip. Refer to operative note for further information. Hip X-Ray 03/13/20 00:00 IMPRESSION: ORIF left hip. Refer to operative note for further information. Chest X-Ray 03/15/20 00:00 IMPRESSION: No acute cardiopulmonary process. Head CT 03/15/20 00:00 IMPRESSION: No acute intracranial abnormality. EVIDENCE OF ACUTE STROKE: NO. Renal Ultrasound 03/16/20 00:00 IMPRESSION: 1. No hydronephrosis. Left upper pole cyst measuring up to 3.8 cm. 2. Incidentally noted distended gallbladder with dependent sludge and wall thickening suggestive of cholecystitis. Recommend correlation with patient symptoms. Assessment & Plan - Diagnosis (1) Hypernatremia Is this a current diagnosis for this admission?: Yes Plan: Patient sodium level has gone down from 162 current of 153 after initiation of D5 water since Friday. I decrease his D5 water infusion rate from 150 to 125 mL an hour. Continue the same. If the sodium level continues to go down we will just do IV fluids rate further or change it. (2) Acute kidney injury superimposed on chronic kidney disease Is this a current diagnosis for this admission?: Yes Plan: Baseline creatinine is around 1.2-1.3. Kidney function continues to improve with adequate although not great urine output as recorded. (3) COVID-19 Is this a current diagnosis for this admission?: Yes Plan: Per Dr. Hdez. (4) Essential (primary) hypertension Is this a current diagnosis for this admission?: Yes Plan: Uncontrolled. Increase hydralazine to 100 mg p.o. every 8 hours. 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
[2020-03-23] MEDS: HYDRALAZINE HCL 50 MG TABLET PO SCH ×3 (06:31→22:15)
[2020-03-23] MEDS: CEFEPIME 1 GM/D5W RTU 1 GM/50 ML RTUPB IV SCH (06:32)
[2020-03-23 08:18] LABS: ANION GAP 7 (5-19); BLOOD UREA NITROGEN 34 mg/dL (7-20); CALCIUM 8.8 mg/dL (8.4-10.2); CARBON DIOXIDE 28 mmol/L (22-30); CHLORIDE 113 mmol/L (98-107); GLUCOSE 208 mg/dL (75-110); POTASSIUM 3.5 mmol/L (3.6-5.0)
[2020-03-23] MEDS: INSULIN LISPRO 100 UNIT/ML 3 ML VIAL SUBCUT SCH ×4 (08:38→22:17)
[2020-03-23] MEDS: DEXTROSE 5%-WATER 1000 ML 1,000 ML IV PRN ×2 (08:43→19:30)
[2020-03-23] MEDS: ASPIRIN 81 MG TABLET, ENT COATED PO SCH (11:59)
[2020-03-23] MEDS: AMLODIPINE BESYLATE 5 MG TABLET PO SCH ×2 (12:00→22:16)
[2020-03-23] MEDS: ASCORBIC ACID 500 MG TABLET PO SCH ×2 (12:00→18:05)
[2020-03-23] MEDS: FERROUS SULFATE 325 MG TABLET PO SCH (12:00)
[2020-03-23] MEDS: INSULIN GLARGINE,HUM.REC.ANLOG 1,000 UNIT/10 ML VIAL SUBCUT SCH ×2 (12:01→22:20)
[2020-03-23] MEDS: CHOLECALCIFEROL (D3) 1,000 UNIT (25 MCG) TABLET PO SCH (12:02)
[2020-03-23] MEDS: ZINC SULFATE 220 MG CAPSULE PO SCH (12:02)
[2020-03-23] MEDS: POLYVINYL ALCOHOL 1.4% OPH SOLN 15 ML OU SCH ×2 (12:07→18:05)
[2020-03-23] MEDS: PREDNISOLONE ACETATE 1% OPH SUSP 5 ML OU SCH ×2 (12:07→18:05)
[2020-03-23] MEDS: ENOXAPARIN SODIUM INJ 30 MG/0.3 ML DISP.SYRIN SUBCUT SCH (12:08)
[2020-03-23] MEDS: TIMOLOL MALEATE 0.5% OPH SOLN 5 ML OU SCH ×2 (12:09→18:05)
--- NOTE | 2020-03-23 15:16 | PDOC PROGRESS REPORT ---
Subjective Date:: 03/23/20 Subjective:: Patient seen by the bedside, the discharge planning is making arrangements for p lacement, clearly this patient cannot take care of himself without assistance Reason For Visit: FAKK AT HOME, LEFT FEMUR FRACTURE, CVA WITH LEFT Physical Exam Vital Signs: Temp Pulse Resp BP Pulse Ox 97.7 F 96 17 152/55 H 100 03/23/20 12:19 03/23/20 12:19 03/23/20 12:19 03/23/20 12:19 03/23/20 12:19 Intake & Output 03/22/20 03/23/20 03/24/20 06:59 06:59 06:59 Intake Total 310 3710 50 Output Total 600 575 Balance -290 3135 50 Weight 76.5 kg 76.2 kg General appearance: PRESENT: no acute distress Respiratory exam: PRESENT: clear to auscultation francesca Cardiovascular exam: PRESENT: +S1, +S2 GI/Abdominal exam: PRESENT: soft Neurological exam: PRESENT: alert Results Laboratory Results: 03/20/20 11:00 03/23/20 07:35 03/23/20 03/23/20 05:09 07:35 Sodium Cancelled 147.5 H Potassium Cancelled 3.5 L Chloride Cancelled 113 H Carbon Dioxide Cancelled 28 Anion Gap Cancelled 7 BUN Cancelled 34 H Creatinine Cancelled 1.56 H Est GFR ( Amer) Cancelled 53 L Est GFR (Non-Af Amer) Cancelled Glucose Cancelled 208 H Calcium Cancelled 8.8 03/10/20 21:42 Troponin I < 0.012 Impressions: Femur X-Ray 03/10/20 23:41 IMPRESSION: Intertrochanteric fracture of the proximal femur. No distal fracture copyright 2011 [employer]- All Rights Reserved Fluoroscopy 03/13/20 00:00 IMPRESSION: ORIF left hip. Refer to operative note for further information. Hip X-Ray 03/13/20 00:00 IMPRESSION: ORIF left hip. Refer to operative note for further information. Chest X-Ray 03/15/20 00:00 IMPRESSION: No acute cardiopulmonary process. Head CT 03/15/20 00:00 IMPRESSION: No acute intracranial abnormality. EVIDENCE OF ACUTE STROKE: NO. Renal Ultrasound 03/16/20 00:00 IMPRESSION: 1. No hydronephrosis. Left upper pole cyst measuring up to 3.8 cm. 2. Incidentally noted distended gallbladder with dependent sludge and wall thickening suggestive of cholecystitis. Recommend correlation with patient symptoms. 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 Is this a current diagnosis for this admission?: Yes (3) Intertrochanteric fracture of left hip Qualifiers: Encounter type: initial encounter Fracture type: closed Fracture alignment: displaced Qualified Code(s): S72.142A - Displaced intertrochanteric fracture of left femur, initial encounter for closed fracture Is this a current diagnosis for this admission?: Yes (4) Hypernatremia Is this a current diagnosis for this admission?: Yes - Time Time Spent with patient: 25-34 minutes Level of Care: MEDICAL Medications reviewed and adjusted accordingly: Yes Anticipated discharge: Other Anticipated DC Timeframe: Other
[2020-03-23] MEDS: LATANOPROST 0.005% OPH SOLN 2.5 ML OP SCH (22:16)
[2020-03-23] MEDS: ATORVASTATIN CALCIUM 40 MG TABLET PO SCH (22:16)
[2020-03-24] MEDS: HYDRALAZINE HCL 50 MG TABLET PO SCH ×3 (05:34→21:52)
[2020-03-24] MEDS: CEFEPIME 1 GM/D5W RTU 1 GM/50 ML RTUPB IV SCH (05:34)
[2020-03-24 06:14] LABS: ANION GAP 8 (5-19); BLOOD UREA NITROGEN 29 mg/dL (7-20); CALCIUM 8.6 mg/dL (8.4-10.2); CARBON DIOXIDE 24 mmol/L (22-30); CHLORIDE 114 mmol/L (98-107); GLUCOSE 134 mg/dL (75-110); POTASSIUM 3.4 mmol/L (3.6-5.0)
[2020-03-24] MEDS: PATIROMER 8.4 GM SUSP PACKET PO SCH (06:42)
[2020-03-24] MEDS ORDERED: POTASSIUM CHLORIDE 10 MEQ TABLET.ER PO ONE (09:23)
[2020-03-24] MEDS: ENOXAPARIN SODIUM INJ 30 MG/0.3 ML DISP.SYRIN SUBCUT SCH (09:44)
[2020-03-24] MEDS: ASCORBIC ACID 500 MG TABLET PO SCH ×2 (09:45→17:09)
[2020-03-24] MEDS: ASPIRIN 81 MG TABLET, ENT COATED PO SCH (09:45)
[2020-03-24] MEDS: AMLODIPINE BESYLATE 5 MG TABLET PO SCH ×2 (09:45→21:52)
[2020-03-24] MEDS: CHOLECALCIFEROL (D3) 1,000 UNIT (25 MCG) TABLET PO SCH (09:45)
[2020-03-24] MEDS: ZINC SULFATE 220 MG CAPSULE PO SCH (09:45)
[2020-03-24] MEDS: TIMOLOL MALEATE 0.5% OPH SOLN 5 ML OU SCH ×2 (09:46→17:10)
[2020-03-24] MEDS: PREDNISOLONE ACETATE 1% OPH SUSP 5 ML OU SCH ×2 (09:46→17:10)
[2020-03-24] MEDS: POLYVINYL ALCOHOL 1.4% OPH SOLN 15 ML OU SCH ×2 (09:46→17:10)
[2020-03-24] MEDS: INSULIN LISPRO 100 UNIT/ML 3 ML VIAL SUBCUT SCH ×4 (09:46→21:53)
[2020-03-24] MEDS: INSULIN GLARGINE,HUM.REC.ANLOG 1,000 UNIT/10 ML VIAL SUBCUT SCH ×2 (09:47→21:52)
[2020-03-24] MEDS: FERROUS SULFATE 325 MG TABLET PO SCH (10:08)
[2020-03-24] MEDS: DEXTROSE 5%-WATER 1000 ML 1,000 ML IV PRN (12:17)
[2020-03-24] MEDS: ACETAMINOPHEN 325 MG TABLET PO PRN (12:53)
[2020-03-24] MEDS: ATORVASTATIN CALCIUM 40 MG TABLET PO SCH (21:52)
[2020-03-24] MEDS: LATANOPROST 0.005% OPH SOLN 2.5 ML OP SCH (21:55)
[2020-03-25] MEDS: HYDRALAZINE HCL 50 MG TABLET PO SCH ×3 (05:24→22:44)
[2020-03-25] MEDS: DEXTROSE 5%-WATER 1000 ML 1,000 ML IV PRN (05:32)
[2020-03-25] MEDS: INSULIN LISPRO 100 UNIT/ML 3 ML VIAL SUBCUT SCH ×4 (09:51→21:49)
[2020-03-25] MEDS: ENOXAPARIN SODIUM INJ 30 MG/0.3 ML DISP.SYRIN SUBCUT SCH (09:53)
[2020-03-25] MEDS: ASCORBIC ACID 500 MG TABLET PO SCH ×2 (09:53→18:55)
[2020-03-25] MEDS: ASPIRIN 81 MG TABLET, ENT COATED PO SCH (09:53)
[2020-03-25] MEDS: FERROUS SULFATE 325 MG TABLET PO SCH (09:53)
[2020-03-25] MEDS: ZINC SULFATE 220 MG CAPSULE PO SCH (09:53)
[2020-03-25] MEDS: CHOLECALCIFEROL (D3) 1,000 UNIT (25 MCG) TABLET PO SCH (09:53)
[2020-03-25] MEDS: AMLODIPINE BESYLATE 5 MG TABLET PO SCH ×2 (09:54→22:42)
[2020-03-25] MEDS: PREDNISOLONE ACETATE 1% OPH SUSP 5 ML OU SCH ×2 (11:29→18:56)
[2020-03-25] MEDS: INSULIN GLARGINE,HUM.REC.ANLOG 1,000 UNIT/10 ML VIAL SUBCUT SCH ×2 (11:29→22:43)
[2020-03-25] MEDS: POLYVINYL ALCOHOL 1.4% OPH SOLN 15 ML OU SCH ×2 (11:30→18:56)
[2020-03-25] MEDS: TIMOLOL MALEATE 0.5% OPH SOLN 5 ML OU SCH ×2 (11:31→18:57)
[2020-03-25] MEDS: ATORVASTATIN CALCIUM 40 MG TABLET PO SCH (22:43)
[2020-03-25] MEDS: LATANOPROST 0.005% OPH SOLN 2.5 ML OP SCH (22:44)
[2020-03-26] MEDS: HYDRALAZINE HCL 50 MG TABLET PO SCH ×3 (06:41→22:14)
[2020-03-26] MEDS: DEXTROSE 5%-WATER 1000 ML 1,000 ML IV PRN ×2 (07:23→22:15)
[2020-03-26] MEDS: INSULIN LISPRO 100 UNIT/ML 3 ML VIAL SUBCUT SCH ×4 (08:53→22:13)
[2020-03-26] MEDS: ZINC SULFATE 220 MG CAPSULE PO SCH (11:34)
[2020-03-26] MEDS: FERROUS SULFATE 325 MG TABLET PO SCH (11:34)
[2020-03-26] MEDS: ASPIRIN 81 MG TABLET, ENT COATED PO SCH (11:34)
[2020-03-26] MEDS: ASCORBIC ACID 500 MG TABLET PO SCH ×2 (11:34→18:13)
[2020-03-26] MEDS: CHOLECALCIFEROL (D3) 1,000 UNIT (25 MCG) TABLET PO SCH (11:34)
[2020-03-26] MEDS: AMLODIPINE BESYLATE 5 MG TABLET PO SCH ×2 (11:34→22:12)
[2020-03-26] MEDS: ENOXAPARIN SODIUM INJ 30 MG/0.3 ML DISP.SYRIN SUBCUT SCH (11:34)
[2020-03-26] MEDS: POLYVINYL ALCOHOL 1.4% OPH SOLN 15 ML OU SCH ×2 (11:35→18:16)
[2020-03-26] MEDS: TIMOLOL MALEATE 0.5% OPH SOLN 5 ML OU SCH ×2 (11:35→18:17)
[2020-03-26] MEDS: PREDNISOLONE ACETATE 1% OPH SUSP 5 ML OU SCH ×2 (11:36→18:16)
[2020-03-26] MEDS: INSULIN GLARGINE,HUM.REC.ANLOG 1,000 UNIT/10 ML VIAL SUBCUT SCH ×2 (12:42→22:13)
--- NOTE | 2020-03-26 16:41 | PDOC PROGRESS REPORT ---
Subjective Date:: 03/24/20 - Late entry. Subjective:: Patient denied chest pain or difficulty with breathing. No reported fever or chills. PO intake remain a challenge. Reason For Visit: FAKK AT HOME, LEFT FEMUR FRACTURE, CVA WITH LEFT Physical Exam Vital Signs: Temp Pulse Resp BP Pulse Ox 99.3 F 88 17 153/55 H 95 03/26/20 15:27 03/26/20 15:27 03/26/20 15:27 03/26/20 15:27 03/26/20 15:27 Intake & Output 03/25/20 03/26/20 03/27/20 06:59 06:59 06:59 Intake Total 1689 1236 Output Total 925 675 Balance 764 561 Weight 76.4 kg 76.4 kg Physical Exam: General appearance: PRESENT: mild distress - due to pain from femur fracture Eye exam: PRESENT: conjunctiva pink. ABSENT: pallor, sclera icterus Respiratory exam: PRESENT: clear to auscultation francesca Cardiovascular exam: PRESENT: RRR, +S1, +S2. ABSENT: diastolic murmur, systolic murmur GI/Abdominal exam: PRESENT: normal bowel sounds, soft. ABSENT: tenderness Extremities exam: ABSENT: pedal edema Musculoskeletal exam: PRESENT: deformity - left lower extremity surgical site okay. Neurological exam: PRESENT: alert, awake Skin exam: PRESENT: dry, warm Results Laboratory Results: 03/20/20 11:00 03/24/20 05:17 03/10/20 21:42 Troponin I < 0.012 Impressions: Femur X-Ray 03/10/20 23:41 IMPRESSION: Intertrochanteric fracture of the proximal femur. No distal fracture copyright 2011 [employer]- All Rights Reserved Fluoroscopy 03/13/20 00:00 IMPRESSION: ORIF left hip. Refer to operative note for further information. Hip X-Ray 03/13/20 00:00 IMPRESSION: ORIF left hip. Refer to operative note for further information. Chest X-Ray 03/15/20 00:00 IMPRESSION: No acute cardiopulmonary process. Head CT 03/15/20 00:00 IMPRESSION: No acute intracranial abnormality. EVIDENCE OF ACUTE STROKE: NO. Renal Ultrasound 03/16/20 00:00 IMPRESSION: 1. No hydronephrosis. Left upper pole cyst measuring up to 3.8 cm. 2. Incidentally noted distended gallbladder with dependent sludge and wall thickening suggestive of cholecystitis. Recommend correlation with patient symptoms. Assessment & Plan - Diagnosis (1) Fall Qualifiers: Encounter type: initial encounter Qualified Code(s): W19.XXXA - Unspecified fall, initial encounter Is this a current diagnosis for this admission?: Yes (2) Intertrochanteric fracture of left hip Qualifiers: Encounter type: initial encounter Fracture type: closed Fracture alignment: displaced Qualified Code(s): S72.142A - Displaced intertrochanteric fracture of left femur, initial encounter for closed fracture Is this a current diagnosis for this admission?: Yes (3) History of cerebrovascular accident (CVA) with residual deficit Is this a current diagnosis for this admission?: Yes (4) Type 2 diabetes mellitus 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: 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: with 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 use Diabetes mellitus complication status: with neurologic complications Diabetes mellitus complication detail: with polyneuropathy Qualified Code(s): E11.42 - Type 2 diabetes mellitus with diabetic polyneuropathy; 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 Is this a current diagnosis for this admission?: Yes (5) Essential (primary) hypertension Is this a current diagnosis for this admission?: Yes (6) Hyperlipidemia Qualifiers: Hyperlipidemia type: unspecified Qualified Code(s): E78.5 - Hyperlipidemia, unspecified Is this a current diagnosis for this admission?: Yes - Time Time Spent with patient: 25-34 minutes Level of Care: IMCU Medications reviewed and adjusted accordingly: Yes Anticipated discharge: SNF Anticipated DC Timeframe: within 72 hours - Inpatient Certification Based on my medical assessment, after consideration of the patient's comorbidities, presenting symptoms, or acuity I expect that the services needed warrant INPATIENT care.: Yes I certify that my determination is in accordance with my understanding of Medicare's requirements for reasonable and necessary INPATIENT services [42 CFR 412.3e].: Yes Medical Necessity: Significant Comorbidiites Make Outpatient Treatment Too Risky, Need Close Monitoring Due to Risk of Patient Decompensation, Need For IV Fluids, Need For Continuous Telemetry Monitoring, Need for Pain Control, Risk of Complication if Not Cared For in Hospital, Risk of Diagnosis Which Will Require Inpatient Eval/Care/Monitoring - Plan Summary Plan Summary: Continue current medication management. Encourage oral intake.
--- NOTE | 2020-03-26 16:44 | PDOC PROGRESS REPORT ---
Subjective Date:: 03/25/20 - Late entry Subjective:: Patient denied chest pain or difficulty with breathing. No reported fever or chills. No nausea, vomiting, or abdominal pain. Patient is still refusing most of his food. Reason For Visit: FAKK AT HOME, LEFT FEMUR FRACTURE, CVA WITH LEFT Physical Exam Vital Signs: Temp Pulse Resp BP Pulse Ox 99.3 F 88 17 153/55 H 95 03/26/20 15:27 03/26/20 15:27 03/26/20 15:27 03/26/20 15:27 03/26/20 15:27 Intake & Output 03/25/20 03/26/20 03/27/20 06:59 06:59 06:59 Intake Total 1689 1236 Output Total 925 675 Balance 764 561 Weight 76.4 kg 76.4 kg Physical Exam: General appearance: PRESENT: mild distress - due to pain from femur fracture Eye exam: PRESENT: conjunctiva pink. ABSENT: pallor, sclera icterus Respiratory exam: PRESENT: clear to auscultation francesca Cardiovascular exam: PRESENT: RRR, +S1, +S2. ABSENT: diastolic murmur, systolic murmur GI/Abdominal exam: PRESENT: normal bowel sounds, soft. ABSENT: tenderness Extremities exam: ABSENT: pedal edema Musculoskeletal exam: PRESENT: deformity - left lower extremity outward rotation due to femur fracture. Neurological exam: PRESENT: alert, awake Skin exam: PRESENT: dry, warm Results Laboratory Results: 03/20/20 11:00 03/24/20 05:17 03/10/20 21:42 Troponin I < 0.012 Impressions: Femur X-Ray 03/10/20 23:41 IMPRESSION: Intertrochanteric fracture of the proximal femur. No distal fracture copyright 2011 [employer]- All Rights Reserved Fluoroscopy 03/13/20 00:00 IMPRESSION: ORIF left hip. Refer to operative note for further information. Hip X-Ray 03/13/20 00:00 IMPRESSION: ORIF left hip. Refer to operative note for further information. Chest X-Ray 03/15/20 00:00 IMPRESSION: No acute cardiopulmonary process. Head CT 03/15/20 00:00 IMPRESSION: No acute intracranial abnormality. EVIDENCE OF ACUTE STROKE: NO. Renal Ultrasound 03/16/20 00:00 IMPRESSION: 1. No hydronephrosis. Left upper pole cyst measuring up to 3.8 cm. 2. Incidentally noted distended gallbladder with dependent sludge and wall thickening suggestive of cholecystitis. Recommend correlation with patient symptoms. Assessment & Plan - Diagnosis (1) Fall Qualifiers: Encounter type: initial encounter Qualified Code(s): W19.XXXA - Unspecified fall, initial encounter Is this a current diagnosis for this admission?: Yes (2) Intertrochanteric fracture of left hip Qualifiers: Encounter type: initial encounter Fracture type: closed Fracture alignment: displaced Qualified Code(s): S72.142A - Displaced intertrochanteric fracture of left femur, initial encounter for closed fracture Is this a current diagnosis for this admission?: Yes (3) History of cerebrovascular accident (CVA) with residual deficit Is this a current diagnosis for this admission?: Yes (4) Type 2 diabetes mellitus Qualifiers: 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: with 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 planning strategist use Diabetes mellitus complication status: with neurologic complications Diabetes mellitus complication detail: with polyneuropathy Qualified Code(s): E11.42 - Type 2 diabetes mellitus with diabetic polyneuropathy; Z79.4 - [facility] (current) use of insulin Is this a current diagnosis for this admission?: Yes (5) Essential (primary) hypertension Is this a current diagnosis for this admission?: Yes (6) Hyperlipidemia Qualifiers: Hyperlipidemia type: unspecified Qualified Code(s): E78.5 - Hyperlipidemia, unspecified Is this a current diagnosis for this admission?: Yes - Time Time Spent with patient: 25-34 minutes Level of Care: IMCU Medications reviewed and adjusted accordingly: Yes Anticipated discharge: SNF Anticipated DC Timeframe: within 72 hours - Inpatient Certification Based on my medical assessment, after consideration of the patient's comorbidi ties, presenting symptoms, or acuity I expect that the services needed warrant INPATIENT care.: Yes I certify that my determination is in accordance with my understanding of Sheri banda's requirements for reasonable and necessary INPATIENT services [42 CFR 412.3e].: Yes Medical Necessity: Significant Comorbidiites Make Outpatient Treatment Too Risky, Need Close Monitoring Due to Risk of Patient Decompensation, Need For IV Fluids, Need For Continuous Telemetry Monitoring, Need for Pain Control, Risk of Complication if Not Cared For in Hospital, Risk of Diagnosis Which Will Require Inpatient Eval/Care/Monitoring Post Hospital Care: D/C or Transfer Summary - Plan Summary Plan Summary: Continue current medication management.
--- NOTE | 2020-03-26 16:49 | PDOC PROGRESS REPORT ---
Subjective Date:: 03/26/20 Subjective:: Patient denied chest pain or difficulty with breathing. No reported fever or chills. Appetite and PO intake remain poor. No nausea, vomiting, or abdominal pain. No reported bowel movement for couple of days. Reason For Visit: FAKK AT HOME, LEFT FEMUR FRACTURE, CVA WITH LEFT Physical Exam Vital Signs: Temp Pulse Resp BP Pulse Ox 99.3 F 88 17 153/55 H 95 03/26/20 15:27 03/26/20 15:27 03/26/20 15:27 03/26/20 15:27 03/26/20 15:27 Intake & Output 03/25/20 03/26/20 03/27/20 06:59 06:59 06:59 Intake Total 1689 1236 Output Total 925 675 Balance 764 561 Weight 76.4 kg 76.4 kg Physical Exam: General appearance: PRESENT: mild distress - due to pain from femur fracture Eye exam: PRESENT: conjunctiva pink. ABSENT: pallor, sclera icterus Respiratory exam: PRESENT: clear to auscultation francesca Cardiovascular exam: PRESENT: RRR, +S1, +S2. ABSENT: diastolic murmur, systolic murmur GI/Abdominal exam: PRESENT: normal bowel sounds, soft. ABSENT: tenderness Extremities exam: ABSENT: pedal edema Musculoskeletal exam: PRESENT: deformity - left lower extremity outward rotation due to femur fracture. Neurological exam: PRESENT: alert, awake Skin exam: PRESENT: dry, warm Results Laboratory Results: 03/20/20 11:00 03/24/20 05:17 03/10/20 21:42 Troponin I < 0.012 Impressions: Femur X-Ray 03/10/20 23:41 IMPRESSION: Intertrochanteric fracture of the proximal femur. No distal fracture copyright 2011 [employer]- All Rights Reserved Fluoroscopy 03/13/20 00:00 IMPRESSION: ORIF left hip. Refer to operative note for further information. Hip X-Ray 03/13/20 00:00 IMPRESSION: ORIF left hip. Refer to operative note for further information. Chest X-Ray 03/15/20 00:00 IMPRESSION: No acute cardiopulmonary process. Head CT 03/15/20 00:00 IMPRESSION: No acute intracranial abnormality. EVIDENCE OF ACUTE STROKE: NO. Renal Ultrasound 03/16/20 00:00 IMPRESSION: 1. No hydronephrosis. Left upper pole cyst measuring up to 3.8 cm. 2. Incidentally noted distended gallbladder with dependent sludge and wall thickening suggestive of cholecystitis. Recommend correlation with patient symptoms. Assessment & Plan - Diagnosis (1) Fall Qualifiers: Encounter type: initial encounter Qualified Code(s): W19.XXXA - Unspecified fall, initial encounter Is this a current diagnosis for this admission?: Yes (2) Intertrochanteric fracture of left hip Qualifiers: Encounter type: initial encounter Fracture type: closed Fracture alignment: displaced Qualified Code(s): S72.142A - Displaced intertrochanteric fracture of left femur, initial encounter for closed fracture Is this a current diagnosis for this admission?: Yes (3) History of cerebrovascular accident (CVA) with residual deficit Is this a current diagnosis for this admission?: Yes (4) Type 2 diabetes mellitus 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 operator intermodal yard use Diabetes mellitus complication status: with neurologic complications Diabetes mellitus complication detail: with polyneuropathy Qualified Code(s): E11.42 - Type 2 diabetes mellitus with diabetic polyneuropathy; Z79.4 - long term care administrator (current) use of insulin Is this a current diagnosis for this admission?: Yes (5) Essential (primary) hypertension Is this a current diagnosis for this admission?: Yes (6) Hyperlipidemia Qualifiers: Hyperlipidemia type: unspecified Qualified Code(s): E78.5 - Hyperlipidemia, unspecified Is this a current diagnosis for this admission?: Yes (7) Constipation Qualifiers: Constipation type: unspecified constipation type Qualified Code(s): K59.00 - Constipation, unspecified Is this a current diagnosis for this admission?: Yes Plan: Obtain KUB evaluation and if indicated administer Lactulose 30 ml po x 1 dose with Dulcolax suppository 10 mg DE to achieve bowel movement. Continue all other current medication management. - Time Time Spent with patient: 25-34 minutes Level of Care: IMCU Medications reviewed and adjusted accordingly: Yes Anticipated discharge: SNF Anticipated DC Timeframe: within 72 hours - Inpatient Certification Based on my medical assessment, after consideration of the patient's comorbidities, presenting symptoms, or acuity I expect that the services needed warrant INPATIENT care.: Yes I certify that my determination is in accordance with my understanding of Medicare's requirements for reasonable and necessary INPATIENT services [42 CFR 412.3e].: Yes Medical Necessity: Significant Comorbidiites Make Outpatient Treatment Too Risky, Need Close Monitoring Due to Risk of Patient Decompensation, Need For IV Fluids, Need For Continuous Telemetry Monitoring, Risk of Complication if Not C ared For in Hospital, Risk of Diagnosis Which Will Require Inpatient Eval/Care/Monitoring Post Hospital Care: D/C or Transfer Summary - Plan Summary Plan Summary: See covering attending physician orders for details about care plan. Obtain CBC with diff and CMP in AM.
[2020-03-26] MEDS: OXYCODONE-ACETAMINOPHEN 5-325 MG TABLET PO PRN (18:18)
[2020-03-26] MEDS: ATORVASTATIN CALCIUM 40 MG TABLET PO SCH (22:12)
[2020-03-26] MEDS: LATANOPROST 0.005% OPH SOLN 2.5 ML OP SCH (22:15)
[2020-03-27 05:58] LABS: ABSOLUTE BASOPHILS # (AUTO) 0.1 10^3/uL (0.0-0.2); ABSOLUTE EOSINOPHILS # (AUTO) 0.1 10^3/uL (0.0-0.6); ABSOLUTE LYMPHOCYTES (AUTO) 1.5 10^3/uL (0.5-4.7); ABSOLUTE MONOCYTES (AUTO) 1.5 10^3/uL (0.1-1.4); BASOPHILS % (AUTO) 1.2 % (0-2); EOSINOPHILS % (AUTO) 0.9 % (0-6); HEMATOCRIT 22.3 % (37.9-51.0); LYMPHOCYTES % (AUTO) 13.1 % (13-45); MEAN CORPUSCULAR HEMOGLOBIN 26.9 pg (27.0-33.4); MEAN CORPUSCULAR HGB CONC 33.3 g/dL (32.0-36.0); MEAN CORPUSCULAR VOLUME 81 fl (80-97); MONOCYTES % (AUTO) 13.3 % (3-13); PLATELET COUNT 350 10^3/uL (150-450); RED BLOOD COUNT 2.77 10^6/uL (4.35-5.55); RED CELL DISTRIBUTION WIDTH 16.4 % (11.5-14.0); SEGMENTED NEUTROPHILS % (AUTO) 71.5 % (42-78); TOTAL CELLS COUNTED % (AUTO) 100 %; WHITE BLOOD COUNT 11.1 10^3/uL (4.0-10.5)
[2020-03-27 06:00] LABS: HEMOGLOBIN 7.4 g/dL (13.5-17.0)
[2020-03-27 06:15] LABS: ALBUMIN 2.7 g/dL (3.5-5.0); ALKALINE PHOSPHATASE 103 U/L (38-126); ANION GAP 8 (5-19); ASPARTATE AMINO TRANSFERASE 26 U/L (17-59); BILIRUBIN,DIRECT 0.2 mg/dL (0.0-0.4); BILIRUBIN,TOTAL 0.7 mg/dL (0.2-1.3); BLOOD UREA NITROGEN 22 mg/dL (7-20); CALCIUM 8.3 mg/dL (8.4-10.2); CARBON DIOXIDE 23 mmol/L (22-30); CHLORIDE 105 mmol/L (98-107); GLUCOSE 143 mg/dL (75-110); POTASSIUM 3.7 mmol/L (3.6-5.0); TOTAL PROTEIN 5.9 g/dL (6.3-8.2)
[2020-03-27] MEDS: HYDRALAZINE HCL 50 MG TABLET PO SCH ×3 (06:41→23:42)
[2020-03-27] MEDS: INSULIN LISPRO 100 UNIT/ML 3 ML VIAL SUBCUT SCH ×4 (08:51→23:43)
[2020-03-27] MEDS: ASPIRIN 81 MG TABLET, ENT COATED PO SCH (10:55)
[2020-03-27] MEDS: ZINC SULFATE 220 MG CAPSULE PO SCH (10:55)
[2020-03-27] MEDS: ENOXAPARIN SODIUM INJ 30 MG/0.3 ML DISP.SYRIN SUBCUT SCH (10:55)
[2020-03-27] MEDS: AMLODIPINE BESYLATE 5 MG TABLET PO SCH ×2 (10:56→23:35)
[2020-03-27] MEDS: ASCORBIC ACID 500 MG TABLET PO SCH ×2 (11:05→18:15)
[2020-03-27] MEDS: CHOLECALCIFEROL (D3) 1,000 UNIT (25 MCG) TABLET PO SCH (11:06)
[2020-03-27] MEDS: FERROUS SULFATE 325 MG TABLET PO SCH (11:06)
[2020-03-27] MEDS: TIMOLOL MALEATE 0.5% OPH SOLN 5 ML OU SCH ×2 (11:08→18:13)
[2020-03-27] MEDS: OXYCODONE-ACETAMINOPHEN 5-325 MG TABLET PO PRN ×2 (11:11→18:18)
[2020-03-27] MEDS: PREDNISOLONE ACETATE 1% OPH SUSP 5 ML OU SCH ×2 (11:12→18:12)
[2020-03-27] MEDS: POLYVINYL ALCOHOL 1.4% OPH SOLN 15 ML OU SCH ×2 (11:12→18:12)
[2020-03-27] MEDS: INSULIN GLARGINE,HUM.REC.ANLOG 1,000 UNIT/10 ML VIAL SUBCUT SCH ×2 (13:36→23:44)
[2020-03-27] MEDS: DEXTROSE 5%-WATER 1000 ML 1,000 ML IV PRN (18:21)
[2020-03-27] MEDS ORDERED: NORMAL SALINE 250 ML IV PRN ×2 (18:46)
--- NOTE | 2020-03-27 19:06 | PDOC TRANSFER SUMMARY ---
Impression - Admit/DC Date/PCP Admission Date/Primary Care Provider: 03/11/20 02:40 EMILY BAXTER MD Discharge Date: 03/28/20 - Discharge Diagnosis (1) Intertrochanteric fracture of left hip Is this a current diagnosis for this admission?: Yes (2) COVID-19 Is this a current diagnosis for this admission?: Yes (3) Type 2 diabetes mellitus Is this a current diagnosis for this admission?: Yes (4) Hypernatremia Is this a current diagnosis for this admission?: Yes (5) DANDRE (acute kidney injury) Is this a current diagnosis for this admission?: Yes (6) History of cerebrovascular accident (CVA) with residual deficit Is this a current diagnosis for this admission?: Yes (7) Anemia in chronic kidney disease (CKD) Is this a current diagnosis for this admission?: Yes (8) Chronic kidney disease, stage 3 Is this a current diagnosis for this admission?: Yes (9) Hemiparesis of right dominant side Is this a current diagnosis for this admission?: Yes - Additional Information Resuscitation Status: Full Code Referrals: CHARITY BAIN MD [NO LOCAL MD] - Follow up as needed Home Medications: Amlodipine Besylate [Norvasc 5 mg Tablet] 5 mg PO Q12 11/02/18 Aspirin [Adult Low Dose Aspirin EC] 81 mg PO DAILY 11/02/18 Atorvastatin Calcium [Lipitor 40 mg Tablet] 40 mg PO DAILY 11/02/18 Dextran 70/Hypromellose/Pf [Genteal Tears 0.1%-0.3% Drop] 1 drop OU BID 11/02/18 Ferrous Sulfate [Feosol] 325 mg PO DAILY 11/02/18 Brimonidine Tartrate [Alphagan P] 1 drop OP BID 03/11/20 Calcium Carb/D3/Magnesium/Zinc [Derick Mag Zinc-D Tablet] 1 tab PO DAILY 03/11/20 Cholecalciferol (Vitamin D3) [Vitamin D3 1000 Unit Tablet] 1,000 unit PO DAILY 03/11/20 Hydralazine HCl [Apresoline 25 mg Tablet] 25 mg PO TID 03/11/20 Insulin Aspart [Novolog] 16 - 18 unit SQ QHS 03/11/20 Insulin Aspart [Novolog] 20 unit SQ QAM 03/11/20 Latanoprost [Xalatan] 1 drop OP QHS 03/11/20 Lisinopril [Prinivil] 20 mg PO DAILY 03/11/20 Neomycin/Polymyxin B/Dexametha [Maxitrol Eye Ointment] 1 applic OP QHS 03/11/20 Prednisolone Acetate [Pred Mild] 1 drop OP BID 03/11/20 Timolol Maleate 1 drop OP BID 03/11/20 Acetaminophen [Tylenol 325 mg Tablet] 650 mg PO Q4HP PRN tablet 03/27/20 Insulin Glargine,Hum.rec.anlog [Lantus Insulin 100 Unit/1 ml 10 ml] 15 unit SUBCUT QHS unit 03/27/20 Insulin Lispro [Humalog Insulin (Lispro) 100 unit/mL] 0 - 12 unit SUBCUT ACHS unit 03/27/20 Zinc Sulfate [Zinc-220 Capsule] 220 mg PO DAILY capsule 03/27/20 History of Present Illiness History of Present Illness: JYOTI POLLOCK is a 75 year old male patient he presented to the ED following a fall at home following attempt in transfer from [facility] to his wheelchair with subsequent development of left hip pain. Patient has history of CVA with left residual deficit. He denied any associated chest pain, palpitation, shortness of breath, or loss of consciousness. Patient reported possibly hitting his head but denied any neck injury. He did not ambulate since the incident of fall at home due to pain in his left hip. His initial ED evaluation was significant for left intertrochanteric fracture. He was advised hospitalization for further evaluation and management. 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 Hospital Course Hospital Course: She fell and sustained fracture of the left hip, he had left hip displaced intertrochanteric fracture, he was screened for SARS-CoV-2 infection before surgery, came back positive for infection. He underwent left hip cephal omedullary gamma nailing on March 13, [address] Shakir Herrera. Hospital course was complicated with acute kidney injury, hypernatremia, he has underlining chronic kidney disease from diabetes mellitus, he was seen in consultation by nephrology, the azotemia was corrected with IV fluid. Patient with anorexia and diminished intake for prolonged hospital course, he was seen by speech evaluated it was felt that patient could eat by mouth. He has residual weakness from his stroke also legally blind.There was no Covid related pneumonia, chest x-ray was clear Physical Exam Vital Signs: Temp Pulse Resp BP Pulse Ox 97.9 F 81 18 159/55 H 98 03/27/20 16:17 03/27/20 16:17 03/27/20 16:17 03/27/20 16:17 03/27/20 16:17 Intake & Output 03/26/20 03/27/20 03/28/20 06:59 06:59 06:59 Intake Total 1236 1030 1236 Output Total 675 950 Balance 321 42 1626 Weight 76.4 kg 79.7 kg General appearance: PRESENT: no acute distress Eye exam: PRESENT: PERRLA Respiratory exam: PRESENT: clear to auscultation francesca Cardiovascular exam: PRESENT: +S1, +S2 GI/Abdominal exam: PRESENT: soft Neurological exam: PRESENT: alert, motor sensory deficit Results Laboratory Results: WBC 11.1 10^3/uL (4.0-10.5) H 03/27/20 05:14 RBC 2.77 10^6/uL (4.35-5.55) L 03/27/20 05:14 Hgb 7.4 g/dL (13.5-17.0) L 03/27/20 05:14 Hct 22.3 % (37.9-51.0) L 03/27/20 05:14 MCV 81 fl (80-97) 03/27/20 05:14 MCH 26.9 pg (27.0-33.4) L 03/27/20 05:14 MCHC 33.3 g/dL (32.0-36.0) 03/27/20 05:14 RDW 16.4 % (11.5-14.0) H 03/27/20 05:14 Plt Count 350 10^3/uL (150-450) 03/27/20 05:14 Lymph % (Auto) 13.1 % (13-45) 03/27/20 05:14 [place] % (Auto) 13.3 % (3-13) H 03/27/20 05:14 Eos % (Auto) 0.9 % (0-6) 03/27/20 05:14 Baso % (Auto) 1.2 % (0-2) 03/27/20 05:14 Reticulocyte # 0.054 10^6/uL (0.028-0.122) 03/17/20 05:18 Absolute Neuts (auto) 8.0 10^3/uL (1.7-8.2) 03/27/20 05:14 Absolute Lymphs (auto) 1.5 10^3/uL (0.5-4.7) 03/27/20 05:14 Absolute Monos (auto) 1.5 10^3/uL (0.1-1.4) H 03/27/20 05:14 Absolute Eos (auto) 0.1 10^3/uL (0.0-0.6) 03/27/20 05:14 Absolute Basos (auto) 0.1 10^3/uL (0.0-0.2) 03/27/20 05:14 Total Counted 100 03/20/20 11:00 Seg Neutrophils % 71.5 % (42-78) 03/27/20 05:14 Seg Neuts % (Manual) 80 % (42-78) H 03/20/20 11:00 Band Neutrophils % 6 % (3-5) H 03/18/20 04:18 Lymphocytes % (Manual) 8 % (13-45) L 03/20/20 11:00 Atypical Lymphs % 2 % (0) 03/20/20 11:00 Monocytes % (Manual) 7 % (3-13) 03/20/20 11:00 Eosinophils % (Manual) 1 % (0-6) 03/20/20 11:00 Basophils % (Manual) 0 % (0-2) 03/20/20 11:00 Metamyelocytes % 1 % (0-1) 03/20/20 11:00 Promyelocytes % 1 % (0) H 03/20/20 11:00 Abs Neuts (Manual) 9.1 10^3/uL (1.7-8.2) H 03/20/20 11:00 Abs Lymphs (Manual) 1.1 10^3/uL (0.5-4.7) 03/20/20 11:00 Abs Monocytes (Manual) 0.8 10^3/uL (0.1-1.4) 03/20/20 11:00 Absolute Eos (Manual) 0.1 10^3/uL (0.0-0.6) 03/20/20 11:00 Abs Basophils (Manual) 0.0 10^3/uL (0.0-0.2) 03/20/20 11:00 Platelet Comment INCREASED 03/20/20 11:00 Polychromasia 1+ 03/18/20 04:18 Anisocytosis 1+ 03/20/20 11:00 Retic Count (auto) 1.74 % (0.66-2.85) 03/17/20 05:18 Sodium 136.3 mmol/L (137-145) L 03/27/20 05:14 Potassium 3.7 mmol/L (3.6-5.0) 03/27/20 05:14 Chloride 105 mmol/L (98-107) 03/27/20 05:14 Carbon Dioxide 23 mmol/L (22-30) 03/27/20 05:14 Anion Gap 8 (5-19) 03/27/20 05:14 BUN 22 mg/dL (7-20) H 03/27/20 05:14 Creatinine 1.25 mg/dL (0.52-1.25) 03/27/20 05:14 Est GFR ( Amer) > 60 (>60) 03/27/20 05:14 Est GFR (Non-Af Amer) Cancelled 03/23/20 05:09 Est GFR (MDRD) Non-Af 56 (>60) L 03/27/20 05:14 Glucose 143 mg/dL (75-110) H 03/27/20 05:14 POC Glucose 149 mg/dL (70-110) H 03/27/20 16:15 Calcium 8.3 mg/dL (8.4-10.2) L 03/27/20 05:14 Iron 15.6 ug/dL (49-181) L 03/17/20 05:18 TIBC 164 ug/dL (250-450) L 03/17/20 05:18 % Saturation 10 % 03/17/20 05:18 Ferritin 1660.00 ng/mL (17.9-464.0) H 03/17/20 05:18 Total Bilirubin 0.7 mg/dL (0.2-1.3) 03/27/20 05:14 Direct Bilirubin 0.2 mg/dL (0.0-0.4) 03/27/20 05:14 Neonat Total Bilirubin Not Reportable 03/27/20 05:14 Neonat Direct Bilirubin Not Reportable 03/27/20 05:14 Neonat Indirect Bili Not Reportable 03/27/20 05:14 AST 26 U/L (17-59) 03/27/20 05:14 ALT 12 U/L (<50) 03/27/20 05:14 Alkaline Phosphatase 103 U/L (38-126) 03/27/20 05:14 Troponin I < 0.012 ng/mL 03/10/20 21:42 Total Protein 5.9 g/dL (6.3-8.2) L 03/27/20 05:14 Albumin 2.7 g/dL (3.5-5.0) L 03/27/20 05:14 Globulin 3.9 g/dL (2.2-3.9) 03/17/20 05:18 Albumin/Globulin Ratio 0.7 (0.7-1.7) 03/17/20 05:18 Gnooa-0-Fzjyqewxl 0.6 g/dL (0.0-0.4) H 03/17/20 05:18 Beta Globulins 1.0 g/dL (0.7-1.3) 03/17/20 05:18 Gamma Globulins 0.8 g/dL (0.4-1.8) 03/17/20 05:18 M-Matthew Not Observed g/dL (Not Observ) 03/17/20 05:18 PEP Note Comment (.) 03/17/20 05:18 PEP Interpretation Comment (.) 03/17/20 05:18 EGFR Cancelled 03/23/20 05:09 Vitamin B12 884.0 pg/mL (239-931) 03/17/20 05:18 Folate 6.95 ng/mL (>2.76) 03/17/20 05:18 Urine Color YELLOW 03/11/20 18:15 Urine Appearance SLIGHTLY-CLOUDY 03/11/20 18:15 Urine pH 5.0 (5.0-9.0) 03/11/20 18:15 Ur Specific [place] 1.017 03/11/20 18:15 Urine Protein >=500 mg/dL (NEGATIVE) H 03/11/20 18:15 Urine Glucose (UA) 150 mg/dL (NEGATIVE) H 03/11/20 18:15 Urine Ketones TRACE mg/dL (NEGATIVE) H 03/11/20 18:15 Urine Blood SMALL (NEGATIVE) H 03/11/20 18:15 Urine Nitrite (Reflex) NEGATIVE (NEGATIVE) 03/11/20 18:15 Urine Bilirubin NEGATIVE (NEGATIVE) 03/11/20 18:15 Urine Urobilinogen NEGATIVE mg/dL (<2.0) 03/11/20 18:15 Leukocyte Esterase Rfl NEGATIVE (NEGATIVE) 03/11/20 18:15 Urine RBC (Auto) 25 /HPF 03/11/20 18:15 Urine Bacteria (Auto) TRACE /HPF 03/11/20 18:15 Urine WBC (Reflex) 3 /HPF 03/11/20 18:15 Squamous Epi Cells Auto <1 /HPF 03/11/20 18:15 Urine Mucus (Auto) RARE /LPF 03/11/20 18:15 Urine Creatinine 87.7 mg/dL (22-328) 03/14/20 22:01 Protein/Creatinin Ratio 2.2 mg/mg (0.0-0.2) H 03/14/20 22:01 Urine Total Protein 191.2 mg/dL (<12) H 03/14/20 22:01 Urine Ascorbic Acid NEGATIVE (NEGATIVE) 03/11/20 18:15 Tplgl-1-Ifkjlsnup NILAM 1.4 g/dL (0.4-1.0) H 03/17/20 05:18 Influenza A (RT-PCR) NEGATIVE (NEGATIVE) 03/11/20 09:15 Influenza B (RT-PCR) NEGATIVE (NEGATIVE) 03/11/20 09:15 RSV (RT-PCR) NEGATIVE (NEGATIVE) 03/11/20 09:15 SARS-CoV-2 Rap RNA(RT-PCR) POSITIVE (NEGATIVE) 03/11/20 09:15 Slides for Path Review PATHOLOGIST REVIEWED 03/20/20 11:00 Blood Type O NEGATIVE 03/15/20 11:39 Antibody Screen NEGATIVE 03/15/20 11:39 Crossmatch See Detail 03/15/20 11:39 03/10/20 21:42 Troponin I < 0.012 Impressions: Head CT 03/10/20 21:15 IMPRESSION: Chronic ischemic changes as above. No definite acute intracranial abnormality is seen. TECHNICAL DOCUMENTATION: Quality ID # [id number]: Final reports with documentation of one or more dose reduction techniques (e.g., Automated exposure control, adjustment of the mA and/or kV according to patient size, use of iterative reconstruction technique) copyright 2010 [employer]- All Rights Reserved Hip X-Ray 03/10/20 21:15 IMPRESSION: Left intertrochanteric fracture deformity as above copyright 2010 [employer]- All Rights Reserved Chest X-Ray 03/10/20 22:39 IMPRESSION: 1. No acute pulmonary findings. Femur X-Ray 03/10/20 23:41 IMPRESSION: Intertrochanteric fracture of the proximal femur. No distal fracture copyright 2010 [employer]- All Rights Reserved Fluoroscopy 03/13/20 00:00 IMPRESSION: ORIF left hip. Refer to operative note for further information. Hip X-Ray 03/13/20 00:00 IMPRESSION: ORIF left hip. Refer to operative note for further information. Chest X-Ray 03/15/20 00:00 IMPRESSION: No acute cardiopulmonary process. Head CT 03/15/20 00:00 IMPRESSION: No acute intracranial abnormality. EVIDENCE OF ACUTE STROKE: NO. Renal Ultrasound 03/16/20 00:00 IMPRESSION: 1. No hydronephrosis. Left upper pole cyst measuring up to 3.8 cm. 2. Incidentally noted distended gallbladder with dependent sludge and wall thickening suggestive of cholecystitis. Recommend correlation with patient symptoms. Stroke Is this a Stroke Patient?: No Acute Heart Failure Is this a Heart Failure Patient?: No
[2020-03-27] MEDS: LATANOPROST 0.005% OPH SOLN 2.5 ML OP SCH (23:21)
[2020-03-27] MEDS: ATORVASTATIN CALCIUM 40 MG TABLET PO SCH (23:42)
[2020-03-28] MEDS: AMLODIPINE BESYLATE 5 MG TABLET PO SCH ×2 (04:13→10:51)
[2020-03-28] MEDS: OXYCODONE-ACETAMINOPHEN 5-325 MG TABLET PO PRN ×2 (04:18→16:31)
[2020-03-28] MEDS: HYDRALAZINE HCL 50 MG TABLET PO SCH ×2 (06:46→16:31)
[2020-03-28] MEDS: INSULIN LISPRO 100 UNIT/ML 3 ML VIAL SUBCUT SCH ×3 (08:49→16:30)
[2020-03-28] MEDS: ENOXAPARIN SODIUM INJ 30 MG/0.3 ML DISP.SYRIN SUBCUT SCH (10:51)
[2020-03-28] MEDS: ASCORBIC ACID 500 MG TABLET PO SCH (10:51)
[2020-03-28] MEDS: ASPIRIN 81 MG TABLET, ENT COATED PO SCH (10:52)
[2020-03-28] MEDS: POLYVINYL ALCOHOL 1.4% OPH SOLN 15 ML OU SCH (10:52)
[2020-03-28] MEDS: TIMOLOL MALEATE 0.5% OPH SOLN 5 ML OU SCH (10:52)
[2020-03-28] MEDS: FERROUS SULFATE 325 MG TABLET PO SCH (10:52)
[2020-03-28] MEDS: CHOLECALCIFEROL (D3) 1,000 UNIT (25 MCG) TABLET PO SCH (10:52)
[2020-03-28] MEDS: ZINC SULFATE 220 MG CAPSULE PO SCH (10:52)
[2020-03-28] MEDS: PREDNISOLONE ACETATE 1% OPH SUSP 5 ML OU SCH (10:53)
[2020-03-28] MEDS: INSULIN GLARGINE,HUM.REC.ANLOG 1,000 UNIT/10 ML VIAL SUBCUT SCH (11:06)
[2020-03-28 14:16] VITALS: BP 159/53
== END 2020-03-28 16:56 | DRG 480 ==
LOC: ER 19:59 → EH 03-11 02:40 → 5 03-11 04:00 → 3W 03-11 11:47
PROVIDERS: ADMIT Family Medicine; ATTEND Family Medicine
PROC: 0QS736Z Reposition Left Upper Femur with Intramedullary Internal Fixation Device, Percutaneous Approach (ICD-10-PCS; principal; 2020-03-13 11:00)
DX: S72.142A Displaced intertrochanteric fracture of left femur, initial encounter for closed fracture (principal); U07.1 COVID-19; E87.0 Hyperosmolality and hypernatremia; I69.354 Hemiplegia and hemiparesis following cerebral infarction affecting left non-dominant side; N17.9 Acute kidney failure, unspecified; I25.10 Atherosclerotic heart disease of native coronary artery without angina pectoris; E78.5 Hyperlipidemia, unspecified; I12.9 Hypertensive chronic kidney disease with stage 1 through stage 4 chronic kidney disease, or unspecified chronic kidney disease; E11.22 Type 2 diabetes mellitus with diabetic chronic kidney disease; N18.31 Chronic kidney disease, stage 3a; K21.9 Gastro-esophageal reflux disease without esophagitis; D63.1 Anemia in chronic kidney disease; D50.9 Iron deficiency anemia, unspecified; E11.65 Type 2 diabetes mellitus with hyperglycemia; K59.00 Constipation, unspecified; E11.42 Type 2 diabetes mellitus with diabetic polyneuropathy; M19.90 Unspecified osteoarthritis, unspecified site; Z87.891 Personal history of nicotine dependence; Z79.4 Long term (current) use of insulin; Z79.899 Other long term (current) drug therapy; Z79.82 Long term (current) use of aspirin; W17.89XA Other fall from one level to another, initial encounter; Y92.002 Bathroom of unspecified non-institutional (private) residence as the place of occurrence of the external cause; E87.5 Hyperkalemia; Z85.46 Personal history of malignant neoplasm of prostate; E87.8 Other disorders of electrolyte and fluid balance, not elsewhere classified
CPT/HCPCS: 01230; 36415; 36430; 70450; 71045; 76775; 80048; 80053; 81001; 82570; 82607; 82728; 82746; 82962; 83540; 83550; 84132; 84156; 84165; 84484; 85025; 85027; 85045; 86850; 86900; 86901; 86920; 87040; 88305; 88311; 88342; 93005; 93010; 99140; 99285; 0241U; C1713; C1769; C9803; J0456; J0690; J0692; J1650; J1815; J2250; J2270; J2405; J2704; J3010; J3490; J7030; J7050; J7060; P9016